=== PATIENT | female | born 1960 | race Hispanic/Latino ===

== ENCOUNTER 2019-04-19 18:47 | Emergency (ER) | payer SELFPAY ==
[2019-04-19 20:18] LABS: Absolute Lymphocytes (CBC) 2.5 K/uL (0.7-4.9); Basophils % 0.4 % (0-1.3); Hematocrit 37.9 % (36.0-45.0); Lymphocytes % 31.3 % (15.3-44.8); MPV 8.7 fL (7.6-11.3); RBC Red Blood Cell Count 4.18 M/uL (3.86-4.86)
[2019-04-19 20:40] LABS: Albumin 3.4 g/dL (3.4-5.0); Bilirubin Direct 0.2 mg/dL (0-0.2); Bilirubin Total 0.5 mg/dL (0.2-1.0); Potassium 3.6 mmol/L (3.5-5.1); Protein, Total 7.5 g/dL (6.4-8.2)
[2019-04-19] MEDS ORDERED: FAMOTIDINE 20 MG/2 ML VIAL IV ONE (20:43)
[2019-04-19] MEDS ORDERED: NA CHLORIDE 0.9% 1,000 ML ONE (20:43)
[2019-04-19] MEDS ORDERED: ONDANSETRON 4 MG/2 ML VIAL ONE (20:43)
[2019-04-19] MEDS ORDERED: MORPHINE 2 MG/ML SYR ONE (20:43)
[2019-04-19 21:17] LABS: Protime INR 1.05
[2019-04-19 21:18] LABS: Magnesium 2.1 mg/dL (1.8-2.4); Troponin (Emerg Dept Use Only) 0.02 ng/mL (0.0-0.045)
[2019-04-19 21:44] LABS: Urine Blood NEGATIVE (NEG); Urine Glucose NEGATIVE (NEG); Urine Protein NEGATIVE (NEG); Urine Specific Gravity 1.025 (1.005-1.030); Urine pH 5.5 (5.0-7.0)
--- NOTE | 2019-04-19 22:11 | ER ---
Nurse's Notes [facility] Name: Jennifer Solorio Age: 58 yrs Sex: Female : 1960 Arrival Date: 04/19/2019 Time: 18:48 Bed 19 Private MD: Diagnosis: Vomiting;Abdominal tenderness-enteritis;Obesity, unspecified;Cholelithiasis Presentation: 04/19 19:13 Presenting complaint: Patient states: pain to LUQ and nausea/vomiting that began 2 days aa5 ago. Denies diarrhea. Transition of care: patient was not received from another setting of care. Onset of symptoms was April 2019. Risk Assessment: Do you want to hurt yourself or someone else? Patient reports no desire to harm self or others. Initial Sepsis Screen: Does the patient meet any 2 criteria? No. Patient's initial sepsis screen is negative. Does the patient have a suspected source of infection? No. Patient's initial sepsis screen is negative. Care prior to arrival: None. 19:13 Acuity: JUDITH 3 aa5 19:13 Method Of Arrival: Ambulatory aa5 19:46 Presenting complaint: Patient states: "I was told I have gal stones and that eventually jd3 I would have a gal bladder attack. I think that is what is happening.". Historical: - Allergies: 19:14 PENICILLINS; aa5 - PMHx: 19:14 Hypertension; aa5 - PSHx: 19:14 None; aa5 - Immunization history:: Adult Immunizations unknown. - Social history:: Smoking status: Patient/guardian denies using tobacco. - Ebola Screening: : No symptoms or risks identified at this time. Screenin:38 Abuse screen: Denies threats or abuse. Nutritional screening: No deficits noted. jd3 Tuberculosis screening: No symptoms or risk factors identified. Fall Risk Ambulatory Aid- None/Bed Rest/Nurse Assist (0 pts). Gait- Normal/Bed Rest/Wheelchair (0 pts) Mental Status- Oriented to own ability (0 pts). Total Aguillon Fall Scale indicates No Risk (0-24 pts). Assessment: 19:36 General: Appears in no apparent distress. uncomfortable, Behavior is calm, cooperative, jd3 appropriate for age. Pain: Complains of pain in abdomen Quality of pain is described as sharp, shooting. Neuro: Level of Consciousness is awake, alert, obeys commands, Oriented to person, place, time, situation. Cardiovascular: Denies chest pain, Capillary refill < 3 seconds Patient's skin is warm and dry. Respiratory: Airway is patent Respiratory effort is even, unlabored, Respiratory pattern is regular, symmetrical, Denies cough, shortness of breath. GI: Abdomen is round non-distended, Bowel sounds present X 4 quads. Abd is soft X 4 quads Abdomen is tender to palpation in right upper quadrant and left upper quadrant Reports upper abdominal pain, nausea, vomiting, Patient currently denies diarrhea. : No signs and/or symptoms were reported regarding the genitourinary system. EENT: No signs and/or symptoms were reported regarding the EENT system. Derm: Skin is intact, Skin is dry, Skin is normal, Skin temperature is warm. Musculoskeletal: Circulation, motion, and sensation intact. Range of motion: intact in all extremities. 20:19 Reassessment: Patient appears in no apparent distress at this time. No changes from jd3 previously documented assessment. Patient and/or family updated on plan of care and expected duration. Pain level reassessed. Patient is alert, oriented x 3, equal unlabored respirations, skin warm/dry/pink. provider at bedside. 20:51 Reassessment: Patient appears in no apparent distress at this time. Patient and/or jd3 family updated on plan of care and expected duration. Pain level reassessed. Patient is alert, oriented x 3, equal unlabored respirations, skin warm/dry/pink. Patient states feeling better. 22:20 Reassessment: Patient appears in no apparent distress at this time. Patient and/or jd3 family updated on plan of care and expected duration. Pain level reassessed. Patient is alert, oriented x 3, equal unlabored respirations, skin warm/dry/pink. awaiting IV medication to infuse before discharge. 23:16 Reassessment: Patient appears in no apparent distress at this time. Patient and/or jd3 family updated on plan of care and expected duration. Pain level reassessed. Patient is alert, oriented x 3, equal unlabored respirations, skin warm/dry/pink. awaiting provider followup before pt discharge. Patient states feeling better. Vital Signs: 19:14 BP 123 / 83; Pulse 78; Resp 16 S; Temp 98.3(O); Pulse Ox 99% on R/A; Weight 104.33 kg aa5 (R); Height 5 ft. 5 in. (165.10 cm) (R); Pain 10/10; 20:51 BP 123 / 66; Pulse 66; Resp 17 S; Pulse Ox 99% on R/A; Pain 5/10; jd3 22:21 BP 112 / 96; Pulse 85; Resp 17 S; Pulse Ox 95% on R/A; jd3 23:15 BP 134 / 81; Pulse 65; Resp 17 S; Pulse Ox 98% on R/A; Pain 3/10; jd3 19:14 Body Mass Index 38.27 (104.33 kg, 165.10 cm) aa5 ED Course: 18:48 Patient arrived in ED. as 19:14 Triage completed. aa5 19:14 Arm band placed on. aa5 19:33 Tyler Phipps, RN is Primary Nurse. jd3 19:38 Patient has correct armband on for positive identification. Bed in low position. Call [facility] light in reach. Side rails up X 1. 19:45 Hermes Fernández MD is Attending Physician. daniel 20:11 Inserted saline lock: 22 gauge in right forearm, using aseptic technique. placed by [address] 20:49 EKG done, by ED staff, reviewed by Hermes Fernández MD. em1 21:[address] via wheelchair. nj 21:14 CT completed. Patient tolerated procedure well. Patient moved back from CT. eh 21:33 XRAY Chest (1 view) In Process Unspecified. EDMS 21:45 CT Abd/Pelvis - IV Contrast Only In Process Unspecified. EDMS 22:10 Matthew Jimenez MD is Referral Physician. daniel 23:33 No provider procedures requiring assistance completed. IV discontinued, intact, jd3 bleeding controlled, No redness/swelling at site. Pressure dressing applied. Administered Medications: 20:50 Drug: NS 0.9% 1000 ml Route: IV; Rate: 1 bolus; Site: right forearm; jd3 23:13 Follow up: Response: No adverse reaction; IV Status: Completed infusion; IV Intake: jd3 1000ml 20:50 Drug: Pepcid 20 mg Route: IVP; Site: right forearm; jd3 21:50 Follow up: Response: No adverse reaction jd3 20:50 Drug: morphine 2 mg Route: IVP; Site: right forearm; jd3 23:14 Follow up: Response: No adverse reaction; RASS: Alert and Calm (0) jd3 20:50 Drug: Zofran 4 mg Route: IVP; Site: right forearm; jd3 21:50 Follow up: Response: No adverse reaction jd3 22:20 Drug: Flagyl 500 mg Volume: 100 ml; Route: IVPB; Rate: 200 ml/hr; Infused Over: 30 jd3 mins; Site: right forearm; 22:50 Follow up: Response: No adverse reaction; IV Status: Completed infusion; IV Intake: jd3 100ml 22:20 Drug: Cipro 500 mg Route: PO; jd3 23:15 Follow up: Response: No adverse reaction jd3 Intake: 22:50 IV: 100ml; Total: 100ml. jd3 23:13 IV: 1000ml; Total: 1100ml. jd3 Outcome: 22:11 Discharge ordered by MD. sanchez 23:33 Discharged to home ambulatory. jd3 23:33 Condition: stable 23:33 Discharge instructions given to patient, Instructed on discharge instructions, follow up and referral plans. medication usage, Demonstrated understanding of instructions, follow-up care, medications, Prescriptions given X 5 23:34 Patient left the ED. jd3 Signatures: Dispatcher [employer] EDMS Hermes Fernández MD MD cha Hagler, Fernandez Hinton, Sylvester Wilson em1 Deborah Penn, RN RN aa5 Franko Castillo Jonathon, RN RN jd3 Corrections: (The following items were deleted from the chart) 23:14 21:50 Response: No adverse reaction jd3 jd3 23:17 23:16 Reassessment: Patient appears in no apparent distress at this time. Patient jd3 and/or family updated on plan of care and expected duration. Pain level reassessed. Patient is alert, oriented x 3, equal unlabored respirations, skin warm/dry/pink. Patient states feeling better. jd3
--- NOTE | 2019-04-19 22:12 | EDPHYS ---
Physician Documentation [facility] Name: Jennifer Solorio Age: 58 yrs Sex: Female : 1960 Arrival Date: 04/19/2019 Time: 18:48 Bed 19 Private MD: ED Physician Hermes Fernández HPI: 04/19 21:48 This 58 yrs old Female presents to ER via Ambulatory with complaints of daniel Vomiting, Abdominal Pain. 21:48 The patient presents to the emergency department with nausea, vomiting, that is daniel intermittent. Onset: The symptoms/episode began/occurred 1 day(s) ago. Possible causes: unknown. The symptoms are aggravated by nothing. The symptoms are alleviated by remaining still. Associated signs and symptoms: The patient has no apparent associated signs or symptoms. Severity of symptoms: At their worst the symptoms were mild moderate in the emergency department the symptoms are unchanged. The patient has not experienced similar symptoms in the past. Historical: - Allergies: 19:14 PENICILLINS; aa5 - PMHx: 19:14 Hypertension; aa5 - PSHx: 19:14 None; aa5 - Immunization history:: Adult Immunizations unknown. - Social history:: Smoking status: Patient/guardian denies using tobacco. - Ebola Screening: : No symptoms or risks identified at this time. ROS: 21:49 Constitutional: Negative for fever, chills, and weight loss, Eyes: Negative for injury, daniel pain, redness, and discharge, ENT: Negative for injury, pain, and discharge, Neck: Negative for injury, pain, and swelling, Cardiovascular: Negative for chest pain, palpitations, and edema, Respiratory: Negative for shortness of breath, cough, wheezing, and pleuritic chest pain, Back: Negative for injury and pain, : Negative for injury, bleeding, discharge, and swelling, MS/Extremity: Negative for injury and deformity, Skin: Negative for injury, rash, and discoloration, Neuro: Negative for headache, weakness, numbness, tingling, and seizure, Psych: Negative for depression, anxiety, suicide ideation, homicidal ideation, and hallucinations, Allergy/Immunology: Negative for hives, rash, and allergies, Endocrine: Negative for neck swelling, polydipsia, polyuria, polyphagia, and marked weight changes, Hematologic/Lymphatic: Negative for swollen nodes, abnormal bleeding, and unusual bruising. 21:49 Abdomen/GI: Positive for abdominal pain, nausea, vomiting, of the left upper quadrant. Exam: 21:49 Constitutional: This is a well developed, well nourished patient who is awake, alert, daniel and in no acute distress. Head/Face: Normocephalic, atraumatic. Eyes: Pupils equal round and reactive to light, extra-ocular motions intact. Lids and lashes normal. Conjunctiva and sclera are non-icteric and not injected. Cornea within normal limits. Periorbital areas with no swelling, redness, or edema. ENT: Nares patent. No nasal discharge, no septal abnormalities noted. Tympanic membranes are normal and external auditory canals are clear. Oropharynx with no redness, swelling, or masses, exudates, or evidence of obstruction, uvula midline. Mucous membranes moist. Neck: Trachea midline, no thyromegaly or masses palpated, and no cervical lymphadenopathy. Supple, full range of motion without nuchal rigidity, or vertebral point tenderness. No Meningismus. Chest/axilla: Normal chest wall appearance and motion. Nontender with no deformity. No lesions are appreciated. Cardiovascular: Regular rate and rhythm with a normal S1 and S2. No gallops, murmurs, or rubs. Normal PMI, no JVD. No pulse deficits. Respiratory: Lungs have equal breath sounds bilaterally, clear to auscultation and percussion. No rales, rhonchi or wheezes noted. No increased work of breathing, no retractions or nasal flaring. Back: No spinal tenderness. No costovertebral tenderness. Full range of motion. Female : Normal external genitalia. Skin: Warm, dry with normal turgor. Normal color with no rashes, no lesions, and no evidence of cellulitis. MS/ Extremity: Pulses equal, no cyanosis. Neurovascular intact. Full, normal range of motion. Neuro: Awake and alert, GCS 15, oriented to person, place, time, and situation. Cranial nerves II-XII grossly intact. Motor strength 5/5 in all extremities. Sensory grossly intact. Cerebellar exam normal. Normal gait. Psych: Awake, alert, with orientation to person, place and time. Behavior, mood, and affect are within normal limits. 21:49 Abdomen/GI: Inspection: abdomen appears normal, Bowel sounds: normal, Palpation: nontender, mild abdominal tenderness, in the left upper quadrant, Liver: no appreciated palpable abnormalities, Hernia: not appreciated. Vital Signs: 19:14 BP 123 / 83; Pulse 78; Resp 16 S; Temp 98.3(O); Pulse Ox 99% on R/A; Weight 104.33 kg aa5 (R); Height 5 ft. 5 in. (165.10 cm) (R); Pain 10/10; 20:51 BP 123 / 66; Pulse 66; Resp 17 S; Pulse Ox 99% on R/A; Pain 5/10; jd3 22:21 BP 112 / 96; Pulse 85; Resp 17 S; Pulse Ox 95% on R/A; jd3 23:15 BP 134 / 81; Pulse 65; Resp 17 S; Pulse Ox 98% on R/A; Pain 3/10; jd3 19:14 Body Mass Index 38.27 (104.33 kg, 165.10 cm) [facility] MDM: 19:45 Patient medically screened. [facility] 21:50 Data reviewed: vital signs, nurses notes, lab test result(s), EKG, radiologic studies, [facility] CT scan, plain films. 04/19 19:46 Order name: Basic Metabolic Panel; Complete Time: 21:47 [facility] 04/19 19:46 Order name: CBC with Diff [facility] 04/19 19:46 Order name: Creatinine for Radiology; Complete Time: 21:47 [facility] 04/19 19:46 Order name: Hepatic Function; Complete Time: 21:47 [facility] 04/19 19:46 Order name: Lipase; Complete Time: 21:47 [facility] 04/19 20:29 Order name: Magnesium; Complete Time: 21:47 [facility] 04/19 20:29 Order name: NT PRO-BNP; Complete Time: 21:47 [facility] 04/19 20:29 Order name: PT-INR; Complete Time: 21:47 [facility] 04/19 20:29 Order name: Troponin (emerg Dept Use Only); Complete Time: 21:47 [facility] 04/19 20:29 Order name: XRAY Chest (1 view) [facility] 04/19 20:29 Order name: CT Abd/Pelvis - IV Contrast Only [facility] 04/19 20:30 Order name: Urine Culture [facility] 04/19 21:32 Order name: Urine Dipstick--Ancillary (enter results) [facility] 04/19 21:45 Order name: Urine Dipstick-Ancillary [facility] 04/19 19:46 Order name: IV Saline Lock; Complete Time: 20:11 [facility] 04/19 19:46 Order name: Labs collected and sent; Complete Time: 20:01 [facility] 04/19 20:29 Order name: EKG; Complete Time: 20:31 [facility] 04/19 20:29 Order name: Cardiac monitoring; Complete Time: 20:49 [facility] 04/19 20:29 Order name: EKG - Nurse/Tech; Complete Time: 20:49 [facility] 04/19 20:29 Order name: O2 Per Protocol; Complete Time: 20:49 [facility] 04/19 20:29 Order name: O2 Sat Monitoring; Complete Time: 20:49 [facility] 04/19 20:30 Order name: Urine Dipstick-Ancillary (obtain specimen); Complete Time: 21:31 [facility] Administered Medications: 20:50 Drug: NS 0.9% 1000 ml Route: IV; Rate: 1 bolus; Site: right forearm; jd3 23:13 Follow up: Response: No adverse reaction; IV Status: Completed infusion; IV Intake: jd3 1000ml 20:50 Drug: Pepcid 20 mg Route: IVP; Site: right forearm; jd3 21:50 Follow up: Response: No adverse reaction jd3 20:50 Drug: morphine 2 mg Route: IVP; Site: right forearm; jd3 23:14 Follow up: Response: No adverse reaction; RASS: Alert and Calm (0) jd3 20:50 Drug: Zofran 4 mg Route: IVP; Site: right forearm; jd3 21:50 Follow up: Response: No adverse reaction jd3 22:20 Drug: Flagyl 500 mg Volume: 100 ml; Route: IVPB; Rate: 200 ml/hr; Infused Over: 30 jd3 mins; Site: right forearm; 22:50 Follow up: Response: No adverse reaction; IV Status: Completed infusion; IV Intake: jd3 100ml 22:20 Drug: Cipro 500 mg Route: PO; jd3 23:15 Follow up: Response: No adverse reaction jd3 Disposition: 04/19/19 22:11 Discharged to Home. Impression: Vomiting, Abdominal tenderness - enteritis, Obesity, unspecified, Cholelithiasis. - Condition is Stable. - Discharge Instructions: Abdominal Pain, Adult, Nausea and Vomiting, Adult, Cholelithiasis, Cholelithiasis, [id number], Nausea and Vomiting, Adult, Anut-yn-Yqco, Abdominal Pain, Adult, Xudz-pd-Xcmw, Obesity, Adult, Dhad-ra-Oqkx. - Prescriptions for Bentyl 20 mg Oral Tablet - take 1 tablet by ORAL route every 6 hours As needed; 20 tablet. Pepcid 20 mg Oral Tablet - take 1 tablet by ORAL route every 12 hours for 10 days; 20 tablet. Zofran 4 mg Oral Tablet - take 1 tablet by ORAL route every 12 hours As needed; 20 tablet. Flagyl 500 mg Oral Tablet - take 1 tablet by ORAL route every 8 hours for 7 days; 21 tablet. Cipro 500 mg Oral Tablet - take 1 tablet by ORAL route every 12 hours for 7 days; 14 tablet. - Medication Reconciliation Form, Thank You Letter, Antibiotic Education, Prescription Opioid Use form. - Work release form (04/20/19 20:15). ak1 - Follow up: Private Physician; When: 2 - 3 days; Reason: Recheck today's complaints, Continuance of care, Re-evaluation by your physician. Follow up: Matthew Jimenez; When: 2 - 3 days; Reason: Recheck today's complaints, Re-evaluation by your physician. - Problem is new. - Symptoms have improved. Signatures: Dispatcher [employer] EDHermes Jean-Baptiste MD MD cha Calderon, Audri, RN RN [email or web address] Tyler Phipps RN RN [email or web address] Eloisa Hdez RN [email or web address] Corrections: (The following items were deleted from the chart) 23:34 22:11 04/19/2019 22:11 Discharged to Home. Impression: Vomiting; Abdominal tenderness - jd3 enteritis; Obesity, unspecified; Cholelithiasis. Condition is Stable. Discharge Instructions: Abdominal Pain, Adult, Nausea and Vomiting, Adult, Nausea and Vomiting, Adult, Xnnb-[id number], Abdominal Pain, Adult, Izgw-df-Gytw, Obesity, Adult, Uecc-df-Puzo. Prescriptions for Bentyl 20 mg Oral Tablet - take 1 tablet by ORAL route every 6 hours As needed; 20 tablet, Pepcid 20 mg Oral Tablet - take 1 tablet by ORAL route every 12 hours for 10 days; 20 tablet, Zofran 4 mg Oral Tablet - take 1 tablet by ORAL route every 12 hours As needed; 20 tablet. and Forms are Medication Reconciliation Form, Thank You Letter, Antibiotic Education, Prescription Opioid Use. Follow up: Private Physician; When: 2 - 3 days; Reason: Recheck today's complaints, Continuance of care, Re-evaluation by your physician. Follow up: Matthew Jimenez; When: 2 - 3 days; Reason: Recheck today's complaints, Re-evaluation by your physician. Problem is new. Symptoms have improved. daniel
[2019-04-19] MEDS ORDERED: CIPROFLOXACIN HCL 500 MG TAB ONE (22:15)
[2019-04-19] MEDS ORDERED: METRONIDAZOLE 500mg IVPB 500 MG/100 ML BAG IV ONE (22:15)
--- NOTE | 2019-04-19 22:55 | RAD REPORT ---
EXAM DESCRIPTION: RAD - Chest Single View - 04/19/2019 9:14 pm CLINICAL HISTORY: ABDOMINAL DISTENTION Chest pain. COMPARISON: Chest Pa And Lat (2 Views) dated 09/10/2016 FINDINGS: Portable technique limits examination quality. The lungs are grossly clear. The heart is normal in size. No displaced fractures. IMPRESSION: No acute intrathoracic process suspected.
[2019-04-19 23:53] VITALS: TEMP 98.3
[2019-04-20 00:43] VITALS: BP 134/81; O2SAT 98
--- NOTE | 2019-04-20 11:09 | EKG ---
Test Date: 2019-04-19 Test Time: 20:42:51 Director Of Advertising Sales: TALON MEASUREMENT RESULTS: Intervals: Rate: 65 GA: 138 QRSD: 76 QT: 430 QTc: 447 [place]: P: 26 GA: 138 QRS: 13 T: 39 INTERPRETIVE STATEMENTS: Normal sinus rhythm Normal ECG Compared to ECG 09/10/2016 20:50:57 No significant changes Electronically Signed On 04-20-19 11:06:18 CDT by Brando Hughes
--- NOTE | 2019-04-21 14:06 | RAD REPORT ---
EXAM DESCRIPTION: Abdomen Pelvis W Contrast CLINICAL HISTORY: Abdominal pain. Nausea and vomiting. TECHNIQUE: CT scan of the abdomen and pelvis was performed with intravenous contrast. 5 mm arterial phase axial images of the abdomen were obtained. 5 mm venous phase axial images of the abdomen and pelvis were obtained along with coronal and sagitta l reformatted images. DOSE OPTIMIZATION: This facility uses dose optimization techniques as appropriate to perform exams, including at least one of the following techniques: 1. Automated exposure control. 2. Adjustment of the mA and/or kV according to patient size (this includes techniques or standardized protocols for targeted exams where dose is matched to the indication/reason for exam, i.e. extremiti es or head). 3. Use of iterative reconstructive technique. INTRAVENOUS CONTRAST: Not documented. Please refer to medical record. COMPARISON: None. FINDINGS: Lung Bases: Normal. Liver: Normal. Spleen: There are granulomatous calcifications. Pancreas: Normal. Gallbladder: There are multiple noncalcified gas-filled gallstones. Adrenal Glands: Normal. Kidneys: Normal. Retroperitoneal Structures: Normal. Bowel Survey: There are multiple mildly distended small bowel loops with short air-fluid levels. There is increased stool identified throughout the colon. The distal ileum is unremarkable. The appendix is unremarkable. Uterus and Adnexa: Normal. Urinary Bladder: Normal. Peritoneal Cavity: Normal. Mesenteric Structures: Normal. Abdominal Wall: There is a small umbilical hernia containing fat. Bony Structures: No suspicious lesions. IMPRESSION: 1. Findings suggestive of enteritis. 2. Increased stool throughout the colon. 3. Cholelithiasis. Electronically signed by: Roque Ta MD 04/19/2019 9:34 PM CDT Due to temporary technical issues with the PACS/Fluency reporting system, reports are being signed by the in house radiologist as a courtesy to ensure prompt reporting. The interpreting radiologist is f ully responsible for the content of the report.
== END 2019-04-19 23:34 | disposition home or self-care (01) ==
LOC: ER 18:47
DX: K52.9 Noninfective gastroenteritis and colitis, unspecified (principal); R11.2 Nausea with vomiting, unspecified; K80.20 Calculus of gallbladder without cholecystitis without obstruction; E66.9 Obesity, unspecified; I10 Essential (primary) hypertension; Z88.0 Allergy status to penicillin
CPT/HCPCS: 36415; 71045; 74177; 80048; 80076; 81003; 83690; 83735; 83880; 84484; 85025; 85610; 87086; 87088; 93005; 96361; 96365; 96375; 99284; J2270; J2405; J7030; Q9967

== ENCOUNTER 2019-09-25 00:45 | Emergency (ER) | payer SELFPAY ==
--- OUTSIDE RECORDS SUMMARY | 2019-09-25 00:47 | XMS REPORT ---
:1960 [facility] [address] [place] [address] Dr. Robles [address] [place] [id number] Care Team Providers Name Role Phone Unavailable Unavailable Unavailable Problems This patient has no known problems. Allergies, Adverse Reactions, Alerts This patient has no known allergies or adverse reactions. Medications This patient has no known medications.
[2019-09-25] MEDS ORDERED: NA CHLORIDE 0.9% 1,000 ML ONE (01:11)
[2019-09-25] MEDS ORDERED: FENTANYL CITR 100 MCG/2 ML ONE (01:17)
[2019-09-25 01:56] LABS: Absolute Lymphocytes (CBC) 3.4 K/uL (0.7-4.9); Basophils % 0.8 % (0-1.3); Hematocrit 39.4 % (36.0-45.0); Lymphocytes % 47.9 % (15.3-44.8); MPV 8.8 fL (7.6-11.3); RBC Red Blood Cell Count 4.43 M/uL (3.86-4.86)
[2019-09-25 02:08] LABS: Albumin 3.4 g/dL (3.4-5.0); Bilirubin Direct 0.1 mg/dL (0-0.2); Bilirubin Total 0.3 mg/dL (0.2-1.0); Protein, Total 7.5 g/dL (6.4-8.2)
--- NOTE | 2019-09-25 02:44 | ER ---
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 00:55 Transition of care: patient was not received from another setting of care. Onset of lp1 symptoms was September 25, 2019. Risk Assessment: Do you want to hurt yourself or someone else? Patient reports no desire to harm self or others. Initial Sepsis Screen: Does the patient meet any 2 criteria? No. Patient's initial sepsis screen is negative. Does the patient have a suspected source of infection? No. Patient's initial sepsis screen is negative. Care prior to arrival: None. 00:55 Method Of Arrival: Wheelchair lp1 00:55 Acuity: JUDITH 3 lp1 Historical: - Allergies: 01:43 PENICILLINS; lp1 - Home Meds: 01:43 Clonidine Oral [Active]; lp1 - PMHx: 01:43 Hypertension; gallstones; lp1 - PSHx: 01:43 None; lp1 - Immunization history:: Adult Immunizations up to date. - Coronavirus screen:: The patient has NOT traveled to [place] in the past 14 days. The patient has NOT had contact with known/suspected case of Coronavirus?. - Social history:: Smoking status: Patient denies any tobacco usage or history of. - Ebola Screening: : No symptoms or risks identified at this time. Screenin:41 Abuse screen: Denies threats or abuse. Denies injuries from another. Nutritional lp1 screening: No deficits noted. Tuberculosis screening: No symptoms or risk factors identified. Fall Risk None identified. Assessment: 01:00 General: Appears uncomfortable, Behavior is anxious. Pain: Complains of pain in lp1 epigastric area Pain currently is 10 out of 10 on a pain scale. Quality of pain is described as sharp, stabbing, Pain began suddenly, Noted to be moaning. Neuro: Level of Consciousness is awake, alert, obeys commands, Oriented to person, place, time, situation. Cardiovascular: Patient's skin is warm and dry. Respiratory: Respiratory effort is even, unlabored. GI: Abdomen is non-distended, Bowel sounds present X 4 quads. Abdomen is tender to palpation in epigastric area. : No signs and/or symptoms were reported regarding the genitourinary system. EENT: No signs and/or symptoms were reported regarding the EENT system. Derm: Skin is pink, warm \\T\\ dry. Musculoskeletal: No deficits noted. 01:35 Reassessment: Patient to CT. lp1 02:01 Reassessment: Patient states returned from CT; pain returning at this time. lp1 02:56 Reassessment: Patient is alert, oriented x 3, equal unlabored respirations, skin lp1 warm/dry/pink. Patient denies pain at this time. Patient states feeling better. Patient states symptoms have improved. Vital Signs: 01:00 BP 169 / 101; Pulse 68; Resp 18; Temp 97.9(O); Pulse Ox 98% on R/A; Weight 97.52 kg lp1 (R); Height 5 ft. 2 in. (157.48 cm); Pain 10/10; 02:01 BP 149 / 93; Pulse 60; Resp 18; Pulse Ox 97% on R/A; Pain 8/10; lp1 02:55 BP 119 / 76; Pulse 59; Resp 18; Pulse Ox 97% on R/A; Pain 0/10; lp1 01:00 Body Mass Index 39.32 (97.52 kg, 157.48 cm) lp1 ED Course: 00:48 Patient arrived in ED. es 00:54 Amina Wilcox FNP-C is PHCP. snw 00:54 Elda Cortez MD is Attending Physician. snw 01:13 Corine Buitrago, ANGEL is Primary Nurse. lp1 01:20 Missed attempt(s): 22 gauge in left antecubital area. Inserted saline lock: 22 gauge in lp1 left forearm, using aseptic technique. 01:25 Radiology exam delayed due to Patient is currently having labs drawn. kw1 01:30 Initial lab(s) drawn, by me, sent to lab. lp1 01:38 Arm band placed on. lp1 01:39 Triage completed. lp1 01:44 Patient has correct armband on for positive identification. Bed in low position. Call lp1 light in reach. Pulse ox on. NIBP on. 02:10 CT Stone Protocol In Process Unspecified. EDMS 02:56 No provider procedures requiring assistance completed. IV discontinued, No lp1 redness/swelling at site. Pressure dressing applied. Administered Medications: 01:17 Drug: NS 0.9% 1000 ml Route: IV; Rate: 125 ml/hr; Site: left forearm; lp1 02:56 Follow up: IV Status: IV converted to saline lock; IV Intake: 300ml lp1 01:17 Drug: fentaNYL (PF) 50 mcg Route: IVP; Site: left forearm; lp1 01:30 Follow up: Response: Pain is decreased; RASS: Alert and Calm (0) lp1 02:00 Drug: TORadol - Ketorolac 15 mg Route: IVP; Site: left forearm; lp1 02:56 Follow up: Response: Pain is decreased lp1 Intake: 02:56 IV: 300ml; Total: 300ml. lp1 Outcome: 02:43 Discharge ordered by MD. snw 02:57 Discharged to home ambulatory, with significant other. lp1 02:57 Condition: good 02:57 Discharge instructions given to patient, Instructed on discharge instructions, follow up and referral plans. medication usage, Demonstrated understanding of instructions, follow-up care, medications, Prescriptions given X 2. 02:57 Patient left the ED. lp1 Signatures: Dispatcher [employer] EDTN Amina Wilcox, ALFREDO ELECTRICAL ASSEMBLY TECHNICIAN-Mable Quiroga Laura, RN RN lp1 Molly Vasquez1
--- NOTE | 2019-09-25 02:45 | EDPHYS ---
Physician Documentation [facility] Name: Jennifer Solorio Age: 58 yrs Sex: Female : 1960 Arrival Date: 09/25/2019 Time: 00:48 Bed 8 Private MD: ED Physician Elda Cortez HPI: 09/25 01:17 This 58 yrs old Female presents to ER via Unassigned with complaints of snw Abdominal Pain. 01:17 The patient presents with abdominal pain in the epigastric area, in the upper abdomen, snw "oh my gallstones". Onset: The symptoms/episode began/occurred suddenly, and became worse. The symptoms do not radiate. The symptoms are described as shooting. Modifying factors: The symptoms are alleviated by nothing. Severity of pain: At its worst the pain was incapacitating. The patient has experienced a previous episode, last month. The patient has not recently seen a physician. dx with cholelithiasis at some point, has not followed up. Pt states she is unable to take it anymore. . Historical: - Allergies: 01:43 PENICILLINS; lp1 - Home Meds: 01:43 Clonidine Oral [Active]; lp1 - PMHx: 01:43 Hypertension; gallstones; lp1 - PSHx: 01:43 None; lp1 - Immunization history:: Adult Immunizations up to date. - Coronavirus screen:: The patient has NOT traveled to [place] in the past 14 days. The patient has NOT had contact with known/suspected case of Coronavirus?. - Social history:: Smoking status: Patient denies any tobacco usage or history of. - Ebola Screening: : No symptoms or risks identified at this time. ROS: 01:17 Constitutional: Negative for fever, chills, and weight loss, Eyes: Negative for injury, snw pain, redness, and discharge, ENT: Negative for injury, pain, and discharge, Neck: Negative for injury, pain, and swelling, Cardiovascular: Negative for chest pain, palpitations, and edema, Respiratory: Negative for shortness of breath, cough, wheezing, and pleuritic chest pain, Back: Negative for injury and pain, : Negative for injury, bleeding, discharge, and swelling, MS/Extremity: Negative for injury and deformity, Skin: Negative for injury, rash, and discoloration, Neuro: Negative for headache, weakness, numbness, tingling, and seizure, Psych: Negative for depression, anxiety, suicide ideation, homicidal ideation, and hallucinations. 01:17 Abdomen/GI: Positive for abdominal pain, nausea, of the right upper quadrant. Exam: 01:07 Constitutional: This is a well developed, well nourished patient who is awake, alert, snw and in no acute distress. Head/Face: Normocephalic, atraumatic. Eyes: Pupils equal round and reactive to light, extra-ocular motions intact. Lids and lashes normal. Conjunctiva and sclera are non-icteric and not injected. Cornea within normal limits. Periorbital areas with no swelling, redness, or edema. ENT: Nares patent. No nasal discharge, no septal abnormalities noted. Tympanic membranes are normal and external auditory canals are clear. Oropharynx with no redness, swelling, or masses, exudates, or evidence of obstruction, uvula midline. Mucous membranes moist. Neck: Trachea midline, no thyromegaly or masses palpated, and no cervical lymphadenopathy. Supple, full range of motion without nuchal rigidity, or vertebral point tenderness. No Meningismus. Chest/axilla: Normal chest wall appearance and motion. Nontender with no deformity. No lesions are appreciated. Cardiovascular: Regular rate and rhythm with a normal S1 and S2. No gallops, murmurs, or rubs. Normal PMI, no JVD. No pulse deficits. Back: No spinal tenderness. No costovertebral tenderness. Full range of motion. Skin: Warm, dry with normal turgor. Normal color with no rashes, no lesions, and no evidence of cellulitis. MS/ Extremity: Pulses equal, no cyanosis. Neurovascular intact. Full, normal range of motion. Neuro: Awake and alert, GCS 15, oriented to person, place, time, and situation. Cranial nerves II-XII grossly intact. Motor strength 5/5 in all extremities. Sensory grossly intact. Cerebellar exam normal. Normal gait. 01:07 Respiratory: the patient does not display signs of respiratory distress, Respirations: shallow respirations, tachypnea, Breath sounds: are clear throughout. 01:07 Abdomen/GI: Inspection: abdomen appears normal, Bowel sounds: normal, Palpation: mild abdominal tenderness, moderate abdominal tenderness, in the right upper quadrant and left upper quadrant. Vital Signs: 01:00 BP 169 / 101; Pulse 68; Resp 18; Temp 97.9(O); Pulse Ox 98% on R/A; Weight 97.52 kg lp1 (R); Height 5 ft. 2 in. (157.48 cm); Pain 10/10; 02:01 BP 149 / 93; Pulse 60; Resp 18; Pulse Ox 97% on R/A; Pain 8/10; lp1 02:55 BP 119 / 76; Pulse 59; Resp 18; Pulse Ox 97% on R/A; Pain 0/10; lp1 01:00 Body Mass Index 39.32 (97.52 kg, 157.48 cm) lp1 MDM: 00:58 Patient medically screened. snw 02:44 Data reviewed: vital signs, nurses notes. Data interpreted: Pulse oximetry: on room air snw is 97 %. Interpretation: normal. Counseling: I had a detailed discussion with the patient and/or guardian regarding: the historical points, exam findings, and any diagnostic results supporting the discharge/admit diagnosis, the presence of at least one elevated blood pressure reading (>120/80) during this emergency department visit, lab results, radiology results, the need for outpatient follow up, to return to the emergency department if symptoms worsen or persist or if there are any questions or concerns that arise at home. Response to treatment: the patient's symptoms have markedly improved after treatment. Special discussion: Based on the history and exam findings, there is no indication for further emergent testing or inpatient evaluation. I discussed with the patient/guardian the need to see the general surgeon for further evaluation of the symptoms. I discussed with the patient/guardian the need to see the primary care provider for further evaluation of the symptoms. 09/25 00:59 Order name: Basic Metabolic Panel; Complete Time: 02:08 snw 09/25 00:59 Order name: CBC with Diff; Complete Time: 02:12 snw 09/25 00:59 Order name: Creatinine for Radiology; Complete Time: 02:02 snw 09/25 00:59 Order name: Hepatic Function; Complete Time: 02:08 snw 09/25 00:59 Order name: Lipase; Complete Time: 02:08 snw 09/25 00:59 Order name: IV Saline Lock; Complete Time: 01:37 snw 09/25 00:59 Order name: Labs collected and sent; Complete Time: 01:37 snw 09/25 00:59 Order name: CT Stone Protocol [facility] Administered Medications: 01:17 Drug: NS 0.9% 1000 ml Route: IV; Rate: 125 ml/hr; Site: left forearm; lp1 02:56 Follow up: IV Status: IV converted to saline lock; IV Intake: 300ml lp1 01:17 Drug: fentaNYL (PF) 50 mcg Route: IVP; Site: left forearm; lp1 01:30 Follow up: Response: Pain is decreased; RASS: Alert and Calm (0) lp1 02:00 Drug: TORadol - Ketorolac 15 mg Route: IVP; Site: left forearm; lp1 02:56 Follow up: Response: Pain is decreased lp1 Disposition: 19:02 Co-signature as Attending Physician, Elda Cortez MD. ma2 Disposition: 09/25/19 02:43 Discharged to Home. Impression: Upper abdominal pain, unspecified, Cholelithiasis - Distended gallbladder. - Condition is Stable. - Discharge Instructions: Abdominal Pain, Adult, Biliary Colic, Adult, Fat and Cholesterol Restricted Diet, Hypertension, Cholelithiasis. - Prescriptions for Bentyl 20 mg Oral Tablet - take 1 tablet by ORAL route every 6 hours As needed; 20 tablet. Tylenol- Codeine #3 300-30 mg Oral Tablet - take 2 tablets by ORAL route every 6 hours As needed; 14 tablet. - Medication Reconciliation Form, Thank You Letter, Antibiotic Education, Prescription Opioid Use form. - Follow up: Emergency Department; When: As needed; Reason: Worsening of condition. Follow up: Private Physician; When: 2 - 3 days; Reason: Recheck today's complaints, Continuance of care, Re-evaluation by your physician. Signatures: Dispatcher [employer] EDMI Amina Wilcox FNP-C BRICK HANDLER-Corine Ruht RN RN lp1 Elda Cortez MD MD ma2 Corrections: (The following items were deleted from the chart) 02:57 02:43 09/25/2019 02:43 Discharged to Home. Impression: Upper abdominal pain, lp1 unspecified; Cholelithiasis - Distended gallbladder. Condition is Stable. Forms are Medication Reconciliation Form, Thank You Letter, Antibiotic Education, Prescription Opioid Use. Follow up: Emergency Department; When: As needed; Reason: Worsening of condition. Follow up: Private Physician; When: 2 - 3 days; Reason: Recheck today's complaints, Continuance of care, Re-evaluation by your physician. snw
[2019-09-25 03:34] VITALS: TEMP 97.9
[2019-09-25 03:36] VITALS: O2SAT 97
[2019-09-25 03:37] VITALS: BP 119/76
--- NOTE | 2019-09-25 10:13 | RAD REPORT ---
EXAM DESCRIPTION: CT - Stone Protocol - 09/25/2019 5:39 am CLINICAL HISTORY: The patient is 58 years old and is Female; ABD PAIN TECHNIQUE: Axial computed tomography images of the abdomen and pelvis without intravenous contrast. Sagittal and coronal reformatted images were created and reviewed. This CT exam was performed usi ng one or more of the following dose reduction techniques: automated exposure control, adjustment o f the mA and/or kV according to patient size, and/or use of iterative reconstruction technique. COMPARISON: CT of the abdomen and pelvis April 19, 2019. FINDINGS: LUNG BASES: Unremarkable. No mass. No consolidation. ABDOMEN: LIVER: Homogeneous without focal mass. GALLBLADDER AND BILE DUCTS: The gallbladder is distended with multiple gallstones present. The g allstones demonstrated central air. The gallbladder wall is normal. There is no ductal dilatation. PANCREAS: Mild fatty infiltration of the pancreas is present. No ductal dilation. SPLEEN: Unremarkable. ADRENALS: Unremarkable. No mass. KIDNEYS AND URETERS: No obstructing stones. No hydronephrosis. No perinephric fluid. STOMACH AND BOWEL: The stomach is distended with food contents. The small bowel is normal in gayla iber. Stool is present throughout colon. There is no mucosal thickening or evidence of bowel obstruct ion. PELVIS: APPENDIX: The appendix is normal in caliber without surrounding inflammation. BLADDER: The bladder is moderately distended. No stones. REPRODUCTIVE: Unremarkable as visualized. ABDOMEN and PELVIS: INTRAPERITONEAL SPACE: Unremarkable. No free air. No significant fluid collection. BONES/JOINTS: No acute fracture. SOFT TISSUES: The soft tissues are normal. VASCULATURE: Unremarkable. No abdominal aortic aneurysm. LYMPH NODES: Unremarkable. No enlarged lymph nodes. IMPRESSION: Cholelithiasis within a distended gallbladder. If there is clinical concern for acute ga llbladder pathology, findings could be further evaluated with ultrasound or HIDA scan. Electronically signed by: Cara Vargas MD 09/25/2019 2:25 AM STRAIGHT LINE PRESS SETTER Due to temporary technical issues with the PACS/Fluency reporting system, reports are being signed by the in house radiologist as a courtesy to ensure prompt reporting. The interpreting radiologist is f ully responsible for the content of the report.
== END 2019-09-25 02:57 | disposition home or self-care (01) ==
LOC: ER 00:45
DX: K80.20 Calculus of gallbladder without cholecystitis without obstruction (principal); K82.8 Other specified diseases of gallbladder; I10 Essential (primary) hypertension; Z88.0 Allergy status to penicillin
CPT/HCPCS: 36415; 74176; 76377; 80048; 80076; 83690; 85025; 96361; 96374; 96375; 99284; J3010; J7030

== ENCOUNTER 2021-05-03 06:24 | Inpatient (IN) | payer SELFPAY ==
[2021-05-03 07:29] LABS: Absolute Lymphocytes (CBC) 2.5 K/uL (0.7-4.9); Basophils % 0.5 % (0-1.3); Hematocrit 42.6 % (36.0-45.0); Lymphocytes % 32.9 % (15.3-44.8); RBC Red Blood Cell Count 4.59 M/uL (3.86-4.86)
[2021-05-03 07:35] LABS: Urine Blood Negative (Negative); Urine Glucose Negative (Negative); Urine Protein Negative (Negative); Urine pH 8.5 (5.0-7.0)
[2021-05-03] MEDS ORDERED: MORPHINE 4 MG/ML SYR ONE (07:43)
[2021-05-03] MEDS ORDERED: ONDANSETRON 4 MG/2 ML VIAL ONE ×3 (07:43→16:36)
[2021-05-03] MEDS ORDERED: NA CHLORIDE 0.9% 1,000 ML ONE (07:43)
[2021-05-03 07:51] LABS: ALT/SGPT 37 U/L (12-78); Albumin 3.4 g/dL (3.4-5.0); Alkaline Phosphatase 97 U/L (45-117); BUN Blood Urea Nitrogen 12 mg/dL (7-18); Bicarbonate 27 mmol/L (21-32); Bilirubin Direct 0.1 mg/dL (0-0.2); Bilirubin Total 0.4 mg/dL (0.2-1.0); Glucose Level 110 mg/dL (74-106); Lipase 178 U/L (73-393); Protein, Total 7.6 g/dL (6.4-8.2); Sodium Level 141 mmol/L (136-145)
[2021-05-03 07:57] LABS: AST/SGOT 35 U/L (15-37); Potassium 4.6 mmol/L (3.5-5.1)
--- NOTE | 2021-05-03 09:54 | RAD REPORT ---
EXAM DESCRIPTION: US - Abdomen Exam Limited - 05/03/2021 7:48 am CLINICAL HISTORY: EPIGASTRIC PAIN COMPARISON: No comparisons FINDINGS: The gallbladder demonstrates several gallstones are present in the gallbladder. Gallbladde r wall is thickened to 5 mm. The common bile duct is normal measuring 5 mm.. The liver demonstrates no findings of intrahepatic biliary dilatation. IMPRESSION: Cholelithiasis with findings of mild acute cholecystitis suspected.
--- NOTE | 2021-05-03 10:59 | EDPHYS ---
Physician Documentation [facility] Name: Jennifer Solorio Age: 60 yrs Sex: Female : 1960 Arrival Date: 05/03/2021 Time: 06:27 Bed 18 Private MD: ETIENNE Physician Sarbjit Hubbard HPI: 05/03 07:08 This 60 yrs old Female presents to ER via Ambulatory with complaints of pm1 Abdominal Pain. 07:08 The patient presents with abdominal pain in the epigastric area. Onset: The pm1 symptoms/episode began/occurred yesterday. The symptoms do not radiate. Associated signs and symptoms: Pertinent positives: nausea, Pertinent negatives: diarrhea, dysuria, fever, vomiting. The symptoms are described as achy. Modifying factors: The symptoms are alleviated by nothing, the symptoms are aggravated by food. Severity of pain: in the emergency department the pain is actually worse. The patient has experienced similar episodes in the past, multiple times, and the symptoms today are exactly the same, to previous gallstones. The patient has been recently seen by a physician: with similar presenting complaints, and apparently given a diagnosis of cholelithiasis at [facility] on multiple occasions and discharged home. Patient reports pain onset after eating chicken and dumplings last night. Patient reports known history of gallstones. Historical: - Allergies: 06:44 PENICILLINS; lh3 - Home Meds: 06:44 Clonidine Oral [Active]; lh3 - PMHx: 06:44 GALLSTONES; Hypertension; lh3 - Immunization history:: Adult Immunizations not up to date. - Social history:: Smoking status: Patient denies any tobacco usage or history of. ROS: 07:08 Constitutional: Negative for fever, chills, and weight loss, Cardiovascular: Negative pm1 for chest pain, palpitations, and edema, Respiratory: Negative for shortness of breath, cough, wheezing, and pleuritic chest pain. 07:08 Back: Negative for injury and pain, MS/Extremity: Negative for injury and deformity, Skin: Negative for injury, rash, and discoloration, Neuro: Negative for headache, weakness, numbness, tingling, and seizure. 07:08 Abdomen/GI: Positive for abdominal pain, nausea, Negative for vomiting, diarrhea, constipation. 07:08 All other systems are negative. Exam: 07:08 Constitutional: This is a well developed, well nourished patient who is awake, alert, pm1 and in no acute distress. Head/Face: Normocephalic, atraumatic. 07:08 Back: No spinal tenderness. No costovertebral tenderness. Full range of motion. Skin: Warm, dry with normal turgor. Normal color with no rashes, no lesions, and no evidence of cellulitis. MS/ Extremity: Pulses equal, no cyanosis. Neurovascular intact. Full, normal range of motion. 07:08 Cardiovascular: Exam negative for acute changes, Rate: normal, Rhythm: regular, Pulses: no pulse deficits are appreciated. 07:08 Respiratory: Exam negative for acute changes, respiratory distress, shortness of breath. 07:08 Abdomen/GI: Inspection: obese Palpation: soft, in all quadrants, mild abdominal tenderness, in the epigastric area. 07:08 Neuro: Exam negative for acute changes, Orientation: is normal, Mentation: is normal, Motor: is normal, moves all fours. 07:08 Eyes: Exam is negative for acute changes, Extraocular movements: intact throughout, pm1 Conjunctiva: no acute changes, no injection. 07:08 ENT: Exam is negative for acute changes, Mouth: Lips: normal, moist, Oral mucosa: normal, pink and intact, moist. Vital Signs: 06:42 BP 130 / 97; Pulse 68; Resp 18; Temp 97.5; Pulse Ox 100% ; Weight 113.4 kg; Height 5 lh3 ft. 4 in. (162.56 cm); 07:26 BP 153 / 101; Pulse 67; Resp 18; Pulse Ox 100% ; tr6 09:00 BP 122 / 73; Pulse 73; Resp 18; Pulse Ox 99% ; tr6 10:00 BP 135 / 82; Pulse 67; Resp 18; Pulse Ox 100% on R/A; tr6 12:00 BP 128 / 76; tr6 06:42 Body Mass Index 42.91 (113.40 kg, 162.56 cm) lh3 MDM: 06:56 Patient medically screened. pm1 07:15 Data reviewed: vital signs. Data interpreted: Pulse oximetry: on room air is 100 %. pm1 Interpretation: normal. 10:57 ED course: Lisinopril 10 mg PO BID. pm1 05/03 07:08 Order name: Basic Metabolic Panel; Complete Time: 08:06 pm1 05/03 07:08 Order name: CBC with Diff; Complete Time: 07:36 pm1 05/03 07:08 Order name: Hepatic Function; Complete Time: 08:06 pm1 05/03 07:08 Order name: Lipase; Complete Time: 08:06 pm1 05/03 07:35 Order name: Urine Dipstick-Ancillary; Complete Time: 07:36 EDMS 05/03 10:59 Order name: COVID-19 : Document "Date of Symptom Onset" if Symptomatic. pm1 05/03 07:08 Order name: IV Saline Lock; Complete Time: 07:15 pm1 05/03 07:08 Order name: US Abdomen Limited; Complete Time: 10:31 pm1 05/03 12:35 Order name: SARS-COV-2 RT PCR EDMS 05/03 07:08 Order name: Labs collected and sent; Complete Time: 07:15 pm1 05/03 07:08 Order name: Urine Dipstick-Ancillary (obtain specimen); Complete Time: 08:33 pm1 Administered Medications: 07:32 Drug: morphine 4 mg Route: IVP; Site: left antecubital; tr6 08:48 Follow up: Response: No adverse reaction tr6 07:32 Drug: Zofran (Ondansetron) 4 mg Route: IVP; Site: left antecubital; tr6 08:48 Follow up: Response: No adverse reaction tr6 07:32 Drug: NS 0.9% 1000 ml Route: IV; Rate: 1000 ml; Site: left antecubital; tr6 08:48 Follow up: Response: No adverse reaction; IV Intake: 1000ml tr6 11:22 Drug: Rocephin (cefTRIAXone) 1 grams Route: IV; Rate: calculated rate; Site: left tr6 antecubital; Disposition Summary: 05/03/21 10:58 Hospitalization Ordered Hospitalization Status: Inpatient Admission pm1 Provider: Rohan Toledo pm1 Location: Telemetry/[facility] (Inpatient) pm1 Condition: Stable pm1 Problem: new pm1 Symptoms: have improved pm1 Bed/Room Type: Standard pm1 Room Assignment: pm1 Diagnosis - Acute cholecystitis pm1 Forms: - Medication Reconciliation Form pm1 - SBAR form pm1 Addendum: 05/07/2021 05:32 Co-signature as Attending Physician, Sarbjit Hubbard MD. m Signatures: Dispatcher [employer] EDMS Silver Martinez, PIN TICKET MACHINE OPERATOR PIN TICKET MACHINE OPERATOR pm1 Sarbjit Hubbard MD MD 7 Leslee Osborn RN RN tr6 Valerie Augustin RN RN lh3
--- NOTE | 2021-05-03 10:59 | ER ---
Nurse's Notes [facility] Name: Jennifer Solorio Age: 60 yrs Sex: Female : 1960 Arrival Date: 05/03/2021 Time: 06:27 Bed 18 Private MD: Diagnosis: Acute cholecystitis Presentation: 05/03 06:42 Chief complaint: Patient states: states that she has had gallstones for quite some time lh3 and has not gotten any relief. States that they will not take them out and has been here 3x within a week. C/O Abdominal pain and vomiting x1 an hour ago. Coronavirus screen: Vaccine status: Patient reports being unvaccinated. Ebola Screen: No symptoms or risks identified at this time. Initial Sepsis Screen: Does the patient meet any 2 criteria? No. Patient's initial sepsis screen is negative. Does the patient have a suspected source of infection? No. Patient's initial sepsis screen is negative. Risk Assessment: Do you want to hurt yourself or someone else? Patient reports no desire to harm self or others. Onset of symptoms was May 03, 2021. 06:42 Method Of Arrival: Ambulatory 3 06:42 Acuity: JUDITH 4 lh3 Triage Assessment: 06:44 General: Appears in no apparent distress. Behavior is calm, cooperative, appropriate lh3 for age. Pain: Complains of pain in abdomen. GI: Reports upper abdominal pain, vomiting. Historical: - Allergies: 06:44 PENICILLINS; lh3 - Home Meds: 06:44 Clonidine Oral [Active]; lh3 - PMHx: 06:44 GALLSTONES; Hypertension; lh3 - Immunization history:: Adult Immunizations not up to date. - Social history:: Smoking status: Patient denies any tobacco usage or history of. Screenin:02 Abuse screen: Denies threats or abuse. Denies injuries from another. Nutritional tr6 screening: No deficits noted. Tuberculosis screening: No symptoms or risk factors identified. Fall Risk None identified. Assessment: 07:20 General: Appears uncomfortable, obese, Behavior is calm, cooperative, appropriate for tr6 age. Pain: Complains of pain in epigastric area and abdomen. Neuro: No deficits noted. Cardiovascular: No deficits noted. Respiratory: No deficits noted. GI: Bowel sounds present X 4 quads. Abdomen is tender to palpation. : No deficits noted. EENT: No deficits noted. Derm: No deficits noted. Musculoskeletal: No deficits noted. 09:13 Reassessment: Patient is alert, oriented x 3, equal unlabored respirations, skin tr6 warm/dry/pink. Patient states symptoms have improved. 10:53 Reassessment: Patient is alert, oriented x 3, equal unlabored respirations, skin tr6 warm/dry/pink. MIKE Martinez at bedside to discuss POC with pt. 12:51 Reassessment: pt transferred to OR via stretcher with CAFETERIA MONITOR. tr6 Vital Signs: 06:42 BP 130 / 97; Pulse 68; Resp 18; Temp 97.5; Pulse Ox 100% ; Weight 113.4 kg; Height 5 lh3 ft. 4 in. (162.56 cm); 07:26 BP 153 / 101; Pulse 67; Resp 18; Pulse Ox 100% ; tr6 09:00 BP 122 / 73; Pulse 73; Resp 18; Pulse Ox 99% ; tr6 10:00 BP 135 / 82; Pulse 67; Resp 18; Pulse Ox 100% on R/A; tr6 12:00 BP 128 / 76; tr6 06:42 Body Mass Index 42.91 (113.40 kg, 162.56 cm) 3 ED Course: 06:27 Patient arrived in ED. wm 06:44 Triage completed. lh3 06:44 Arm band placed on right wrist. lh3 06:56 Silver Martinez NP is PHCP. pm1 06:56 Sarbjit Hubbard MD is Attending Physician. pm1 07:15 Leslee Osborn, ANGEL is Primary Nurse. tr6 07:48 US Abdomen Limited In Process Unspecified. EDMS 08:02 Patient has correct armband on for positive identification. Bed in low position. Call tr6 light in reach. Side rails up X 1. Pulse ox on. NIBP on. Door closed. Noise minimized. Visitors limited. Warm blanket given. Diet: Patient is NPO. 08:02 No provider procedures requiring assistance completed. Inserted saline lock: 20 gauge tr6 in left antecubital area, using aseptic technique. Patient maintains SpO2 saturation greater than 95% on room air. 10:57 Rohan Toledo MD is Hospitalizing Provider. pm1 12:52 Patient admitted, IV remains in place. tr6 Administered Medications: 07:32 Drug: morphine 4 mg Route: IVP; Site: left antecubital; tr6 08:48 Follow up: Response: No adverse reaction tr6 07:32 Drug: Zofran (Ondansetron) 4 mg Route: IVP; Site: left antecubital; tr6 08:48 Follow up: Response: No adverse reaction tr6 07:32 Drug: NS 0.9% 1000 ml Route: IV; Rate: 1000 ml; Site: left antecubital; tr6 08:48 Follow up: Response: No adverse reaction; IV Intake: 1000ml tr6 11:22 Drug: Rocephin (cefTRIAXone) 1 grams Route: IV; Rate: calculated rate; Site: left tr6 antecubital; Intake: 08:48 IV: 1000ml; Total: 1000ml. tr6 Outcome: 10:58 Decision to Hospitalize by Provider. pm1 12:52 Admitted to tr6 12:52 Condition: stable 12:52 Instructed on the need for admit, Demonstrated understanding of instructions, follow-up care. 12:53 Patient left the ED. tr6 Signatures: Dispatcher [employer] EDMS Silver Martinez NP CALL CENTER SUPERVISOR pm1 Leslee Osborn RN RN tr6 [place] Latisha, RN RN lh3
[2021-05-03] MEDS ORDERED: NA CHLORIDE 0.9% 200 ML ONE (11:40)
[2021-05-03] MEDS ORDERED: CEFTRIAXONE 1000 MG/VIAL ONE (11:40)
[2021-05-03] MEDS ORDERED: METRONIDAZOLE 500mg IVPB 500 MG/100 ML BAG IV ONE (11:40)
[2021-05-03] MEDS ORDERED: Ringers Lactate 1,000 ML IV ONE (13:20)
[2021-05-03] MEDS ORDERED: FENTANYL CITR 100 MCG/2 ML ONE (13:27)
[2021-05-03] MEDS ORDERED: MIDAZOLAM HCL 2 MG/2 ML INJ ONE ×2 (13:27→16:24)
[2021-05-03] MEDS ORDERED: propofoL 200 MG/20 ML VIAL IV ONE (13:27)
[2021-05-03] MEDS ORDERED: dexAMETHasone 4 MG/ML VIAL ONE (13:28)
[2021-05-03] MEDS ORDERED: LIDOCAINE 1% MPF 5 ML VIAL ONE (13:28)
[2021-05-03] MEDS ORDERED: GLYCOPYRROLATE 0.2 MG/ML SYR ONE (13:28)
[2021-05-03] MEDS ORDERED: NEOSTIGMINE 1 MG/ML -5 ML ONE (13:28)
[2021-05-03] MEDS ORDERED: KETOROLAC 30 MG/ML INJ ONE (13:29)
[2021-05-03] MEDS ORDERED: MORPHINE 10 MG/ML VIAL ONE (13:29)
[2021-05-03] MEDS ORDERED: ROCURONIUM 50 MG/5 ML VIAL IV ONE (13:29)
--- NOTE | 2021-05-03 13:53 | P.HP ---
Date of Service: 05/03/21 PC: This 60-year-old female presented to the emergency room with severe right upper quadrant abdominal pain for diagnosis and treatment. HPC: Patient has had abdominal pain for the last few days. Has been to other emergency room's, but was discharged. She presented to our facility after having eaten some chicken and dumplings. Since that time she has had nothing but severe abdominal pain, radiating into her back, right between her shoulder blades. She says the pain is worse than childbirth. PSHx: Negative PMHx: Hypertension Social Hx: Patient states blood pressure medication, states she is allergic to penicillin Sys R: No cough, wheeze, shortness of breath. No chest pain or palpitations. Denies any urinary complaints. O/E: Awake alert vital signs are stable, in mild distress at the moment. HEENT: Not jaundiced Chest: Air entry is equal bilaterally Abd: Tender in the right upper quadrant [place]: Intact Data: Has documented gallstones on ultrasound Impression: Cholecystitis with cholelithiasis, biliary colic Plan: I will taken to the operating room for laparoscopic possible open cholecystectomy. We will also do a cholangiogram. The risks of these procedures have been discussed. The possibility of bleeding, infection, injury to bile ducts blood vessels and intestines has been described. The possible need for an open and/or further surgeries and procedures was discussed. She understands and wants us to proceed.
--- NOTE | 2021-05-03 15:17 | P.OP ---
Preoperative diagnosis: Acute on chronic cholecystitis with cholelithiasis Postoperative diagnosis: Hydrops of the gallbladder Primary procedure: Laparoscopic cholecystectomy Secondary procedure: Cholangiogram Other procedure(s): Tap block Anesthesia: General Estimated blood loss: Less than 20 cc Specimen: 1 gallbladder and contents Operative Technique: The patient brought the operating room and placed supine on the table. After the induction of adequate general endotracheal anesthesia, the area of the abdomen was prepped with a DuraPrep solution, and she was draped in usual aseptic manner. A subumbilical incision was made. This was brought down through the skin and subcutaneous tissue. The Visiport was now used to enter the peritoneal cavity and created pneumoperitoneum to approximately 12 mmHg. Under direct vision a 5 mm trocar was placed in the upper midline, and 2 other 5 mm trochars on the right lateral side of the abdomen. The patient was then placed in reverse Trendelenburg. The bed was then rolled to the left. We could visualize the right upper quadrant. We did see a markedly distended and chronically inflamed gallbladder with the definite acute component. A grasper was placed on the fundus of the gallbladder. Another was placed down towards what appeared to be Allen's pouch. Gentle dissection was done to mobilize the intense chronic adhesions around Allen's pouch. These were taken down using blunt and sharp dissection. We were finally able to free up in a suction of the area around Allen's pouch. Gentle dissection allowed us to create the critical view with the cystic duct and artery in view. Clip was placed between the gallbladder and the cystic duct. An opening was made into the cystic duct through which we obta ined a intraoperative cholangiogram. The cholangiogram demonstrated no filling defects. There was good flow of contrast into the duodenum. The catheter was now removed. Clips were placed on the distal portion of the cystic duct. The cystic artery was now identified. It was clipped and divided in the usual manner. There is thickened chronically inflamed with a strong acute component and edema in the wall gallbladder was now dissected out from the liver bed, placed into an Endo Catch, and brought out through the umbilical trocar site. HR also be noted she had a very prominent hepatic ligament. Because of this a Endo Close was used to pass the suture down around this so we could apply traction and retracted out of the way. This stitch was removed. The pneumoperitoneum was now collapsed, the t rochars removed after having approximated the umbilical defect once again using the Endo Close and an absorbable suture. [place] were then applied to the skin. At the end of the procedure she was in a stable condition was sent to the recovery room. Needle sponge and instrument count were correct. No drains were placed. Condition: Good
[2021-05-03] MEDS ORDERED: MORPHINE 4 MG/ML SYR IV PRN (15:38)
[2021-05-03] MEDS ORDERED: ONDANSETRON 4 MG/2 ML VIAL IV PRN (15:38)
--- NOTE | 2021-05-03 15:41 | RAD REPORT ---
EXAM DESCRIPTION: RAD - Cholangiogram Oper-Xray Or - 05/03/2021 3:33 pm CLINICAL HISTORY: LAP MANJEET WITH DOCTOR MURIEL WITH IOC COMPARISON: Abdomen Exam Limited dated 05/03/2021 FINDINGS: Contrast injection was performed by operating surgeon. Common bile duct appears mildly prominent in size without evidence of a retained stone. Total fluoro time: 0.2 minutes. Two fluoroscopic images submitted. IMPRESSION: No evidence of retained common duct stone.
[2021-05-03] MEDS: HYDROMORPHONE HCL 1 MG/ML INJ ONE ×2 (15:43→16:13)
[2021-05-03] MEDS ORDERED: HYDROMORPHONE HCL 1 MG/ML INJ ONE (15:56)
[2021-05-03] MEDS ORDERED: PROMETHAZINE INJ 25 MG/ML AMP ONE (15:59)
[2021-05-03] MEDS ORDERED: METOCLOPRAMIDE 10 MG/2mL INJ ONE (16:10)
[2021-05-03 16:16] VITALS: O2SAT 99
[2021-05-03] MEDS ORDERED: SCOPOLAMINE HYDROBROMIDE PATCH TD ONE (16:24)
[2021-05-03 18:00] VITALS: BMI 42.9
[2021-05-03] MEDS: NA CHLORIDE 0.9% 1,000 ML IV SCH (18:30)
[2021-05-03] MEDS: METRONIDAZOLE 500mg IVPB 500 MG/100 ML BAG IV SCH (18:31)
[2021-05-03] MEDS: MORPHINE 4 MG/ML SYR IV PRN (18:36)
[2021-05-03] MEDS: CEFTRIAXONE 1 GM/NS 50 ML 1 GM/50 ML BAG IV SCH (21:36)
[2021-05-03] MEDS: HYDROCODONE/APAP 7.5/325 MG TAB PO PRN (21:47)
[2021-05-04] MEDS: METRONIDAZOLE 500mg IVPB 500 MG/100 ML BAG IV SCH ×3 (00:22→16:37)
[2021-05-04] MEDS: MORPHINE 4 MG/ML SYR IV PRN ×4 (00:23→16:37)
[2021-05-04] MEDS: NA CHLORIDE 0.9% 1,000 ML IV SCH ×2 (00:23→11:38)
[2021-05-04 05:53] LABS: Absolute Lymphocytes (CBC) 1.9 K/uL (0.7-4.9); Basophils % 0.2 % (0-1.3); Hematocrit 36.2 % (36.0-45.0); Lymphocytes % 23.9 % (15.3-44.8); RBC Red Blood Cell Count 3.92 M/uL (3.86-4.86)
[2021-05-04 06:12] LABS: ALT/SGPT 38 U/L (12-78); Alkaline Phosphatase 86 U/L (45-117); BUN Blood Urea Nitrogen 12 mg/dL (7-18); Bicarbonate 28 mmol/L (21-32); Bilirubin Direct < 0.1 mg/dL (0-0.2); Bilirubin Total 0.2 mg/dL (0.2-1.0); Glucose Level 131 mg/dL (74-106); Lipase 118 U/L (73-393); Protein, Total 7.1 g/dL (6.4-8.2); Sodium Level 140 mmol/L (136-145)
[2021-05-04 06:15] LABS: AST/SGOT 37 U/L (15-37); Potassium 4.6 mmol/L (3.5-5.1)
[2021-05-04] MEDS: CEFTRIAXONE 1 GM/NS 50 ML 1 GM/50 ML BAG IV SCH (09:48)
[2021-05-04] MEDS: HYDROCODONE/APAP 7.5/325 MG TAB PO PRN (09:48)
[2021-05-04 18:19] VITALS: BP 176/90; TEMP 97.4
--- NOTE | 2021-05-04 19:00 | P.PN ---
Date of Service: 05/04/21 S: Patient feels better today, has been up ambulating, tolerating a diet. Still has some shortness around incision sites but otherwise well. O: Incisions are clean A: Surgically stable P: Discharge home
== END 2021-05-04 18:49 | disposition home or self-care (01) | DRG 418 ==
LOC: ER 06:24 → ERHOLD 11:16 → 2ND 14:03
PROVIDERS: ADMIT Surgery; ATTEND Surgery
PROC: BF00YZZ Plain Radiography of Bile Ducts using Other Contrast (ICD-10-PCS; 2021-05-03)
PROC: 0FT44ZZ Resection of Gallbladder, Percutaneous Endoscopic Approach (ICD-10-PCS; principal; 2021-05-03 13:30)
DX: K80.12 Calculus of gallbladder with acute and chronic cholecystitis without obstruction (principal); K82.1 Hydrops of gallbladder; I10 Essential (primary) hypertension; Z88.0 Allergy status to penicillin; Z20.822 Contact with and (suspected) exposure to COVID-19
CPT/HCPCS: 36415; 74300; 76705; 80048; 80076; 81003; 83690; 85025; 88304; 96374; 96375; 99285; J0696; J1100; J1170; J2250; J2405; J2550; J2704; J2710; J2765; J3010; J7030; J7120; U0003

== ENCOUNTER 2021-05-10 18:54 | Emergency (ER) | payer SELFPAY ==
[2021-05-10 19:57] LABS: Absolute Lymphocytes (CBC) 3.4 K/uL (0.7-4.9); Basophils % 0.6 % (0-1.3); Hematocrit 40.5 % (36.0-45.0); Lymphocytes % 42.9 % (15.3-44.8); RBC Red Blood Cell Count 4.44 M/uL (3.86-4.86)
[2021-05-10 20:14] LABS: ALT/SGPT 36 U/L (12-78); AST/SGOT 25 U/L (15-37); Albumin 3.4 g/dL (3.4-5.0); Alkaline Phosphatase 108 U/L (45-117); BUN Blood Urea Nitrogen 15 mg/dL (7-18); Bicarbonate 27 mmol/L (21-32); Bilirubin Direct < 0.1 mg/dL (0-0.2); Bilirubin Total 0.2 mg/dL (0.2-1.0); Glucose Level 116 mg/dL (74-106); Lipase 327 U/L (73-393); Potassium 3.9 mmol/L (3.5-5.1); Sodium Level 143 mmol/L (136-145)
[2021-05-10] MEDS ORDERED: FAMOTIDINE 20 MG/2 ML VIAL IV ONE (20:33)
[2021-05-10] MEDS ORDERED: NA CHLORIDE 0.9% 1,000 ML ONE (20:33)
[2021-05-10] MEDS ORDERED: MORPHINE 4 MG/ML SYR ONE (20:33)
[2021-05-10] MEDS ORDERED: ONDANSETRON 4 MG/2 ML VIAL ONE (20:33)
--- NOTE | 2021-05-10 20:59 | RAD REPORT ---
EXAM DESCRIPTION: CTAbdomen Pelvis W Contrast - 05/10/2021 8:46 pm CLINICAL HISTORY: . s/p cholecystectomy;Abd pain COMPARISON: Abdomen Pelvis W Contrast dated 04/19/2019 TECHNIQUE: Biphasic CT imaging of the abdomen and pelvis was performed with 100 ml non-ionic IV cont rast. All CT scans are performed using dose optimization technique as appropriate and may include automated exposure control or mA/KV adjustment according to patient size. FINDINGS: Lower chest: No acute abnormality. Liver: No acute abnormality or suspicious lesions. Biliary: Surgical changes from recent cholecystectomy. There is trace fluid at the gallbladder fossa. Stomach: No significant focal abnormality. Duodenum: No significant focal abnormality. Pancreas: No significant abnormality. Spleen: No significant abnormality. Adrenal: No suspicious lesions. Kidney/ureter: No hydronephrosis. No renal calculi. Retroperitoneum: No retroperitoneal adenopathy. Vascular: No aneurysm. Bowel: No significant focal abnormality. Normal appendix. Peritoneum: Fat containing periumbilical hernia. Small fat containing umbilical hernia. Bladder: Grossly unremarkable. Reproductive: No adnexal masses. Bones: No acute fracture. Other: n/a IMPRESSION: Surgical changes from recent cholecystectomy. No complicating features identified. No ac beverly intra-abdominal abnormality.
[2021-05-10 21:46] LABS: Urine Blood Negative (Negative); Urine Glucose Negative (Negative); Urine Protein Negative (Negative); Urine Specific Gravity 1.015 (1.005-1.030); Urine pH 7.5 (5.0-7.0)
--- NOTE | 2021-05-10 21:50 | EDPHYS ---
Physician Documentation [facility] Name: Jennifer Solorio Age: 60 yrs Sex: Female : 1960 Arrival Date: 05/10/2021 Time: 18:58 Bed 20 Private MD: ED Physician Sarbjit Hubbard HPI: 05/10 19:45 This 60 yrs old Female presents to ER via Ambulatory with complaints of mh7 Abdominal Burn, Abdominal Pain. 19:45 The patient presents with abdominal pain in the upper abdomen. mh7 19:45 Onset: The symptoms/episode began/occurred 3 day(s) ago. The symptoms do not radiate. mh7 19:45 Associated signs and symptoms: Pertinent positives: nausea and vomiting, Pertinent mh7 negatives: anorexia, blood in stools, chest pain, constipation, diarrhea, dysuria, fever, headache, hematuria, palpitations, shortness of breath, vaginal discharge, vomiting blood. 19:45 The symptoms are described as intermittent, vague, waxing/waning. Modifying factors: mh7 The symptoms are alleviated by nothing, the symptoms are aggravated by nothing. Severity of pain: At its worst the pain was moderate 2 day(s) ago, in the emergency department the pain is unchanged despite home interventions. The patient has been recently been admitted at [facility], was discharged last week. Patient had cholecystectomy done here 05/04/21. She reports pain and bruising to upper abdominal area over the last few days. Denies any fever, chest pain, shortness of breath, cough, diarrhea, dysuria.. Historical: - Allergies: 19:04 PENICILLINS; hb - Home Meds: 22:38 Clonidine Oral [Active]; bs2 - PMHx: 19:04 GALLSTONES; Hypertension; hb - PSHx: 19:04 Cholecystectomy; hb - Immunization history:: Client reports having NOT received the Covid vaccine. Flu vaccine is not up to date. - Social history:: Smoking status: Patient denies any tobacco usage or history of. ROS: 19:45 Constitutional: Negative for fever, chills, and weight loss, Eyes: Negative for injury, mh7 pain, redness, and discharge, ENT: Negative for injury, pain, and discharge, Neck: Negative for injury, pain, and swelling, Cardiovascular: Negative for chest pain, palpitations, and edema, Respiratory: Negative for shortness of breath, cough, wheezing, and pleuritic chest pain, Back: Negative for injury and pain, : Negative for injury, bleeding, discharge, and swelling, MS/Extremity: Negative for injury and deformity, Neuro: Negative for headache, weakness, numbness, tingling, and seizure. 19:45 Psych: Negative for depression, anxiety, suicide ideation, homicidal ideation, and hallucinations, Allergy/Immunology: Negative for hives, rash, and allergies, Endocrine: Negative for neck swelling, polydipsia, polyuria, polyphagia, and marked weight changes, Hematologic/Lymphatic: Negative for swollen nodes, abnormal bleeding, and unusual bruising. 19:45 Skin: Positive for ecchymosis. Exam: 19:45 Constitutional: This is a well developed, well nourished patient who is awake, alert, mh7 and in no acute distress. Head/Face: Normocephalic, atraumatic. Eyes: Pupils equal round and reactive to light, extra-ocular motions intact. Lids and lashes normal. Conjunctiva and sclera are non-icteric and not injected. Cornea within normal limits. Periorbital areas with no swelling, redness, or edema. Neck: Trachea midline, no thyromegaly or masses palpated, and no cervical lymphadenopathy. Supple, full range of motion without nuchal rigidity, or vertebral point tenderness. No Meningismus. Chest/axilla: Normal chest wall appearance and motion. Nontender with no deformity. No lesions are appreciated. Cardiovascular: Regular rate and rhythm with a normal S1 and S2. No gallops, murmurs, or rubs. Normal PMI, no JVD. No pulse deficits. Respiratory: Lungs have equal breath sounds bilaterally, clear to auscultation and percussion. No rales, rhonchi or wheezes noted. No increased work of breathing, no retractions or nasal flaring. 19:45 Back: No spinal tenderness. No costovertebral tenderness. Full range of motion. 19:45 MS/ Extremity: Pulses equal, no cyanosis. Neurovascular intact. Full, normal range of motion. Neuro: Awake and alert, GCS 15, oriented to person, place, time, and situation. Cranial nerves II-XII grossly intact. Motor strength 5/5 in all extremities. Sensory grossly intact. Cerebellar exam normal. Normal gait. Psych: Awake, alert, with orientation to person, place and time. Behavior, mood, and affect are within normal limits. 19:45 Abdomen/GI: Inspection: bruising, umbilical area, right upper quadrant and left upper quadrant, obese scar(s), are noted in the umbilical area, right upper quadrant and left upper quadrant, Bowel sounds: normal, in all quadrants, Palpation: mild abdominal tenderness, in the umbilical area, right upper quadrant and left upper quadrant, mass, is not appreciated, rebound tenderness, is not appreciated, voluntary guarding, is not appreciated, involuntary guarding, is not appreciated, no appreciated organomegaly, Rectal exam: the exam is deferred, because of patient request, Indicators: McBurney's point is not tender, Turner's sign is negative, Rovsing's sign is negative, Obturator sign is negative, Psoas sign is negative, Liver: no appreciated palpable abnormalities, Hernia: not appreciated. 19:45 Skin: Areas of ecchymosis on upper abdomen at surgical sites. No erythema, swelling, discharge.. Vital Signs: 19:03 BP 139 / 91; Pulse 80; Resp 20; Temp 98.5; Pulse Ox 100% on R/A; Pain 9/10; hb 22:39 BP 148 / 80; Pulse 80; Resp 17; Temp 98.7; Pulse Ox 100% ; Pain 2/10; bs2 MDM: 21:47 Differential diagnosis: bowel obstruction, diverticulitis, gastritis, gastroesophageal mh7 reflux disease, non-specific abd pain, pancreatitis, Peptic Ulcer Disease, Pyelonephritis, Ureterolithiasis, urinary tract infection. Data reviewed: vital signs, nurses notes, old medical records, lab test result(s), CBC, electrolytes, urinalysis, EKG, radiologic studies, CT scan. Data interpreted: Pulse oximetry: on room air is 100 %. Interpretation: normal. Counseling: I had a detailed discussion with the patient and/or guardian regarding: the historical points, exam findings, and any diagnostic results supporting the discharge/admit diagnosis, the presence of at least one elevated blood pressure reading (>120/80) during this emergency department visit, lab results, radiology results, the need for outpatient follow up, to return to the emergency department if symptoms worsen or persist or if there are any questions or concerns that arise at home. Response to treatment: the patient's symptoms have resolved after treatment, the patient's blood pressure is in an acceptable range, mental status has returned to baseline, the patient no longer shows bradycardia, the patient is not short of breath, the patient is not tachycardic, the patient's pain is gone, the patient's temperature has normalized. 21:49 Patient medically screened. [facility] 05/10 19:50 Order name: Basic Metabolic Panel; Complete Time: 20:27 [facility] 05/10 19:50 Order name: CBC with Diff; Complete Time: 20:27 [facility] 05/10 19:50 Order name: Hepatic Function; Complete Time: 20:27 [facility] 05/10 19:50 Order name: Lipase; Complete Time: 20:27 [facility] 05/10 19:51 Order name: CT Abd/Pelvis - IV Contrast Only; Complete Time: 21:06 [facility] 05/10 21:46 Order name: Urine Dipstick-Ancillary; Complete Time: 21:47 [facility] 05/10 19:50 Order name: IV Saline Lock; Complete Time: 22:24 [facility] 05/10 19:50 Order name: Labs collected and sent; Complete Time: 22:25 [facility] 05/10 19:50 Order name: Urine Dipstick-Ancillary (obtain specimen); Complete Time: 22:24 [facility] 05/10 19:50 Order name: EKG; Complete Time: 19:50 [facility] 05/10 19:50 Order name: EKG - Nurse/Tech; Complete Time: 22:24 7 Administered Medications: 20:14 Drug: morphine 4 mg Route: IVP; Site: left forearm; kc4 22:26 Follow up: Response: No adverse reaction bs2 20:14 Drug: Zofran (Ondansetron) 4 mg Route: IVP; Site: left forearm; kc4 22:26 Follow up: Response: No adverse reaction bs2 20:14 Drug: Pepcid (famotidine) 20 mg Route: IVP; Site: left forearm; kc4 22:25 Follow up: Response: No adverse reaction bs2 20:14 Drug: NS 0.9% 1000 ml Route: IV; Rate: 1000 ml; Site: left forearm; kc4 22:26 Follow up: IV Status: Completed infusion; IV Intake: 1000ml bs2 Disposition Summary: 05/10/21 21:49 Discharge Ordered Location: Home [facility] Problem: an ongoing problem [facility] Symptoms: have improved [facility] Condition: Stable [facility] Diagnosis - Upper abdominal pain, unspecified - s/p Cholecystectomy [facility] - Nausea with vomiting, unspecified [facility] Followup: [facility] - With: Private Physician - When: 2 - 3 days - Reason: Worsening of condition, Recheck today's complaints, Continuance of care, Re-evaluation by your physician Followup: [facility] - With: Rohan Toledo MD - When: 2 - 3 days - Reason: Worsening of condition, Recheck today's complaints, Continuance of care, Re-evaluation by your physician Discharge Instructions: - Discharge Summary Sheet [facility] - Nausea and Vomiting, Adult [facility] - Abdominal Pain, Adult, [id number] [facility] - Cholecystostomy, Care After [facility] Forms: - Medication Reconciliation Form [facility] - Thank You Letter [facility] - Antibiotic Education [facility] - Prescription Opioid Use [facility] Prescriptions: - ondansetron 4 mg Oral tablet,disintegrating - place 1 tablet by TRANSLINGUAL route every 8 hours As needed; 10 tablet; [facility] Refills: 0, Product Selection Permitted - Pepcid 20 mg Oral Tablet - take 1 tablet by ORAL route every 12 hours for 5 days; 10 tablet; Refills: 0, [facility] Product Selection Permitted - Tramadol 50 mg Oral Tablet - take 1 tablet by ORAL route every 8 hours as needed; 12 tablet; Refills: 0, [facility] Product Selection Permitted Signatures: Dispatcher [employer] Maria G Cross RN RN Sarbjit Hubbard MD MD 7 Malissa Solares RN RN 2 Mechelle Dawson [facility]
--- NOTE | 2021-05-10 21:50 | ER ---
Nurse's Notes [facility] Name: Jennifer Solorio Age: 60 yrs Sex: Female : 1960 Arrival Date: 05/10/2021 Time: 18:58 Bed 20 Private MD: Diagnosis: Upper abdominal pain, unspecified-s/p Cholecystectomy;Nausea with vomiting, unspecified Presentation: 05/10 19:03 Chief complaint: Cholecystectomy on 05/04, c/o worsening upper abdominal pain over last hb 2-3 days and vomiting since this morning. Coronavirus screen: At this time, the client does not indicate any symptoms associated with coronavirus-19. Ebola Screen: No symptoms or risks identified at this time. Risk Assessment: Do you want to hurt yourself or someone else? Patient reports no desire to harm self or others. Onset of symptoms was May 10, 2021. 19:03 Method Of Arrival: Ambulatory hb 19:03 Acuity: JUDITH 3 hb 22:38 Initial Sepsis Screen: Does the patient meet any 2 criteria? No. Patient's initial bs2 sepsis screen is negative. Does the patient have a suspected source of infection? No. Patient's initial sepsis screen is negative. Triage Assessment: 22:37 Injury Description: bs2 Historical: - Allergies: 19:04 PENICILLINS; hb - Home Meds: 22:38 Clonidine Oral [Active]; bs2 - PMHx: 19:04 GALLSTONES; Hypertension; hb - PSHx: 19:04 Cholecystectomy; hb - Immunization history:: Client reports having NOT received the Covid vaccine. Flu vaccine is not up to date. - Social history:: Smoking status: Patient denies any tobacco usage or history of. Screenin:30 Abuse screen: Denies threats or abuse. Denies injuries from another. Nutritional bs2 screening: No deficits noted. Tuberculosis screening: No symptoms or risk factors identified. Fall Risk None identified. Assessment: 19:30 General: Appears in no apparent distress. uncomfortable, obese, well developed, bs2 Behavior is cooperative, appropriate for age, anxious. Pain: Complains of pain in left upper quadrant and right upper quadrant and umbilical area Pain currently is 8 out of 10 on a pain scale. Neuro: No deficits noted. Cardiovascular: No deficits noted. Respiratory: No deficits noted. GI: No signs and/or symptoms were reported involving the gastrointestinal system. : No signs and/or symptoms were reported regarding the genitourinary system. EENT: No signs and/or symptoms were reported regarding the EENT system. Derm: Reports itching, pain pt has neal from cholecystectomy and is worried about infection, no signs of infection are seen, neal look good normal redness no drainage or fever . Vital Signs: 19:03 BP 139 / 91; Pulse 80; Resp 20; Temp 98.5; Pulse Ox 100% on R/A; Pain 9/10; hb 22:39 BP 148 / 80; Pulse 80; Resp 17; Temp 98.7; Pulse Ox 100% ; Pain 2/10; bs2 ED Course: 18:58 Patient arrived in ED. ja2 19:04 Triage completed. hb 19:04 Arm band placed on. hb 19:20 Sarbjit Hubbard MD is Attending Physician. mh7 19:30 Patient has correct armband on for positive identification. Placed in gown. Bed in low bs2 position. Call light in reach. Side rails up X 1. Pulse ox on. NIBP on. Door closed. Warm blanket given. 19:30 No provider procedures requiring assistance completed. bs2 19:35 Missed attempt(s): 22 gauge in right forearm. Inserted saline lock: 22 gauge in left lp1 forearm, using aseptic technique. 20:03 Mechelle Dawson is Primary Nurse. kc4 20:46 CT Abd/Pelvis - IV Contrast Only In Process Unspecified. EDMS 21:48 Rohan Toledo MD is Referral Physician. mh7 22:38 IV discontinued, intact, bleeding controlled, No redness/swelling at site. bs2 Administered Medications: 20:14 Drug: morphine 4 mg Route: IVP; Site: left forearm; kc4 22:26 Follow up: Response: No adverse reaction bs2 20:14 Drug: Zofran (Ondansetron) 4 mg Route: IVP; Site: left forearm; kc4 22:26 Follow up: Response: No adverse reaction bs2 20:14 Drug: Pepcid (famotidine) 20 mg Route: IVP; Site: left forearm; kc4 22:25 Follow up: Response: No adverse reaction bs2 20:14 Drug: NS 0.9% 1000 ml Route: IV; Rate: 1000 ml; Site: left forearm; kc4 22:26 Follow up: IV Status: Completed infusion; IV Intake: 1000ml bs2 Intake: 22:26 IV: 1000ml; Total: 1000ml. bs2 Outcome: 21:49 Discharge ordered by MD. quintana 22:39 Discharged to home ambulatory, with family. bs2 22:39 Condition: improved 22:39 Discharge instructions given to patient, Instructed on discharge instructions, follow up and referral plans. medication usage, wound care, Demonstrated understanding of instructions, follow-up care, medications, wound care, Prescriptions given X 3. 22:40 Patient left the ED. bs2 Signatures: Dispatcher [employer] EDMS Corine Buitrago RN RN lp1 Maria G Rodríguez RN RN Sarbjit Casanova MD MD mh7 Smith, Bridget, RN RN bs2 Mechelle Dawson kc4 Shweta Mendoza Corrections: (The following items were deleted from the chart) 19:06 19:03 BP 153 / 109; Pulse 80bpm; Resp 20bpm; Pulse Ox 100% RA; Temp 98.5F; Pain 9/10; hbhb
[2021-05-10 22:47] VITALS: O2SAT 100
[2021-05-10 22:48] VITALS: BP 148/80; TEMP 98.7
== END 2021-05-10 22:40 | disposition home or self-care (01) ==
LOC: ER 18:54
DX: R11.2 Nausea with vomiting, unspecified (principal); I10 Essential (primary) hypertension; Z90.49 Acquired absence of other specified parts of digestive tract
CPT/HCPCS: 36415; 74177; 80048; 80076; 81003; 83690; 85025; 96361; 96374; 96375; 99284; J2405; J7030; Q9967

== ENCOUNTER 2022-10-16 15:15 | Emergency (ER) | payer SELFPAY ==
--- OUTSIDE RECORDS SUMMARY | 2022-10-16 15:28 | XMS REPORT | Continuity of Care Document ---
:[address] [facility] t Address [address]. [address] [place] [address] Care Team Providers Name Role Phone Unavailable Unavailable Unavailable Problems This patient has no known problems. Allergies, Adverse Reactions, Alerts This patient has no known allergies or adverse reactions. Medications This patient has no known medications. Procedures This patient has no known procedures. Encounters Start End Encounter Admission Attending Care Care Encounter Source Date/Time Date/Time Type Type Clinicians Facility Department ID 2022-08-05 2022-08-05 Outpatient [facility] [id number] [place] 10:18:37 10:18:37 [address] [place] 2022-06-13 2022-06-13 Outpatient [facility] [id number] [place] 11:03:25 11:03:25 [id number] [place] 2022-05-07 2022-05-07 Outpatient [facility] [id number] [place] 12:57:08 12:57:[id number] [facility] Results Test Description Test Time Test Comments Results Result Comments Source HEMOGLOBIN A1c 2022-05-08 03:39:52 Test Item Value Reference Range Interpretation Comme nts HEMOGLOBIN A1c (test code = 5.8 % 4.2-5.6 H UNLESS OTHERWISE INDICATED, ALL 39724) TESTING PERFORM ED ATCLINICAL PATHOLOGY LABOR [employer] [address] [place] [address] HARDENER HELPER: NGHIA MERAZ M.D. CLIA NUMBER [id number] CAP ACCREDITATION N O. [id number] LIPID [id number] 03:00:57 Test Item Value Reference Range Interpretation Comments CHOLESTEROL (test 177 MG/DL <200 code = 2210) TRIGLYCERIDES (test 152 MG/DL <150 H code = 2232) HDL CHOLESTEROL (test 56 MG/DL >39 code = 2220) CALC LDL CHOL (test 96 MG/DL <100 NOTE: C ALCULATED LDL code = 2237) IS BASED ON SAMEER-VERDUGO METHOD WHICHINCLUDES ADJUSTABLE TRIGLYCERIDE:VL DL CHOLESTEROL RAT IO.THIS FACTOR VARIES B Y MEASURED TRIGLY CERIDE AND NON-HDLCHOL ESTEROL CONCENTRATIONS WITH INCREASED CALCU LATED LDL SEENIN HIGH ER TRIGLYCERIDE OR LOWER NON-HDL SPECIME NS. FOR MOREINFORMATION , SEE CLIENT ANNOUNCE MENT AT [email or web address] [email or web address] RATIO LDL/HDL 1.71 RATIO <3.22 (test code = 2238) COMPREHENSIVE METABOLIC [id number] 03:00:57 Test Item Value Reference Range Interpretation Comments GLUCOSE (test code = 95 MG/DL 70-99 2216) BUN (test code = 12 MG/DL 8-23 2207) CREATININE (test 0.54 MG/DL 0.60-1.30 L code = 221) eGFR (2020 CKD-EPI) 105 >60 (test code = 02602) ML/MIN/1.73 CALC BUN/CREAT (test 22 RATIO 6-28 code = 2235) SODIUM (test code = 144 MEQ/L 403-322 5781) POTASSIUM (test code 4.4 MEQ/L 3.5-5.4 = 2227) CHLORIDE (test code 108 MEQ/L 95-107 H = 2214) CARBON DIOXIDE (test 26 MEQ/L 19-31 code = 2206) CALCIUM (test code = 9.4 MG/DL 8.5-10.5 2208) PROTEIN, TOTAL (test 7.5 G/DL 6.1-8.3 code = 222) ALBUMIN (test code = 4.1 G/DL 3.5-5.2 2200) CALC GLOBULIN (test 3.4 G/DL 1.9-3.7 code = 2240) CALC A/G RATIO (test 1.2 RATIO 1.0-2.6 code = 2234) BILIRUBIN, TOTAL 0.3 MG/DL See_Comment [Automated message] (test code = 2207) The syste m which generated this result transmit chantel reference range : <=1.2. The refe rence range was not u sed to interpret th is result as normal/abnormal . ALKALINE PHOSPHATASE 109 U/L 40-136 (test code = 2203) AST (test code = 27 U/L 9-40 2217) ALT (test code = 25 U/L 2218) HEMOGLOBIN [id number] 09:19:50 Test Item Value Reference Range Interpretation Comments HEMOGLOBIN A1c (test code = 65156) 5.6 % 4.2-5.6 LIPID [id number] 04:20:14 Test Item Value Reference Range Interpretation Comments CHOLESTEROL (test 192 MG/DL <200 code = 2210) TRIGLYCERIDES (test 85 MG/DL <150 code = 2232) HDL CHOLESTEROL (test 59 MG/DL >39 code = 2220) CALC LDL CHOL (test 115 MG/DL <100 H NOTE: C ALCULATED LDL code = 2237) IS BASED ON SAMEER-VERDUGO METHOD WHICHINCLUDES ADJUSTABLE TRIGLYCERIDE:VL DL CHOLESTEROL RAT IO.THIS FACTOR VARIES B Y MEASURED TRIGLY CERIDE AND NON-HDLCHOL ESTEROL CONCENTRATIONS WITH INCREASED CALCU LATED LDL SEENIN HIGH ER TRIGLYCERIDE OR LOWER NON-HDL SPECIME NS. FOR MOREINFORMATION , SEE CLIENT ANNOUNCE MENT AT [email or web address] RATIO LDL/HDL 1.95 RATIO <3.22 (test code = 2238) COMPREHENSIVE METABOLIC [id number] 04:20:14 Test Item Value Reference Range Interpretation Comments GLUCOSE (test code = 88 MG/DL 70-99 2216) BUN (test code = 16 MG/DL 01-26) CREATININE (test 0.57 MG/DL 0.60-1.30 L code = 2214) eGFR (2020 CKD-EPI) 105 >60 (test code = 85436) ML/MIN/1.73 CALC BUN/CREAT (test 28 RATIO -28 code = 2235) SODIUM (test code = 141 MEQ/L 524-918 7942) POTASSIUM (test code 4.4 MEQ/L 3.5-5.4 = 2227) CHLORIDE (test code 101 MEQ/L 95-107 = 2214) CARBON DIOXIDE (test 25 MEQ/L 19-31 code = 220) CALCIUM (test code = 9.6 MG/DL 8.5-10.5 2208) PROTEIN, TOTAL (test 7.8 G/DL 6.1-8.3 code = 222) ALBUMIN (test code = 4.3 G/DL 3.5-5.2 2200) CALC GLOBULIN (test 3.5 G/DL 1.9-3.7 code = 2240) CALC A/G RATIO (test 1.2 RATIO 1.0-2.6 code = 2234) BILIRUBIN, TOTAL 0.3 MG/DL See_Comment [Automated message] (test code = 2207) The syste m which generated this result transmitted ref erence range: <=1.2. T he reference range was not used to int erpret this result as normal/abnormal . ALKALINE PHOSPHATASE 114 U/L 40-136 (test code = 220) AST (test code = 31 U/L 9-40 2217) ALT (test code = 28 U/L 5-40 UNLESS OTH ERWISE 9) INDICATED, ALL TESTING PERFORM ED ATCLINICAL PATH OLOGY LABORATORIES, [facility]. [address] [place] [id number] [place] [address] DIRECTOR: NGHIA MERAZ M.D. CLIA NUMBER [id number] CAP ACCREDITATION N O. [id number]
[2022-10-16] MEDS ORDERED: IBUPROFEN 400 MG TAB ONE (16:17)
[2022-10-16] MEDS ORDERED: HYDROCODONE/APAP 7.5/325 MG TAB ONE (16:17)
--- NOTE | 2022-10-16 17:04 | RAD REPORT ---
EXAM DESCRIPTION: RAD - Ankle Left 3 View - 10/16/2022 4:26 pm CLINICAL HISTORY: Animal bite COMPARISON: None. FINDINGS: Three views of the left ankle. No fracture, dislocation or periosteal reaction. No joint effusion seen. No joint space narrowing. So ft tissue swelling about the ankle anteriorly. Large calcaneal spur. Enthesopathy at the Achilles ten don attachment IMPRESSION: No acute osseous abnormality. Soft tissue swelling about the ankle anteriorly.
[2022-10-16] MEDS ORDERED: DOXYCYCLINE 100 MG CAP PO ONE (17:11)
[2022-10-16 18:04] VITALS: TEMP 98.5
[2022-10-16 18:05] VITALS: BP 125/91; O2SAT 99
--- NOTE | 2022-10-30 16:05 | ER ---
Nurse's Notes [facility] Name: Jennifer Solorio Age: 61 yrs Sex: Female : 1960 Arrival Date: 10/16/2022 Time: 15:28 Bed 9 Private MD: Diagnosis: Bitten by dog, initial encounter;Laceration without foreign body of ankle-left Presentation: 10/16 15:56 Chief complaint: Patient states: Was out walking and bit by a loose dog, does not know nj who dog belongs to. Was bit on back of L ankle. Coronavirus screen: Vaccine status: Patient reports being unvaccinated. Ebola Screen: No symptoms or risks identified at this time. Initial Sepsis Screen: Does the patient meet any 2 criteria? No. Patient's initial sepsis screen is negative. Does the patient have a suspected source of infection? No. Patient's initial sepsis screen is negative. Risk Assessment: Do you want to hurt yourself or someone else? Patient reports no desire to harm self or others. Onset of symptoms. 15:56 Method Of Arrival: Ambulatory [facility] 15:56 Acuity: JUDITH 4 [facility] Triage Assessment: 15:59 Bite description: bite sustained to left Achilles by a dog, animal information: nj1 vaccination(s) is unknown. General: Appears in no apparent distress. Behavior is calm, cooperative, appropriate for age. Pain: Complains of pain in left Achilles. Historical: - Allergies: 15:59 PENICILLINS; nj1 - PMHx: 15:59 GALLSTONES; Hypertension; nj1 - PSHx: 15:59 Cholecystectomy; nj1 - Immunization history:: Last tetanus immunization: < 10 years ago. - Social history:: Smoking status: Patient denies any tobacco usage or history of. Assessment: 16:18 General: Appears in no apparent distress. Behavior is cooperative. Pain: Complains of ph pain in left leg and left Achilles Pain began suddenly, Aggravated by increased activity. Neuro: Level of Consciousness is awake, alert, obeys commands, Oriented to person, place, time, situation, Appropriate for age. Respiratory: Airway is patent Respiratory effort is even, unlabored, Respiratory pattern is regular, symmetrical. Derm: Skin has skin tears on left ankle and leg no active bleeding noted Skin is pink, warm \\T\\ dry. Musculoskeletal: Range of motion: intact in all extremities. 16:24 Reassessment: Contacted [facility]. They stated "If she gets released before 6pm, have ph her come to the [place] police station to speak to animal control or follow up tomorrow.". Vital Signs: 15:56 BP 159 / 95; Pulse 89; Resp 18; Temp 97.5; Pulse Ox 99% on R/A; nj1 16:00 BP 122 / 89; Pulse 77; Resp 18; Temp 98.5(O); Pulse Ox 100% on R/A; Weight 108.86 kg; nj1 Height 5 ft. 4 in. ; 17:15 BP 125 / 91; Pulse 87; Resp 20; Pulse Ox 99% ; ph 16:00 Body Mass Index 41.20 (108.86 kg, 162.56 cm) [facility] ED Course: 15:28 Patient arrived in ED. mr 15:33 Hermes Crowley PA is PHCP. cp 15:33 Julian Childs MD is Attending Physician. cp 15:[address] [facility] 15:59 Arm band placed on Patient placed in an exam room. nj 16:06 Reena Grajeda, RN is Primary Nurse. ph 16:27 XRAY Ankle LEFT 3 view In Process Unspecified. EDMS 17:15 Patient did not have IV access during this emergency room visit. ph Administered Medications: 16:15 Drug: Ibuprofen PO 800 mg Route: PO; ph 16:34 Follow up: Response: No adverse reaction ph 16:15 Drug: Hydrocodone-Acetaminophen PO (7.5 mg-325 mg) 1 tabs Route: PO; ph 16:34 Follow up: Response: No adverse reaction ph 17:07 Drug: Doxycycline PO 200 mg Route: PO; ph 17:16 Follow up: Response: No adverse reaction ph Outcome: 17:06 Discharge ordered by MD. cp 17:15 Discharged to home ambulatory. ph 17:15 Condition: stable 17:15 Discharge instructions given to patient, Instructed on discharge instructions, follow up and referral plans. Demonstrated understanding of instructions, follow-up care, medications, Prescriptions given X 3. 17:16 Patient left the ED. ph Signatures: Dispatcher [employer] [facility] Bianca Strauss mr Reena Grajeda RN RN Hermes Crowley PA PA cp Meghan Engle RN RN nj1
--- NOTE | 2022-10-30 16:05 | EDPHYS ---
Physician Documentation [facility] Name: Jennifer Solorio Age: 61 yrs Sex: Female : 1960 Arrival Date: 10/16/2022 Time: 15:28 Bed 9 Private MD: ED Physician Julian Childs HPI: 10/16 16:05 This 61 yrs old Female presents to ER via Ambulatory with complaints of Dog cp Bite. 16:05 The patient was bitten on the left ankle, by a dog, in an unprovoked manner, outdoors. cp Onset: The symptoms/episode began/occurred yesterday. Animal information: Patient/Caregiver unable to provide information related to the animal. Secondary to the bite the patient reports erythema, multiple lacerations, that are superficial, swelling, warmth. Associated signs and symptoms: Pertinent negatives: fever, numbness distal to wound. Historical: - Allergies: 15:59 PENICILLINS; nj1 - PMHx: 15:59 GALLSTONES; Hypertension; nj1 - PSHx: 15:59 Cholecystectomy; nj1 - Immunization history:: Last tetanus immunization: < 10 years ago. - Social history:: Smoking status: Patient denies any tobacco usage or history of. ROS: 16:10 Constitutional: Negative for body aches, chills, fever, poor PO intake. cp 16:10 Eyes: Negative for injury, pain, redness, and discharge. cp 16:10 ENT: Negative for drainage from ear(s), ear pain, sore throat, difficulty swallowing, difficulty handling secretions. 16:10 Cardiovascular: Negative for chest pain. 16:10 Respiratory: Negative for cough, shortness of breath, wheezing. 16:10 Abdomen/GI: Negative for abdominal pain, nausea, vomiting, and diarrhea. 16:10 Skin: Positive for laceration(s), of the left ankle. 16:10 Neuro: Negative for altered mental status, numbness, tingling. 16:10 All other systems are negative. Exam: 16:15 Constitutional: The patient appears in no acute distress, alert, awake, non-toxic, well cp developed, well nourished. 16:15 Head/Face: Normocephalic, atraumatic. cp 16:15 Chest/axilla: Inspection: normal. 16:15 Cardiovascular: Rate: normal. 16:15 Respiratory: the patient does not display signs of respiratory distress, Respirations: normal, no use of accessory muscles, no retractions, labored breathing, is not present. 16:15 Abdomen/GI: Inspection: abdomen appears normal. 16:15 Musculoskeletal/extremity: Extremities: noted in the left ankle: erythema, pain, swelling, tenderness, multiple superficial lacerations medial and lateral ankle, ROM: full active range of motion, in the left ankle, the left foot and left ankle Sensation intact. Vital Signs: 15:56 BP 159 / 95; Pulse 89; Resp 18; Temp 97.5; Pulse Ox 99% on R/A; nj1 16:00 BP 122 / 89; Pulse 77; Resp 18; Temp 98.5(O); Pulse Ox 100% on R/A; Weight 108.86 kg; nj1 Height 5 ft. 4 in. ; 17:15 BP 125 / 91; Pulse 87; Resp 20; Pulse Ox 99% ; ph 16:00 Body Mass Index 41.20 (108.86 kg, 162.56 cm) nj MDM: 16:20 Differential diagnosis: superficial laceration, tendon injury, vascular injury, rabies, cp cellulitis. 16:23 Patient medically screened. cp 17:05 Data reviewed: vital signs, nurses notes, radiologic studies, plain films. cp 17:05 Consideration of Admission/Observation Escalation of care including cp admission/observation considered. I considered the following discharge prescriptions or medication management in the emergency department Medications were administered in the Emergency Department. See MAR. Test considered but Not performed: Labs: cbc, bmp. Care significantly affected by the following chronic conditions: Hypertension. Counseling: I had a detailed discussion with the patient and/or guardian regarding: the historical points, exam findings, and any diagnostic results supporting the discharge/admit diagnosis, radiology results, to return to the emergency department if symptoms worsen or persist or if there are any questions or concerns that arise at home. Special discussion: I discussed in detail with the patient the higher chance of wound infection based on his presenting history. 10/16 15:59 Order name: XRAY Ankle LEFT 3 view; Complete Time: 17:04 cp 10/16 15:59 Order name: Wound Care; Complete Time: 16:34 cp Administered Medications: 16:15 Drug: Ibuprofen PO 800 mg Route: PO; ph 16:34 Follow up: Response: No adverse reaction ph 16:15 Drug: Hydrocodone-Acetaminophen PO (7.5 mg-325 mg) 1 tabs Route: PO; ph 16:34 Follow up: Response: No adverse reaction ph 17:07 Drug: Doxycycline PO 200 mg Route: PO; ph 17:16 Follow up: Response: No adverse reaction ph Disposition Summary: 10/16/22 17:06 Discharge Ordered Location: Home cp Problem: new cp Symptoms: have improved cp Condition: Stable cp Diagnosis - Bitten by dog, initial encounter cp - Laceration without foreign body of ankle - left(10/16/22 17:07) cp Followup: cp - With: Private Physician - When: 48 Hours - Reason: Worsening of condition Discharge Instructions: - Discharge Summary Sheet cp - Wound Care, Adult cp - Animal Bite, Adult cp Forms: - Medication Reconciliation Form cp - Thank You Letter cp - Antibiotic Education cp - Prescription Opioid Use cp Prescriptions: - Doxycycline Hyclate 100 mg Oral Tablet - take 1 tablet by ORAL route every 12 hours for 14 days; 28 tablet; Refills: 0, cp Product Selection Permitted - Diclofenac Sodium 75 mg Oral Tablet Sustained Release - take 1 tablet by ORAL route 2 times per day; 30 tablet; Refills: 0, Product cp Selection Permitted - Tramadol 50 mg Oral Tablet - take 1 tablet by ORAL route every 8 hours as needed; 12 tablet; Refills: 0, cp Product Selection Permitted Addendum: 10/19/2022 08:44 Co-signature as Attending Physician, Julian Childs MD I reviewed the patient's care r n provided by the Advanced Practice Provider and agree with the diagnosis and treatment plan. Signatures: Dispatcher [employer] EDJulian Oconnor MD MD rn Hall, Patricia RN RN ph Hermes Crowley PA PA cp Meghan Engle RN RN nj1 Corrections: (The following items were deleted from the chart) 10/16 17:07 17:06 Laceration without foreign body of ankle cp cp
== END 2022-10-16 17:16 | disposition home or self-care (01) ==
LOC: ER 15:15
DX: S91.012A Laceration without foreign body, left ankle, initial encounter (principal); W54.0XXA Bitten by dog, initial encounter
CPT/HCPCS: 99283

== ENCOUNTER → 2023-10-02 | Emergency (ER) | payer SELFPAY ==
[~2023-10-02] MED LIST: HYDROCODONE/APAP 10/325 TAB ONE; IBUPROFEN 400 MG TAB ONE; predniSONE 20 MG TAB ONE
--- OUTSIDE RECORDS SUMMARY | 2023-10-02 07:10 | XMS REPORT | Continuity of Care Document ---
Author Name Unknown Address [address] [facility] [address] [place] [address] [facility] thconnect Address [address] [facility] 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 Name Role Phone Unavailable Unavailable Unavailable Encounters Start Date/Time End Date/Time Encounter Type Admission Type Attending Clinicians Care Facility Care Department Encounter ID Source 2023-08-16 07:53:37 2023-08-16 07:53:37 Outpatient SFA SFA [id number] León Celis 2023-08-14 10:20:34 2023-08-14 10:20:34 Outpatient SFA SFA [id number] León Celis 2023-06-17 09:20:26 2023-06-17 09:20:26 Outpatient SFA SFA [id number] León Celis 2022-12-16 15:27:13 2022-12-16 15:27:13 Outpatient SFA SFA [id number] León Celis 2022-12-11 08:18:10 2022-12-11 08:18:10 Outpatient SFA SFA [id number] León Celis 2022-08-05 10:18:37 2022-08-05 10:18:37 Outpatient SFA SFA [id number] León Celis 2022-06-13 11:03:25 2022-06-13 11:03:25 Outpatient SFA SFA [id number] León Celis 2022-05-07 12:57:08 2022-05-07 12:57:08 Outpatient SFA SFA [id number] León Celis Results Test Description Test Time Test Comments Results Result Co mments Source COMPREHENSIVE METABOLIC [id number] 09:05:34* Test Item Value Reference Range Interpretation Comme nts GLUCOSE (test code = 2216) 112 MG/DL 70-99 H BUN (test code = 2207) 13 MG/DL 8-23 CREATININE (test code = 2213) 0.58 MG/DL 0.60-1.30 L eGFR (2020 CKD-EPI) (test code = 99913) 103 ML/MIN/1.73 >60 CALC BUN/CREAT (test code = 2234) 22 RATIO 6-28 SODIUM (test code = 2230) 140 MEQ/L 133-146 POTASSIUM (test code = 2227) 4.0 MEQ/L 3.5-5.4 CHLORIDE (test code = 2214) 103 MEQ/L 95-107 CARBON DIOXIDE (test code = 2205) 22 MEQ/L 19-31 CALCIUM (test code = 2208) 9.5 MG/DL 8.5-10.5 PROTEIN, TOTAL (test code = 2228) 7.6 G/DL 6.1-8.3 ALBUMIN (test code = 2200) 4.2 G/DL 3.5-5.2 CALC GLOBULIN (test code = 0) 3.4 G/DL 1.9-3.7 CALC A/G RATIO (test code = 2233) 1.2 RATIO 1.0-2.6 BILIRUBIN, TOTAL (test code = 2206) 0.4 MG/DL <=1.2 ALKALINE PHOSPHATASE (test code = 2203) 107 U/L 40-140 AST (test code = 2217) 31 U/L 9-40 ALT (test code = 221) 26 U/L 5-40 UNLESS OTHERWISE INDICATED, ALL TESTING PERFORMED AT [facility] [address] [place] [address] ASSOCIATE PUBLISHER: JEFFREY JUÁREZ M.D. [place] NUMBER [id number] [facility] [place]. [id number] HEMOGLOBIN [id number] 03:53:57* Test Item Value Reference Range Interpretation Comme nts HEMOGLOBIN A1c (test code = 27074) 5.7 % 4.2-5.6 H [facility] [place] [facility] [employer] GUIDELINES FOR HGB A1C: PREDIABETES/INCREASED RISK . . . . . . . 5.7-6.4% DIAGNOSIS OF DIABETES . . . . . . . . . >=6.5% WITH CONFIRMATION OR APPROPRIATE SYMPTOMS NOTE: ASSAY MAY BE AFFECTED BY HEMOGLOBINOPATHIES (SICKLE CELL ANEMIA, S-C DISEASE, OTHERS) OR ARTIFICIALLY LOWERED BY DECREASED RED CELL SURVIVAL (HEMOLYTIC ANEMIAS, BLOOD LOSS, ETC.). CONSIDER ALTERNATE TESTING OR LABORATORY CONSULTATION. LIPID [id number] 06:57:26* Test Item Value Reference Range Interpretation Comme nts CHOLESTEROL (test code = 2210) 189 MG/DL <200 TRIGLYCERIDES (test code = 2232) 112 MG/DL <150 HDL CHOLESTEROL (test code = 2220) 64 MG/DL >39 CALC LDL CHOL (test code = 2237) 104 MG/DL <100 H NOTE: CALCULATED LDL IS BASED ON SAMEER-VERDUGO METHOD WHICHINCLUDES ADJUSTABLE TRIGLYCERIDE:VLDL CHOLESTEROL RATIO.THIS FACTOR VARIES BY MEASURED TRIGLYCERIDE AND NON-HDLCHOLESTEROL CONCENTRATIONS WITH INCREASED CALCULATED LDL SEENIN HIGHER TRIGLYCERIDE OR LOWER NON-HDL SPECIMENS. FOR MOREINFORMATION, SEE CLIENT ANNOUNCEMENT AT [email or web address]-C RISK RATIO LDL/HDL (test code = 2238) 1.63 RATIO <3.22 COMPREHENSIVE METABOLIC [id number] 06:57:26* Test Item Value Reference Range Interpretation Comme nts GLUCOSE (test code = 2217) 107 MG/DL 70-99 H BUN (test code = 2208) 12 MG/DL 8-23 CREATININE (test code = 2214) 0.55 MG/DL 0.60-1.30 L eGFR (2020 CKD-EPI) (test code = 25111) 104 ML/MIN/1.73 >60 CALC BUN/CREAT (test code = 2235) 22 RATIO 6-28 SODIUM (test code = 2231) 140 MEQ/L 133-146 POTASSIUM (test code = 2228) 4.3 MEQ/L 3.5-5.4 CHLORIDE (test code = 2215) 103 MEQ/L 95-107 CARBON DIOXIDE (test code = 2206) 23 MEQ/L 19-31 CALCIUM (test code = 2209) 9.5 MG/DL 8.5-10.5 PROTEIN, TOTAL (test code = 222) 7.9 G/DL 6.1-8.3 ALBUMIN (test code = 2201) 4.4 G/DL 3.5-5.2 CALC GLOBULIN (test code = 2240) 3.5 G/DL 1.9-3.7 CALC A/G RATIO (test code = 2234) 1.3 RATIO 1.0-2.6 BILIRUBIN, TOTAL (test code = 2207) 0.3 MG/DL See_Comment [Automated me ssage] The system which generated this result transmitted reference range: <=1.2. The reference range was not used to interpret this result as normal/abnormal. ALKALINE PHOSPHATASE (test code = 2203) 105 U/L 40-140 AST (test code = 2218) 40 U/L 9-40 ALT (test code = 2219) 36 U/L 5-40 UNLESS OTHERWISE INDICATED, ALL TESTING PERFORMED AT [facility] [address] [place] [address] ASSOCIATE PUBLISHER: JEFFREY JUÁREZ M.D. CLIA NUMBER [id number] [place]. [id number] HEMOGLOBIN [id number] 03:39:52* Test Item Value Reference Range Interpretation Comme nts HEMOGLOBIN A1c (test code = 19348) 5.8 % 4.2-5.6 H UNLESS OTHERWISE INDICATED, ALL TESTING PERFORMED [facility] [address] [place] [address] ASSOCIATE PUBLISHER: NGHIA MERAZ M.D. CLIA NUMBER [id number] [place] [id number] LIPID [id number] 03:00:57* Test Item Value Reference Range Interpretation Comme nts CHOLESTEROL (test code = 2210) 177 MG/DL <200 TRIGLYCERIDES (test code = 2232) 152 MG/DL <150 H HDL CHOLESTEROL (test code = 2220) 56 MG/DL >39 CALC LDL CHOL (test code = 2237) 96 MG/DL <100 NOTE: CALCULATED LDL IS BASED ON SAMEER-VERDUGO METHOD WHICHINCLUDES ADJUSTABLE TRIGLYCERIDE:VLDL CHOLESTEROL RATIO.THIS FACTOR VARIES BY MEASURED TRIGLYCERIDE AND NON-HDLCHOLESTEROL CONCENTRATIONS WITH INCREASED CALCULATED LDL SEENIN HIGHER TRIGLYCERIDE OR LOWER NON-HDL SPECIMENS. FOR MOREINFORMATION, SEE CLIENT ANNOUNCEMENT AT [email or web address] RISK RATIO LDL/HDL (test code = 2238) 1.71 RATIO <3.22 COMPREHENSIVE METABOLIC [id number] 03:00:57* Test Item Value Reference Range Interpretation Comme nts GLUCOSE (test code = 2217) 95 MG/DL 70-99 BUN (test code = 2207) 12 MG/DL 8-23 CREATININE (test code = 2213) 0.54 MG/DL 0.60-1.30 L eGFR (2020 CKD-EPI) (test code = ) 105 ML/MIN/1.73 >60 CALC BUN/CREAT (test code = 2234) 22 RATIO 6-28 SODIUM (test code = 2230) 144 MEQ/L 133-146 POTASSIUM (test code = 2227) 4.4 MEQ/L 3.5-5.4 CHLORIDE (test code = 2214) 108 MEQ/L 95-107 H CARBON DIOXIDE (test code = 2205) 26 MEQ/L 19-31 CALCIUM (test code = 2208) 9.4 MG/DL 8.5-10.5 PROTEIN, TOTAL (test code = 2228) 7.5 G/DL 6.1-8.3 ALBUMIN (test code = 2200) 4.1 G/DL 3.5-5.2 CALC GLOBULIN (test code = 2239) 3.4 G/DL 1.9-3.7 CALC A/G RATIO (test code = 2233) 1.2 RATIO 1.0-2.6 BILIRUBIN, TOTAL (test code = 2206) 0.3 MG/DL See_Comment [Automated me ssage] The system which generated this result transmitted reference range: <=1.2. The reference range was not used to interpret this result as normal/abnormal. ALKALINE PHOSPHATASE (test code = 2203) 109 U/L 40-136 AST (test code = 2217) 27 U/L 9-40 ALT (test code = 2218) 25 U/L 5-40 HEMOGLOBIN [id number] 09:19:50* Test Item Value Reference Range Interpretation Comme nts HEMOGLOBIN A1c (test code = 67816) 5.6 % 4.2-5.6 LIPID [id number] 04:20:14* Test Item Value Reference Range Interpretation Comme nts CHOLESTEROL (test code = 2209) 192 MG/DL <200 TRIGLYCERIDES (test code = 2231) 85 MG/DL <150 HDL CHOLESTEROL (test code = 2219) 59 MG/DL >39 CALC LDL CHOL (test code = 2236) 115 MG/DL <100 H NOTE: CALCULATED LDL IS BASED ON SAMEER-VERDUGO METHOD WHICHINCLUDES ADJUSTABLE TRIGLYCERIDE:VLDL CHOLESTEROL RATIO.THIS FACTOR VARIES BY MEASURED TRIGLYCERIDE AND NON-HDLCHOLESTEROL CONCENTRATIONS WITH INCREASED CALCULATED LDL SEENIN HIGHER TRIGLYCERIDE OR LOWER NON-HDL SPECIMENS. FOR MOREINFORMATION, SEE CLIENT ANNOUNCEMENT AT [email or web address] RISK RATIO LDL/HDL (test code = 2237) 1.95 RATIO <3.22 COMPREHENSIVE METABOLIC [id number] 04:20:14* Test Item Value Reference Range Interpretation Comme nts GLUCOSE (test code = 2216) 88 MG/DL 70-99 BUN (test code = 2207) 16 MG/DL 6-20 CREATININE (test code = 2213) 0.57 MG/DL 0.60-1.30 L eGFR (2020 CKD-EPI) (test code = 68517) 105 ML/MIN/1.73 >60 CALC BUN/CREAT (test code = 2235) 28 RATIO 6-28 SODIUM (test code = 2230) 141 MEQ/L 133-146 POTASSIUM (test code = 2227) 4.4 MEQ/L 3.5-5.4 CHLORIDE (test code = 2215) 101 MEQ/L 95-107 CARBON DIOXIDE (test code = 6) 25 MEQ/L 19-31 CALCIUM (test code = 220) 9.6 MG/DL 8.5-10.5 PROTEIN, TOTAL (test code = 2228) 7.8 G/DL 6.1-8.3 ALBUMIN (test code = 2201) 4.3 G/DL 3.5-5.2 CALC GLOBULIN (test code = 2240) 3.5 G/DL 1.9-3.7 CALC A/G RATIO (test code = 223) 1.2 RATIO 1.0-2.6 BILIRUBIN, TOTAL (test code = 220) 0.3 MG/DL See_Comment [Automated me ssage] The system which generated this result transmitted reference range: <=1.2. The reference range was not used to interpret this result as normal/abnormal. ALKALINE PHOSPHATASE (test code = 2203) 114 U/L 40-136 AST (test code = 2218) 31 U/L 9-40 ALT (test code = 2219) 28 U/L 5-40 UNLESS OTHERWISE INDICATED, ALL TESTING PERFORMED [facility] [address] [place] [address] ASSOCIATE PUBLISHER: NGHIA MERAZ M.D. CLIA NUMBER [id number] [facility] [place]. [id number]
[2023-10-02 08:19] LABS: Specific Gravity 1.017 (1.005-1.030); Urine Bilirubin NEGATIVE (Negative); Urine Blood Negative (Negative); Urine Clarity Clear (Clear); Urine Color Yellow (Yellow); Urine Glucose NEGATIVE (Negative); Urine Protein NEGATIVE (Negative); Urine Urobilinogen Normal (Normal)
--- NOTE | 2023-10-02 09:24 | EDPHYS ---
Physician Documentation [facility] Name: Jennifer Solorio Age: 62 yrs Sex: Female : 1960 Arrival Date: 10/02/2023 Time: 07:07 Bed 12 Private MD: ED Physician Zak Baker HPI: 10/02 08:38 This 62 yrs old Female presents to ER via Ambulatory with complaints of Low kdr Back Pain. 08:38 The patient presents with pain that is acute, with no known mechanism of injury. The kdr symptoms are located in the low back. The pain does not radiate. The problem was sustained from unknown cause, Patient initially noted the pain when she tried to stand up. Pain was in her low back midline with some right lateral superior iliac crest pain. Onset: The symptoms/episode began/occurred yesterday. Modifying factors: The patient symptoms are alleviated by nothing. 08:40 Patient is concerned she has a urinary tract infection. He denies a specific pain or kdr symptoms with urination but is concerned that she may have a kidney infection.. Onset: The symptoms/episode began/occurred suddenly, yesterday. Severity of symptoms: At their worst the symptoms were mild in the emergency department the symptoms are unchanged. The patient has experienced a previous episode. The patient has not recently seen a physician. Historical: - Allergies: 07:36 PENICILLINS; vc1 - Home Meds: 07:36 Lisinopril Oral [Active]; vc1 - PMHx: 07:36 GALLSTONES; Hypertension; vc1 - PSHx: 07:36 Cholecystectomy; vc1 - Immunization history:: Adult Immunizations up to date. - Social history:: Smoking status: Patient denies any tobacco usage or history of. ROS: 08:40 Constitutional: Negative for fever, chills, and weight loss, Eyes: Negative for injury, kdr pain, redness, and discharge, ENT: Negative for injury, pain, and discharge, Neck: Negative for injury, pain, and swelling, Cardiovascular: Negative for chest pain, palpitations, and edema, Respiratory: Negative for shortness of breath, cough, wheezing, and pleuritic chest pain, Abdomen/GI: Negative for abdominal pain, nausea, vomiting, diarrhea, and constipation, : Negative for injury, bleeding, discharge, and swelling, MS/Extremity: Negative for injury and deformity, Skin: Negative for injury, rash, and discoloration, Neuro: Negative for headache, weakness, numbness, tingling, and seizure activity. Psych: Negative for depression, anxiety, suicide ideation, homicidal ideation, and hallucinations, Allergy/Immunology: Negative for hives, rash, and allergies, Endocrine: Negative for neck swelling, polydipsia, polyuria, polyphagia, and marked weight changes, Hematologic/Lymphatic: Negative for swollen nodes, abnormal bleeding, and unusual bruising, 08:40 Back: Positive for pain at rest, pain with movement, of the lumbar area, Negative for radiated pain, Exam: 08:40 Constitutional: This is a well developed, well nourished patient who is awake, alert, kdr and in no acute distress. Head/Face: Normocephalic, atraumatic. Eyes: Pupils equal round and reactive to light, extra-ocular motions intact. Lids and lashes normal. Conjunctiva and sclera are non-icteric and not injected. Cornea within normal limits. Periorbital areas with no swelling, redness, or edema. Neck: Trachea midline, no thyromegaly or masses palpated, and no cervical lymphadenopathy. Supple, full range of motion without nuchal rigidity, or vertebral point tenderness. No Meningismus. Chest/axilla: Normal chest wall appearance and motion. Nontender with no deformity. No lesions are appreciated. Cardiovascular: Regular rate and rhythm with a normal S1 and S2. No gallops, murmurs, or rubs. Normal PMI, no JVD. No pulse deficits. Respiratory: Lungs have equal breath sounds bilaterally, clear to auscultation and percussion. No rales, rhonchi or wheezes noted. No increased work of breathing, no retractions or nasal flaring. Abdomen/GI: Soft, non-tender, with normal bowel sounds. No distension or tympany. No guarding or rebound. No evidence of tenderness throughout. Skin: Warm, dry with normal turgor. Normal color with no rashes, no lesions, and no evidence of cellulitis. MS/ Extremity: Pulses equal, no cyanosis. Neurovascular intact. Full, normal range of motion. Neuro: Awake and alert, GCS 15, oriented to person, place, time, and situation. Cranial nerves II-XII grossly intact. Motor strength 5/5 in all extremities. Sensory grossly intact. Cerebellar exam normal. Normal gait. Psych: Awake, alert, with orientation to person, place and time. Behavior, mood, and affect are within normal limits. 08:40 Back: pain, that is mild, of the lumbar area, ROM is painful, normal spinal alignment noted, CVA tenderness, is absent, vertebral tenderness, is appreciated at L1, L2 and L3, Vital Signs: 07:35 BP 140 / 78; Pulse 68; Resp 16; Temp 97.9(TE); Pulse Ox 100% on R/A; Weight 106.59 kg; vc1 Height 5 ft. 2 in. ; Pain 10/10; 09:30 BP 137 / 89; Pulse 67; Resp 18; Pulse Ox 100% ; cp4 07:35 Body Mass Index 42.98 (106.59 kg, 157.48 cm) vc1 07:35 Pain Scale: Adult vc1 MDM: 08:40 Data reviewed: vital signs, nurses notes, lab test result(s). kdr 09:23 Patient medically screened. kdr 10/02 07:58 Order name: Urinalysis w/ reflexes; Complete Time: 09:01 kdr Administered Medications: 08:14 Drug: [place] PO 10 mg-325 mg 1 tabs PO once Route: PO; cp4 09:32 Follow up: Response: No adverse reaction cp4 09:30 Drug: predniSONE PO 60 mg PO once Route: PO; cp4 09:32 Follow up: Response: No adverse reaction cp4 09:30 Drug: Ibuprofen PO 800 mg PO once Route: PO; cp4 09:31 Follow up: Response: No adverse reaction cp4 Disposition Summary: 10/02/23 09:23 Discharge Ordered Notes: Location: Home kdr Problem: new kdr Symptoms: have improved kdr Condition: Stable kdr Diagnosis - Low back pain kdr Followup: kdr - With: Private Physician - When: 2 - 3 days - Reason: If symptoms return, Further diagnostic work-up, Recheck today's complaints, Continuance of care, Re-evaluation by your physician Discharge Instructions: - Discharge Summary Sheet kdr - Acute Back Pain, Adult kdr Forms: - Medication Reconciliation Form kdr - Thank You Letter kdr - Patient Portal Instructions kdr - Leadership Thank You Letter kdr Prescriptions: - Ibuprofen 600 mg Oral Tablet - take 1 tablet ORAL route every 6 hours As needed take with food; 30 tablet; kdr Refills: 0, Product Selection Permitted - Medrol (Gee) 4 mg Oral Tablets, Dose Pack - take 1 tablet ORAL route as directed - follow package instructions; 1 packet; kdr Refills: 0, Product Selection Permitted Signatures: Zak Jones MD MD kdr Calcote, Vanessa, RN RN vc1 Saranya Calderon 4
--- NOTE | 2023-10-02 09:24 | ER ---
Nurse's Notes [facility] Name: Jennifer Solorio Age: 62 yrs Sex: Female : 1960 Arrival Date: 10/02/2023 Time: 07:07 Bed 12 Private MD: Diagnosis: Low back pain Presentation: 10/02 07:35 Chief complaint: Low back pain x 2 days. Denies injury/urinary symptoms. Coronavirus vc1 screen: At this time, the client does not indicate any symptoms associated with coronavirus-19. Ebola Screen: No symptoms or risks identified at this time. Initial Sepsis Screen: Does the patient meet any 2 criteria? No. Patient's initial sepsis screen is negative. Does the patient have a suspected source of infection? No. Patient's initial sepsis screen is negative. Risk Assessment: Do you want to hurt yourself or someone else? Patient reports no desire to harm self or others. Onset of symptoms was October 01, 2023. 07:35 Method Of Arrival: Ambulatory vc1 07:35 Acuity: JUDITH 3 vc1 Triage Assessment: 07:37 General: Appears in no apparent distress. uncomfortable, Behavior is calm, cooperative. vc1 Pain: Pain currently is 10 out of 10 on a pain scale. Neuro: Level of Consciousness is awake, alert, obeys commands, Oriented to person, place, time, situation. Cardiovascular: Patient's skin is warm and dry. Respiratory: Respiratory effort is even, unlabored, Respiratory pattern is regular, symmetrical. Musculoskeletal: Reports low back pain. Historical: - Allergies: 07:36 PENICILLINS; vc1 - Home Meds: 07:36 Lisinopril Oral [Active]; vc1 - PMHx: 07:36 GALLSTONES; Hypertension; vc1 - PSHx: 07:36 Cholecystectomy; vc1 - Immunization history:: Adult Immunizations up to date. - Social history:: Smoking status: Patient denies any tobacco usage or history of. Screenin:15 [facility] ED Fall Risk Assessment (Adult) History of falling in the last 3 months, cp4 including since admission No falls in past 3 months (0 pts). [facility] ED Fall Risk Assessment (Adult) Confusion or Disorientation No (0 pts) Intoxicated or Sedated No (0 pts) Impaired Gait No (0 pts) Mobility Assist Device Used No (0 pt) Altered Elimination No (0 pt) Score/Fall Risk Level 0 - 2 = Low Risk Oriented to surroundings, Maintained a safe environment, Educated pt \T\ family on fall prevention, incl call for assistance when getting out of bed, Assessed \T\ reinforced patient's understanding of fall precautions, Provided non-skid footwear, Hourly rounding (assess needs \T\ fall precautionary measures) done. Abuse screen: Denies threats or abuse. Nutritional screening: No deficits noted. Tuberculosis screening: No symptoms or risk factors identified. Assessment: 08:15 General: Appears in no apparent distress. Behavior is calm, cooperative, appropriate cp4 for age. Pain: Complains of pain in back. : Reports pain in lower back. 09:16 Reassessment: Patient reports she is still having pain after pain medication given. cp4 Provider notified. Vital Signs: 07:35 BP 140 / 78; Pulse 68; Resp 16; Temp 97.9(TE); Pulse Ox 100% on R/A; Weight 106.59 kg; vc1 Height 5 ft. 2 in. ; Pain 10/10; 09:30 BP 137 / 89; Pulse 67; Resp 18; Pulse Ox 100% ; cp4 07:35 Body Mass Index 42.98 (106.59 kg, 157.48 cm) vc1 07:35 Pain Scale: Adult vc1 ED Course: 07:09 Patient arrived in ED. rg4 07:24 Zak Baker MD is Attending Physician. kdr 07:36 Triage completed. vc1 07:37 Arm band placed on. vc1 08:04 Saranya Calderon is Primary Nurse. cp4 08:15 Bed in low position. Call light in reach. Side rails up X 1. cp4 08:15 Urinalysis w/ reflexes Sent. cp4 09:31 Provided Education on: back pain. cp4 09:31 No provider procedures requiring assistance completed. Patient did not have IV access cp4 during this emergency room visit. Administered Medications: 08:14 Drug: [place] PO 10 mg-325 mg 1 tabs PO once Route: PO; cp4 09:32 Follow up: Response: No adverse reaction cp4 09:30 Drug: predniSONE PO 60 mg PO once Route: PO; cp4 09:32 Follow up: Response: No adverse reaction cp4 09:30 Drug: Ibuprofen PO 800 mg PO once Route: PO; cp4 :31 Follow up: Response: No adverse reaction cp4 Medication: 08:15 VIS not applicable for this client. cp4 Outcome: :23 Discharge ordered by . kdr : Discharged to home ambulatory, cp4 : Condition: stable :31 Discharge instructions given to patient, Instructed on discharge instructions, follow up and referral plans. medication usage, Demonstrated understanding of instructions, follow-up care, medications, Prescriptions given X 2, :34 Patient left the ED. cp4 Signatures: Zak Baker MD MD kdr Garcia, Rubi rg4 Mary Jo Hill RN RN vc1 Saranya Calderon cp4
[2023-10-02 09:59] VITALS: BP 137/89; TEMP 97.9; O2SAT 100
== END ==
LOC: ER 07:07
DX: M54.50 Low back pain, unspecified (principal)
CPT/HCPCS: 81003; 99283; J7512

== ENCOUNTER 2023-10-17 18:24 | Inpatient (IN) | payer SELFPAY ==
--- OUTSIDE RECORDS SUMMARY | 2023-10-17 18:27 | XMS REPORT | Continuity of Care Document ---
Author Name Unknown Address [address] [facility] [address] [place] [address] [facility] thconnect Address [address] [facility] [address] [place] [address] Care Team Providers Care Rating Examiner Name Role Phone Unavailable Unavailable Unavailable Encounters Start Date/Time End Date/Time Encounter Type Admission Type Attending [facility] Facility Care Department Encounter ID Source 2023-08-16 07:53:37 2023-08-16 07:53:37 Outpatient SFA SFA 8 León Celis 2023-08-14 10:20:34 2023-08-14 10:20:34 Outpatient SFA SFA [id number] León Celis 2023-06-17 09:20:26 2023-06-17 09:20:26 Outpatient SFA SFA [id number] León Celis 2022-12-16 15:27:13 2022-12-16 15:27:13 Outpatient SFA SFA [id number] León Cleary Vimal 2022-12-11 08:18:10 2022-12-11 08:18:10 Outpatient SFA SFA [id number] León Celis 2022-08-05 10:18:37 2022-08-05 10:18:37 Outpatient SFA SFA [id number] León Cleary Vimal 2022-06-13 11:03:25 2022-06-13 11:03:25 Outpatient SFA SFA [id number] León Celis 2022-05-07 12:57:08 2022-05-07 12:57:08 Outpatient SFA SFA [id number] León Celis Results Test Description Test Time Test Comments Results Result Co mments Source COMPREHENSIVE METABOLIC [id number] 09:05:34* Test Item Value Reference Range Interpretation Comme nts GLUCOSE (test code = 2216) 112 MG/DL 70-99 H BUN (test code = 2207) 13 MG/DL 8-23 CREATININE (test code = 2213) 0.58 MG/DL 0.60-1.30 L eGFR (2020 CKD-EPI) (test code = 66429) 103 ML/MIN/1.73 >60 CALC BUN/CREAT (test code = 5) 22 RATIO 6-28 SODIUM (test code = 223) 140 MEQ/L 133-146 POTASSIUM (test code = 2228) 4.0 MEQ/L 3.5-5.4 CHLORIDE (test code = 2214) 103 MEQ/L 95-107 CARBON DIOXIDE (test code = 6) 22 MEQ/L 19-31 CALCIUM (test code = 2209) 9.5 MG/DL 8.5-10.5 PROTEIN, TOTAL (test code = 2228) 7.6 G/DL 6.1-8.3 ALBUMIN (test code = 2200) 4.2 G/DL 3.5-5.2 CALC GLOBULIN (test code = 2240) 3.4 G/DL 1.9-3.7 CALC A/G RATIO (test code = 223) 1.2 RATIO 1.0-2.6 BILIRUBIN, TOTAL (test code = 2206) 0.4 MG/DL <=1.2 ALKALINE PHOSPHATASE (test code = 220) 107 U/L 40-140 AST (test code = 2218) 31 U/L 9-40 ALT (test code = 2219) 26 U/L 5-40 UNLESS OTHERWISE INDICATED, ALL TESTING PERFORMED AT [facility] [address] [place] [address] ELECTRIC TOOL REPAIRER: JEFFREY JUÁREZ M.D. CLIA NUMBER [id number] [facility] [place]. [id number] HEMOGLOBIN [id number] 03:53:57* Test Item Value Reference Range Interpretation Comme nts HEMOGLOBIN A1c (test code = 30273) 5.7 % 4.2-5.6 H [employer] GUIDELINES FOR HGB A1C: [...] CONSIDER ALTERNATE TESTING OR LABORATORY CONSULTATION. LIPID [id number] 06:57:26* Test Item Value Reference Range Interpretation [...] SPECIMENS. FOR MOREINFORMATION, SEE CLIENT ANNOUNCEMENT AT [email or web address] RISK RATIO LDL/HDL (test code = 2238) 1.63 RATIO <3.22 COMPREHENSIVE METABOLIC [id number] 06:57:26* Test Item Value Reference Range Interpretation Comme nts GLUCOSE (test code = 2217) 107 MG/DL 70-99 H BUN (test code = 2208) 12 MG/DL 8-23 CREATININE (test code = 2214) 0.55 MG/DL 0.60-1.30 L eGFR (2020 CKD-EPI) (test code = 41513) 104 ML/MIN/1.73 >60 CALC BUN/CREAT (test code [...] as normal/abnormal. ALKALINE PHOSPHATASE (test code = 2204) 105 U/L 40-140 AST (test code = 2218) 40 U/L 9-40 ALT (test code = 2219) 36 U/L 5-40 UNLESS OTHERWISE INDICATED, ALL TESTING PERFORMED AT [facility] [address] [place] [address] ELECTRIC TOOL REPAIRER: JEFFREY JUÁREZ M.D. CLIA NUMBER [id number] [place] [id number] HEMOGLOBIN [id number] 03:39:52* Test Item Value Reference Range Interpretation Comme nts HEMOGLOBIN A1c (test code = 39829) 5.8 % 4.2-5.6 H UNLESS OTHERWISE INDICATED, ALL TESTING PERFORMED [facility] [address] [place] [address] ELECTRIC TOOL REPAIRER: NGHIA MERAZ M.D. CLIA NUMBER [id number] [place]. [id number] LIPID [id number] 03:00:57* Test Item Value Reference Range Interpretation [...] = 2238) 1.71 RATIO <3.22 COMPREHENSIVE METABOLIC [id number] 03:00:57* Test Item Value Reference Range Interpretation [...] code = 2218) 25 U/L 5-40 HEMOGLOBIN [id number] 09:19:50* Test Item Value Reference Range Interpretation Comme [facility] HEMOGLOBIN A1c (test code = 71760) 5.6 % 4.2-5.6 LIPID [id number] 04:20:14* Test Item Value Reference Range Interpretation [...] SPECIMENS. FOR MOREINFORMATION, SEE CLIENT ANNOUNCEMENT AT [email or web address] /CalcLDL-C RISK RATIO LDL/HDL (test code = 2237) 1.95 RATIO <3.22 COMPREHENSIVE METABOLIC [id number] 04:20:14* Test Item Value Reference Range Interpretation Comme nts GLUCOSE (test code = 2216) 88 MG/DL 70-99 BUN (test code = 2207) 16 MG/DL 6-20 CREATININE (test code = 2213) 0.57 MG/DL 0.60-1.30 L eGFR (2020 CKD-EPI) (test code = 85365) 105 ML/MIN/1.73 >60 CALC BUN/CREAT (test code = 2235) 28 RATIO 6-28 SODIUM (test code = 2230) 141 MEQ/L 133-146 POTASSIUM (test code = 2228) 4.4 MEQ/L 3.5-5.4 CHLORIDE (test code = 2215) 101 MEQ/L 95-107 CARBON DIOXIDE (test code = 2205) 25 MEQ/L 19-31 CALCIUM (test code = 2209) 9.6 MG/DL 8.5-10.5 PROTEIN, TOTAL (test code = 2228) 7.8 G/DL 6.1-8.3 ALBUMIN (test code = 2200) 4.3 G/DL 3.5-5.2 CALC GLOBULIN (test code = 2240) 3.5 G/DL 1.9-3.7 CALC A/G RATIO (test code = 223) 1.2 RATIO 1.0-2.6 BILIRUBIN, TOTAL (test code = 2206) 0.3 MG/DL See_Comment [Automated me ssage] The system which generated this result transmitted reference range: <=1.2. The reference range was not used to interpret this result as normal/abnormal. ALKALINE PHOSPHATASE (test code = 4) 114 U/L 40-136 AST (test code = 8) 31 U/L 9-40 ALT (test code = 2219) 28 U/L 5-40 UNLESS OTHERWISE INDICATED, [facility] [address] [place] [address] ELECTRIC TOOL REPAIRER: NGHIA MERAZ M.D. CLIA NUMBER [id number] [facility] [place]. [id number]
[2023-10-17] MEDS ORDERED: NA CHLORIDE 0.9% 1,000 ML ONE (19:29)
[2023-10-17] MEDS ORDERED: ONDANSETRON 4 MG/2 ML VIAL ONE (19:29)
[2023-10-17] MEDS ORDERED: FAMOTIDINE 20 MG/2 ML VIAL IV ONE (19:29)
[2023-10-17 19:49] LABS: Absolute Eosinophils 0.2 K/uL (0-0.5); Absolute Lymphocytes (CBC) 2.9 K/uL (0.7-4.9); Absolute Monocytes 0.6 K/uL (0.1-1.3); Absolute Neutrophil 5.8 K/uL (1.8-8.0); Basophils % 0.4 % (0-1.3); Eosinophils % 1.6 % (0-4.4); Hematocrit 38.3 % (36.0-45.0); Hemoglobin 12.8 g/dL (12.0-15.0); Lymphocytes % 30.3 % (15.3-44.8); MCH 30.4 pg (27.0-35.0); MCHC 33.5 g/dL (32.0-36.0); MCV 90.8 fL (80-100); Monocytes % 6.1 % (3.3-12.3); Neutrophils % 61.6 % (41.7-73.7); Nucleated Red Blood Cells % 0.1 % (0-0); Platelets 184 thou/uL (152-406); RBC Red Blood Cell Count 4.21 M/uL (3.86-4.86); Red Cell Distribution Width 13.1 % (12.1-15.2)
[2023-10-17 19:51] LABS: PT Prothrombin Time 12.4 SECONDS (9.5-12.5); Protime INR 1.13
[2023-10-17 20:23] LABS: Albumin 3.3 g/dL (3.4-5.0); Albumin/Globulin Ratio 0.9 (1.1-1.8); Anion Gap 9.3 mEq/L (5.0-15.0); Bilirubin Direct 0.1 mg/dL (0-0.2); Bilirubin Indirect, Calculated 0.2 mg/dL (0.2-0.8); Bilirubin Total 0.3 mg/dL (0.2-1.0); Globulin 3.8 g/dL (2.3-3.5); Protein, Total 7.1 g/dL (6.4-8.2)
[2023-10-17 20:24] LABS: Magnesium 1.8 mg/dL (1.6-2.4); Potassium 3.3 mEq/L (3.5-5.1)
[2023-10-17 20:31] LABS: Troponin High Sensitivity 71.9 pg/mL (<58.9)
--- NOTE | 2023-10-17 21:07 | RAD REPORT ---
EXAM DESCRIPTION: Liban Single View10/17/2023 7:49 pm CLINICAL HISTORY: Abdominal pain COMPARISON: 2016 FINDINGS: The lungs appear clear of acute infiltrate. The heart is mildly enlarged IMPRESSION: No acute abnormalities displayed
--- NOTE | 2023-10-17 21:18 | RAD REPORT ---
EXAM DESCRIPTION: CT - Abdomen Pelvis W Contrast - 10/17/2023 9:02 pm CLINICAL HISTORY: Abdominal pain COMPARISON: 2020 TECHNIQUE: Computed axial tomography of the abdomen pelvis was obtained. 100 cc Isovue-300 was admin istered intravenously. Oral contrast was not requested which limits evaluation of bowel and appendix All CT scans are performed using dose optimization technique as appropriate and may include automated exposure control or mA/KV adjustment according to patient size. FINDINGS: Cholecystectomy The liver, spleen, pancreas, adrenal and kidneys appear unremarkable. There is no evidence of diverticulitis. Normal appendix. No adnexal mass A ventral hernia to the right of midline just above level of the emboli kiss contains fat. Mild stran ding is present within the fat. The neck measures 2.6 centimeters. The hernia sac 9.6 centimeters. Small umbilical hernia contains fat IMPRESSION: Moderate to large right ventral hernia above the level of the umbilicus. Mild stranding within the fat could indicate strangulation
--- NOTE | 2023-10-17 23:45 | EDPHYS ---
Physician Documentation [facility] Name: Jennifer Solorio Age: 62 yrs Sex: Female : 1960 Arrival Date: 10/17/2023 Time: 18:24 Bed 14 Private MD: ED Physician John Tavera HPI: 10/16 20:00 This 62 yrs old Female presents to ER via EMS with complaints of Abdominal ms3 Pain, Nausea/Vomiting. 20:00 62-year-old female with past medical history of gallstones, hypertension presents to [facility] the emergency department for abdominal pain that began 4 hours prior to arrival. Patient states the pain is located to the right of her umbilicus. Patient rates pain a 10/10. Patient denies any alleviating or inciting factors. Historical: - Allergies: 18:35 PENICILLINS; ph - Home Meds: 18:35 lisinopril Oral [Active]; ph - PMHx: 18:35 GALLSTONES; Hypertension; ph - PSHx: 18:35 Cholecystectomy; ph - Immunization history:: Adult Immunizations unknown. - Social history:: Smoking status: Patient denies any tobacco usage or history of. ROS: 20:00 Constitutional: Negative for fever, and chills. Neck: Negative for injury, pain, and ms3 swelling, Cardiovascular: Negative for chest pain, and palpitations. Respiratory: Negative for shortness of breath, cough, wheezing, and pleuritic chest pain, 20:00 MS/Extremity: Negative for injury and deformity, Skin: Negative for injury, rash, and discoloration, 20:00 Abdomen/GI: Positive for abdominal pain, Exam: 20:00 Constitutional: This is a well developed, well nourished patient who is awake, alert, ms3 and in no acute distress. Head/Face: Normocephalic, atraumatic. Neck: Trachea midline, no cervical lymphadenopathy. Supple, full range of motion without nuchal rigidity, or vertebral point tenderness. No Meningismus. Chest/axilla: Normal chest wall appearance and motion. Nontender with no deformity. Cardiovascular: Regular rate and rhythm with a normal S1 and S2. No gallops, murmurs, or rubs. Normal PMI, no JVD. No pulse deficits. Respiratory: Lungs have equal breath sounds bilaterally, clear to auscultation and percussion. No rales, rhonchi or wheezes noted. No increased work of breathing, no retractions or nasal flaring. 20:00 Abdomen/GI: Inspection: abdomen appears normal, Bowel sounds: normal, in all quadrants, Palpation: moderate abdominal tenderness, in the umbilical area, Hernia: noted in the umbilical area, tenderness, that is moderate, Reducible, 20:00 ECG was reviewed by the Attending Physician. ms3 Vital Signs: 18:54 BP 154 / 90; Pulse 68; Resp 18; Pulse Ox 98% ; ph 19:39 Pulse 70; Resp 31; Pulse Ox 100% on R/A; Pain 10/10; ph 20:22 BP 101 / 69; Pulse 68; Pulse Ox 99% on R/A; Pain 5/10; tm6 21:33 BP 105 / 55; Pulse 66; Resp 20; Pulse Ox 99% on R/A; Pain 0/10; tm6 22:37 Resp 69; Pulse Ox 100% ; Pain 2/10; tm6 22:38 BP 144 / 74; tm6 23:33 BP 135 / 55; Pulse 68; Resp 13; Temp 97.5(TE); Pulse Ox 100% on R/A; Pain 0/10; tm6 19:39 Pain Scale: Adult ph 20:22 Pain Scale: Adult tm6 21:33 Pain Scale: Adult tm6 22:37 Pain Scale: Adult tm6 23:33 Pain Scale: Adult tm6 MDM: 18:36 Patient medically screened. daniel 23:44 Differential diagnosis: Nonspecific abd pain, Hernia. Data reviewed: vital signs, ms3 nurses notes, lab test result(s), and as a result, I will admit patient. Consideration of Admission/Observation Patient was admitted/placed on observation. Management of patient was discussed with the following: Hospitalist: Dr Duong. I considered the following discharge prescriptions or medication management in the emergency department Medications were administered in the Emergency Department. See MAR. Care significantly affected by the following chronic conditions: Hypertension. Counseling: I had a detailed discussion with the patient and/or guardian regarding the historical points, exam findings, and any diagnostic results supporting the discharge/admit diagnosis, lab results, radiology results, the need for further work-up and treatment in the hospital. ED course: Discussed elevated troponin with patient. Patient denies chest pain or shortness of breath at this time. Patient hernia reduced without incident. Discussed case with Dr. Duong and he accepts patient as observation.. 10/16 18:38 Order name: Basic Metabolic Panel; Complete Time: 20:34 daniel 10/16 18:38 Order name: CBC with Diff; Complete Time: 20:34 daniel 10/16 18:38 Order name: LFT's; Complete Time: 20:34 daniel 10/16 18:38 Order name: Magnesium; Complete Time: 20:34 daniel 10/16 18:38 Order name: NT PRO-BNP; Complete Time: 20:34 daniel 10/16 18:38 Order name: PT-INR; Complete Time: 20:34 daniel 10/16 18:38 Order name: Troponin HS; Complete Time: 20:34 daniel 10/16 18:38 Order name: Lipase; Complete Time: 20:34 daniel 10/16 21:30 Order name: Troponin High Sensitivity; Complete Time: 23:25 ms3 10/17 00:08 Order name: Basic Metabolic Panel EDMS 10/17 00:08 Order name: Basic Metabolic Panel EDMS 10/17 00:08 Order name: Basic Metabolic Panel EDMS 10/17 00:08 Order name: Basic Metabolic Panel EDMS 10/17 00:08 Order name: CBC with Automated Diff EDMS 10/17 00:08 Order name: CBC with Automated Diff EDMS 10/17 00:08 Order name: CBC with Automated Diff EDMS 10/17 00:08 Order name: CBC with Automated Diff EDMS 10/17 00:19 Order name: Troponin High Sensitivity EDMS 10/17 00:19 Order name: Troponin High Sensitivity; Complete Time: 02:17 EDMS 10/17 00:19 Order name: Troponin High Sensitivity; Complete Time: 05:25 EDMS 10/17 00:19 Order name: Troponin High Sensitivity EDMS 10/16 18:38 Order name: XRAY Chest (1 view); Complete Time: 21:10 daniel 10/16 18:38 Order name: CT Abd/Pelvis - IV Contrast Only; Complete Time: 21:27 daniel 10/16 18:38 Order name: EKG; Complete Time: 18:[address] [facility] 10/17 00:08 Order name: CONS Physician Consult EDMS 10/17 00:08 Order name: CONS Physician Consult EDMS 10/16 18:38 Order name: Cardiac monitoring; Complete Time: 19:[address] [facility] 10/16 18:38 Order name: EKG - Nurse/Tech; Complete Time: 19:[address] [facility] 10/16 18:38 Order name: IV Saline Lock; Complete Time: 18:[address] [facility] 10/16 18:38 Order name: Labs collected and sent; Complete Time: 18:[address] [facility] 10/16 18:38 Order name: O2 Per Protocol; Complete Time: 18:[address] [facility] 10/16 18:38 Order name: O2 Sat Monitoring; Complete Time: 18:[address] [facility] 10/16 21:30 Order name: Vital Signs; Complete Time: 21:37 ms3 EC:00 Rate is 68 beats/min. Rhythm is regular. QRS [place] is Normal. MA interval is normal. QRS ms3 interval is normal. Clinical impression: Normal ECG. Interpreted by me. Reviewed by me. Administered Medications: 18:54 Drug: NS 0.9% IV 1000 ml IV at 1 bolus Per protocol; 1000 mL bolus Route: IV; Rate: 1 ph bolus; Site: left hand; 19:36 Drug: Famotidine IVP 20 mg IVP once; dilute with 10 mL 0.9% NaCl; give over 2 minutes ph Route: IVP; Site: left hand; 19:37 Drug: Ondansetron IVP 4 mg IVP once; over 2 minutes Route: IVP; Site: left hand; ph Disposition Summary: 10/17/23 23:44 Hospitalization Ordered Notes: Hospitalization Status: Observation ms3 Provider: Alan Duong ms3 Condition: Stable ms3 Problem: new ms3 Symptoms: are unchanged ms3 Bed/Room Type: Standard ms3 Location: Telemetry/MedSurg (observation)(10/18/23 09:37) bd Room Assignment: 412(10/18/23 09:37) bd Diagnosis - Abdominal pain, unspecified ms3 - Umbilical hernia without obstruction or gangrene ms3 - Elevated Troponin ms3 Forms: - Medication Reconciliation Form ms3 - SBAR form ms3 - Leadership Thank You Letter ms3 Signatures: Dispatcher [employer] EDJenny Florian Corey, MD MD cha Hall, Patricia, RN RN ph John Tavera, DO ms3 Ada Veras rv1 Corrections: (The following items were deleted from the chart) 10/18 99:10/16 23:44 Telemetry/MedSurg (observation) ms3 rv1 10/17 00:10/16 23:44 ms3 rv1 10/17 09:37 00:31 [facility] ER HOLD rv1 bd 09:37 00:31 ERHOLD- rv1 bd
--- NOTE | 2023-10-17 23:45 | ER ---
Nurse's Notes [facility] Name: Jennifer Solorio Age: 62 yrs Sex: Female : 1960 Arrival Date: 10/17/2023 Time: 18:24 Bed 14 Private MD: Diagnosis: Abdominal pain, unspecified;Umbilical hernia without obstruction or gangrene;Elevated Troponin Presentation: 10/16 18:26 Chief complaint: EMS states: Abdominal pain, N/V that started after today after eating ph pineapple. Coronavirus screen: Vaccine status: Patient reports receiving the 2nd dose of the covid vaccine. Ebola Screen: No symptoms or risks identified at this time. Initial Sepsis Screen: Does the patient meet any 2 criteria? No. Patient's initial sepsis screen is negative. Does the patient have a suspected source of infection? No. Patient's initial sepsis screen is negative. Risk Assessment: Do you want to hurt yourself or someone else? Patient reports no desire to harm self or others. Onset of symptoms was October 17, 2023. 18:26 Method Of Arrival: EMS: [facility] ph 18:26 Acuity: JUDITH 3 ph 18:53 Care prior to arrival: Medication(s) given: zofran 4 mg, Fentanyl 100 mcg. ph Historical: - Allergies: 18:35 PENICILLINS; ph - Home Meds: 18:35 lisinopril Oral [Active]; ph - PMHx: 18:35 GALLSTONES; Hypertension; ph - PSHx: 18:35 Cholecystectomy; ph - Immunization history:: Adult Immunizations unknown. - Social history:: Smoking status: Patient denies any tobacco usage or history of. Screenin:41 [facility] ED Fall Risk Assessment (Adult) History of falling in the last 3 months, ph including since admission No falls in past 3 months (0 pts) Confusion or Disorientation No (0 pts) Intoxicated or Sedated No (0 pts) Impaired Gait No (0 pts) Mobility Assist Device Used No (0 pt) Altered Elimination No (0 pt) Score/Fall Risk Level 0 - 2 = Low Risk Oriented to surroundings, Maintained a safe environment. Abuse screen: Denies threats or abuse. Denies injuries from another. Nutritional screening: No deficits noted. Tuberculosis screening: No symptoms or risk factors identified. Assessment: 19:39 General: Appears distressed, Behavior is cooperative, anxious, crying. Pain: Complains ph of pain in abdomen Pain currently is 10 out of 10 on a pain scale. Neuro: Level of Consciousness is awake, alert, obeys commands, Oriented to person, place, time, situation. Cardiovascular: Capillary refill < 3 seconds Patient's skin is warm and dry. Rhythm is sinus rhythm. Respiratory: Airway is patent Respiratory effort is even, unlabored, Respiratory pattern is regular, symmetrical. GI: Bowel sounds present X 4 quads. Abdomen is tender to palpation X 4 quads. Reports nausea, Pain is 10 out of 10 on a pain scale. : No signs and/or symptoms were reported regarding the genitourinary system. EENT: No signs and/or symptoms were reported regarding the EENT system. Derm: No signs and/or symptoms reported regarding the dermatologic system. Musculoskeletal: No signs and/or symptoms reported regarding the musculoskeletal system. 20:22 Reassessment: Patient and/or family updated on plan of care and expected duration. Pain tm6 level reassessed. Patient is alert, oriented x 3, equal unlabored respirations, skin warm/dry/pink. 21:37 Reassessment: Patient and/or family updated on plan of care and expected duration. Pain tm6 level reassessed. Patient is alert, oriented x 3, equal unlabored respirations, skin warm/dry/pink. 22:38 Reassessment: Patient and/or family updated on plan of care and expected duration. Pain tm6 level reassessed. Patient is alert, oriented x 3, equal unlabored respirations, skin warm/dry/pink. 23:34 Reassessment: Patient and/or family updated on plan of care and expected duration. Pain tm6 level reassessed. Patient is alert, oriented x 3, equal unlabored respirations, skin warm/dry/pink. Vital Signs: 18:54 BP 154 / 90; Pulse 68; Resp 18; Pulse Ox 98% ; ph 19:39 Pulse 70; Resp 31; Pulse Ox 100% on R/A; Pain 10/10; ph 20:22 BP 101 / 69; Pulse 68; Pulse Ox 99% on R/A; Pain 5/10; tm6 21:33 BP 105 / 55; Pulse 66; Resp 20; Pulse Ox 99% on R/A; Pain 0/10; tm6 22:37 Resp 69; Pulse Ox 100% ; Pain 2/10; tm6 22:38 BP 144 / 74; tm6 23:33 BP 135 / 55; Pulse 68; Resp 13; Temp 97.5(TE); Pulse Ox 100% on R/A; Pain 0/10; tm6 19:39 Pain Scale: Adult ph 20:22 Pain Scale: Adult tm6 21:33 Pain Scale: Adult tm6 22:37 Pain Scale: Adult tm6 23:33 Pain Scale: Adult tm6 ED Course: 18:25 Patient arrived in ED. ph 18:34 Triage completed. ph 18:35 Arm band placed on. ph 18:36 Hermes Fernández MD is Attending Physician. daniel 18:37 Patient has correct armband on for positive identification. Placed in gown. Bed in low ph position. Call light in reach. Side rails up X2. Pulse ox on. NIBP on. 18:39 Reena Grajeda RN is Primary Nurse. ph 19:02 Attending Physician role handed off by Hermes Fernández MD ms3 19:02 John Tavera DO is Attending Physician. ms3 19:14 EKG done, by rail technician. reviewed by John Tavera DO. oe 19:41 Provided Education on: plan of care. Client placed on continuous cardiac and pulse ph oximetry monitoring. NIBP monitoring applied. surveillance monitor on. Door closed. Noise minimized. 19:41 Maintain EMS IV. Dressing intact. Good blood return noted. Site clean \T\ dry. Gauge \T\ ph site: 20g R hand. 19:51 XRAY Chest (1 view) In Process Unspecified. EDMS 20:34 Notified ED physician of a critical lab result(s). troponin 71.9. tm6 21:03 CT Abd/Pelvis - IV Contrast Only In Process Unspecified. EDMS 21:12 Primary Nurse role handed off by Reena Grajeda RN as6 21:33 Devika Matamoros RN is Primary Nurse. tm6 22:11 Troponin High Sensitivity Sent. tm6 23:43 Alan Duong MD is Hospitalizing Provider. ms3 Administered Medications: 18:54 Drug: NS 0.9% IV 1000 ml IV at 1 bolus Per protocol; 1000 mL bolus Route: IV; Rate: 1 ph bolus; Site: left hand; 19:36 Drug: Famotidine IVP 20 mg IVP once; dilute with 10 mL 0.9% NaCl; give over 2 minutes ph Route: IVP; Site: left hand; 19:37 Drug: Ondansetron IVP 4 mg IVP once; over 2 minutes Route: IVP; Site: left hand; ph Outcome: 23:44 Decision to Hospitalize by Provider. ms3 10/17 11:56 Patient left the ED. aa5 Signatures: Dispatcher [employer] EDMD Hermes Fernández MD MD cha Calderon, Audri, RN RN aa5 Reena Grajeda RN RN Evgeny Bethea Marcus, DO DO ms3 Andrew Hartley, ANGEL RN as6 Devika Matamoros RN RN tm6
[2023-10-18] MEDS: NA CHLORIDE 0.9% 1,000 ML IV SCH
[2023-10-18] MEDS ORDERED: MAGNESIUM HYDROXIDE 8% 30 ML PO PRN
--- NOTE | 2023-10-18 00:16 | P.HP ---
Certification for Inpatient Patient admitted to: Inpatient With expected LOS: >2 Midnights Practitioner: I am a practitioner with admitting privileges, knowledge of patient current condition, hospital course, and medical plan of care. Services: Services provided to patient in accordance with Admission requirements found in Title 42 Section 412.3 of the Code of Federal Regulations Patient History Date of Service: 10/18/23 Reason for admission: Incarcerated umbilical hernia, chest pain. History of Present Illness: 62-year-old female patient who was admitted for management of incarcerated umbilical hernia. She recently had gallstone and had gallstone surgery in April 2023. She decided to come back to the emergency room because she had abdominal pain after eating some food and this was colicky and rated 11 out of 10 in intensity as per patient's report. She has also been having recurrent chest pain for about 2 weeks. She denies overt episode of nausea, vomiting. Incarcerated hernia was reduced by ER physician. She was admitted for surgeon evaluation and also workup of chest pain. Allergies Penicillins Allergy (Severe, Verified 11/08/16 20:46) Anaphylaxis Home Medications: Lisinopril/Hydrochlorothiazide [Zestoretic 20-25 mg Tablet] 1 tab PO DAILY 11/08/16 Diphenox/Atropine [Lomotil*] 1 tab PO QID PRN #20 tab 11/10/16 - Past Medical/Surgical History -: HTN -: GALLSTONES - Social History Alcohol use: No CD- Drugs: No Caffeine use: Yes Review of Systems General: Unremarkable Eyes: Unremarkable ENT: Unremarkable Respiratory: Unremarkable Cardiovascular: Chest Pain Gastrointestinal: Abdominal Pain Genitourinary: Unremarkable Musculoskeletal: Unremarkable Integumentary: Unremarkable Neurological: Unremarkable Lymphatics: Unremarkable Physical Examination - Physical Exam General: Alert, Oriented x3 HEENT: Atraumatic Neck: Supple Respiratory: Normal air movement Cardiovascular: Regular rate/rhythm, Normal S1 S2 Gastrointestinal: Soft and benign Musculoskeletal: No swelling Neurological: Normal speech, Normal strength at 5/5 x4 extr - Studies Laboratory Data (last 24 hrs) 10/17/23 10/17/23 10/17/23 19:37 19:37 19:37 WBC 9.40 Hgb 12.8 Hct 38.3 Plt Count 184 PT 12.4 INR 1.13 Sodium 140 Potassium 3.3 L BUN 12 Creatinine 0.72 Glucose 127 H Magnesium 1.8 Total Bilirubin 0.3 AST 27 ALT 31 Alkaline Phosphatase 97 Lipase 43 Assessment and Plan - Plan Incarcerated umbilical neck: Reduced by ER physician. Surgeon to evaluate for possible intervention. Continue pain control medication with morphine. Chest pain: Concerns for ACS entertained. Troponin slightly elevated at 70s. Will trend troponin, obtain echocardiogram and have cardiology evaluate for possible intervention. Will start aspirin therapy. Will also obtain lipid panel. Hypokalemia: Potassium is low at 3.3. Will replete and monitor. Prophylaxis: Lovenox for DVT prophylaxis CODE STATUS: Full code Disposition: We will treat umbilical hernia and workup her chest pain and she will be discharged once cleared by surgical service and leather splitter. - Advance Directives Does patient have a Living Will: Yes Does patient have a Durable POA for Healthcare: No
[2023-10-18] MEDS ORDERED: MORPHINE 2 MG/ML SYR ONE (00:59)
[2023-10-18] MEDS ORDERED: NA CHLORIDE 0.9% 1,000 ML ONE (00:59)
[2023-10-18] MEDS: MORPHINE 2 MG/ML SYR IV PRN (01:07)
[2023-10-18 01:19] VITALS: BMI 43.9
[2023-10-18] MEDS ORDERED: ACETAMINOPHEN 325 MG TABLET ONE (04:38)
[2023-10-18] MEDS: ACETAMINOPHEN 325 MG TABLET PO PRN (04:44)
[2023-10-18] MEDS: POTASSIUM CL SA 10 MEQ TAB PO ONE (05:30)
[2023-10-18] MEDS ORDERED: POTASSIUM CL SA 10 MEQ TAB PO ONE (05:33)
[2023-10-18] MEDS: ENOXAPARIN 40 MG/0.4 ML SQ SCH (09:00)
[2023-10-18] MEDS ORDERED: ENOXAPARIN 40 MG/0.4 ML SQ ONE (10:45)
--- NOTE | 2023-10-18 12:58 | P.CNS ---
Date of Consult: 10/18/23 Chief Complaint: Incarcerated umbilical hernia, chest pain. History of Present Illness: Patient with no significant past medical cardiac history presented with chest pain for the last 2-3 weeks, left sided, last few minutes then resolve, she also report history of GERD and stomach ulcers, patient is admitted with incarcerated umbilical hernia. Allergies Penicillins Allergy (Severe, Verified 11/08/16 20:46) Anaphylaxis Home Medications: Lisinopril/Hydrochlorothiazide [Zestoretic 20-25 mg Tablet] 1 tab PO DAILY 11/08/16 Diphenox/Atropine [Lomotil*] 1 tab PO QID PRN #20 tab 11/10/16 - Past Medical/Surgical History -: HTN -: GALLSTONES - Social History Alcohol use: No CD- Drugs: No Caffeine use: Yes Review of Systems 10-point ROS is otherwise unremarkable Physical Examination Temp Pulse Resp BP Pulse Ox 97.5 F 68 13 135/55 L 98 10/18/23 12:09 10/18/23 12:09 10/18/23 12:09 10/18/23 12:09 10/18/23 08:21 General: Alert, Oriented x3 HEENT: Atraumatic Neck: Supple Respiratory: Clear to auscultation bilaterally Cardiovascular: No edema, Normal S1 S2 Gastrointestinal: Normal bowel sounds Laboratory Data (last 24 hrs) 10/17/23 10/17/23 10/17/23 19:37 19:37 19:37 WBC 9.40 Hgb 12.8 Hct 38.3 Plt Count 184 PT 12.4 INR 1.13 Sodium 140 Potassium 3.3 L BUN 12 Creatinine 0.72 Glucose 127 H Magnesium 1.8 Total Bilirubin 0.3 AST 27 ALT 31 Alkaline Phosphatase 97 Lipase 43 - Problems (1) Chest pain Current Visit: Yes Status: Acute Plan: Mild elevated cardiac enzymes. recommend getting nuclear stress test in am please also get Echo NPO past mid night for stress test in am.
[2023-10-18] MEDS: ONDANSETRON 4 MG/2 ML VIAL IV PRN (13:18)
--- NOTE | 2023-10-18 13:58 | P.PN ---
Date of Service: 10/18/23 Patient seen and examined. Chart reviewed She currently denies any abdominal pain or chest pain. Umbilical hernia reduced by the ED provider in the ED. Troponin mildly elevated but trended flat. Cardiology input appreciated Nuclear stress test in a.m. recommended. General surgery consulted to evaluate for umbilical hernia. Analgesics as needed.
[2023-10-19 07:37] LABS: Absolute Eosinophils 0.2 K/uL (0-0.5); Absolute Lymphocytes (CBC) 2.9 K/uL (0.7-4.9); Absolute Monocytes 0.7 K/uL (0.1-1.3); Absolute Neutrophil 3.8 K/uL (1.8-8.0); Basophils % 0.6 % (0-1.3); Eosinophils % 2.5 % (0-4.4); Hematocrit 36.7 % (36.0-45.0); Hemoglobin 12.4 g/dL (12.0-15.0); Lymphocytes % 38.4 % (15.3-44.8); MCH 30.7 pg (27.0-35.0); MCHC 33.8 g/dL (32.0-36.0); MCV 90.8 fL (80-100); MPV 8.2 fL (7.6-11.3); Monocytes % 8.6 % (3.3-12.3); Neutrophils % 49.9 % (41.7-73.7); Platelets 180 thou/uL (152-406); RBC Red Blood Cell Count 4.05 M/uL (3.86-4.86)
[2023-10-19 07:47] LABS: Anion Gap 7.1 mEq/L (5.0-15.0); Potassium 4.1 mEq/L (3.5-5.1)
--- NOTE | 2023-10-19 08:51 | P.PN ---
Date of Service: 10/19/23 Subjective: Feeling a little better today felt intermittent chest pain this morning - thinks it may be more anxiety / her nerves abdominal pain slightly improved, had hernia reduced in ER , but shot coat tender/sore when pain meds wear off no nausea / vomiting / diarrhea - NPO this morning for stress test afebrile ROS: 10 point ROS as noted above, otherwise negative Physical Exam: GEN: Alert, oriented, NAD HEENT: Normal conjunctiva, sclera anicteric, CV: Regular rate and rhythm, no edema Pulm: Nonlabored respirations on room air, clear bilaterally ABD: soft, mildly tender to palpation over right ventral hernia Neuro: Normal speech, normal affect Problem List: Incarcerated umbilical hernia, s/p manual reduction in ED NSTEMI hx GERD / stomach ulcers Hypertension Incarcerated umbilical hernia hx GERD / stomach ulcers CT abd/pelvis (10/16): mod-large right ventral hernia above level of umbilicus. Small umbilical hernia contains fat. +mild stranding within the fat could indicate strangulation Hx of gallstones, had recent cholecystectomy in April 2023 hernia was reduced in ER, noted quite a bit of improvement initially, but still with some moderate pain once medication wears off General surgery - Dr. Toledo consulted to eval for possible surgical intervention suspect outpatient follow up given that it is reduced and having some improvement will monitor through the day, advance diet after stress testing PRN analgesics / antiemetics NSTEMI Reports 2-3 weeks of intermittent left sided chest pain that lasts for few minutes before resolving troponins mildly elevated but trended flat. Monitor on telemetry CXR (10/16): no acute abnormalities Cardiology is following nuclear stress test was negative for stress-induced ischemia (10/18) Hypertension confirm home meds, restart as appropriate VTE: Lovenox Code: Full Dispo: Home, anticipate tomorrow monitor overnight / advance diet, still having quite a bit of pain
[2023-10-19] MEDS ORDERED: REGADENOSON 0.4 MG/5 ML SYR IV ONE (09:18)
--- NOTE | 2023-10-19 10:09 | RAD REPORT ---
EXAM DESCRIPTION: NM - Rest Stress Cardiac Imaging - 10/19/2023 9:57 am CLINICAL HISTORY: Chest pain. COMPARISON: None. TECHNIQUE: The patient was administered 9.7 mCi of Tc 99m Sestamibi prior to resting SPECT imaging o f the heart. The patient was then administered 32.2 MCi of Tc 99m Sestamibi following exercise or pha rmacologic stress. Multiplanar SPECT images were reviewed. FINDINGS: Small area of diminished radiotracer activity involves the apical left ventricular myocard ium on rest and stress sequences presumably secondary to physiologic thinning. The remainder of the left ventricular myocardium demonstrates uniformity radiotracer uptake on rest a nd stress images. The left ventricular ejection fraction equals 61% IMPRESSION: No evidence of stress-induced ischemia
--- NOTE | 2023-10-19 21:34 | P.CNS ---
Date of Consult: 10/19/23 PC: This 62-year-old female presented the emergency room with abdominal pain for diagnosis and treatment. HPC: Patient been at home, moving around, noticed that she had a bulge in her abdominal wall. It has been there for a while. But however it caused increasing pain and discomfort. Came to the emergency room for evaluation and t reatment. PSHx: Previous cholecystectomy [laparoscopic] PMHx: Hypertension Social Hx: Allergic to penicillin Sys R: No cough, wheeze, shortness of breath. States she is doing relatively good shape. Has some grandchildren at home which she takes care of. Always running around bending and lifting them. O/E: Awake alert vital signs are stable, but still uncomfortable HEENT: Within normal limits Chest: Chest movement equal bilaterally Abd: In the area just above and to the right side of the umbilicus, 1 can feel a mass effect in that area. I do not believe that the hernia has been fully reduced. There appears to be omentum still stuck in the subcutaneous tissue. It is tender to the touch at the moment. [place]: Intact Data: CT scan demonstrates large incarcerated abdominal wall hernia. Next appears to be about 2.5 cm. Impression: Painful incarcerated ventral hernia Plan: The patient was seen by cardiology. It should he have ruled out any cardiac component to this pain. She still however is uncomfortable. Hurts when she tries to move around. I have discussed her surgical options. We have discussed repairing this hernia on this admission. She will have been 48 hours since her presentation. The hernia is still incarcerated. I will take her to the operating room for a laparoscopic possible open reduction and repair of this hernia with mesh. The risks of the procedure have been discussed. The possibility of bleeding, infection, injury to bowel blood vessels and surrounding structures were outlined. Recurrence and unusual complications were explained. She understands and wants us to proceed.
[2023-10-20 06:33] LABS: Absolute Eosinophils 0.1 K/uL (0-0.5); Absolute Lymphocytes (CBC) 2.9 K/uL (0.7-4.9); Absolute Monocytes 0.5 K/uL (0.1-1.3); Absolute Neutrophil 3.1 K/uL (1.8-8.0); Basophils % 0.4 % (0-1.3); Eosinophils % 2.2 % (0-4.4); Hematocrit 39.1 % (36.0-45.0); Hemoglobin 13.2 g/dL (12.0-15.0); Lymphocytes % 43.3 % (15.3-44.8); MCH 30.4 pg (27.0-35.0); MCHC 33.6 g/dL (32.0-36.0); MCV 90.3 fL (80-100); MPV 7.9 fL (7.6-11.3); Monocytes % 8.1 % (3.3-12.3); Nucleated Red Blood Cells % 0.1 % (0-0); Platelets 203 thou/uL (152-406); RBC Red Blood Cell Count 4.33 M/uL (3.86-4.86); Red Cell Distribution Width 13.2 % (12.1-15.2)
[2023-10-20 06:44] LABS: Anion Gap 7.5 mEq/L (5.0-15.0); Potassium 4.5 mEq/L (3.5-5.1)
--- NOTE | 2023-10-20 08:50 | P.PN ---
Subjective Date of Service: 10/20/23 Chief Complaint: Incarcerated umbilical hernia, chest pain. Subjective: No new changes Review of Systems 10-point ROS is otherwise unremarkable Physical Examination - Vital Signs Temperature: 97.4 F Blood Pressure: 166/79 Pulse: 64 Respirations: 18 Pulse Ox (%): 96 - Physical Exam General: Alert, Oriented x3 HEENT: Atraumatic Neck: Supple Respiratory: Clear to auscultation bilaterally Cardiovascular: No edema, Normal S1 S2 Gastrointestinal: Normal bowel sounds Assessment And Plan - Current Problems (Diagnosis) (1) Chest pain Current Visit: Yes Status: Acute Plan: Mild elevated cardiac enzymes. Patient stress test is negative so chest pain is most likely non cardiac. continue medical management.
--- NOTE | 2023-10-20 09:41 | ECHO ---
HEIGHT: 5 ft 2 in WEIGHT: 240 lb 0 oz DATE OF STUDY: 10/19/[address]: Alan Duong MD 2-DIMENSIONAL: YES M.MODE: YES DOPPLER: YES COLOR FLOW: YES TDS: YES PORTABLE: YES DEFINITY: NO BUBBLE STUDY: NO DIAGNOSIS: CHEST PAIN CARDIAC HISTORY: CATHERIZATION: SURGERY: PROSTHETIC VALVE: PACEMAKER: MEASUREMENTS (cm) DIASTOLIC (NORMALS) SYSTOLIC (NORMALS) IVSd 1.0 (0.6-1.2) LA Diam 3.5 (1.9-4.0) LVEF 65% LVIDd 3.5 (3.5-5.7) LVIDs 2.3 (2.0-3.5) %FS 35% LVPWd 1.1 (0.6-1.2) Ao Diam 3.0 (2.0-3.7) 2 DIMENSIONAL ASSESSMENT: RIGHT ATRIUM: NORMAL LEFT ATRIUM: NORMAL RIGHT VENTRICLE: NORMAL LEFT VENTRICLE: NORMAL TRICUSPID VALVE: MILD TRICUSPID REGURGITATION MITRAL VALVE: NORMAL PULMONIC VALVE: NORMAL AORTIC VALVE: NORMAL PERICARDIAL EFFUSION: NONE AORTIC ROOT: NORMAL LEFT VENTRICULAR WALL MOTION: NORMAL DOPPLER/COLOR FLOW: MILD TRICUSPID REGURGITATION. COMMENTS: 1. NORMAL LEFT VENTRICULAR EJECTION FRACTION 60-65%. 2. NORMAL WALL MOTION. 3. MILD TRICUSPID REGURGITATION. TECHNOLOGIST: AJAY POLK
--- NOTE | 2023-10-20 09:48 | TREADPHA ---
DX: CHEST PAIN Date of Study: 10/19/2023 Ht: 5' 2 " Wt: 240 lb 0 oz Consulting Physician: SANJAY MEDICATIONS: LOVENOX, TYLENOL HISTORY: 62 YEAR OLD FEMALE WITH COMPLAINTS OF CHEST PAIN. HISTORY OF HYPERTENSION. PHYSICIAL EXAMINATION: RESTING B.P.: 131/80 RESTING H.R.: 66 RESTING EKG: NORMAL SINUS RHYTHM. PROTOCOL: LEXISCAN EXERCISE TIME: 3:30 B.P. AT PEAK STRESS: 150/82 IMPRESSION: [*] LEXISCAN INJECTED PER PROTOCOL. CARDIOLITE INJECTED. SEE NUCLEAR MEDICINE REPORT. NO CHEST PAIN. NO SUPRAVENTRICULAR OR VENTRICULAR TACHYCARDIA. NO ARRTHMIAS NOTED. PATIENT COMPAINTS OF SHORTNESS OF BREATH. NO EKG CHANGES OF ISCHEMIA.
--- NOTE | 2023-10-20 10:37 | P.PN ---
Date of Service: 10/20/23 Subjective: NPO for possible hernia reduction/repair with Dr. Toledo today abdominal pain is slightly more tolerable today but still persists no acute events overnight afebrile ROS: 10 point ROS as noted above, otherwise negative Physical Exam: GEN: Alert, oriented, NAD HEENT: Normal conjunctiva, sclera anicteric, CV: Regular rate and rhythm, no edema Pulm: Nonlabored respirations on room air, clear bilaterally ABD: soft, mildly tender to palpation over right ventral hernia Neuro: Normal speech, normal affect Problem List: Incarcerated umbilical hernia, s/p manual reduction in ED NSTEMI hx GERD / stomach ulcers Hypertension Incarcerated umbilical hernia, s/p manual reduction in ED hx GERD / stomach ulcers CT abd/pelvis (10/16): mod-large right ventral hernia above level of umbilicus. Small umbilical hernia contains fat. +mild stranding within the fat could indicate strangulation Hx of gallstones, had recent cholecystectomy in April 2023 hernia was reduced in ER, noted quite a bit of improvement initially, but still with some moderate pain once medication wears off General surgery - Dr. Toledo consulted to eval for possible surgical intervention NPO for tentative ventral hernia reduction/repair with Dr. Toledo today (10/19) diet and wound care per surgery PRN analgesics / antiemetics NSTEMI chest pain Reports 2-3 weeks of intermittent left sided chest pain that lasts for few minutes before resolving troponins mildly elevated but trended flat. CXR (10/16): no acute abnormalities nuclear stress test was negative for stress-induced ischemia (10/18) Cardiology is following -- suspect noncardiac etiology of pain Hypertension confirm home meds, restart as appropriate VTE: Lovenox held for surgery Code: Full Dispo: Home, anticipate dc tomorrow Pending surgery / recovery. Monitor vitals
[2023-10-20] MEDS ORDERED: LIDOCAINE 2% MPF 5 ML VIAL ONE (11:10)
[2023-10-20] MEDS ORDERED: FENTANYL CITR 100 MCG/2 ML ONE (11:11)
[2023-10-20] MEDS ORDERED: MIDAZOLAM HCL 2 MG/2 ML INJ ONE (11:11)
[2023-10-20] MEDS ORDERED: propofoL 200 MG/20 ML VIAL IV ONE (11:11)
[2023-10-20] MEDS ORDERED: KETOROLAC 30 MG/ML INJ ONE (11:12)
[2023-10-20] MEDS ORDERED: GLYCOPYRROLATE 0.2 MG/ML SYR ONE ×2 (11:12→13:11)
[2023-10-20] MEDS ORDERED: ONDANSETRON 4 MG/2 ML VIAL ONE (11:12)
[2023-10-20] MEDS ORDERED: dexAMETHasone 10 MG/ML VIAL ONE (11:12)
[2023-10-20] MEDS ORDERED: NEOSTIGMINE 1 MG/ML -10 ML VIAL ONE (11:12)
[2023-10-20] MEDS: Ringers Lactate 1,000 ML IV ONE ×2 (11:30→13:54)
[2023-10-20] MEDS: Levofloxacin500mg IV 500 MG/100 ML BAG IV ONE (11:59)
[2023-10-20] MEDS ORDERED: ROCURONIUM 50 MG/5 ML VIAL IV ONE (13:11)
[2023-10-20] MEDS: HYDROMORPHONE HCL 1 MG/ML INJ ONE ×2 (15:00→15:12)
[2023-10-20] MEDS: ONDANSETRON 4 MG/2 ML VIAL ONE (15:25)
[2023-10-20] MEDS: FENTANYL CITR 100 MCG/2 ML ONE (15:30)
--- NOTE | 2023-10-20 16:00 | P.OP ---
Preoperative diagnosis: Incarcerated ventral hernia Postoperative diagnosis: The same Primary procedure: Laparoscopic reduction of incarcerated ventral hernia Secondary procedure: Laparoscopic repair of incarcerated ventral hernia with mesh Anesthesia: General Estimated blood loss: Less than 20 cc Specimen: None Operative Technique: The patient brought the operating room and placed supine on the table. After the induction of adequate general endotracheal anesthesia, there Lopez catheter was inserted. The abdomen was prepped with a Betadine solution, she was draped in the usual aseptic manner. Attention was turned towards the left side of the abdomen. We had made a dipak prior to her surgery that corresponded to the area where I was to place a 10 mm trocar. As a skin incision was made. The Visiport was used to enter the peritoneal cavity and created pneumoperitoneum to approximately 12 mmHg. We were now able to place a 5 mm trocar in the left lower quadrant. Visualization of the anterior abdominal wall showed a large incarcerated ventral hernia. There was obvious pieces of omentum that had gone through this area. Dense adhesions had formed in the area. We were not able to physically reduce this. Another 5 mm trocar was then placed. Between these were able to gently dissect the omentum away from the anterior abdominal wall. We dropped it back into the peritoneal cavity. This consisted mainly incising of omentum. The final defect was about 2.5 cm in diameter. A piece of 6 x 8 mesh was introduced into the peritoneal cavity. It was fixed to the anterior abdominal wall loosely with a chromic suture suture. We then used the tacking devices to hold it up to the anterior abdominal wall after obtaining the correct orientation. Good coverage of the hernia with excellent margins all around allowed us to inspect the peritoneal cavity. We could see we had good hemostasis. Small pieces of omentum that been plucked out of the hole separately were also evacuated from the peritoneal cavity. These were not sent for histopathology. The pneumoperitoneum was now collapsed, the trocars were removed, and neal applied to the skin. At the end of the procedure the patient was in a stable condition with to the recovery room. Needle sponge instrument count were correct. No drains were placed. Complications: None Transferred to: Recovery Room Condition: Good
[2023-10-20] MEDS: HYDROCODONE/APAP 7.5/325 MG TAB PO PRN (20:11)
[2023-10-21] MEDS ORDERED: HYDRALAZINE HCL 20 MG/ML VIAL IV PRN (04:42)
[2023-10-21 06:29] LABS: Anion Gap 8.3 mEq/L (5.0-15.0); Potassium 4.3 mEq/L (3.5-5.1)
[2023-10-21 06:34] LABS: Absolute Lymphocytes (CBC) 1.7 K/uL (0.7-4.9); Absolute Monocytes 0.6 K/uL (0.1-1.3); Absolute Neutrophil 8.4 K/uL (1.8-8.0); Hematocrit 37.8 % (36.0-45.0); Hemoglobin 12.9 g/dL (12.0-15.0); MCH 30.7 pg (27.0-35.0); MCHC 34.1 g/dL (32.0-36.0); MCV 89.9 fL (80-100); Monocytes % 5.9 % (3.3-12.3); Neutrophils % 78.1 % (41.7-73.7); Nucleated Red Blood Cells % 0.1 % (0-0); Platelets 231 thou/uL (152-406); Red Cell Distribution Width 13.2 % (12.1-15.2)
[2023-10-21] MEDS: lisinopriL 20 MG TAB PO ONE (08:09)
[2023-10-21] MEDS: hydroCHLOROthiazide 25 MG TAB PO ONE (08:09)
[2023-10-21 08:26] VITALS: BP 140/78
[2023-10-21 09:42] VITALS: TEMP 98.2
[2023-10-21 09:43] VITALS: O2SAT 99
--- NOTE | 2023-10-21 11:36 | P.DS ---
Admission Date: 10/18/23 Discharge Date: 10/21/23 Disposition: ROUTINE DISCHARGE Discharge Condition: GOOD Reason for Admission: Incarcerated umbilical hernia, chest pain. Consultations: Cardiology - Dr. Edmonds / Dr. Logan General Surgery - Dr. Toledo Brief History of Present Illness: 62 yo F, PMH: GERD, Stomach ulcer, hypertension, cholecystectomy Patient was admitted for management of incarcerated umbilical hernia. She recently had gallstone and had gallstone surgery in April 2023. She decided to come back to the emergency room because she had abdominal pain after eating some food and this was colicky and rated 11 out of 10 in intensity as per patient's report. She has also been having recurrent chest pain for about 2 weeks. She denies overt episode of nausea, vomiting. Incarcerated hernia was reduced by ER physician. She was admitted for surgeon evaluation and also workup of chest pain. Hospital Course: Problem List: Incarcerated umbilical hernia, s/p laparoscopic reduction and repair (10/19) NSTEMI hx GERD / stomach ulcers Hypertension Physician Discharge Instructions: Patient presented with worsening abdominal pain, recurrent intermittent chest pain x2 weeks. Patient was found to have a incarcerated ventral hernia seen on CT. Patient's hernia was reduced by ER physician in ED and noted quite a bit of improvement initially, but still continued with some moderate pain once pain medication wore off. General surgery was consulted and Dr. Toledo performed laparoscopic reduction and repair of the hernia on 10/19, noting some evidence of incarceration of omentum. Patient was feeling better post operatively, abdominal pain improved, tolerating regular diet without issues, and was deemed stable for discharge. To call Dr. Toledo's office today/tomorrow to schedule appointment for follow up next week. In regards to chest pain Patient reported 2-3 weeks of intermittent left sided chest pain that lasts for few minutes before resolving. Troponins were mildly elevated with peak of 76 but trended flat. CXR was negative for any acute findings. Cardiology was consulted and nuclear stress test on 10/18 was negative for any stress-induced ischemia. Discussed with Dr. Logan who suspected non-cardiac etiology of pain. No further work up this hospitalization. Recommend routine follow up as outpatient in the near future for further discussion / work up. Suspect pain was referred from hernia. Medications: Hydrocodone as needed for pain Follow up: PCP 3-5 days Cardiology 1-2 weeks Physical Exam: GEN: Alert, oriented, NAD HEENT: Normal conjunctiva, sclera anicteric CV: Regular rate and rhythm, no edema Pulm: Nonlabored respirations on room air, clear bilaterally ABD: soft, minimally tender to palpation over surgical incision sites, dressing c/d/i Neuro: Normal speech, normal affect Vital Signs/Physical Exam: Temp Pulse Resp BP Pulse Ox 98.2 F 70 18 140/78 96 10/21/23 08:00 10/21/23 08:09 10/21/23 09:09 10/21/23 08:09 10/21/23 09:09 Laboratory Data at Discharge: WBC 10.70 thou/uL (4.3-10.9) 10/21/23 05:50 Hgb 12.9 g/dL (12.0-15.0) 10/21/23 05:50 Hct 37.8 % (36.0-45.0) 10/21/23 05:50 Plt Count 231 thou/uL (152-406) 10/21/23 05:50 PT 12.4 SECONDS (9.5-12.5) 10/17/23 19:37 INR 1.13 10/17/23 19:37 Sodium 136 mEq/L (136-145) 10/21/23 05:50 Potassium 4.3 mEq/L (3.5-5.1) 10/21/23 05:50 BUN 17 mg/dL (7-18) 10/21/23 05:50 Creatinine 0.82 mg/dL (0.55-1.02) 10/21/23 05:50 Glucose 119 mg/dL (74-106) H 10/21/23 05:50 Magnesium 2.0 mg/dL (1.6-2.4) 10/21/23 05:50 Total Bilirubin 0.3 mg/dL (0.2-1.0) 10/17/23 19:37 AST 27 U/L (15-37) 10/17/23 19:37 ALT 31 U/L (13-56) 10/17/23 19:37 Alkaline Phosphatase 97 U/L (45-117) 10/17/23 19:37 Lipase 43 U/L (13-75) 10/17/23 19:37 Home Medications: Lisinopril/Hydrochlorothiazide [Zestoretic 20-25 mg Tablet] 20 mg PO DAILY 11/08/16 Diphenox/Atropine [Lomotil*] 1 tab PO QID PRN #20 tab 11/10/16 Hydrocodone 7.5/APAP 325 [[place] 7.5/325 mg*] 1 tab PO Q8H PRN #15 tab 10/21/23 New Medications: Hydrocodone 7.5/APAP 325 [Hyder 7.5/325 mg*] 1 tab PO Q8H PRN #15 tab PRN Reason: Pain Scale 5-7 (Moderate) Physician Discharge Instructions: Physician Discharge Instructions: Patient presented with worsening abdominal pain, recurrent intermittent chest pain x2 weeks. Patient was found to have a incarcerated ventral hernia seen on CT. Patient's hernia was reduced by ER physician in ED and noted quite a bit of improvement initially, but still continued with some moderate pain once pain medication wore off. General surgery was consulted and Dr. Toledo performed lapaorscopic reducation and repair of the hernia on 10/19, noting some evidence of incarceration of omentum. Patient was feeling better post operatively, abdominal pain improved, tolerating regular diet without issues, and was deemed stable for discharge. To call Dr. Toledo's office today/tomorrow to schedule appointment for follow up next week. In regards to chest pain Patient reported 2-3 weeks of intermittent left sided chest pain that lasts for few minutes before resolving. Troponins were mildly elevated with peak of 76 but trended flat. CXR was negative for any acute findings. Cardiology was consulted and nuclear stress test on 10/18 was negative for any stress-induced ischemia. Discussed with Dr. Logan who suspected non-cardiac etiology of pain. No further work up this hospitalization. Recommend routine follow up as outpatient in the near future for further discussion / work up. Suspect pain was referred from hernia. Medications: Hydrocodone as needed for pain Follow up: PCP 3-5 days Cardiology 1-2 weeks Activity: No lifting more than 10 lbs (until cleared by Dr. Toledo) Followup: NONE,NONE [Primary Care Provider] - 1 Week (Call for appointment.) Cristian Edmonds MD [ACTIVE - CAN ADMIT] - 1 Week (Call for appointment.) Rohan Toledo MD [OUTSIDE PHYSICIAN] - 1-2 Weeks (Call for appointment.) Time spent managing pt's care (in minutes): 45
--- NOTE | 2023-10-22 17:44 | EKG ---
Test Date: 2023-10-17 Test Time: 18:09:57 Envelope Patternmaker: MOISE MEASUREMENT RESULTS: Intervals: Rate: 68 GA: 156 QRSD: 78 QT: 434 QTc: 461 [place]: P: 56 GA: 156 QRS: -2 T: 36 INTERPRETIVE STATEMENTS: Normal sinus rhythm Normal ECG Compared to ECG 05/10/2021 21:37:14 No significant changes Electronically Signed On 10-22-23 17:29:05 CDT by Cristian Edmonds
== END 2023-10-21 12:01 | disposition home or self-care (01) | DRG 353 ==
LOC: ER 18:24 → ERHOLD 10-18 → 4TH 10-18 09:36
PROVIDERS: ADMIT Internal Medicine Nephrology; ATTEND Hospitalist
PROC: 0WUF4JZ Supplement Abdominal Wall with Synthetic Substitute, Percutaneous Endoscopic Approach (ICD-10-PCS; principal; 2023-10-20 11:30)
DX: K42.0 Umbilical hernia with obstruction, without gangrene (principal); I21.4 Non-ST elevation (NSTEMI) myocardial infarction; I10 Essential (primary) hypertension; E87.6 Hypokalemia; K21.9 Gastro-esophageal reflux disease without esophagitis; R79.89 Other specified abnormal findings of blood chemistry; Z88.0 Allergy status to penicillin; Z90.49 Acquired absence of other specified parts of digestive tract; Z79.899 Other long term (current) drug therapy
CPT/HCPCS: 36415; 71045; 74177; 78452; 80048; 80076; 83690; 83735; 83880; 84484; 85025; 85610; 88302; 93005; 93017; 93306; 96374; 96375; 99285; A9500; J1100; J1170; J1650; J2001; J2250; J2270; J2405; J2704; J2710; J2785; J3010; J7030; J7120; Q9967

== ENCOUNTER 2024-07-10 15:28 | Emergency (ER) | payer SELFPAY ==
--- OUTSIDE RECORDS SUMMARY | 2024-07-10 15:33 | XMS REPORT | Continuity of Care Document ---
Author Name Unknown Address [address] [facility] [address] [place] [address] [facility] thconnect Address [address] 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 Ordering Clinician Indication Dosage Frequency Signature (SIG) Comments Components Source lisinopril 20 mg-hydrochl orothiazide 12.5 mg tablet - 00:00: 00 Yes 1mg León Celis lisinopril 20 mg-hydrochl orothiazide 12.5 mg tablet - 00:00: 00 Yes 1mg León Celis doxycycline monohydrate 100 mg tablet - 00:00: 00 Yes 1mg León Celis omeprazole 40 mg capsule,del ayed release - 00:00: 00 Yes 1mg León Celis gabapentin 100 mg capsule -06 00:00: 00 Yes 1mg León Celis diclofenac 1 % topical gel -07 00:00: 00 Yes 1% León Celis prednisone 20 mg tablet 5-07 00:00: 00 Yes 1mg León Celis naproxen 500 mg tablet 12-13 00:00: 00 Yes 1mg León Celis lisinopril 20 mg-hydrochl orothiazide 12.5 mg tablet 11-02 00:00: 00 Yes 1mg León Celis ibuprofen 800 mg tablet 11-02 00:00: 00 Yes 1mg León Celis TAKE 1 TABLET BY MOUTH EVERY 8 HOURS NEEDED FOR MODERATE PAIN. 14 00:00: 00 Yes León Celis TAKE ONE (1) TABLET(S) BY MOUTH EVERY SIX HOURS NEEDED FOR PAIN. 10-02 00:00: 00 Yes León Celis USE DIRECTED BY PACKAGE INSTRUCTION S. 10-02 00:00: 00 Yes León Celis TAKE 1 TABLET DAILY AFTER A MEAL. 08-14 00:00: 00 Yes 75 León Celis TAKE 1 TABLET DAILY. 2022-08 00:00: 00 Yes León Celis USE 1 SPRAY IN EACH NOSTRIL ONCE DAILY. 2022-08 00:00: 00 12-14 00:00 :00 No 50 León Celis TAKE 1 TABLET DAILY. 2022-08 00:00: 00 12-14 00:00 :00 No 10 León Celis TAKE 1 TABLET TWICE A DAY NEEDED 2022-08 00:00: 00 12-14 00:00 :00 No 500 León Celis TAKE 1 TABLET DAILY. 12-10 00:00: 00 12-14 00:00 :00 No León Celis TAKE 1 TABLET DAILY AFTER A MEAL. 12-10 00:00: 00 12-14 00:00 :00 No 75 León Celis TAKE ONE (1) TABLET(S) BY MOUTH TWICE A DAY. 10-16 00:00: 00 Yes León Celis TAKE ONE (1) TABLET(S) BY MOUTH EVERY EIGHT HOURS NEEDED. 10-16 00:00: 00 Yes León Celis TAKE ONE (1) TABLET(S) BY MOUTH EVERY TWELVE HOURS FOR 14 DAYS. 10-16 00:00: 00 Yes León Celis TAKE 1 CAPSULE ONCE DAILY. 2021-08 00:00: 00 12-14 00:00 :00 No 40 León Celis TAKE 1 TAB 4 TIMES A DAY NEEDED 2021-08 00:00: 00 12-14 00:00 :00 No 50 León Celis TAKE 1 TABLET DAILY. 2021-08 00:00: 00 12-14 00:00 :00 No León Celis TAKE 1 TABLET DAILY. 2021-08 00:00: 00 12-14 00:00 :00 No 10 León Celis APPLY 2 GM ON THE SKIN EVERY 8 HOURS NEEDED APPLY TO AFFECTED AREAS 05-06 00:00: 00 12-14 00:00 :00 No León Celis Dose Unknown 05-05 00:00: 00 12-14 00:00 :00 No León Celis TAKE 1 TABLET DAILY. 02-26 00:00: 00 Yes 10 León Celis TAKE 1 TABLET DAILY. 02-26 00:00: 00 Yes León Celis lisinopril 20 mg-hydrochl orothiazide 12.5 mg tablet 12-04 00:00: 00 Yes 1mg León Celis Dose Unknown - 00:00: 00 Yes León Celis lisinopril 20 mg-hydrochl orothiazide 12.5 mg tablet 10-15 00:00: 00 Yes 1mg León Celis esomeprazol e magnesium 40 mg capsule,del ayed release - 00:00: 00 Yes 1mg León Celis lisinopril 20 mg-hydrochl orothiazide 12.5 mg tablet 08-29 00:00: 00 Yes 1mg León Celis lisinopril 20 mg-hydrochl orothiazide 12.5 mg tablet 05-06 00:00: 00 Yes 1mg León Celis Bromfed DM 2 mg-30 mg-10 mg/5 mL oral syrup - 00:00: 00 Yes 10mg/5 mL Lenó Celis lisinopril 20 mg-hydrochl orothiazide 12.5 mg tablet 0 930 00:00: 00 Yes 1mg León Celis Flagyl 500 mg tablet 2018-08 1- 00:00: 00 Yes 1mg León Celis lisinopril 20 mg-hydrochl orothiazide 12.5 mg tablet 2018-08 0 00:00: 00 Yes 2mg León Celis loratadine 10 mg tablet 2018-08 0 00:00: 00 Yes 1mg León Celis omeprazole 40 mg capsule,del ayed release 2018-08 0 00:00: 00 Yes 1mg León Celis benzonatate 100 mg capsule 2018-08 0 00:00: 00 Yes 1mg León Celis lisinopril 20 mg-hydrochl orothiazide 12.5 mg tablet 09-09 00:00: 00 Yes 2mg León Celis azithromyci n 250 mg tablet 2 00:00: 00 Yes mg León Celis lisinopril 20 mg-hydrochl orothiazide 12.5 mg tablet 10-13 00:00: 00 Yes 2mg León Celis lisinopril 20 mg-hydrochl orothiazide 12.5 mg tablet 10-08 00:00: 00 Yes 2mg León Celis lisinopril 20 mg-hydrochl orothiazide 12.5 mg tablet 08-10 00:00: 00 Yes 2mg León Celis lisinopril 20 mg-hydrochl orothiazide 12.5 mg tablet 20 00:00: 00 Yes 2mg León Celis lisinopril 20 mg-hydrochl orothiazide 12.5 mg tablet 12-01 00:00: 00 Yes 2mg León Celis Bactrim DS 800 mg-160 mg tablet -17 00:00: 00 Yes 1mg León Celis lisinopril 20 mg-hydrochl orothiazide 12.5 mg tablet 11-18 00:00: 00 Yes 2mg León Celis lisinopril 20 mg-hydrochl orothiazide 12.5 mg tablet 2015-08 2- 00:00: 00 Yes 2mg León Celis azithromyci n 250 mg tablet 2015-08 00:00: 00 Yes mg León Celis promethazin e-DM 6.25 mg-15 mg/5 mL syrup 2015-08 00:00: 00 Yes 10mg/5 mL León Celis lisinopril 20 mg-hydrochl orothiazide 12.5 mg tablet 04-08 00:00: 00 Yes 2mg León Celis Flagyl 500 mg tablet 12-08 00:00: 00 Yes 1mg León Celis lisinopril 20 mg-hydrochl orothiazide 12.5 mg tablet 11-29 00:00: 00 Yes 2mg León Celis Diflucan 150 mg tablet 11-29 00:00: 00 Yes 1mg León Celis lisinopril 20 mg-hydrochl orothiazide 12.5 mg tablet 03-06 00:00: 00 Yes 2mg León Celis lisinopril 20 mg-hydrochl orothiazide 12.5 mg tablet 03-28 00:00: 00 Yes 2mg León Celis Immunizations Ordered Immunization Name Filled Immunization Name Date Status Comments Source Tdap Tdap 2017-04-28 00:00:00 Completed León Celis Vital Signs Vital Name Observation Time Observation Value Comments S ourjohnson BP Systolic 2024-04-18 10:51:00 147 mm[Hg] Hasmukh Celis BP Diastolic 2024-04-18 10:51:00 95 mm[Hg] Monty phen Madiha Celis Weight Measured 2024-04-18 10:51:00 237.90 pounds León Celis Height Measured 2024-04-18 10:51:00 63.00 inches León Celis Body Temperature 2024-04-18 10:51:00 97.20 degrees León Celis Heart Rate 2024-04-18 10:51:00 65.00 /min Missy en Madiha Celis Respiratory Rate 2024-04-18 10:51:00 18.00 /min León Celis BP Systolic 2024-01-17 15:16:00 Hasmukh Celis BP Diastolic 2024-01-17 15:16:00 Monty phen Madiha Celis Weight Measured 2024-01-17 15:16:00 235.80 pounds León F Vimal Height Measured 2024-01-17 15:16:00 63.00 inches León F Vimal Body Temperature 2024-01-17 15:16:00 97.40 degrees León F Vimal Heart Rate 2024-01-17 15:16:00 82.00 /min Missy en F Vimal Respiratory Rate 2024-01-17 15:16:00 19.00 /min León F Vimal BP Systolic 2024-01-17 14:44:00 125 mm[Hg] Step hen F Vimal BP Diastolic 2024-01-17 14:44:00 82 mm[Hg] Monty phen F Vimal Weight Measured 2024-01-17 14:44:00 235.80 pounds León F Vimal Height Measured 2024-01-17 14:44:00 63.00 inches León F Vimal Body Temperature 2024-01-17 14:44:00 97.40 degrees León F Vimal Heart Rate 2024-01-17 14:44:00 82.00 /min Missy en F Vimal Respiratory Rate 2024-01-17 14:44:00 19.00 /min León F Vimal BP Systolic 2024-01-13 13:44:00 133 mm[Hg] Step hen F Vimal BP Diastolic 2024-01-13 13:44:00 85 mm[Hg] Monty phen F Vimal Weight Measured 2024-01-13 13:44:00 241.80 pounds León F Vimal Height Measured 2024-01-13 13:44:00 63.00 inches León F Vimal Body Temperature 2024-01-13 13:44:00 97.60 degrees León F Vimal Heart Rate 2024-01-13 13:44:00 70.00 /min Missy en F Vimal Respiratory Rate 2024-01-13 13:44:00 18.00 /min León F Vimal BP Systolic 2023-12-14 13:09:00 105 mm[Hg] Step hen F Vimal BP Diastolic 2023-12-14 13:09:00 65 mm[Hg] Monty phen F Vimal Weight Measured 2023-12-14 13:09:00 241.80 pounds León F Vimal Height Measured 2023-12-14 13:09:00 63.00 inches León F Vimal Body Temperature 2023-12-14 13:09:00 97.20 degrees León F Vimal Heart Rate 2023-12-14 13:09:00 80.00 /min Missy en F Vimal Respiratory Rate 2023-12-14 13:09:00 León F Vimal BP Systolic 2023-11-08 11:44:00 136 mm[Hg] Step hen F Vimal BP Diastolic 2023-11-08 11:44:00 90 mm[Hg] Monty phen F Vimal Weight Measured 2023-11-08 11:44:00 244.80 pounds León F Vimal Height Measured 2023-11-08 11:44:00 63.00 inches León F Vimal Body Temperature 2023-11-08 11:44:00 98.80 degrees León F Vimal Heart Rate 2023-11-08 11:44:00 80.00 /min Missy en F Vimal Respiratory Rate 2023-11-08 11:44:00 17.00 /min León F Vimal BP Systolic 2023-11-03 15:27:00 131 mm[Hg] Step hen F Vimal BP Diastolic 2023-11-03 15:27:00 81 mm[Hg] Monty phen F Vimal Weight Measured 2023-11-03 15:27:00 248.00 pounds León F Vimal Height Measured 2023-11-03 15:27:00 63.00 inches León F Vimal Body Temperature 2023-11-03 15:27:00 98.30 degrees León F Vimal Heart Rate 2023-11-03 15:27:00 77.00 /min Missy en F Vimal Respiratory Rate 2023-11-03 15:27:00 16.00 /min León F Vimal BP Systolic 2023-08-14 10:21:00 125 mm[Hg] Step hen F Vimal BP Diastolic 2023-08-14 10:21:00 78 mm[Hg] Monty phen F Vimal Weight Measured 2023-08-14 10:21:00 247.40 pounds León F Vimal Height Measured 2023-08-14 10:21:00 63.00 inches León F Vimal Body Temperature 2023-08-14 10:21:00 97.80 degrees León F Vimal Heart Rate 2023-08-14 10:21:00 71.00 /min Missy en F Vimal Respiratory Rate 2023-08-14 10:21:00 León F Vimal BP Systolic 2023-06-17 09:29:00 136 mm[Hg] Step hen F Vimal BP Diastolic 2023-06-17 09:29:00 88 mm[Hg] Monty phen F Vimal Weight Measured 2023-06-17 09:29:00 253.40 pounds León F Vimal Height Measured 2023-06-17 09:29:00 63.00 inches León F Vimal Body Temperature 2023-06-17 09:29:00 98.20 degrees León F Vimal Heart Rate 2023-06-17 09:29:00 65.00 /min Missy en F Vimal Respiratory Rate 2023-06-17 09:29:00 León F Vimal BP Systolic 2022-12-16 15:36:00 124 mm[Hg] Step hen F Vimal BP Diastolic 2022-12-16 15:36:00 86 mm[Hg] Monty phen F Vimal Weight Measured 2022-12-16 15:36:00 248.80 pounds León F Vimal Height Measured 2022-12-16 15:36:00 63.00 inches León F Vimal Body Temperature 2022-12-16 15:36:00 98.30 degrees León F Vimal Heart Rate 2022-12-16 15:36:00 73.00 /min Missy en F Vimal Respiratory Rate 2022-12-16 15:36:00 18.00 /min León F Vimal BP Systolic 2022-12-10 10:27:00 126 mm[Hg] Step hen F Vimal BP Diastolic 2022-12-10 10:27:00 83 mm[Hg] Monty phen F Vimal Weight Measured 2022-12-10 10:27:00 246.60 pounds León F Vimal Height Measured 2022-12-10 10:27:00 63.00 inches León F Vimal Body Temperature 2022-12-10 10:27:00 98.40 degrees León F Vimal Heart Rate 2022-12-10 10:27:00 81.00 /min Missy en F Vimal Respiratory Rate 2022-12-10 10:27:00 19.00 /min León F Vimal BP Systolic 2022-08-05 08:51:00 118 mm[Hg] Step hen F Vimal BP Diastolic 2022-08-05 08:51:00 76 mm[Hg] Monty phen F Vimal Weight Measured 2022-08-05 08:51:00 242.00 pounds León F Vimal Height Measured 2022-08-05 08:51:00 63.00 inches León F Vimal Body Temperature 2022-08-05 08:51:00 97.90 degrees Elón F Vimal Heart Rate 2022-08-05 08:51:00 68.00 /min Missy en F Vimal Respiratory Rate 2022-08-05 08:51:00 19.00 /min León F Vimal BP Systolic 2022-06-13 11:03:00 121 mm[Hg] Step hen F Vimal BP Diastolic 2022-06-13 11:03:00 73 mm[Hg] Monty phen F Vimal Weight Measured 2022-06-13 11:03:00 248.40 pounds León F Vimal Height Measured 2022-06-13 11:03:00 63.00 inches León F Vimal Body Temperature 2022-06-13 11:03:00 98.20 degrees León F Vimal Heart Rate 2022-06-13 11:03:00 69.00 /min Missy en F Vimal Respiratory Rate 2022-06-13 11:03:00 25.00 /min León F Vimal BP Systolic 2022-05-06 15:06:00 138 mm[Hg] Step hen F Vimal BP Diastolic 2022-05-06 15:06:00 84 mm[Hg] Monty phen F Vimal Weight Measured 2022-05-06 15:06:00 249.60 pounds León F Vimal Height Measured 2022-05-06 15:06:00 63.00 inches León Celis Body Temperature 2022-05-06 15:06:00 98.10 degrees León F Vimal Heart Rate 2022-05-06 15:06:00 75.00 /min Missy en F Vimal Respiratory Rate 2022-05-06 15:06:00 17.00 /min León F Vimal Encounters Start Date/Time End Date/Time Encounter Type Admission Type Attending [facility] Care Department Encounter ID Source 2024-06-13 14:27:25 2024-06-13 14:27:25 Outpatient SFA SFA [id number] León Celis 2024-04-19 08:58:11 2024-04-19 08:58:11 Outpatient SFA SFA [id number] León Celis 2024-04-18 10:53:32 2024-04-18 10:53:32 Outpatient SFA SFA [id number] León Celis 2024-04-18 00:00:00 2024-04-18 00:00:00 Outpatient Visit SFA [id number] León Celis 2024-01-17 14:42:00 2024-01-17 14:42:00 Outpatient SFA SFA [id number] León Celis 2024-01-17 00:00:00 2024-01-17 00:00:00 Outpatient Visit SFA [id number] León Celis 2024-01-13 13:44:26 2024-01-13 13:44:26 Outpatient SFA SFA [id number] León Celis 2024-01-13 00:00:00 2024-01-13 00:00:00 Outpatient Visit SFA [id number] León Celis 2023-12-14 13:09:01 2023-12-14 13:09:01 Outpatient SFA SFA [id number] León Celis 2023-12-14 00:00:00 2023-12-14 00:00:00 Outpatient Visit SFA [id number] León Celis 2023-11-08 11:38:54 2023-11-08 11:38:54 Outpatient SFA SFA [id number] León Celis 2023-11-03 14:57:54 2023-11-03 14:57:54 Outpatient SFA SFA [id number] León Celis 2023-08-16 07:53:37 2023-08-16 07:53:37 Outpatient SFA SFA [id number] León Celis 2023-08-14 10:20:34 2023-08-14 10:20:34 Outpatient [facility] [id number] León Celis 2023-06-17 09:20:26 2023-06-17 09:20:26 Outpatient [facility] [id number] León Celis 2022-12-16 15:27:13 2022-12-16 15:27:13 Outpatient [facility] [id number] León Celis 2022-12-11 08:18:10 2022-12-11 08:18:10 Outpatient [facility] [id number] León Celis 2022-08-05 10:18:37 2022-08-05 10:18:37 Outpatient [facility] [id number] León Celis 2022-06-13 11:03:25 2022-06-13 11:03:25 Outpatient [facility] [id number] León Celis 2022-05-07 12:57:08 2022-05-07 12:57:08 Outpatient [facility] [id number] León Celis Results Test Description Test Time Test Comments Results Result Co mments Source COMPREHENSIVE METABOLIC [id number] 09:05:34* Test Item Value Reference Range Interpretation Comme nts GLUCOSE (test code = 2217) 112 MG/DL 70-99 H BUN (test code = 2208) 13 MG/DL 8-23 CREATININE (test code = 2214) 0.58 MG/DL 0.60-1.30 L eGFR (2020 CKD-EPI) (test code = 92369) 103 ML/MIN/1.73 >60 CALC BUN/CREAT (test code = 2235) 22 RATIO 6-28 SODIUM (test code = 2231) 140 MEQ/L 133-146 POTASSIUM (test code = 2228) 4.0 MEQ/L 3.5-5.4 CHLORIDE (test code = 2215) 103 MEQ/L 95-107 CARBON DIOXIDE (test code = 2206) 22 MEQ/L 19-31 CALCIUM (test code = 2209) 9.5 MG/DL 8.5-10.5 PROTEIN, TOTAL (test code = 2229) 7.6 G/DL 6.1-8.3 ALBUMIN (test code = 2201) 4.2 G/DL 3.5-5.2 CALC GLOBULIN (test code = 2240) 3.4 G/DL 1.9-3.7 CALC A/G RATIO (test code = 2234) 1.2 RATIO 1.0-2.6 BILIRUBIN, TOTAL (test code = 2207) 0.4 MG/DL <=1.2 ALKALINE PHOSPHATASE (test code = 2204) 107 U/L 40-140 AST (test code = 2218) 31 U/L 9-40 ALT (test code = 2219) 26 U/L 5-40 UNLESS OTHERWISE INDICATED, ALL TESTING PERFORMED AT [facility] [address] [place] [id number] TRAFFIC EXPERT: JEFFREY JUÁREZ M.D. IA NUMBER [id number] [facility] [place] [id number] HEMOGLOBIN [id number] 03:53:57* Test Item Value Reference Range Interpretation Comme nts HEMOGLOBIN A1c (test code = 20012) 5.7 % 4.2-5.6 H [employer] [facility] [employer] GUIDELINES FOR HGB A1C: [...] CONSIDER ALTERNATE TESTING OR LABORATORY CONSULTATION. LIPID [id number] 00:00:00* Test Item Value Reference Range Interpretation Comme nts CHOLESTEROL (test code = 2210) 192 MG/DL TRIGLYCERIDES (test code = 2232) 84 MG/DL HDL CHOLESTEROL (test code = 2220) 59 MG/DL CALC LDL CHOL (test code = 2237) 115 MG/DL RISK RATIO LDL/HDL (test cod e = 2238) 1.95 RATIO León Madiha VimalCOMPREHENSIVE METABOLIC [id number] 00:00:00* Test Item Value Reference Range Interpretation Comme nts GLUCOSE (test code = 2217) 112 MG/DL BUN (test code = 2208) 13 MG/DL CREATININE (test code = 2214) 0.58 MG/DL eGFR (2020 CKD-EPI) (test code = 83730) 103 ML/MIN/1.73 CALC BUN/CREAT (test code = 2235) 22 RATIO SODIUM (test code = 2231) 140 MEQ/L POTASSIUM (test code = 2228) 4.0 MEQ/L CHLORIDE (test code = 2215) 103 MEQ/L CARBON DIOXIDE (test code = 2206) 22 MEQ/L CALCIUM (test code = 2209) 9.5 MG/DL PROTEIN, TOTAL (test code = 2229) 7.6 G/DL ALBUMIN (test code = 2201) 4.2 G/DL CALC GLOBULIN (test code = 2240) 3.4 G/DL CALC A/G RATIO (test code = 2234) 1.2 RATIO BILIRUBIN, TOTAL (test code = 2207) 0.4 MG/DL ALKALINE PHOSPHATASE (test code = 2204) 107 U/L AST (test code = 2218) 31 U/L ALT (test code = 2219) 26 U/L León CelisHEMOGLOBIN [id number] 00:00:00* Test Item Value Reference Range Interpretation Comme nts HEMOGLOBIN A1c (test code = 37284) 5.7 % León CelisLIPID [id number] 00:00:00* Test Item Value Reference Range Interpretation Comme nts CHOLESTEROL (test code = 2210) 192 MG/DL TRIGLYCERIDES (test code = 2232) 84 MG/DL HDL CHOLESTEROL (test code = 2220) 59 MG/DL CALC LDL CHOL (test code = 2237) 115 MG/DL RISK RATIO LDL/HDL (test cod e = 2238) 1.95 RATIO León CelisCOMPREHENSIVE METABOLIC [id number] 00:00:00* Test Item Value Reference Range Interpretation Comme nts GLUCOSE (test code = 2217) 112 MG/DL BUN (test code = 2208) 13 MG/DL CREATININE (test code = 2214) 0.58 MG/DL eGFR (2020 CKD-EPI) (test code = 56562) 103 ML/MIN/1.73 CALC BUN/CREAT (test code = 2235) 22 RATIO SODIUM (test code = 2231) 140 MEQ/L POTASSIUM (test code = 2228) 4.0 MEQ/L CHLORIDE (test code = 2215) 103 MEQ/L CARBON DIOXIDE (test code = 2206) 22 MEQ/L CALCIUM (test code = 2209) 9.5 MG/DL PROTEIN, TOTAL (test code = 2229) 7.6 G/DL ALBUMIN (test code = 2201) 4.2 G/DL CALC GLOBULIN (test code = 2240) 3.4 G/DL CALC A/G RATIO (test code = 2234) 1.2 RATIO BILIRUBIN, TOTAL (test code = 2207) 0.4 MG/DL ALKALINE PHOSPHATASE (test code = 2204) 107 U/L AST (test code = 2218) 31 U/L ALT (test code = 2219) 26 U/L León CelisHEMOGLOBIN [id number] 00:00:00* Test Item Value Reference Range Interpretation Comme antonia HEMOGLOBIN A1c (test code = 67155) 5.7 % León CelisLIPID [id number] 00:00:00* Test Item Value Reference Range Interpretation Comme nts CHOLESTEROL (test code = 2210) 192 MG/DL TRIGLYCERIDES (test code = 2232) 84 MG/DL HDL CHOLESTEROL (test code = 2220) 59 MG/DL CALC LDL CHOL (test code = 2237) 115 MG/DL RISK RATIO LDL/HDL (test cod e = 2238) 1.95 RATIO León CelisCOMPREHENSIVE METABOLIC [id number] 00:00:00* Test Item Value Reference Range Interpretation Comme nts GLUCOSE (test code = 2217) 112 MG/DL BUN (test code = 2208) 13 MG/DL CREATININE (test code = 2214) 0.58 MG/DL eGFR (2020 CKD-EPI) (test code = 61521) 103 ML/MIN/1.73 CALC BUN/CREAT (test code = 2235) 22 RATIO SODIUM (test code = 2231) 140 MEQ/L POTASSIUM (test code = 2228) 4.0 MEQ/L CHLORIDE (test code = 2215) 103 MEQ/L CARBON DIOXIDE (test code = 2206) 22 MEQ/L CALCIUM (test code = 2209) 9.5 MG/DL PROTEIN, TOTAL (test code = 2229) 7.6 G/DL ALBUMIN (test code = 2201) 4.2 G/DL CALC GLOBULIN (test code = 2240) 3.4 G/DL CALC A/G RATIO (test code = 2234) 1.2 RATIO BILIRUBIN, TOTAL (test code = 2207) 0.4 MG/DL ALKALINE PHOSPHATASE (test code = 2204) 107 U/L AST (test code = 2218) 31 U/L ALT (test code = 2219) 26 U/L León CelisHEMOGLOBIN [id number] 00:00:00* Test Item Value Reference Range Interpretation Comme antonia HEMOGLOBIN A1c (test code = 41726) 5.7 % León Cleary AustinLIPID [id number] 00:00:00* Test Item Value Reference Range Interpretation Comme nts CHOLESTEROL (test code = 2210) 192 MG/DL TRIGLYCERIDES (test code = 2232) 84 MG/DL HDL CHOLESTEROL (test code = 2220) 59 MG/DL CALC LDL CHOL (test code = 2237) 115 MG/DL RISK RATIO LDL/HDL (test cod e = 2238) 1.95 RATIO León CelisCOMPREHENSIVE METABOLIC [id number] 00:00:00* Test Item Value Reference Range Interpretation Comme nts GLUCOSE (test code = 2217) 112 MG/DL BUN (test code = 2208) 13 MG/DL CREATININE (test code = 2214) 0.58 MG/DL eGFR (2020 CKD-EPI) (test code = 10065) 103 ML/MIN/1.73 CALC BUN/CREAT (test code = 2235) 22 RATIO SODIUM (test code = 2231) 140 MEQ/L POTASSIUM (test code = 2228) 4.0 MEQ/L CHLORIDE (test code = 2215) 103 MEQ/L CARBON DIOXIDE (test code = 2206) 22 MEQ/L CALCIUM (test code = 2209) 9.5 MG/DL PROTEIN, TOTAL (test code = 2229) 7.6 G/DL ALBUMIN (test code = 2201) 4.2 G/DL CALC GLOBULIN (test code = 2240) 3.4 G/DL CALC A/G RATIO (test code = 2234) 1.2 RATIO BILIRUBIN, TOTAL (test code = 2207) 0.4 MG/DL ALKALINE PHOSPHATASE (test code = 2204) 107 U/L AST (test code = 2218) 31 U/L ALT (test code = 2219) 26 U/L León CelisHEMOGLOBIN [id number] 00:00:00* Test Item Value Reference Range Interpretation Comme nts HEMOGLOBIN A1c (test code = 98816) 5.7 % León Cleary AustinLIPID [id number] 06:57:26* Test Item Value Reference Range Interpretation [...] SPECIMENS. FOR MOREINFORMATION, SEE CLIENT ANNOUNCEMENT AT [email or web address] RISK RATIO LDL/HDL (test code = 2238) 1.63 RATIO <3.22 COMPREHENSIVE METABOLIC [id number] 06:57:26* Test Item Value Reference Range Interpretation Comme nts GLUCOSE (test code = 2217) 107 MG/DL 70-99 H BUN (test code = 2207) 12 MG/DL 8-23 CREATININE (test code = 2214) 0.55 MG/DL 0.60-1.30 L eGFR (2020 CKD-EPI) (test code = 98521) 104 ML/MIN/1.73 >60 CALC BUN/CREAT (test code = 2235) 22 RATIO 6-28 SODIUM (test code = 223) 140 MEQ/L 133-146 POTASSIUM (test code = 2228) 4.3 MEQ/L 3.5-5.4 CHLORIDE (test code = 2215) 103 MEQ/L 95-107 CARBON DIOXIDE (test code = 2206) 23 MEQ/L 19-31 CALCIUM (test code = 2209) 9.5 MG/DL 8.5-10.5 PROTEIN, TOTAL (test code = 2228) 7.9 G/DL 6.1-8.3 ALBUMIN (test code = 220) 4.4 G/DL 3.5-5.2 CALC GLOBULIN (test code [...] INDICATED, ALL TESTING PERFORMED AT [facility] [employer] [address] [place] [id number] TRAFFIC EXPERT: JEFFREY JUÁREZ M.D. CLIA NUMBER [id number] [facility] [place]. [id number] COMPREHENSIVE METABOLIC [id number] 00:00:00* Test Item Value Reference Range Interpretation Comme nts GLUCOSE (test code = 2217) 107 MG/DL BUN (test code = 2208) 12 MG/DL CREATININE (test code = 2214) 0.55 MG/DL eGFR (2020 CKD-EPI) (test code = 20667) 104 ML/MIN/1.73 CALC BUN/CREAT (test code = 2235) 22 RATIO SODIUM (test code = 2231) 140 MEQ/L POTASSIUM (test code = 2228) 4.3 MEQ/L CHLORIDE (test code = 2215) 103 MEQ/L CARBON DIOXIDE (test code = 2206) 23 MEQ/L CALCIUM (test code = 2209) 9.5 MG/DL PROTEIN, TOTAL (test code = 2229) 7.9 G/DL ALBUMIN (test code = 2201) 4.4 G/DL CALC GLOBULIN (test code = 2240) 3.5 G/DL CALC A/G RATIO (test code = 2234) 1.3 RATIO BILIRUBIN, TOTAL (test code = 2207) 0.3 MG/DL ALKALINE PHOSPHATASE (test code = 2204) 105 U/L AST (test code = 2218) 40 U/L ALT (test code = 2219) 36 U/L León Cleary AustinLIPID [id number] 00:00:00* Test Item Value Reference Range Interpretation Comme nts CHOLESTEROL (test code = 2210) 189 MG/DL TRIGLYCERIDES (test code = 2232) 112 MG/DL HDL CHOLESTEROL (test code = 2220) 64 MG/DL CALC LDL CHOL (test code = 2237) 104 MG/DL RISK RATIO LDL/HDL (test cod e = 2238) 1.63 RATIO León CelisCOMPREHENSIVE METABOLIC [id number] 00:00:00* Test Item Value Reference Range Interpretation Comme nts GLUCOSE (test code = 2217) 107 MG/DL BUN (test code = 2208) 12 MG/DL CREATININE (test code = 2214) 0.55 MG/DL eGFR (2020 CKD-EPI) (test code = 77642) 104 ML/MIN/1.73 CALC BUN/CREAT (test code = 2235) 22 RATIO SODIUM (test code = 2231) 140 MEQ/L POTASSIUM (test code = 2228) 4.3 MEQ/L CHLORIDE (test code = 2215) 103 MEQ/L CARBON DIOXIDE (test code = 2206) 23 MEQ/L CALCIUM (test code = 2209) 9.5 MG/DL PROTEIN, TOTAL (test code = 2229) 7.9 G/DL ALBUMIN (test code = 2201) 4.4 G/DL CALC GLOBULIN (test code = 2240) 3.5 G/DL CALC A/G RATIO (test code = 2234) 1.3 RATIO BILIRUBIN, TOTAL (test code = 2207) 0.3 MG/DL ALKALINE PHOSPHATASE (test code = 2204) 105 U/L AST (test code = 2218) 40 U/L ALT (test code = 2219) 36 U/L León Cleary AustinLIPID [id number] 00:00:00* Test Item Value Reference Range Interpretation Comme nts CHOLESTEROL (test code = 2210) 189 MG/DL TRIGLYCERIDES (test code = 2232) 112 MG/DL HDL CHOLESTEROL (test code = 2220) 64 MG/DL CALC LDL CHOL (test code = 2237) 104 MG/DL RISK RATIO LDL/HDL (test cod e = 2238) 1.63 RATIO León CelisCOMPREHENSIVE METABOLIC [id number] 00:00:00* Test Item Value Reference Range Interpretation Comme nts GLUCOSE (test code = 2217) 107 MG/DL BUN (test code = 2208) 12 MG/DL CREATININE (test code = 2214) 0.55 MG/DL eGFR (2020 CKD-EPI) (test code = 11610) 104 ML/MIN/1.73 CALC BUN/CREAT (test code = 2235) 22 RATIO SODIUM (test code = 2231) 140 MEQ/L POTASSIUM (test code = 2228) 4.3 MEQ/L CHLORIDE (test code = 2215) 103 MEQ/L CARBON DIOXIDE (test code = 2206) 23 MEQ/L CALCIUM (test code = 2209) 9.5 MG/DL PROTEIN, TOTAL (test code = 2229) 7.9 G/DL ALBUMIN (test code = 2201) 4.4 G/DL CALC GLOBULIN (test code = 2240) 3.5 G/DL CALC A/G RATIO (test code = 2234) 1.3 RATIO BILIRUBIN, TOTAL (test code = 2207) 0.3 MG/DL ALKALINE PHOSPHATASE (test code = 2204) 105 U/L AST (test code = 2218) 40 U/L ALT (test code = 2219) 36 U/L León Cleary HelendaleLIPID [id number] 00:00:00* Test Item Value Reference Range Interpretation Comme nts CHOLESTEROL (test code = 2210) 189 MG/DL TRIGLYCERIDES (test code = 2232) 112 MG/DL HDL CHOLESTEROL (test code = 2220) 64 MG/DL CALC LDL CHOL (test code = 2237) 104 MG/DL RISK RATIO LDL/HDL (test cod e = 2238) 1.63 RATIO León F VimalCOMPREHENSIVE METABOLIC [id number] 00:00:00* Test Item Value Reference Range Interpretation Comme nts GLUCOSE (test code = 2217) 107 MG/DL BUN (test code = 2208) 12 MG/DL CREATININE (test code = 2214) 0.55 MG/DL eGFR (2020 CKD-EPI) (test code = 48244) 104 ML/MIN/1.73 CALC BUN/CREAT (test code = 2235) 22 RATIO SODIUM (test code = 2231) 140 MEQ/L POTASSIUM (test code = 2228) 4.3 MEQ/L CHLORIDE (test code = 2215) 103 MEQ/L CARBON DIOXIDE (test code = 2206) 23 MEQ/L CALCIUM (test code = 2209) 9.5 MG/DL PROTEIN, TOTAL (test code = 2229) 7.9 G/DL ALBUMIN (test code = 2201) 4.4 G/DL CALC GLOBULIN (test code = 2240) 3.5 G/DL CALC A/G RATIO (test code = 2234) 1.3 RATIO BILIRUBIN, TOTAL (test code = 2207) 0.3 MG/DL ALKALINE PHOSPHATASE (test code = 2204) 105 U/L AST (test code = 2218) 40 U/L ALT (test code = 2219) 36 U/L León CelisLIPID [id number] 00:00:00* Test Item Value Reference Range Interpretation Comme nts CHOLESTEROL (test code = 2210) 189 MG/DL TRIGLYCERIDES (test code = 2232) 112 MG/DL HDL CHOLESTEROL (test code = 2220) 64 MG/DL CALC LDL CHOL (test code = 2237) 104 MG/DL RISK RATIO LDL/HDL (test cod e = 2238) 1.63 RATIO León CelisHEMOGLOBIN [id number] 03:39:52* Test Item Value Reference Range Interpretation Comme nts HEMOGLOBIN A1c (test code = 15314) 5.8 % 4.2-5.6 H UNLESS OTHERWISE INDICATED, ALL TESTING PERFORMED ATCLINICAL PATHOLOGY [employer] [address] [place] [address] TRAFFIC EXPERT: NGHIA MERAZ M.D. CLIA NUMBER [id number] [facility] [place]. [id number] LIPID [id number] 03:00:57* Test Item Value Reference Range Interpretation [...] = 2238) 1.71 RATIO <3.22 COMPREHENSIVE METABOLIC [id number] 03:00:57* Test Item Value Reference Range Interpretation Comme nts GLUCOSE (test code = 2217) 95 MG/DL 70-99 BUN (test code = 2207) 12 MG/DL 8-23 CREATININE (test code = 2214) 0.54 MG/DL 0.60-1.30 L eGFR (2020 CKD-EPI) (test code = 08357) 105 ML/MIN/1.73 >60 CALC BUN/CREAT (test code = 2235) 22 RATIO 6-28 SODIUM (test code = 223) 144 MEQ/L 133-146 POTASSIUM (test code = 2228) 4.4 MEQ/L 3.5-5.4 CHLORIDE (test code = 2215) 108 MEQ/L 95-107 H CARBON DIOXIDE (test [...] 27 U/L 9-40 ALT (test code = 2219) 25 U/L 5-40 COMPREHENSIVE METABOLIC [id number] 00:00:00* Test Item Value Reference Range Interpretation Comme nts GLUCOSE (test code = 2216) 95 MG/DL BUN (test code = 2207) 12 MG/DL CREATININE (test code = 2214) 0.54 MG/DL eGFR (2020 CKD-EPI) (test code = 33042) 105 ML/MIN/1.73 CALC BUN/CREAT (test code = 223) 22 RATIO SODIUM (test code = 2231) 144 MEQ/L POTASSIUM (test code = 2228) 4.4 MEQ/L CHLORIDE (test code = 2215) 108 MEQ/L CARBON DIOXIDE (test code = 2206) 26 MEQ/L CALCIUM (test code = 2209) 9.4 MG/DL PROTEIN, TOTAL (test code = 2229) 7.5 G/DL ALBUMIN (test code = 2201) 4.1 G/DL CALC GLOBULIN (test code = 2240) 3.4 G/DL CALC A/G RATIO (test code = 2234) 1.2 RATIO BILIRUBIN, TOTAL (test code = 2207) 0.3 MG/DL ALKALINE PHOSPHATASE (test code = 2204) 109 U/L AST (test code = 2218) 27 U/L ALT (test code = 2219) 25 U/L León CelisHEMOGLOBIN [id number] 00:00:00* Test Item Value Reference Range Interpretation Comme antonia HEMOGLOBIN A1c (test code = 40875) 5.8 % León CelisLIPID [id number] 00:00:00* Test Item Value Reference Range Interpretation Comme nts CHOLESTEROL (test code = 2210) 177 MG/DL TRIGLYCERIDES (test code = 2232) 152 MG/DL HDL CHOLESTEROL (test code = 2220) 56 MG/DL CALC LDL CHOL (test code = 2237) 96 MG/DL RISK RATIO LDL/HDL (test cod e = 2238) 1.71 RATIO León CelisCOMPREHENSIVE METABOLIC [id number] 00:00:00* Test Item Value Reference Range Interpretation Comme nts GLUCOSE (test code = 2217) 95 MG/DL BUN (test code = 2208) 12 MG/DL CREATININE (test code = 2214) 0.54 MG/DL eGFR (2020 CKD-EPI) (test code = 73431) 105 ML/MIN/1.73 CALC BUN/CREAT (test code = 2235) 22 RATIO SODIUM (test code = 2231) 144 MEQ/L POTASSIUM (test code = 2228) 4.4 MEQ/L CHLORIDE (test code = 2215) 108 MEQ/L CARBON DIOXIDE (test code = 2206) 26 MEQ/L CALCIUM (test code = 2209) 9.4 MG/DL PROTEIN, TOTAL (test code = 2229) 7.5 G/DL ALBUMIN (test code = 2201) 4.1 G/DL CALC GLOBULIN (test code = 2240) 3.4 G/DL CALC A/G RATIO (test code = 2234) 1.2 RATIO BILIRUBIN, TOTAL (test code = 2207) 0.3 MG/DL ALKALINE PHOSPHATASE (test code = 2204) 109 U/L AST (test code = 2218) 27 U/L ALT (test code = 2219) 25 U/L León CelisHEMOGLOBIN [id number] 00:00:00* Test Item Value Reference Range Interpretation Comme nts HEMOGLOBIN A1c (test code = 10095) 5.8 % León Cleary AustinLIPID [id number] 00:00:00* Test Item Value Reference Range Interpretation Comme nts CHOLESTEROL (test code = 2210) 177 MG/DL TRIGLYCERIDES (test code = 2232) 152 MG/DL HDL CHOLESTEROL (test code = 2220) 56 MG/DL CALC LDL CHOL (test code = 2237) 96 MG/DL RISK RATIO LDL/HDL (test cod e = 2238) 1.71 RATIO León CelisCOMPREHENSIVE METABOLIC [id number] 00:00:00* Test Item Value Reference Range Interpretation Comme nts GLUCOSE (test code = 2217) 95 MG/DL BUN (test code = 2208) 12 MG/DL CREATININE (test code = 2214) 0.54 MG/DL eGFR (2020 CKD-EPI) (test code = 53029) 105 ML/MIN/1.73 CALC BUN/CREAT (test code = 2235) 22 RATIO SODIUM (test code = 2231) 144 MEQ/L POTASSIUM (test code = 2228) 4.4 MEQ/L CHLORIDE (test code = 2215) 108 MEQ/L CARBON DIOXIDE (test code = 2206) 26 MEQ/L CALCIUM (test code = 2209) 9.4 MG/DL PROTEIN, TOTAL (test code = 2229) 7.5 G/DL ALBUMIN (test code = 2201) 4.1 G/DL CALC GLOBULIN (test code = 2240) 3.4 G/DL CALC A/G RATIO (test code = 2234) 1.2 RATIO BILIRUBIN, TOTAL (test code = 2207) 0.3 MG/DL ALKALINE PHOSPHATASE (test code = 2204) 109 U/L AST (test code = 2218) 27 U/L ALT (test code = 2219) 25 U/L León F AustinHEMOGLOBIN [id number] 00:00:00* Test Item Value Reference Range Interpretation Comme nts HEMOGLOBIN A1c (test code = 11114) 5.8 % León CelisLIPID [id number] 00:00:00* Test Item Value Reference Range Interpretation Comme nts CHOLESTEROL (test code = 2210) 177 MG/DL TRIGLYCERIDES (test code = 2232) 152 MG/DL HDL CHOLESTEROL (test code = 2220) 56 MG/DL CALC LDL CHOL (test code = 2237) 96 MG/DL RISK RATIO LDL/HDL (test cod e = 2238) 1.71 RATIO León CelisCOMPREHENSIVE METABOLIC [id number] 00:00:00* Test Item Value Reference Range Interpretation Comme nts GLUCOSE (test code = 2217) 95 MG/DL BUN (test code = 2208) 12 MG/DL CREATININE (test code = 2214) 0.54 MG/DL eGFR (2020 CKD-EPI) (test code = 60722) 105 ML/MIN/1.73 CALC BUN/CREAT (test code = 2235) 22 RATIO SODIUM (test code = 2231) 144 MEQ/L POTASSIUM (test code = 2228) 4.4 MEQ/L CHLORIDE (test code = 2215) 108 MEQ/L CARBON DIOXIDE (test code = 2206) 26 MEQ/L CALCIUM (test code = 2209) 9.4 MG/DL PROTEIN, TOTAL (test code = 2229) 7.5 G/DL ALBUMIN (test code = 2201) 4.1 G/DL CALC GLOBULIN (test code = 2240) 3.4 G/DL CALC A/G RATIO (test code = 2234) 1.2 RATIO BILIRUBIN, TOTAL (test code = 2207) 0.3 MG/DL ALKALINE PHOSPHATASE (test code = 2204) 109 U/L AST (test code = 2218) 27 U/L ALT (test code = 2219) 25 U/L León CelisHEMOGLOBIN [id number] 00:00:00* Test Item Value Reference Range Interpretation Comme nts HEMOGLOBIN A1c (test code = 82408) 5.8 % León CelisLIPID [id number] 00:00:00* Test Item Value Reference Range Interpretation Comme nts CHOLESTEROL (test code = 2210) 177 MG/DL TRIGLYCERIDES (test code = 2232) 152 MG/DL HDL CHOLESTEROL (test code = 2220) 56 MG/DL CALC LDL CHOL (test code = 2237) 96 MG/DL RISK RATIO LDL/HDL (test cod e = 2238) 1.71 RATIO León Cleary AustinHEMOGLOBIN [id number] 09:19:50* Test Item Value Reference Range Interpretation Comme nts HEMOGLOBIN A1c (test code = 09943) 5.6 % 4.2-5.6 LIPID [id number] 04:20:14* Test Item Value Reference Range Interpretation Comme nts CHOLESTEROL (test code = 2210) 192 MG/DL <200 TRIGLYCERIDES (test code = 2232) 85 MG/DL <150 HDL CHOLESTEROL (test code = 2220) 59 MG/DL >39 CALC LDL CHOL (test code = 2237) 115 MG/DL <100 H NOTE: CALCULATED LDL IS BASED ON SAMEER-VERDUGO METHOD WHICHINCLUDES ADJUSTABLE TRIGLYCERIDE:VLDL CHOLESTEROL RATIO.THIS FACTOR VARIES BY MEASURED TRIGLYCERIDE AND NON-HDLCHOLESTEROL CONCENTRATIONS WITH INCREASED CALCULATED LDL SEENIN HIGHER TRIGLYCERIDE OR LOWER NON-HDL SPECIMENS. FOR MOREINFORMATION, SEE CLIENT ANNOUNCEMENT AT [email or web address] RISK RATIO LDL/HDL (test code = 2238) 1.95 RATIO <3.22 COMPREHENSIVE METABOLIC [id number] 04:20:14* Test Item Value Reference Range Interpretation Comme nts GLUCOSE (test code = 2217) 88 MG/DL 70-99 BUN (test code = 2208) 16 MG/DL 6-20 CREATININE (test code = 2214) 0.57 MG/DL 0.60-1.30 L eGFR (2020 CKD-EPI) (test code = 19476) 105 ML/MIN/1.73 >60 CALC BUN/CREAT (test code = 2235) 28 RATIO 6-28 SODIUM (test code = 2231) 141 MEQ/L 133-146 POTASSIUM (test code = 2228) 4.4 MEQ/L 3.5-5.4 CHLORIDE (test code = 2215) 101 MEQ/L 95-107 CARBON DIOXIDE (test code = 2206) 25 MEQ/L 19-31 CALCIUM (test code = 2209) 9.6 MG/DL 8.5-10.5 PROTEIN, TOTAL (test code = 2229) 7.8 G/DL 6.1-8.3 ALBUMIN (test code = 2201) 4.3 G/DL 3.5-5.2 CALC GLOBULIN (test code = 2240) 3.5 G/DL 1.9-3.7 CALC A/G RATIO (test code = 2234) 1.2 RATIO 1.0-2.6 BILIRUBIN, TOTAL (test code = 2207) 0.3 MG/DL See_Comment [Automated me ssage] The system which generated this result transmitted reference range: <=1.2. The reference range was not used to interpret this result as normal/abnormal. ALKALINE PHOSPHATASE (test code = 2204) 114 U/L 40-136 AST (test code = 2218) 31 U/L 9-40 ALT (test code = 2219) 28 U/L 5-40 UNLESS OTHERWISE INDICATED, ALL TESTING PERFORMED ATCVHT PATHOLOGY [employer] [address] [place] [address] TRAFFIC EXPERT: NGHIA MERAZ M.D. CLIA NUMBER [id number] [facility] [place]. [id number] LIPID [id number] 00:00:00* Test Item Value Reference Range Interpretation Comme nts CHOLESTEROL (test code = 2210) 192 MG/DL TRIGLYCERIDES (test code = 2232) 85 MG/DL HDL CHOLESTEROL (test code = 2220) 59 MG/DL CALC LDL CHOL (test code = 2237) 115 MG/DL RISK RATIO LDL/HDL (test cod e = 2238) 1.95 RATIO León CelisCOMPREHENSIVE METABOLIC [id number] 00:00:00* Test Item Value Reference Range Interpretation Comme nts GLUCOSE (test code = 2217) 88 MG/DL BUN (test code = 2208) 16 MG/DL CREATININE (test code = 2214) 0.57 MG/DL eGFR (2020 CKD-EPI) (test code = 63110) 105 ML/MIN/1.73 CALC BUN/CREAT (test code = 2235) 28 RATIO SODIUM (test code = 2231) 141 MEQ/L POTASSIUM (test code = 2228) 4.4 MEQ/L CHLORIDE (test code = 2215) 101 MEQ/L CARBON DIOXIDE (test code = 2206) 25 MEQ/L CALCIUM (test code = 2209) 9.6 MG/DL PROTEIN, TOTAL (test code = 2229) 7.8 G/DL ALBUMIN (test code = 2201) 4.3 G/DL CALC GLOBULIN (test code = 2240) 3.5 G/DL CALC A/G RATIO (test code = 2234) 1.2 RATIO BILIRUBIN, TOTAL (test code = 2207) 0.3 MG/DL ALKALINE PHOSPHATASE (test code = 2204) 114 U/L AST (test code = 2218) 31 U/L ALT (test code = 2219) 28 U/L León CelisHEMOGLOBIN [id number] 00:00:00* Test Item Value Reference Range Interpretation Comme nts HEMOGLOBIN A1c (test code = 84135) 5.6 % León CelisLIPID [id number] 00:00:00* Test Item Value Reference Range Interpretation Comme nts CHOLESTEROL (test code = 2210) 192 MG/DL TRIGLYCERIDES (test code = 2232) 85 MG/DL HDL CHOLESTEROL (test code = 2220) 59 MG/DL CALC LDL CHOL (test code = 2237) 115 MG/DL RISK RATIO LDL/HDL (test cod e = 2238) 1.95 RATIO León CelisCOMPREHENSIVE METABOLIC [id number] 00:00:00* Test Item Value Reference Range Interpretation Comme nts GLUCOSE (test code = 2217) 88 MG/DL BUN (test code = 2208) 16 MG/DL CREATININE (test code = 2214) 0.57 MG/DL eGFR (2020 CKD-EPI) (test code = 43014) 105 ML/MIN/1.73 CALC BUN/CREAT (test code = 2235) 28 RATIO SODIUM (test code = 2231) 141 MEQ/L POTASSIUM (test code = 2228) 4.4 MEQ/L CHLORIDE (test code = 2215) 101 MEQ/L CARBON DIOXIDE (test code = 2206) 25 MEQ/L CALCIUM (test code = 2209) 9.6 MG/DL PROTEIN, TOTAL (test code = 2229) 7.8 G/DL ALBUMIN (test code = 2201) 4.3 G/DL CALC GLOBULIN (test code = 2240) 3.5 G/DL CALC A/G RATIO (test code = 2234) 1.2 RATIO BILIRUBIN, TOTAL (test code = 2207) 0.3 MG/DL ALKALINE PHOSPHATASE (test code = 2204) 114 U/L AST (test code = 2218) 31 U/L ALT (test code = 2219) 28 U/L León CelisHEMOGLOBIN [id number] 00:00:00* Test Item Value Reference Range Interpretation Comme nts HEMOGLOBIN A1c (test code = 21169) 5.6 % León CelisLIPID [id number] 00:00:00* Test Item Value Reference Range Interpretation Comme nts CHOLESTEROL (test code = 2210) 192 MG/DL TRIGLYCERIDES (test code = 2232) 85 MG/DL HDL CHOLESTEROL (test code = 2220) 59 MG/DL CALC LDL CHOL (test code = 2237) 115 MG/DL RISK RATIO LDL/HDL (test cod e = 2238) 1.95 RATIO León CelisCOMPREHENSIVE METABOLIC [id number] 00:00:00* Test Item Value Reference Range Interpretation Comme nts GLUCOSE (test code = 2217) 88 MG/DL BUN (test code = 2208) 16 MG/DL CREATININE (test code = 2214) 0.57 MG/DL eGFR (2020 CKD-EPI) (test code = 29131) 105 ML/MIN/1.73 CALC BUN/CREAT (test code = 2235) 28 RATIO SODIUM (test code = 2231) 141 MEQ/L POTASSIUM (test code = 2228) 4.4 MEQ/L CHLORIDE (test code = 2215) 101 MEQ/L CARBON DIOXIDE (test code = 2206) 25 MEQ/L CALCIUM (test code = 2209) 9.6 MG/DL PROTEIN, TOTAL (test code = 2229) 7.8 G/DL ALBUMIN (test code = 2201) 4.3 G/DL CALC GLOBULIN (test code = 2240) 3.5 G/DL CALC A/G RATIO (test code = 2234) 1.2 RATIO BILIRUBIN, TOTAL (test code = 2207) 0.3 MG/DL ALKALINE PHOSPHATASE (test code = 2204) 114 U/L AST (test code = 2218) 31 U/L ALT (test code = 2219) 28 U/L León CelisHEMOGLOBIN [id number] 00:00:00* Test Item Value Reference Range Interpretation Comme nts HEMOGLOBIN A1c (test code = 41900) 5.6 % León CelisLIPID [id number] 00:00:00* Test Item Value Reference Range Interpretation Comme nts CHOLESTEROL (test code = 2210) 192 MG/DL TRIGLYCERIDES (test code = 2232) 85 MG/DL HDL CHOLESTEROL (test code = 2220) 59 MG/DL CALC LDL CHOL (test code = 2237) 115 MG/DL RISK RATIO LDL/HDL (test cod e = 2238) 1.95 RATIO León CelisCOMPREHENSIVE METABOLIC [id number] 00:00:00* Test Item Value Reference Range Interpretation Comme nts GLUCOSE (test code = 2217) 88 MG/DL BUN (test code = 2208) 16 MG/DL CREATININE (test code = 2214) 0.57 MG/DL eGFR (2020 CKD-EPI) (test code = 99195) 105 ML/MIN/1.73 CALC BUN/CREAT (test code = 2235) 28 RATIO SODIUM (test code = 2231) 141 MEQ/L POTASSIUM (test code = 2228) 4.4 MEQ/L CHLORIDE (test code = 2215) 101 MEQ/L CARBON DIOXIDE (test code = 2206) 25 MEQ/L CALCIUM (test code = 2209) 9.6 MG/DL PROTEIN, TOTAL (test code = 2229) 7.8 G/DL ALBUMIN (test code = 2201) 4.3 G/DL CALC GLOBULIN (test code = 2240) 3.5 G/DL CALC A/G RATIO (test code = 2234) 1.2 RATIO BILIRUBIN, TOTAL (test code = 2207) 0.3 MG/DL ALKALINE PHOSPHATASE (test code = 2204) 114 U/L AST (test code = 2218) 31 U/L ALT (test code = 2219) 28 U/L León CelisHEMOGLOBIN [id number] 00:00:00* Test Item Value Reference Range Interpretation Comme nts HEMOGLOBIN A1c (test code = 41342) 5.6 % León CelisLIPID [id number] 00:00:00* Test Item Value Reference Range Interpretation Comme nts CHOLESTEROL (test code = 2210) 145 MG/DL TRIGLYCERIDES (test code = 2232) 83 MG/DL HDL CHOLESTEROL (test code = 2220) 57 MG/DL CALC LDL CHOL (test code = 2237) 71 MG/DL RISK RATIO LDL/HDL (test cod e = 2238) 1.25 RATIO León Cleary AustinCOMPREHENSIVE METABOLIC [id number] 00:00:00* Test Item Value Reference Range Interpretation Comme nts GLUCOSE (test code = 2217) 109 MG/DL BUN (test code = 2208) 6 MG/DL CREATININE (test code = 2214) 0.61 MG/DL eGFR AMER. (test cod e = 49854) 116 ML/MIN/1.73 eGFR NON- AMER. (test code = 83817) 100 ML/MIN/1.73 CALC BUN/CREAT (test code = 2235) 10 RATIO SODIUM (test code = 2231) 138 MEQ/L POTASSIUM (test code = 2228) 4.1 MEQ/L CHLORIDE (test code = 2215) 101 MEQ/L CARBON DIOXIDE (test code = 2206) 27 MEQ/L CALCIUM (test code = 2209) 9.3 MG/DL PROTEIN, TOTAL (test code = 2229) 7.6 G/DL ALBUMIN (test code = 2201) 3.8 G/DL CALC GLOBULIN (test code = 2240) 3.8 G/DL CALC A/G RATIO (test code = 2234) 1.0 RATIO BILIRUBIN, TOTAL (test code = 2207) 0.4 MG/DL ALKALINE PHOSPHATASE (test code = 2204) 116 U/L AST (test code = 2218) 24 U/L ALT (test code = 2219) 23 U/L León Cleary AustinLIPID [id number] 00:00:00* Test Item Value Reference Range Interpretation Comme nts CHOLESTEROL (test code = 2210) 145 MG/DL TRIGLYCERIDES (test code = 2232) 83 MG/DL HDL CHOLESTEROL (test code = 2220) 57 MG/DL CALC LDL CHOL (test code = 2237) 71 MG/DL RISK RATIO LDL/HDL (test cod e = 2238) 1.25 RATIO León Cleary AustinCOMPREHENSIVE METABOLIC [id number] 00:00:00* Test Item Value Reference Range Interpretation Comme nts GLUCOSE (test code = 2217) 109 MG/DL BUN (test code = 2208) 6 MG/DL CREATININE (test code = 2214) 0.61 MG/DL eGFR AMER. (test cod e = 12982) 116 ML/MIN/1.73 eGFR NON- AMER. (test code = 78879) 100 ML/MIN/1.73 CALC BUN/CREAT (test code = 2235) 10 RATIO SODIUM (test code = 2231) 138 MEQ/L POTASSIUM (test code = 2228) 4.1 MEQ/L CHLORIDE (test code = 2215) 101 MEQ/L CARBON DIOXIDE (test code = 2206) 27 MEQ/L CALCIUM (test code = 2209) 9.3 MG/DL PROTEIN, TOTAL (test code = 2229) 7.6 G/DL ALBUMIN (test code = 2201) 3.8 G/DL CALC GLOBULIN (test code = 2240) 3.8 G/DL CALC A/G RATIO (test code = 2234) 1.0 RATIO BILIRUBIN, TOTAL (test code = 2207) 0.4 MG/DL ALKALINE PHOSPHATASE (test code = 2204) 116 U/L AST (test code = 2218) 24 U/L ALT (test code = 2219) 23 U/L León Cleary HelendaleLIPID [id number] 00:00:00* Test Item Value Reference Range Interpretation Comme nts CHOLESTEROL (test code = 2210) 145 MG/DL TRIGLYCERIDES (test code = 2232) 83 MG/DL HDL CHOLESTEROL (test code = 2220) 57 MG/DL CALC LDL CHOL (test code = 2237) 71 MG/DL RISK RATIO LDL/HDL (test cod e = 2238) 1.25 RATIO León CelisCOMPREHENSIVE METABOLIC [id number] 00:00:00* Test Item Value Reference Range Interpretation Comme nts GLUCOSE (test code = 2217) 109 MG/DL BUN (test code = 2208) 6 MG/DL CREATININE (test code = 2214) 0.61 MG/DL eGFR AMER. (test cod e = 76006) 116 ML/MIN/1.73 eGFR NON- AMER. (test code = 80343) 100 ML/MIN/1.73 CALC BUN/CREAT (test code = 2235) 10 RATIO SODIUM (test code = 2231) 138 MEQ/L POTASSIUM (test code = 2228) 4.1 MEQ/L CHLORIDE (test code = 2215) 101 MEQ/L CARBON DIOXIDE (test code = 2206) 27 MEQ/L CALCIUM (test code = 2209) 9.3 MG/DL PROTEIN, TOTAL (test code = 2229) 7.6 G/DL ALBUMIN (test code = 2201) 3.8 G/DL CALC GLOBULIN (test code = 2240) 3.8 G/DL CALC A/G RATIO (test code = 2234) 1.0 RATIO BILIRUBIN, TOTAL (test code = 2207) 0.4 MG/DL ALKALINE PHOSPHATASE (test code = 2204) 116 U/L AST (test code = 2218) 24 U/L ALT (test code = 2219) 23 U/L León CelisLIPID [id number] 00:00:00* Test Item Value Reference Range Interpretation Comme nts CHOLESTEROL (test code = 2210) 145 MG/DL TRIGLYCERIDES (test code = 2232) 83 MG/DL HDL CHOLESTEROL (test code = 2220) 57 MG/DL CALC LDL CHOL (test code = 2237) 71 MG/DL RISK RATIO LDL/HDL (test cod e = 2238) 1.25 RATIO León CelisCOMPREHENSIVE METABOLIC [id number] 00:00:00* Test Item Value Reference Range Interpretation Comme nts GLUCOSE (test code = 2217) 109 MG/DL BUN (test code = 2208) 6 MG/DL CREATININE (test code = 2214) 0.61 MG/DL eGFR AMER. (test cod e = 41167) 116 ML/MIN/1.73 eGFR NON- AMER. (test code = 68893) 100 ML/MIN/1.73 CALC BUN/CREAT (test code = 2235) 10 RATIO SODIUM (test code = 2231) 138 MEQ/L POTASSIUM (test code = 2228) 4.1 MEQ/L CHLORIDE (test code = 2215) 101 MEQ/L CARBON DIOXIDE (test code = 2206) 27 MEQ/L CALCIUM (test code = 2209) 9.3 MG/DL PROTEIN, TOTAL (test code = 2229) 7.6 G/DL ALBUMIN (test code = 2201) 3.8 G/DL CALC GLOBULIN (test code = 2240) 3.8 G/DL CALC A/G RATIO (test code = 2234) 1.0 RATIO BILIRUBIN, TOTAL (test code = 2207) 0.4 MG/DL ALKALINE PHOSPHATASE (test code = 2204) 116 U/L AST (test code = 2218) 24 U/L ALT (test code = 2219) 23 U/L León Cleary MtahftPIWN-JfQ-3 (COVID-19) by RT-PCR (HIGH RISK)2020-01-30 00:00:00* Test Item Value Reference Range Interpretation Comme nts SARS-CoV-2 INTERPRETATION (t est code = 58078) NEGATIVE SOURCE (test code = 55595) NOT SPECIFIED León Cleary MrweriYUSR-UmC-3 (COVID-19) by RT-PCR (HIGH RISK)2020-01-30 00:00:00* Test Item Value Reference Range Interpretation Comme nts SARS-CoV-2 INTERPRETATION (t est code = 44703) NEGATIVE SOURCE (test code = 40950) NOT SPECIFIED León Cleary KxlrouTTDI-OlS-5 (COVID-19) by RT-PCR (HIGH RISK)2020-01-30 00:00:00* Test Item Value Reference Range Interpretation Comme nts SARS-CoV-2 INTERPRETATION (t est code = 41812) NEGATIVE SOURCE (test code = 26233) NOT SPECIFIED León Cleary GivqitFOOA-AdW-0 (COVID-19) by RT-PCR (HIGH RISK)2020-01-30 00:00:00* Test Item Value Reference Range Interpretation Comme nts SARS-CoV-2 INTERPRETATION (t est code = 00774) NEGATIVE SOURCE (test code = 94095) NOT SPECIFIED León Cleary AustinVAGINAL PATHOGENS DNA [id number] 00:00:00* Test Item Value Reference Range Interpretation Comme nts RAJESH SPECIES (test code = ) NEGATIVE G. VAGINALIS (test code = 29868) POSITIVE T. VAGINALIS (test code = 09852) NEGATIVE León Cleary AustinVAGINAL PATHOGENS DNA [id number] 00:00:00* Test Item Value Reference Range Interpretation Comme nts RAJESH SPECIES (test code = 63392) NEGATIVE G. VAGINALIS (test code = 71965) POSITIVE T. VAGINALIS (test code = 98414) NEGATIVE León Cleary AustinVAGINAL PATHOGENS DNA [id number] 00:00:00* Test Item Value Reference Range Interpretation Comme nts RAJESH SPECIES (test code = 93180) NEGATIVE G. VAGINALIS (test code = 58212) POSITIVE T. VAGINALIS (test code = 59330) NEGATIVE León CelisVAGINAL PATHOGENS DNA [id number] 00:00:00* Test Item Value Reference Range Interpretation Comme nts RAJESH SPECIES (test code = ) NEGATIVE G. VAGINALIS (test code = ) POSITIVE T. VAGINALIS (test code = ) NEGATIVE León CelisLIPID [id number] 00:00:00* Test Item Value Reference Range Interpretation Comme nts CHOLESTEROL (test code = 2210) 190 MG/DL TRIGLYCERIDES (test code = 2232) 78 MG/DL HDL CHOLESTEROL (test code = 2220) 58 MG/DL CALC LDL CHOL (test code = 2237) 116 MG/DL RISK RATIO LDL/HDL (test cod e = 223) 2.01 RATIO León CelisHEMOGLOBIN [id number] 00:00:00* Test Item Value Reference Range Interpretation Comme nts HEMOGLOBIN A1c (test code = 43263) 5.4 % León CelisCOMPREHENSIVE METABOLIC [id number] 00:00:00* Test Item Value Reference Range Interpretation Comme nts GLUCOSE (test code = 7) 90 MG/DL BUN (test code = 2207) 13 MG/DL CREATININE (test code = 2214) 0.57 MG/DL eGFR AMER. (test cod e = 18988) 119 ML/MIN/1.73 eGFR NON- AMER. (test code = 64381) 103 ML/MIN/1.73 CALC BUN/CREAT (test code = 2235) 23 RATIO SODIUM (test code = 2231) 142 MEQ/L POTASSIUM (test code = 2228) 4.0 MEQ/L CHLORIDE (test code = 2215) 100 MEQ/L CARBON DIOXIDE (test code = 2206) 27 MEQ/L CALCIUM (test code = 2209) 9.4 MG/DL PROTEIN, TOTAL (test code = 2229) 7.8 G/DL ALBUMIN (test code = 2201) 4.5 G/DL CALC GLOBULIN (test code = 2240) 3.3 G/DL CALC A/G RATIO (test code = 2234) 1.4 RATIO BILIRUBIN, TOTAL (test code = 2207) 0.5 MG/DL ALKALINE PHOSPHATASE (test code = 2204) 102 U/L AST (test code = 2218) 41 U/L ALT (test code = 2219) 39 U/L León [id number] 00:00:00* Test Item Value Reference Range Interpretation Comme nts TSH, THIRD GENERATION (test code = 2821) 2.240 UIU/ML León CelisCBC W/AUTO [id number] 00:00:00* Test Item Value Reference Range Interpretation Comme nts WBC (test code = 1001) 8.0 K/UL RBC (test code = 1002) 4.64 M/UL HEMOGLOBIN (test code = 1003) 14.3 G/DL HEMATOCRIT (test code = 1004) 40.3 % MCV (test code = 1005) 86.9 fL MCH (test code = 1006) 30.8 PG MCHC (test code = 1007) 35.5 G/DL RDW (test code = 1038) 12.6 % NEUTROPHILS (test code = 1008) 49.7 % LYMPHOCYTES (test code = 1010) 40.6 % MONOCYTES (test code = 1011) 6.7 % EOSINOPHILS (test code = 1012) 2.4 % BASOPHILS (test code = 1013) 0.6 % PLATELET COUNT (test code = 1015) 229 K/UL León CelisLIPID [id number] 00:00:00* Test Item Value Reference Range Interpretation Comme nts CHOLESTEROL (test code = 2210) 190 MG/DL TRIGLYCERIDES (test code = 2232) 78 MG/DL HDL CHOLESTEROL (test code = 2220) 58 MG/DL CALC LDL CHOL (test code = 2237) 116 MG/DL RISK RATIO LDL/HDL (test cod e = 2238) 2.01 RATIO León CelisHEMOGLOBIN [id number] 00:00:00* Test Item Value Reference Range Interpretation Comme antonia HEMOGLOBIN A1c (test code = 08794) 5.4 % León CelisCOMPREHENSIVE METABOLIC [id number] 00:00:00* Test Item Value Reference Range Interpretation Comme nts GLUCOSE (test code = 2217) 90 MG/DL BUN (test code = 2208) 13 MG/DL CREATININE (test code = 2214) 0.57 MG/DL eGFR AMER. (test cod e = 99362) 119 ML/MIN/1.73 eGFR NON- AMER. (test code = 59332) 103 ML/MIN/1.73 CALC BUN/CREAT (test code = 2235) 23 RATIO SODIUM (test code = 2231) 142 MEQ/L POTASSIUM (test code = 2228) 4.0 MEQ/L CHLORIDE (test code = 2215) 100 MEQ/L CARBON DIOXIDE (test code = 2206) 27 MEQ/L CALCIUM (test code = 2209) 9.4 MG/DL PROTEIN, TOTAL (test code = 2229) 7.8 G/DL ALBUMIN (test code = 2201) 4.5 G/DL CALC GLOBULIN (test code = 2240) 3.3 G/DL CALC A/G RATIO (test code = 2234) 1.4 RATIO BILIRUBIN, TOTAL (test code = 2207) 0.5 MG/DL ALKALINE PHOSPHATASE (test code = 2204) 102 U/L AST (test code = 2218) 41 U/L ALT (test code = 2219) 39 U/L León [id number] 00:00:00* Test Item Value Reference Range Interpretation Comme nts TSH, THIRD GENERATION (test code = 2821) 2.240 UIU/ML León CelisCBC W/AUTO [id number] 00:00:00* Test Item Value Reference Range Interpretation Comme nts WBC (test code = 1001) 8.0 K/UL RBC (test code = 1002) 4.64 M/UL HEMOGLOBIN (test code = 1003) 14.3 G/DL HEMATOCRIT (test code = 1004) 40.3 % MCV (test code = 1005) 86.9 fL MCH (test code = 1006) 30.8 PG MCHC (test code = 1007) 35.5 G/DL RDW (test code = 1038) 12.6 % NEUTROPHILS (test code = 1008) 49.7 % LYMPHOCYTES (test code = 1010) 40.6 % MONOCYTES (test code = 1011) 6.7 % EOSINOPHILS (test code = 1012) 2.4 % BASOPHILS (test code = 1013) 0.6 % PLATELET COUNT (test code = 1015) 229 K/UL León CelisLIPID [id number] 00:00:00* Test Item Value Reference Range Interpretation Comme nts CHOLESTEROL (test code = 2210) 190 MG/DL TRIGLYCERIDES (test code = 2232) 78 MG/DL HDL CHOLESTEROL (test code = 2220) 58 MG/DL CALC LDL CHOL (test code = 2237) 116 MG/DL RISK RATIO LDL/HDL (test cod e = 2238) 2.01 RATIO León CelisHEMOGLOBIN [id number] 00:00:00* Test Item Value Reference Range Interpretation Comme antonia HEMOGLOBIN A1c (test code = 82751) 5.4 % León CelisCOMPREHENSIVE METABOLIC [id number] 00:00:00* Test Item Value Reference Range Interpretation Comme nts GLUCOSE (test code = 2217) 90 MG/DL BUN (test code = 2208) 13 MG/DL CREATININE (test code = 2214) 0.57 MG/DL eGFR AMER. (test cod e = 10909) 119 ML/MIN/1.73 eGFR NON- AMER. (test code = 42743) 103 ML/MIN/1.73 CALC BUN/CREAT (test code = 2235) 23 RATIO SODIUM (test code = 2231) 142 MEQ/L POTASSIUM (test code = 2228) 4.0 MEQ/L CHLORIDE (test code = 2215) 100 MEQ/L CARBON DIOXIDE (test code = 2206) 27 MEQ/L CALCIUM (test code = 2209) 9.4 MG/DL PROTEIN, TOTAL (test code = 2229) 7.8 G/DL ALBUMIN (test code = 2201) 4.5 G/DL CALC GLOBULIN (test code = 2240) 3.3 G/DL CALC A/G RATIO (test code = 2234) 1.4 RATIO BILIRUBIN, TOTAL (test code = 2207) 0.5 MG/DL ALKALINE PHOSPHATASE (test code = 2204) 102 U/L AST (test code = 2218) 41 U/L ALT (test code = 2219) 39 U/L León [id number] 00:00:00* Test Item Value Reference Range Interpretation Comme antonia TSH, THIRD GENERATION (test code = 2821) 2.240 UIU/ML León CelisCBC W/AUTO [id number] 00:00:00* Test Item Value Reference Range Interpretation Comme nts WBC (test code = 1001) 8.0 K/UL RBC (test code = 1002) 4.64 M/UL HEMOGLOBIN (test code = 1003) 14.3 G/DL HEMATOCRIT (test code = 1004) 40.3 % MCV (test code = 1005) 86.9 fL MCH (test code = 1006) 30.8 PG MCHC (test code = 1007) 35.5 G/DL RDW (test code = 1038) 12.6 % NEUTROPHILS (test code = 1008) 49.7 % LYMPHOCYTES (test code = 1010) 40.6 % MONOCYTES (test code = 1011) 6.7 % EOSINOPHILS (test code = 1012) 2.4 % BASOPHILS (test code = 1013) 0.6 % PLATELET COUNT (test code = 1015) 229 K/UL León CelisLIPID [id number] 00:00:00* Test Item Value Reference Range Interpretation Comme nts CHOLESTEROL (test code = 2210) 190 MG/DL TRIGLYCERIDES (test code = 2232) 78 MG/DL HDL CHOLESTEROL (test code = 2220) 58 MG/DL CALC LDL CHOL (test code = 2237) 116 MG/DL RISK RATIO LDL/HDL (test cod e = 2238) 2.01 RATIO León CelisHEMOGLOBIN [id number] 00:00:00* Test Item Value Reference Range Interpretation Comme nts HEMOGLOBIN A1c (test code = 80469) 5.4 % León CelisCOMPREHENSIVE METABOLIC [id number] 00:00:00* Test Item Value Reference Range Interpretation Comme nts GLUCOSE (test code = 2217) 90 MG/DL BUN (test code = 2208) 13 MG/DL CREATININE (test code = 2214) 0.57 MG/DL eGFR AMER. (test cod e = 59675) 119 ML/MIN/1.73 eGFR NON- AMER. (test code = 14469) 103 ML/MIN/1.73 CALC BUN/CREAT (test code = 2235) 23 RATIO SODIUM (test code = 2231) 142 MEQ/L POTASSIUM (test code = 2228) 4.0 MEQ/L CHLORIDE (test code = 2215) 100 MEQ/L CARBON DIOXIDE (test code = 2206) 27 MEQ/L CALCIUM (test code = 2209) 9.4 MG/DL PROTEIN, TOTAL (test code = 2229) 7.8 G/DL ALBUMIN (test code = 2201) 4.5 G/DL CALC GLOBULIN (test code = 2240) 3.3 G/DL CALC A/G RATIO (test code = 2234) 1.4 RATIO BILIRUBIN, TOTAL (test code = 2207) 0.5 MG/DL ALKALINE PHOSPHATASE (test code = 2204) 102 U/L AST (test code = 2218) 41 U/L ALT (test code = 2219) 39 U/L León [id number] 00:00:00* Test Item Value Reference Range Interpretation Comme nts TSH, THIRD GENERATION (test code = 2821) 2.240 UIU/ML León CelisCBC W/AUTO [id number] 00:00:00* Test Item Value Reference Range Interpretation Comme nts WBC (test code = 1001) 8.0 K/UL RBC (test code = 1002) 4.64 M/UL HEMOGLOBIN (test code = 1003) 14.3 G/DL HEMATOCRIT (test code = 1004) 40.3 % MCV (test code = 1005) 86.9 fL MCH (test code = 1006) 30.8 PG MCHC (test code = 1007) 35.5 G/DL RDW (test code = 1038) 12.6 % NEUTROPHILS (test code = 1008) 49.7 % LYMPHOCYTES (test code = 1010) 40.6 % MONOCYTES (test code = 1011) 6.7 % EOSINOPHILS (test code = 1012) 2.4 % BASOPHILS (test code = 1013) 0.6 % PLATELET COUNT (test code = 1015) 229 K/UL León CelisCOMPREHENSIVE METABOLIC [id number] 00:00:00* Test Item Value Reference Range Interpretation Comme nts GLUCOSE (test code = 2217) 94 MG/DL BUN (test code = 2208) 17 MG/DL CREATININE (test code = 2214) 0.60 MG/DL eGFR AMER. (test cod e = 51896) 119 ML/MIN/1.73 eGFR NON- AMER. (test code = 47471) 103 ML/MIN/1.73 CALC BUN/CREAT (test code = 2235) 28 RATIO SODIUM (test code = 2231) 141 MEQ/L POTASSIUM (test code = 2228) 4.0 MEQ/L CHLORIDE (test code = 2215) 103 MEQ/L CARBON DIOXIDE (test code = 2206) 28 MEQ/L CALCIUM (test code = 2209) 9.9 MG/DL PROTEIN, TOTAL (test code = 2229) 7.8 G/DL ALBUMIN (test code = 2201) 4.3 G/DL CALC GLOBULIN (test code = 2240) 3.5 G/DL CALC A/G RATIO (test code = 2234) 1.2 RATIO BILIRUBIN, TOTAL (test code = 2207) 0.3 MG/DL ALKALINE PHOSPHATASE (test code = 2204) 114 U/L AST (test code = 2218) 32 U/L ALT (test code = 2219) 29 U/L León F HelendaleCOMPREHENSIVE METABOLIC [id number] 00:00:00* Test Item Value Reference Range Interpretation Comme nts GLUCOSE (test code = 2217) 94 MG/DL BUN (test code = 2208) 17 MG/DL CREATININE (test code = 2214) 0.60 MG/DL eGFR AMER. (test cod e = 93964) 119 ML/MIN/1.73 eGFR NON- AMER. (test code = 92623) 103 ML/MIN/1.73 CALC BUN/CREAT (test code = 2235) 28 RATIO SODIUM (test code = 2231) 141 MEQ/L POTASSIUM (test code = 2228) 4.0 MEQ/L CHLORIDE (test code = 2215) 103 MEQ/L CARBON DIOXIDE (test code = 2206) 28 MEQ/L CALCIUM (test code = 2209) 9.9 MG/DL PROTEIN, TOTAL (test code = 2229) 7.8 G/DL ALBUMIN (test code = 2201) 4.3 G/DL CALC GLOBULIN (test code = 2240) 3.5 G/DL CALC A/G RATIO (test code = 2234) 1.2 RATIO BILIRUBIN, TOTAL (test code = 2207) 0.3 MG/DL ALKALINE PHOSPHATASE (test code = 2204) 114 U/L AST (test code = 2218) 32 U/L ALT (test code = 2219) 29 U/L León F HelendaleCOMPREHENSIVE METABOLIC [id number] 00:00:00* Test Item Value Reference Range Interpretation Comme nts GLUCOSE (test code = 2217) 94 MG/DL BUN (test code = 2208) 17 MG/DL CREATININE (test code = 2214) 0.60 MG/DL eGFR AMER. (test cod e = 38717) 119 ML/MIN/1.73 eGFR NON- AMER. (test code = 16521) 103 ML/MIN/1.73 CALC BUN/CREAT (test code = 2235) 28 RATIO SODIUM (test code = 2231) 141 MEQ/L POTASSIUM (test code = 2228) 4.0 MEQ/L CHLORIDE (test code = 2215) 103 MEQ/L CARBON DIOXIDE (test code = 2206) 28 MEQ/L CALCIUM (test code = 2209) 9.9 MG/DL PROTEIN, TOTAL (test code = 2229) 7.8 G/DL ALBUMIN (test code = 2201) 4.3 G/DL CALC GLOBULIN (test code = 2240) 3.5 G/DL CALC A/G RATIO (test code = 2234) 1.2 RATIO BILIRUBIN, TOTAL (test code = 2207) 0.3 MG/DL ALKALINE PHOSPHATASE (test code = 2204) 114 U/L AST (test code = 2218) 32 U/L ALT (test code = 2219) 29 U/L León Madiha HelendaleCOMPREHENSIVE METABOLIC [id number] 00:00:00* Test Item Value Reference Range Interpretation Comme nts GLUCOSE (test code = 2217) 94 MG/DL BUN (test code = 2208) 17 MG/DL CREATININE (test code = 2214) 0.60 MG/DL eGFR AMER. (test cod e = 76068) 119 ML/MIN/1.73 eGFR NON- AMER. (test code = 91088) 103 ML/MIN/1.73 CALC BUN/CREAT (test code = 2235) 28 RATIO SODIUM (test code = 2231) 141 MEQ/L POTASSIUM (test code = 2228) 4.0 MEQ/L CHLORIDE (test code = 2215) 103 MEQ/L CARBON DIOXIDE (test code = 2206) 28 MEQ/L CALCIUM (test code = 2209) 9.9 MG/DL PROTEIN, TOTAL (test code = 2229) 7.8 G/DL ALBUMIN (test code = 2201) 4.3 G/DL CALC GLOBULIN (test code = 2240) 3.5 G/DL CALC A/G RATIO (test code = 2234) 1.2 RATIO BILIRUBIN, TOTAL (test code = 2207) 0.3 MG/DL ALKALINE PHOSPHATASE (test code = 2204) 114 U/L AST (test code = 2218) 32 U/L ALT (test code = 2219) 29 U/L León CelisHPV HIGH RISK WITH GENOTYPE, [id number] 00:00:00* Test Item Value Reference Range Interpretation Comme nts HPV HIGH RISK INTERP (test c ode = 37040) NEGATIVE HPV 16 (test code = 87210) NEGATIVE HPV 18 (test code = 22093) NEGATIVE HPV, HR, OTHER GENOTYPES (te st code = 29367) NEGATIVE León Cleary AustinPAP TEST, THINPREP, [id number] 00:00:00* Test Item Value Reference Range Interpretation Comme nts SOURCE: (test code = 8001) Cervical/Endocervical SLIDES: (test code = 8011) 1 LMP: (test code = 8021) SPECIMEN ADEQUACY: (test code = 73543) (NOTE) INTERPRETATION: (test code = 08210) NO EPITHELIAL ABNORMALITY SEE BELOW RISK MANAGEMENT DIRECTOR: (test code = 8101) BIJU Gomez(ASCP)IAC LOCATION: (test code = 65632) (NOTE) CPT: (test code = 8140) (NOTE) León CelisHPV HIGH RISK WITH GENOTYPE, [id number] 00:00:00* Test Item Value Reference Range Interpretation Comme nts HPV HIGH RISK INTERP (test c ode = 37316) NEGATIVE HPV 16 (test code = 27210) NEGATIVE HPV 18 (test code = 68089) NEGATIVE HPV, HR, OTHER GENOTYPES (te st code = 50586) NEGATIVE León CelisPAP TEST, THINPREP, [id number] 00:00:00* Test Item Value Reference Range Interpretation Comme nts SOURCE: (test code = 8001) Cervical/Endocervical SLIDES: (test code = 8011) 1 LMP: (test code = 8021) SPECIMEN ADEQUACY: (test code = 84990) (NOTE) INTERPRETATION: (test code = 99097) NO EPITHELIAL ABNORMALITY SEE BELOW RISK MANAGEMENT DIRECTOR: (test code = 8101) BIJU Gomez(ASCP)IAC LOCATION: (test code = 57725) (NOTE) CPT: (test code = 8140) (NOTE) León CelisHPV HIGH RISK WITH GENOTYPE, [id number] 00:00:00* Test Item Value Reference Range Interpretation Comme nts HPV HIGH RISK INTERP (test c ode = 87704) NEGATIVE HPV 16 (test code = 76680) NEGATIVE HPV 18 (test code = 45962) NEGATIVE HPV, HR, OTHER GENOTYPES (te st code = 51779) NEGATIVE León CelisPAP TEST, THINPREP, [id number] 00:00:00* Test Item Value Reference Range Interpretation Comme nts SOURCE: (test code = 8001) Cervical/Endocervical SLIDES: (test code = 8011) 1 LMP: (test code = 8021) SPECIMEN ADEQUACY: (test code = 78293) (NOTE) INTERPRETATION: (test code = 01230) NO EPITHELIAL ABNORMALITY SEE BELOW RISK MANAGEMENT DIRECTOR: (test code = 8101) Dilia LaddMT(ASCP)IAC LOCATION: (test code = 71624) (NOTE) CPT: (test code = 8140) (NOTE) León CelisHPV HIGH RISK WITH GENOTYPE, [id number] 00:00:00* Test Item Value Reference Range Interpretation Comme nts HPV HIGH RISK INTERP (test c ode = 87508) NEGATIVE HPV 16 (test code = 81284) NEGATIVE HPV 18 (test code = 86612) NEGATIVE HPV, HR, OTHER GENOTYPES (te st code = 64432) NEGATIVE León CelisPAP TEST, THINPREP, [id number] 00:00:00* Test Item Value Reference Range Interpretation Comme nts SOURCE: (test code = 8001) Cervical/Endocervical SLIDES: (test code = 8011) 1 LMP: (test code = 8021) SPECIMEN ADEQUACY: (test code = 70662) (NOTE) INTERPRETATION: (test code = 09970) NO EPITHELIAL ABNORMALITY SEE BELOW RISK MANAGEMENT DIRECTOR: (test code = 8101) Dilia LaddMT(ASCP)IAC LOCATION: (test code = 06334) (NOTE) CPT: (test code = 8140) (NOTE) León CelisCBC W/AUTO [id number] 00:00:00* Test Item Value Reference Range Interpretation Comme nts WBC (test code = 1001) 8.4 K/UL RBC (test code = 1002) 4.63 M/UL HEMOGLOBIN (test code = 1003) 13.7 G/DL HEMATOCRIT (test code = 1004) 40.0 % MCV (test code = 1005) 86.4 fL MCH (test code = 1006) 29.6 PG MCHC (test code = 1007) 34.3 G/DL RDW (test code = 1038) 12.7 % NEUTROPHILS (test code = 1008) 49.4 % LYMPHOCYTES (test code = 1010) 42.3 % MONOCYTES (test code = 1011) 6.4 % EOSINOPHILS (test code = 1012) 1.3 % BASOPHILS (test code = 1013) 0.6 % PLATELET COUNT (test code = 1015) 244 K/UL León CelisCOMPREHENSIVE METABOLIC [id number] 00:00:00* Test Item Value Reference Range Interpretation Comme nts GLUCOSE (test code = 2217) 93 MG/DL BUN (test code = 2208) 17 MG/DL CREATININE (test code = 2214) 0.67 MG/DL eGFR AMER. (test cod e = 15994) 115 ML/MIN/1.73 eGFR NON- AMER. (test code = 02128) 100 ML/MIN/1.73 CALC BUN/CREAT (test code = 2235) 25 RATIO SODIUM (test code = 2231) 139 MEQ/L POTASSIUM (test code = 2228) 4.6 MEQ/L CHLORIDE (test code = 2215) 98 MEQ/L CARBON DIOXIDE (test code = 2206) 24 MEQ/L CALCIUM (test code = 2209) 9.4 MG/DL PROTEIN, TOTAL (test code = 2229) 7.7 G/DL ALBUMIN (test code = 2201) 4.4 G/DL CALC GLOBULIN (test code = 2240) 3.3 G/DL CALC A/G RATIO (test code = 2234) 1.3 RATIO BILIRUBIN, TOTAL (test code = 2207) 0.4 MG/DL ALKALINE PHOSPHATASE (test code = 2204) 86 U/L AST (test code = 2218) 32 U/L ALT (test code = 2219) 26 U/L León CelisLIPID [id number] 00:00:00* Test Item Value Reference Range Interpretation Comme nts CHOLESTEROL (test code = 2210) 178 MG/DL TRIGLYCERIDES (test code = 2232) 73 MG/DL HDL CHOLESTEROL (test code = 2220) 60 MG/DL CALC LDL CHOL (test code = 2237) 103 MG/DL RISK RATIO LDL/HDL (test cod e = 2238) 1.72 RATIO León CelisTHYROID II PROFILE (T3U, T4, T7, TSH)[id number] 00:00:00* Test Item Value Reference Range Interpretation Comme nts T3 UPTAKE (test code = 2817) 29.5 % T4 (THYROXINE) (test code = 2819) 8.5 UG/DL CALCULATED T7 (FTI) (test co de = 2820) 2.51 TSH (test code = 2821) 3.11 UIU/ML León CelisHEMOGLOBIN [id number] 00:00:00* Test Item Value Reference Range Interpretation Comme antonia HEMOGLOBIN A1c (test code = 98599) 5.7 % León CelisCBC W/AUTO [id number] 00:00:00* Test Item Value Reference Range Interpretation Comme nts WBC (test code = 1001) 8.4 K/UL RBC (test code = 1002) 4.63 M/UL HEMOGLOBIN (test code = 1003) 13.7 G/DL HEMATOCRIT (test code = 1004) 40.0 % MCV (test code = 1005) 86.4 fL MCH (test code = 1006) 29.6 PG MCHC (test code = 1007) 34.3 G/DL RDW (test code = 1038) 12.7 % NEUTROPHILS (test code = 1008) 49.4 % LYMPHOCYTES (test code = 1010) 42.3 % MONOCYTES (test code = 1011) 6.4 % EOSINOPHILS (test code = 1012) 1.3 % BASOPHILS (test code = 1013) 0.6 % PLATELET COUNT (test code = 1015) 244 K/UL León CelisCOMPREHENSIVE METABOLIC [id number] 00:00:00* Test Item Value Reference Range Interpretation Comme nts GLUCOSE (test code = 2217) 93 MG/DL BUN (test code = 2208) 17 MG/DL CREATININE (test code = 2214) 0.67 MG/DL eGFR AMER. (test cod e = 67096) 115 ML/MIN/1.73 eGFR NON- AMER. (test code = 64748) 100 ML/MIN/1.73 CALC BUN/CREAT (test code = 2235) 25 RATIO SODIUM (test code = 2231) 139 MEQ/L POTASSIUM (test code = 2228) 4.6 MEQ/L CHLORIDE (test code = 2215) 98 MEQ/L CARBON DIOXIDE (test code = 2206) 24 MEQ/L CALCIUM (test code = 2209) 9.4 MG/DL PROTEIN, TOTAL (test code = 2229) 7.7 G/DL ALBUMIN (test code = 2201) 4.4 G/DL CALC GLOBULIN (test code = 2240) 3.3 G/DL CALC A/G RATIO (test code = 2234) 1.3 RATIO BILIRUBIN, TOTAL (test code = 2207) 0.4 MG/DL ALKALINE PHOSPHATASE (test code = 2204) 86 U/L AST (test code = 2218) 32 U/L ALT (test code = 2219) 26 U/L León CelisLIPID [id number] 00:00:00* Test Item Value Reference Range Interpretation Comme nts CHOLESTEROL (test code = 2210) 178 MG/DL TRIGLYCERIDES (test code = 2232) 73 MG/DL HDL CHOLESTEROL (test code = 2220) 60 MG/DL CALC LDL CHOL (test code = 2237) 103 MG/DL RISK RATIO LDL/HDL (test cod e = 2238) 1.72 RATIO León CelisTHYROID II PROFILE (T3U, T4, T7, TSH)2016-11-25 00:00:00* Test Item Value Reference Range Interpretation Comme nts T3 UPTAKE (test code = 2817) 29.5 % T4 (THYROXINE) (test code = 2819) 8.5 UG/DL CALCULATED T7 (FTI) (test co de = 2820) 2.51 TSH (test code = 2821) 3.11 UIU/ML León CelisHEMOGLOBIN [id number] 00:00:00* Test Item Value Reference Range Interpretation Comme nts HEMOGLOBIN A1c (test code = 20935) 5.7 % León CelisCBC W/AUTO [id number] 00:00:00* Test Item Value Reference Range Interpretation Comme nts WBC (test code = 1001) 8.4 K/UL RBC (test code = 1002) 4.63 M/UL HEMOGLOBIN (test code = 1003) 13.7 G/DL HEMATOCRIT (test code = 1004) 40.0 % MCV (test code = 1005) 86.4 fL MCH (test code = 1006) 29.6 PG MCHC (test code = 1007) 34.3 G/DL RDW (test code = 1038) 12.7 % NEUTROPHILS (test code = 1008) 49.4 % LYMPHOCYTES (test code = 1010) 42.3 % MONOCYTES (test code = 1011) 6.4 % EOSINOPHILS (test code = 1012) 1.3 % BASOPHILS (test code = 1013) 0.6 % PLATELET COUNT (test code = 1015) 244 K/UL León CelisCOMPREHENSIVE METABOLIC [id number] 00:00:00* Test Item Value Reference Range Interpretation Comme nts GLUCOSE (test code = 2217) 93 MG/DL BUN (test code = 2208) 17 MG/DL CREATININE (test code = 2214) 0.67 MG/DL eGFR AMER. (test cod e = 46314) 115 ML/MIN/1.73 eGFR NON- AMER. (test code = 40232) 100 ML/MIN/1.73 CALC BUN/CREAT (test code = 2235) 25 RATIO SODIUM (test code = 2231) 139 MEQ/L POTASSIUM (test code = 2228) 4.6 MEQ/L CHLORIDE (test code = 2215) 98 MEQ/L CARBON DIOXIDE (test code = 2206) 24 MEQ/L CALCIUM (test code = 2209) 9.4 MG/DL PROTEIN, TOTAL (test code = 2229) 7.7 G/DL ALBUMIN (test code = 2201) 4.4 G/DL CALC GLOBULIN (test code = 2240) 3.3 G/DL CALC A/G RATIO (test code = 2234) 1.3 RATIO BILIRUBIN, TOTAL (test code = 2207) 0.4 MG/DL ALKALINE PHOSPHATASE (test code = 2204) 86 U/L AST (test code = 2218) 32 U/L ALT (test code = 2219) 26 U/L León CelisLIPID [id number] 00:00:00* Test Item Value Reference Range Interpretation Comme nts CHOLESTEROL (test code = 2210) 178 MG/DL TRIGLYCERIDES (test code = 2232) 73 MG/DL HDL CHOLESTEROL (test code = 2220) 60 MG/DL CALC LDL CHOL (test code = 2237) 103 MG/DL RISK RATIO LDL/HDL (test cod e = 2238) 1.72 RATIO León CelisTHYROID II PROFILE (T3U, T4, T7, TSH)2016-11-25 00:00:00* Test Item Value Reference Range Interpretation Comme nts T3 UPTAKE (test code = 2817) 29.5 % T4 (THYROXINE) (test code = 2819) 8.5 UG/DL CALCULATED T7 (FTI) (test co de = 2820) 2.51 TSH (test code = 2821) 3.11 UIU/ML León CelisHEMOGLOBIN [id number] 00:00:00* Test Item Value Reference Range Interpretation Comme antonia HEMOGLOBIN A1c (test code = 27904) 5.7 % León CelisCBC W/AUTO [id number] 00:00:00* Test Item Value Reference Range Interpretation Comme nts WBC (test code = 1001) 8.4 K/UL RBC (test code = 1002) 4.63 M/UL HEMOGLOBIN (test code = 1003) 13.7 G/DL HEMATOCRIT (test code = 1004) 40.0 % MCV (test code = 1005) 86.4 fL MCH (test code = 1006) 29.6 PG MCHC (test code = 1007) 34.3 G/DL RDW (test code = 1038) 12.7 % NEUTROPHILS (test code = 1008) 49.4 % LYMPHOCYTES (test code = 1010) 42.3 % MONOCYTES (test code = 1011) 6.4 % EOSINOPHILS (test code = 1012) 1.3 % BASOPHILS (test code = 1013) 0.6 % PLATELET COUNT (test code = 1015) 244 K/UL León CelisCOMPREHENSIVE METABOLIC [id number] 00:00:00* Test Item Value Reference Range Interpretation Comme nts GLUCOSE (test code = 2217) 93 MG/DL BUN (test code = 2208) 17 MG/DL CREATININE (test code = 2214) 0.67 MG/DL eGFR AMER. (test cod e = 42176) 115 ML/MIN/1.73 eGFR NON- AMER. (test code = 82043) 100 ML/MIN/1.73 CALC BUN/CREAT (test code = 2235) 25 RATIO SODIUM (test code = 2231) 139 MEQ/L POTASSIUM (test code = 2228) 4.6 MEQ/L CHLORIDE (test code = 2215) 98 MEQ/L CARBON DIOXIDE (test code = 2206) 24 MEQ/L CALCIUM (test code = 2209) 9.4 MG/DL PROTEIN, TOTAL (test code = 2229) 7.7 G/DL ALBUMIN (test code = 2201) 4.4 G/DL CALC GLOBULIN (test code = 2240) 3.3 G/DL CALC A/G RATIO (test code = 2234) 1.3 RATIO BILIRUBIN, TOTAL (test code = 2207) 0.4 MG/DL ALKALINE PHOSPHATASE (test code = 2204) 86 U/L AST (test code = 2218) 32 U/L ALT (test code = 2219) 26 U/L León Cleary AustinLIPID [id number] 00:00:00* Test Item Value Reference Range Interpretation Comme nts CHOLESTEROL (test code = 2210) 178 MG/DL TRIGLYCERIDES (test code = 2232) 73 MG/DL HDL CHOLESTEROL (test code = 2220) 60 MG/DL CALC LDL CHOL (test code = 2237) 103 MG/DL RISK RATIO LDL/HDL (test cod e = 2238) 1.72 RATIO León Madiha VimalTHYROID II PROFILE (T3U, T4, T7, TSH)2016-11-25 00:00:00* Test Item Value Reference Range Interpretation Comme nts T3 UPTAKE (test code = 2817) 29.5 % T4 (THYROXINE) (test code = 2819) 8.5 UG/DL CALCULATED T7 (FTI) (test co de = 2820) 2.51 TSH (test code = 2821) 3.11 UIU/ML León Madiha VimalHEMOGLOBIN [id number] 00:00:00* Test Item Value Reference Range Interpretation Comme nts HEMOGLOBIN A1c (test code = 49981) 5.7 % León Cleary AustinTHYROID II PROFILE (T3U, T4, T7, TSH)2016-04-09 00:00:00* Test Item Value Reference Range Interpretation Comme nts T3 UPTAKE (test code = 2817) 25.8 % T4 (THYROXINE) (test code = 2819) 8.9 UG/DL CALCULATED T7 (FTI) (test co de = 2820) 2.30 TSH (test code = 2821) 1.9 UIU/ML León Cleary AustinTHYROID II PROFILE (T3U, T4, T7, TSH)2016-04-09 00:00:00* Test Item Value Reference Range Interpretation Comme nts T3 UPTAKE (test code = 2817) 25.8 % T4 (THYROXINE) (test code = 2819) 8.9 UG/DL CALCULATED T7 (FTI) (test co de = 2820) 2.30 TSH (test code = 2821) 1.9 UIU/ML León Cleary AustinTHYROID II PROFILE (T3U, T4, T7, TSH)2016-04-09 00:00:00* Test Item Value Reference Range Interpretation Comme nts T3 UPTAKE (test code = 2817) 25.8 % T4 (THYROXINE) (test code = 2819) 8.9 UG/DL CALCULATED T7 (FTI) (test co de = 2820) 2.30 TSH (test code = 2821) 1.9 UIU/ML León Cleary AustinTHYROID II PROFILE (T3U, T4, T7, TSH)2016-04-09 00:00:00* Test Item Value Reference Range Interpretation Comme nts T3 UPTAKE (test code = 2817) 25.8 % T4 (THYROXINE) (test code = 2819) 8.9 UG/DL CALCULATED T7 (FTI) (test co de = 2820) 2.30 TSH (test code = 2821) 1.9 UIU/ML León CelisVAGINAL PATHOGENS DNA [id number] 00:00:00* Test Item Value Reference Range Interpretation Comme nts RAJESH SPECIES (test code = 27946) NEGATIVE G. VAGINALIS (test code = ) NEGATIVE T. VAGINALIS (test code = 60956) POSITIVE León CelisGC, AMPLIFIED, [id number] 00:00:00* Test Item Value Reference Range Interpretation Comme nts GONORRHEA, TMA (test code = 02311) NEGATIVE León Cleary AustinCHLAMYDIA, AMPLIFIED, [id number] 00:00:00* Test Item Value Reference Range Interpretation Comme nts CHLAMYDIA, TMA (test code = 65164) NEGATIVE León F AustinVAGINAL PATHOGENS DNA [id number] 00:00:00* Test Item Value Reference Range Interpretation Comme nts RAJESH SPECIES (test code = 22005) NEGATIVE G. VAGINALIS (test code = 24343) NEGATIVE T. VAGINALIS (test code = 96580) POSITIVE León Cleary AustinGC, AMPLIFIED, [id number] 00:00:00* Test Item Value Reference Range Interpretation Comme nts GONORRHEA, TMA (test code = 11102) NEGATIVE León Cleary AustinCHLAMYDIA, AMPLIFIED, [id number] 00:00:00* Test Item Value Reference Range Interpretation Comme nts CHLAMYDIA, TMA (test code = 93470) NEGATIVE León F AustinVAGINAL PATHOGENS DNA [id number] 00:00:00* Test Item Value Reference Range Interpretation Comme nts RAJESH SPECIES (test code = ) NEGATIVE G. VAGINALIS (test code = 73277) NEGATIVE T. VAGINALIS (test code = 78642) POSITIVE León Cleary AustinGC, AMPLIFIED, [id number] 00:00:00* Test Item Value Reference Range Interpretation Comme nts GONORRHEA, TMA (test code = 80612) NEGATIVE León Cleary AustinCHLAMYDIA, AMPLIFIED, [id number] 00:00:00* Test Item Value Reference Range Interpretation Comme nts CHLAMYDIA, TMA (test code = 26061) NEGATIVE León F AustinVAGINAL PATHOGENS DNA [id number] 00:00:00* Test Item Value Reference Range Interpretation Comme nts RAJESH SPECIES (test code = 18051) NEGATIVE G. VAGINALIS (test code = 95999) NEGATIVE T. VAGINALIS (test code = 96309) POSITIVE León Cleary AustinGC, AMPLIFIED, [id number] 00:00:00* Test Item Value Reference Range Interpretation Comme nts GONORRHEA, TMA (test code = 33994) NEGATIVE León F AustinCHLAMYDIA, AMPLIFIED, [id number] 00:00:00* Test Item Value Reference Range Interpretation Comme nts CHLAMYDIA, TMA (test code = 93619) NEGATIVE León Cleary AustinLIPID [id number] 00:00:00* Test Item Value Reference Range Interpretation Comme nts CHOLESTEROL (test code = 2210) 161 MG/DL TRIGLYCERIDES (test code = 2232) 55 MG/DL HDL CHOLESTEROL (test code = 2220) 55 MG/DL CALCULATED LDL CHOL (test co de = 2237) 95 MG/DL RISK RATIO LDL/HDL (test cod e = 2238) 1.73 RATIO León CelisCOMPREHENSIVE METABOLIC [id number] 00:00:00* Test Item Value Reference Range Interpretation Comme nts GLUCOSE (test code = 2217) 88 MG/DL BUN (test code = 2208) 18 MG/DL CREATININE (test code = 2214) 0.64 MG/DL eGFR AMER. (test cod e = 42932) 117 ML/MIN/1.73 eGFR NON- AMER. (test code = 39707) 101 ML/MIN/1.73 CALCULATED BUN/CREAT (test code = 2235) 28 RATIO SODIUM (test code = 2231) 142 MEQ/L POTASSIUM (test code = 2228) 4.3 MEQ/L CHLORIDE (test code = 2215) 108 MEQ/L CARBON DIOXIDE (test code = 2206) 21 MEQ/L CALCIUM (test code = 2209) 9.1 MG/DL PROTEIN, TOTAL (test code = 2229) 7.2 G/DL ALBUMIN (test code = 2201) 3.9 G/DL CALCULATED GLOBULIN (test code = 2240) 3.3 G/DL CALCULATED A/G RATIO (test code = 2234) 1.2 RATIO BILIRUBIN, TOTAL (test code = 2207) 0.2 MG/DL ALKALINE PHOSPHATASE (test code = 2204) 86 U/L SGOT (AST) (test code = 2218) 25 U/L SGPT (ALT) (test code = 2219) 18 U/L León CelisLIPID [id number] 00:00:00* Test Item Value Reference Range Interpretation Comme nts CHOLESTEROL (test code = 2210) 161 MG/DL TRIGLYCERIDES (test code = 2232) 55 MG/DL HDL CHOLESTEROL (test code = 2220) 55 MG/DL CALCULATED LDL CHOL (test co de = 2237) 95 MG/DL RISK RATIO LDL/HDL (test cod e = 2238) 1.73 RATIO León Cleary AustinCOMPREHENSIVE METABOLIC [id number] 00:00:00* Test Item Value Reference Range Interpretation Comme nts GLUCOSE (test code = 2217) 88 MG/DL BUN (test code = 2208) 18 MG/DL CREATININE (test code = 2214) 0.64 MG/DL eGFR AMER. (test cod e = 82221) 117 ML/MIN/1.73 eGFR NON- AMER. (test code = 10677) 101 ML/MIN/1.73 CALCULATED BUN/CREAT (test code = 2235) 28 RATIO SODIUM (test code = 2231) 142 MEQ/L POTASSIUM (test code = 2228) 4.3 MEQ/L CHLORIDE (test code = 2215) 108 MEQ/L CARBON DIOXIDE (test code = 2206) 21 MEQ/L CALCIUM (test code = 2209) 9.1 MG/DL PROTEIN, TOTAL (test code = 2229) 7.2 G/DL ALBUMIN (test code = 2201) 3.9 G/DL CALCULATED GLOBULIN (test code = 2240) 3.3 G/DL CALCULATED A/G RATIO (test code = 2234) 1.2 RATIO BILIRUBIN, TOTAL (test code = 2207) 0.2 MG/DL ALKALINE PHOSPHATASE (test code = 2204) 86 U/L SGOT (AST) (test code = 2218) 25 U/L SGPT (ALT) (test code = 2219) 18 U/L León Cleary AustinLIPID [id number] 00:00:00* Test Item Value Reference Range Interpretation Comme nts CHOLESTEROL (test code = 2210) 161 MG/DL TRIGLYCERIDES (test code = 2232) 55 MG/DL HDL CHOLESTEROL (test code = 2220) 55 MG/DL CALCULATED LDL CHOL (test co de = 2237) 95 MG/DL RISK RATIO LDL/HDL (test cod e = 2238) 1.73 RATIO León Cleary AustinCOMPREHENSIVE METABOLIC [id number] 00:00:00* Test Item Value Reference Range Interpretation Comme nts GLUCOSE (test code = 2217) 88 MG/DL BUN (test code = 2208) 18 MG/DL CREATININE (test code = 2214) 0.64 MG/DL eGFR AMER. (test cod e = 57242) 117 ML/MIN/1.73 eGFR NON- AMER. (test code = 52983) 101 ML/MIN/1.73 CALCULATED BUN/CREAT (test code = 2235) 28 RATIO SODIUM (test code = 2231) 142 MEQ/L POTASSIUM (test code = 2228) 4.3 MEQ/L CHLORIDE (test code = 2215) 108 MEQ/L CARBON DIOXIDE (test code = 2206) 21 MEQ/L CALCIUM (test code = 2209) 9.1 MG/DL PROTEIN, TOTAL (test code = 2229) 7.2 G/DL ALBUMIN (test code = 2201) 3.9 G/DL CALCULATED GLOBULIN (test code = 2240) 3.3 G/DL CALCULATED A/G RATIO (test code = 2234) 1.2 RATIO BILIRUBIN, TOTAL (test code = 2207) 0.2 MG/DL ALKALINE PHOSPHATASE (test code = 2204) 86 U/L SGOT (AST) (test code = 2218) 25 U/L SGPT (ALT) (test code = 2219) 18 U/L León Cleary HelendaleLIPID [id number] 00:00:00* Test Item Value Reference Range Interpretation Comme nts CHOLESTEROL (test code = 2210) 161 MG/DL TRIGLYCERIDES (test code = 2232) 55 MG/DL HDL CHOLESTEROL (test code = 2220) 55 MG/DL CALCULATED LDL CHOL (test co de = 2237) 95 MG/DL RISK RATIO LDL/HDL (test cod e = 2238) 1.73 RATIO León Cleary VimalCOMPREHENSIVE METABOLIC [id number] 00:00:00* Test Item Value Reference Range Interpretation Comme nts GLUCOSE (test code = 2217) 88 MG/DL BUN (test code = 2208) 18 MG/DL CREATININE (test code = 2214) 0.64 MG/DL eGFR AMER. (test cod e = 90346) 117 ML/MIN/1.73 eGFR NON- AMER. (test code = 18535) 101 ML/MIN/1.73 CALCULATED BUN/CREAT (test code = 2235) 28 RATIO SODIUM (test code = 2231) 142 MEQ/L POTASSIUM (test code = 2228) 4.3 MEQ/L CHLORIDE (test code = 2215) 108 MEQ/L CARBON DIOXIDE (test code = 2206) 21 MEQ/L CALCIUM (test code = 2209) 9.1 MG/DL PROTEIN, TOTAL (test code = 2229) 7.2 G/DL ALBUMIN (test code = 2201) 3.9 G/DL CALCULATED GLOBULIN (test code = 2240) 3.3 G/DL CALCULATED A/G RATIO (test code = 2234) 1.2 RATIO BILIRUBIN, TOTAL (test code = 2207) 0.2 MG/DL ALKALINE PHOSPHATASE (test code = 2204) 86 U/L SGOT (AST) (test code = 2218) 25 U/L SGPT (ALT) (test code = 2219) 18 U/L León Cleary VimalCOMPREHENSIVE METABOLIC [id number] 00:00:00* Test Item Value Reference Range Interpretation Comme nts GLUCOSE (test code = 2217) 80 MG/DL BUN (test code = 2208) 15 MG/DL CREATININE (test code = 2214) 0.6 MG/DL eGFR AMER. (test cod e = 63212) 127 ML/MIN/1.73 eGFR NON- AMER. (test code = 32723) 105 ML/MIN/1.73 CALCULATED BUN/CREAT (test code = 2235) 25 RATIO SODIUM (test code = 2231) 139 MEQ/L POTASSIUM (test code = 2228) 4.4 MEQ/L CHLORIDE (test code = 2215) 104 MEQ/L CARBON DIOXIDE (test code = 2206) 25 MEQ/L CALCIUM (test code = 2209) 9.2 MG/DL PROTEIN, TOTAL (test code = 2229) 7.6 G/DL ALBUMIN (test code = 2201) 4.0 G/DL CALCULATED GLOBULIN (test code = 2240) 3.6 G/DL CALCULATED A/G RATIO (test code = 2234) 1.1 RATIO BILIRUBIN, TOTAL (test code = 2207) 0.6 MG/DL ALKALINE PHOSPHATASE (test code = 2204) 90 U/L SGOT (AST) (test code = 2218) 34 U/L SGPT (ALT) (test code = 2219) 28 U/L León Cleary [id number] 00:00:00* Test Item Value Reference Range Interpretation Comme nts TSH (test code = 2821) 2.8 UIU/ML León CelisLIPID [id number] 00:00:00* Test Item Value Reference Range Interpretation Comme nts CHOLESTEROL (test code = 2210) 162 MG/DL TRIGLYCERIDES (test code = 2232) 85 MG/DL HDL CHOLESTEROL (test code = 2220) 50 MG/DL CALCULATED LDL CHOL (test co de = 2237) 95 MG/DL RISK RATIO LDL/HDL (test cod e = 2238) 1.90 RATIO León CelisCOMPREHENSIVE METABOLIC [id number] 00:00:00* Test Item Value Reference Range Interpretation Comme nts GLUCOSE (test code = 2217) 80 MG/DL BUN (test code = 2208) 15 MG/DL CREATININE (test code = 2214) 0.6 MG/DL eGFR AMER. (test cod e = 97456) 127 ML/MIN/1.73 eGFR NON- AMER. (test code = 25948) 105 ML/MIN/1.73 CALCULATED BUN/CREAT (test code = 2235) 25 RATIO SODIUM (test code = 2231) 139 MEQ/L POTASSIUM (test code = 2228) 4.4 MEQ/L CHLORIDE (test code = 2215) 104 MEQ/L CARBON DIOXIDE (test code = 2206) 25 MEQ/L CALCIUM (test code = 2209) 9.2 MG/DL PROTEIN, TOTAL (test code = 2229) 7.6 G/DL ALBUMIN (test code = 2201) 4.0 G/DL CALCULATED GLOBULIN (test code = 2240) 3.6 G/DL CALCULATED A/G RATIO (test code = 2234) 1.1 RATIO BILIRUBIN, TOTAL (test code = 2207) 0.6 MG/DL ALKALINE PHOSPHATASE (test code = 2204) 90 U/L SGOT (AST) (test code = 2218) 34 U/L SGPT (ALT) (test code = 2219) 28 U/L León [id number] 00:00:00* Test Item Value Reference Range Interpretation Comme nts TSH (test code = 2821) 2.8 UIU/ML León Cleary AustinLIPID [id number] 00:00:00* Test Item Value Reference Range Interpretation Comme nts CHOLESTEROL (test code = 2210) 162 MG/DL TRIGLYCERIDES (test code = 2232) 85 MG/DL HDL CHOLESTEROL (test code = 2220) 50 MG/DL CALCULATED LDL CHOL (test co de = 2237) 95 MG/DL RISK RATIO LDL/HDL (test cod e = 2238) 1.90 RATIO León CelisCOMPREHENSIVE METABOLIC [id number] 00:00:00* Test Item Value Reference Range Interpretation Comme nts GLUCOSE (test code = 2217) 80 MG/DL BUN (test code = 2208) 15 MG/DL CREATININE (test code = 2214) 0.6 MG/DL eGFR AMER. (test cod e = 06776) 127 ML/MIN/1.73 eGFR NON- AMER. (test code = 27910) 105 ML/MIN/1.73 CALCULATED BUN/CREAT (test code = 2235) 25 RATIO SODIUM (test code = 2231) 139 MEQ/L POTASSIUM (test code = 2228) 4.4 MEQ/L CHLORIDE (test code = 2215) 104 MEQ/L CARBON DIOXIDE (test code = 2206) 25 MEQ/L CALCIUM (test code = 2209) 9.2 MG/DL PROTEIN, TOTAL (test code = 2229) 7.6 G/DL ALBUMIN (test code = 2201) 4.0 G/DL CALCULATED GLOBULIN (test code = 2240) 3.6 G/DL CALCULATED A/G RATIO (test code = 2234) 1.1 RATIO BILIRUBIN, TOTAL (test code = 2207) 0.6 MG/DL ALKALINE PHOSPHATASE (test code = 2204) 90 U/L SGOT (AST) (test code = 2218) 34 U/L SGPT (ALT) (test code = 2219) 28 U/L León [id number] 00:00:00* Test Item Value Reference Range Interpretation Comme nts TSH (test code = 2821) 2.8 UIU/ML León CelisLIPID [id number] 00:00:00* Test Item Value Reference Range Interpretation Comme nts CHOLESTEROL (test code = 2210) 162 MG/DL TRIGLYCERIDES (test code = 2232) 85 MG/DL HDL CHOLESTEROL (test code = 2220) 50 MG/DL CALCULATED LDL CHOL (test co de = 2237) 95 MG/DL RISK RATIO LDL/HDL (test cod e = 2238) 1.90 RATIO León CelisCOMPREHENSIVE METABOLIC [id number] 00:00:00* Test Item Value Reference Range Interpretation Comme nts GLUCOSE (test code = 2217) 80 MG/DL BUN (test code = 2208) 15 MG/DL CREATININE (test code = 2214) 0.6 MG/DL eGFR AMER. (test cod e = 98284) 127 ML/MIN/1.73 eGFR NON- AMER. (test code = 46584) 105 ML/MIN/1.73 CALCULATED BUN/CREAT (test code = 2235) 25 RATIO SODIUM (test code = 2231) 139 MEQ/L POTASSIUM (test code = 2228) 4.4 MEQ/L CHLORIDE (test code = 2215) 104 MEQ/L CARBON DIOXIDE (test code = 2206) 25 MEQ/L CALCIUM (test code = 2209) 9.2 MG/DL PROTEIN, TOTAL (test code = 2229) 7.6 G/DL ALBUMIN (test code = 2201) 4.0 G/DL CALCULATED GLOBULIN (test code = 2240) 3.6 G/DL CALCULATED A/G RATIO (test code = 2234) 1.1 RATIO BILIRUBIN, TOTAL (test code = 2207) 0.6 MG/DL ALKALINE PHOSPHATASE (test code = 2204) 90 U/L SGOT (AST) (test code = 2218) 34 U/L SGPT (ALT) (test code = 2219) 28 U/L León [id number] 00:00:00* Test Item Value Reference Range Interpretation Comme nts TSH (test code = 2821) 2.8 UIU/ML León CelisLIPID [id number] 00:00:00* Test Item Value Reference Range Interpretation Comme nts CHOLESTEROL (test code = 2210) 162 MG/DL TRIGLYCERIDES (test code = 2232) 85 MG/DL HDL CHOLESTEROL (test code = 2220) 50 MG/DL CALCULATED LDL CHOL (test co de = 2237) 95 MG/DL RISK RATIO LDL/HDL (test cod e = 2238) 1.90 RATIO León Cleary Vimal Notes Date/Time Note Provider Source [facility]:00 [facility] [address]2024-06-06 00:00:00 [facility] [address]2024-05-07 00:00:00 [facility] [address]
--- NOTE | 2024-07-10 17:47 | RAD REPORT ---
EXAMINATION: TWO VIEW CHEST XR CLINICAL INDICATION: Female, 63 years old. [facility] MAIN Congestion;Cough;Dyspnea;Fever Bed Name: [facility] TECHNIQUE: 2 view radiographs of the chest were performed. COMPARISON: 10/17/2023 FINDINGS: Subtle right basilar opacity could reflect superimposition of soft tissues versus early airspace dise ase. No pneumothorax or sizable effusion. The heart is normal in size. Mediastinal contours are unremarkable. IMPRESSION: Questionable right basilar opacification may reflect early airspace disease as above.
[2024-07-10] MEDS ORDERED: ACETAMINOPHEN 500 MG TAB ONE (18:01)
[2024-07-10] MEDS ORDERED: ALBUTEROL 2.5 MG/3 ML NEB SOL ONE (18:01)
[2024-07-10] MEDS ORDERED: IPRATROPIUM BROM 0.5MG/2.5ML ONE (18:01)
[2024-07-10 18:35] LABS: SARS-CoV-2 Antigen CONTROL BLUE LINE VIS/BG OK; SARS-CoV-2 Antigen Rapid Res Negative (Negative)
--- NOTE | 2024-07-10 18:40 | ER ---
Nurse's Notes [facility] Name: Jennifer Solorio Age: 63 yrs Sex: Female : 1960 Arrival Date: 07/10/2024 Time: 15:28 Bed 9 Private MD: Diagnosis: Influenza due to identified novel influenza A virus with pneumonia Presentation: 07/10 15:59 Chief complaint: Patient states: cough, chills, fever that began yesterday. Pt also aa5 reports sore throat. Coronavirus screen: cough unrelated to allergies, sore throat. Ebola Screen: Patient denies travel to an Ebola-affected area in the 21 days before illness onset. Onset of symptoms was July 2024. 15:59 Method Of Arrival: Ambulatory aa5 15:59 Acuity: JUDITH 4 aa5 15:59 Initial Sepsis Screen: Does the patient meet any 2 criteria? No. Patient's initial aa5 sepsis screen is negative. Does the patient have a suspected source of infection? No. Patient's initial sepsis screen is negative. Risk Assessment: Do you want to hurt yourself or someone else? Patient reports no desire to harm self or others. Historical: - Allergies: 15:58 PENICILLINS; aa5 - PMHx: 15:58 GALLSTONES; Hypertension; aa5 - PSHx: 15:58 Cholecystectomy; aa5 - Immunization history:: Adult Immunizations unknown. - Infectious Disease History:: Denies. - Social history:: Smoking status: Patient denies any tobacco usage or history of. Screenin:16 [facility] ED Fall Risk Assessment (Adult) History of falling in the last 3 months, kb3 including since admission No falls in past 3 months (0 pts) Confusion or Disorientation No (0 pts) Intoxicated or Sedated No (0 pts) Impaired Gait No (0 pts) Mobility Assist Device Used No (0 pt) Altered Elimination No (0 pt) Score/Fall Risk Level 0 - 2 = Low Risk Oriented to surroundings, Maintained a safe environment. Abuse screen: Denies threats or abuse. Denies injuries from another. Nutritional screening: No deficits noted. Tuberculosis screening: No symptoms or risk factors identified. Assessment: 18:16 General: Appears in no apparent distress. ill, Behavior is calm, cooperative. Pain: kb3 Complains of pain in head Pain does not radiate. Pain currently is 8 out of 10 on a pain scale. Quality of pain is described as aching, pressure. Neuro: No deficits noted. EENT: Reports nasal congestion nasal discharge that is green that is yellow. 19:11 Reassessment: Patient appears in no apparent distress at this time. Patient and/or iw family updated on plan of care and expected duration. Pain level reassessed. Patient is alert, oriented x 3, equal unlabored respirations, skin warm/dry/pink. Patient states feeling better. Patient states symptoms have improved. Vital Signs: 15:59 BP 177 / 92; Pulse 72; Resp 20 S; Temp 100.3(O); Pulse Ox 96% on R/A; Weight 104.33 kg aa5 (R); Height 5 ft. 2 in. (R); 15:59 Body Mass Index 42.07 (104.33 kg, 157.48 cm) aa5 ED Course: 15:31 Patient arrived in ED. ra3 15:35 Maryjo Soto PA-C is PHCP. sb4 15:35 Roman Higgins MD is Attending Physician. sb4 15:58 Arm band placed on. aa5 16:00 Triage completed. aa5 17:33 Chest Pa And Lat (2 Views) XRAY In Process Unspecified. EDMS 18:00 Ambar Radford, RN is Primary Nurse. iw 18:16 Patient has correct armband on for positive identification. Bed in low position. Call kb3 light in reach. Side rails up X 1. Provided Education on: Medications, POC. 18:16 Strep Sent. kb3 18:16 Flu Sent. kb3 18:16 SARS RAPID Sent. kb3 18:16 No provider procedures requiring assistance completed. Initial Neb Treatment Given as kb3 ordered. Patient did not have IV access during this emergency room visit. Administered Medications: 18:16 Drug: Acetaminophen PO 1000 mg PO once Route: PO; kb3 19:07 Follow up: Response: No adverse reaction; Temperature is decreased; Pain is decreased kb3 18:16 Drug: DuoNeb Nebulize (3:1) (2.5 mg - 0.5 mg) 3 ml Nebulizer once Route: Nebulizer; kb3 19:07 Follow up: Response: No adverse reaction kb3 18:59 Drug: Rocephin (cefTRIAXone) IM 1 grams IM once Route: IM; Site: right ventrogluteal; iw 19:08 Follow up: Response: No adverse reaction kb3 19:00 Drug: AZITHromycin PO 500 mg PO once Route: PO; iw 19:08 Follow up: Response: No adverse reaction kb3 19:00 Drug: Oseltamivir PO 75 mg PO once Route: PO; iw 19:08 Follow up: Response: No adverse reaction kb3 19:04 Drug: Ondansetron Oral Disintegrating Tablet Oral Disintegrating Tablet 4 mg PO once iw Route: PO; 19:08 Follow up: Response: No adverse reaction; Nausea is decreased kb3 Medication: 18:16 VIS not applicable for this client. kb3 Outcome: 18:40 Discharge ordered by . sb4 19:08 Discharged to home ambulatory, with family, kb3 19:08 Condition: stable 19:08 Discharge instructions given to patient, family, Instructed on discharge instructions, follow up and referral plans. medication usage, Demonstrated understanding of instructions, follow-up care, medications, Prescriptions given X 3, 19:09 Patient left the ED. kb3 Signatures: Dispatcher [employer] EDAmbar Naik, RN ANGEL iw Deborah Penn RN RN [email or web address] Daniela Gomez RN RN ina3 Maryjo Soto, PA-C PA-C [email or web address] Shweta Black ra3
--- NOTE | 2024-07-10 18:40 | EDPHYS ---
Physician Documentation [facility] Name: Jennifer Solorio Age: 63 yrs Sex: Female : 1960 Arrival Date: 07/10/2024 Time: 15:28 Bed 9 Private MD: ED Physician Roman Higgins HPI: 07/10 18:57 This 63 yrs old Female presents to ER via Ambulatory with complaints of Flu sb4 Symptoms. 19:00 Patient reports cough, congestion, fever, body aches, malaise, sore throat that all sb4 began this morning. States that her grandson has similar symptoms. She has been taking DayQuil and ibuprofen without any relief in symptoms. Denies any chest pain or shortness of breath. Historical: - Allergies: 15:58 PENICILLINS; aa5 - PMHx: 15:58 GALLSTONES; Hypertension; aa5 - PSHx: 15:58 Cholecystectomy; aa5 - Immunization history:: Adult Immunizations unknown. - Infectious Disease History:: Denies. - Social history:: Smoking status: Patient denies any tobacco usage or history of. ROS: 19:00 Abdomen/GI: Negative for abdominal pain, nausea, vomiting, diarrhea, and constipation, sb4 19:00 Constitutional: Positive for body aches, chills, fatigue, fever, malaise, 19:00 ENT: Positive for sore throat, 19:00 Respiratory: Positive for cough, 19:00 All other systems are negative, Exam: 19:00 Head/Face: Normocephalic, atraumatic. Eyes: Extra-ocular motions intact. Periorbital sb4 areas with no swelling, redness, or edema. ENT: Mucous membranes moist. Cardiovascular: Regular rate and rhythm with a normal S1 and S2. Respiratory: No increased work of breathing, no retractions or nasal flaring. Abdomen/GI: Soft, non-tender, no distension. Skin: Warm, dry with normal turgor. Normal color with no rashes, no lesions, and no evidence of cellulitis. 19:00 Constitutional: The patient appears alert, awake, obviously ill, Vital Signs: 15:59 BP 177 / 92; Pulse 72; Resp 20 S; Temp 100.3(O); Pulse Ox 96% on R/A; Weight 104.33 kg aa5 (R); Height 5 ft. 2 in. (R); 15:59 Body Mass Index 42.07 (104.33 kg, 157.48 cm) aa5 MDM: 16:18 Medical Screening Exam initiated sb4 19:00 Antibiotic administration: The patient is discharged and will get outpatient sb4 antibiotics, Tamiflu, Zithromax, cefdinir. Data reviewed: vital signs, nurses notes, lab test result(s), radiologic studies, and as a result, I will discharge patient. Counseling: I had a detailed discussion with the patient and/or guardian regarding the historical points, exam findings, and any diagnostic results supporting the discharge/admit diagnosis, lab results, radiology results, the need for outpatient follow up, for definitive care, to return to the emergency department if symptoms worsen or persist or if there are any questions or concerns that arise at home. 07/10 16:05 Order name: SARS RAPID; Complete Time: 18:36 sb4 07/10 16:05 Order name: Flu; Complete Time: 18:36 sb4 07/10 16:05 Order name: Strep; Complete Time: 18:36 sb4 07/10 18:37 Order name: Throat Culture EDKY 07/10 16:05 Order name: Chest Pa And Lat (2 Views) XRAY; Complete Time: 17:48 sb4 Administered Medications: 18:16 Drug: Acetaminophen PO 1000 mg PO once Route: PO; kb3 19:07 Follow up: Response: No adverse reaction; Temperature is decreased; Pain is decreased kb3 18:16 Drug: DuoNeb Nebulize (3:1) (2.5 mg - 0.5 mg) 3 ml Nebulizer once Route: Nebulizer; kb3 19:07 Follow up: Response: No adverse reaction kb3 18:59 Drug: Rocephin (cefTRIAXone) IM 1 grams IM once Route: IM; Site: right ventrogluteal; iw 19:08 Follow up: Response: No adverse reaction kb3 19:00 Drug: AZITHromycin PO 500 mg PO once Route: PO; iw 19:08 Follow up: Response: No adverse reaction kb3 19:00 Drug: Oseltamivir PO 75 mg PO once Route: PO; iw 19:08 Follow up: Response: No adverse reaction kb3 19:04 Drug: Ondansetron Oral Disintegrating Tablet Oral Disintegrating Tablet 4 mg PO once iw Route: PO; 19:08 Follow up: Response: No adverse reaction; Nausea is decreased kb3 Disposition Summary: 07/10/24 18:40 Discharge Ordered Notes: Location: Home sb4 Problem: new sb4 Symptoms: have improved sb4 Condition: Stable sb4 Diagnosis - Influenza due to identified novel influenza A virus with pneumonia sb4 Followup: sb4 - With: Emergency Department - When: As needed - Reason: Trouble breathing, Worsening of condition Discharge Instructions: - Discharge Summary Sheet sb4 - Community-Acquired Pneumonia, Adult, Luyk-rx-Cotk sb4 - Influenza, Adult, Rgwx-sa-Ycvw sb4 Forms: - Antibiotic Education sb4 - Patient Portal Instructions sb4 - Leadership Thank You Letter sb4 Prescriptions: - azithromycin 250 mg Oral tablet - take 1 tablet ORAL route daily for 4 days start on day 2 of therapy; 4 tablet; sb4 Refills: 0, Product Selection Permitted - cefdinir 300 mg Oral capsule - take 1 capsule ORAL route 2 times per day for 10 days; 20 capsule; Refills: 0, sb4 Product Selection Permitted - Tessalon Perles 100 mg Oral Capsule - take 1 capsule ORAL route every 8 hours As needed; 15 capsule; Refills: 0, sb4 Product Selection Permitted - Tamiflu 75 mg Oral capsule - take 1 tablet ORAL route every 12 hours for 5 days; 9 tablet; Refills: 0, sb4 Product Selection Permitted Signatures: Dispatcher [employer] Ambar Michaels, RN Deborah Rousseau RN RN aa5 Daniela Gomez RN RN kb3 Maryjo Soto, RENÉE PAJr sb4
[2024-07-10] MEDS ORDERED: LIDOCAINE 1% MPF 5 ML VIAL ONE (18:53)
[2024-07-10] MEDS ORDERED: CEFTRIAXONE 1000 MG/VIAL ONE (18:53)
[2024-07-10] MEDS ORDERED: ONDANSETRON 4 MG (ODT) TAB ONE (18:54)
[2024-07-10] MEDS ORDERED: AZITHROMYCIN 250 MG TAB ONE (18:54)
[2024-07-10] MEDS ORDERED: OSELTAMIVIR 75 MG CAP PO ONE (18:54)
[2024-07-10 20:49] VITALS: BP 177/92; TEMP 100.3; O2SAT 96
== END 2024-07-10 19:09 | disposition home or self-care (01) ==
LOC: ER 15:28
DX: J10.00 Influenza due to other identified influenza virus with unspecified type of pneumonia (principal); Z11.52 Encounter for screening for COVID-19
CPT/HCPCS: 36415; 71046; 87070; 87081; 87804; 87811; 94640; 96372; 99284; J0696; J2003; J7613; J7644; Q0162

== ENCOUNTER 2024-09-27 07:30 | Emergency (ER) | payer SELFPAY ==
--- OUTSIDE RECORDS SUMMARY | 2024-09-27 07:35 | XMS REPORT | Continuity of Care Document ---
Author Name Unknown Address [address] [facility] [address] [place] [address] [facility] Address [address] [facility] [address] [place] [address] Care Team Providers Care Warper Tender Name Role Phone Lucas De Paz Primary Care Physician [phone] Allergies, Adverse Reactions, Alerts Allergy Name Allergy Type Status Severity Reaction(s) Onset Date Inactive Date Treating Clinician Comments Source penicill in G [place] to adverse reaction to drug Active 11-02 00:00: 00 León Celis Penicill ins Propensi ty to adverse reaction to drug Inactiv e 10-15 00:00: 00 León Celis Medications Ordered Medication Name Filled Medication Name Start Date Stop Date Current Medication? Ordering Clinician Indication Dosage Frequency Signature (SIG) Comments Components Source lisinopril 20 mg-hydrochl orothiazide 12.5 mg tablet 04-18 00:00: 00 Yes 1mg León Celis lisinopril 20 mg-hydrochl orothiazide 12.5 mg tablet - 00:00: 00 Yes 1mg León Celis doxycycline monohydrate 100 mg tablet 01-16 00:00: 00 Yes 1mg León Celis omeprazole 40 mg capsule,del ayed release 01-16 00:00: 00 Yes 1mg León Celis gabapentin 100 mg capsule 01-12 00:00: 00 Yes 1mg León Celis diclofenac 1 % topical gel 12-13 00:00: 00 Yes 1% León Celis prednisone 20 mg tablet - 00:00: 00 Yes 1mg León Celis naproxen [...] 2 mg-30 mg-10 mg/5 mL oral syrup 3- 00:00: 00 Yes 10mg/5 mL León Celis lisinopril 20 mg-hydrochl orothiazide 12.5 mg tablet 0 30 00:00: 00 Yes 1mg León Celis Flagyl [...] lisinopril 20 mg-hydrochl orothiazide 12.5 mg tablet 04-28 00:00: 00 Yes 2mg León Celis lisinopril 20 mg-hydrochl orothiazide 12.5 mg tablet 12-01 00:00: 00 Yes 2mg León Celis Bactrim DS 800 mg-160 mg tablet 17 00:00: 00 Yes 1mg León Celis lisinopril 20 mg-hydrochl orothiazide 12.5 mg tablet 11-18 00:00: 00 Yes 2mg León Celis lisinopril 20 mg-hydrochl orothiazide 12.5 mg tablet 2015-08 2 00:00: 00 Yes 2mg León Celis azithromyci [...] Heart Rate 2024-04-18 10:51:00 65.00 /min Missy Celis Respiratory Rate 2024-04-18 10:51:00 18.00 /min León Celis BP Systolic 2024-01-17 15:16:00 Hasmukh Celis BP Diastolic 2024-01-17 15:16:00 Monty phen Madiha Celis Weight Measured 2024-01-17 15:16:00 235.80 pounds León Celis Height Measured 2024-01-17 15:16:00 63.00 inches León [...] Rate 2024-01-17 14:44:00 19.00 /min León F Viaml BP Systolic 2024-01-13 13:44:00 133 mm[Hg] Step [...] 2023-08-14 10:21:00 78 mm[Hg] Monty phen F Vmial Weight Measured 2023-08-14 10:21:00 247.40 pounds León [...] Vimal Body Temperature 2022-08-05 08:51:00 97.90 degrees León F Vimal Heart Rate 2022-08-05 08:51:00 68.00 [...] Weight Measured 2022-05-06 15:06:00 249.60 pounds León Celis Height Measured 2022-05-06 15:06:00 63.00 inches León F Vimal Body Temperature 2022-05-06 15:06:00 98.10 degrees León F Vimal Heart Rate 2022-05-06 15:06:00 75.00 /min Missy en F Vimal Respiratory Rate 2022-05-06 15:06:00 17.00 /min León F Vimal Encounters Start Date/Time End Date/Time Encounter Type Admission Type Attending [facility] Care Department Encounter ID Source 2024-06-13 14:27:25 2024-06-13 14:27:25 Outpatient S[facility] [id number] León Madiha Vimal 2024-04-19 08:58:11 2024-04-19 08:58:11 Outpatient SFA S[facility] [id number] León Celis 2024-04-18 10:53:32 2024-04-18 10:53:32 Outpatient SFA SFA 10 León Celis 2024-04-18 00:00:00 2024-04-18 00:00:00 Outpatient Visit SFA [id number] León Celis 2024-01-17 14:42:00 2024-01-17 14:42:00 Outpatient SFA SFA 609 León Celis 2024-01-17 00:00:00 2024-01-17 00:00:00 Outpatient Visit SFA [id number] León Celis 2024-01-13 13:44:26 2024-01-13 13:44:26 Outpatient SFA SFA 06 León Celis 2024-01-13 00:00:00 2024-01-13 00:00:00 Outpatient Visit SFA [id number] León Celis 2023-12-14 13:09:01 2023-12-14 13:09:01 Outpatient SFA SFA [id number] León Celis 2023-12-14 00:00:00 2023-12-14 00:00:00 Outpatient Visit SFA [id number] León Celis 2023-11-08 11:38:54 2023-11-08 11:38:54 Outpatient SFA SFA [id number] León Celis 2023-11-03 14:57:54 2023-11-03 14:57:54 Outpatient SFA SFA [id number] León Celis 2023-08-16 07:53:37 2023-08-16 07:53:37 Outpatient SFA SFA [id number] León Celis 2023-08-14 10:20:34 2023-08-14 10:20:34 Outpatient [facility] 010 León Celis 2023-06-17 09:20:26 2023-06-17 09:20:26 Outpatient [facility] [id number] León Celis 2022-12-16 15:27:13 2022-12-16 15:27:13 Outpatient [facility] [id number] León Celis 2022-12-11 08:18:10 2022-12-11 08:18:10 Outpatient [facility] [id number] León Celis 2022-08-05 10:18:37 2022-08-05 10:18:37 Outpatient [facility] [id number] León Celis 2022-06-13 11:03:25 2022-06-13 11:03:25 Outpatient [facility] [id number] León Celis 2022-05-07 12:57:08 2022-05-07 12:57:08 Outpatient [facility] [id number] León Celis Results Test Description Test Time Test Comments Results Result Co mments Source COMPREHENSIVE METABOLIC [id number] 09:05:34* Test Item Value Reference Range Interpretation Comme nts GLUCOSE (test code = 2217) 112 MG/DL 70-99 H BUN (test code = 2208) 13 MG/DL 8-23 CREATININE (test code = 2214) 0.58 MG/DL 0.60-1.30 L eGFR (2020 CKD-EPI) (test code = 71543) 103 ML/MIN/1.73 >60 CALC BUN/CREAT (test code [...] PERFORMED AT [facility] [address] [place] [address] [employer] ANALYST: JEFFREY JUÁREZ M.D. [place] NUMBER [id number] [facility] [place]. [id number] HEMOGLOBIN [id number] 03:53:57* Test Item Value Reference Range Interpretation Comme nts HEMOGLOBIN A1c (test code = 75970) 5.7 % 4.2-5.6 H [employer] GUIDELINES FOR HGB A1C: [...] CONSIDER ALTERNATE TESTING OR LABORATORY CONSULTATION. LIPID [id number] 00:00:00* Test Item Value Reference Range Interpretation Comme nts CHOLESTEROL (test code = 2210) 192 MG/DL TRIGLYCERIDES (test code = 2232) 84 MG/DL HDL CHOLESTEROL (test code = 2220) 59 MG/DL CALC LDL CHOL (test code = 2237) 115 MG/DL RISK RATIO LDL/HDL (test cod e = 2238) 1.95 RATIO León Madiha VimalCOMPREHENSIVE METABOLIC [id number] 00:00:00* Test Item Value Reference Range Interpretation Comme nts GLUCOSE (test code = 2217) 112 MG/DL BUN (test code = 2208) 13 MG/DL CREATININE (test code = 2214) 0.58 MG/DL eGFR (2020 CKD-EPI) (test code = 44643) 103 ML/MIN/1.73 CALC BUN/CREAT (test code = [...] code = 2219) 26 U/L León CelisHEMOGLOBIN [id number] 00:00:00* Test Item Value Reference Range Interpretation Comme nts HEMOGLOBIN A1c (test code = 62459) 5.7 % León CelisLIPID [id number] 00:00:00* Test Item Value Reference Range Interpretation Comme nts CHOLESTEROL (test code = 2210) 192 MG/DL TRIGLYCERIDES (test code = 2232) 84 MG/DL HDL CHOLESTEROL (test code = 2220) 59 MG/DL CALC LDL CHOL (test code = 2237) 115 MG/DL RISK RATIO LDL/HDL (test cod e = 2238) 1.95 RATIO León CelisCOMPREHENSIVE METABOLIC [id number] 00:00:00* Test Item Value Reference Range Interpretation Comme nts GLUCOSE (test code = 2217) 112 MG/DL BUN (test code = 2208) 13 MG/DL CREATININE (test code = 2214) 0.58 MG/DL eGFR (2020 CKD-EPI) (test code = 86073) 103 ML/MIN/1.73 CALC BUN/CREAT (test code = [...] code = 2219) 26 U/L León CelisHEMOGLOBIN [id number] 00:00:00* Test Item Value Reference Range Interpretation Comme nts HEMOGLOBIN A1c (test code = 04861) 5.7 % León CelisLIPID [id number] 00:00:00* Test Item Value Reference Range Interpretation Comme nts CHOLESTEROL (test code = 2210) 192 MG/DL TRIGLYCERIDES (test code = 2232) 84 MG/DL HDL CHOLESTEROL (test code = 2220) 59 MG/DL CALC LDL CHOL (test code = 2237) 115 MG/DL RISK RATIO LDL/HDL (test cod e = 2238) 1.95 RATIO León CelisCOMPREHENSIVE METABOLIC [id number] 00:00:00* Test Item Value Reference Range Interpretation Comme nts GLUCOSE (test code = 2217) 112 MG/DL BUN (test code = 2208) 13 MG/DL CREATININE (test code = 2214) 0.58 MG/DL eGFR (2020 CKD-EPI) (test code = 87172) 103 ML/MIN/1.73 CALC BUN/CREAT (test code = [...] code = 2219) 26 U/L León CelisHEMOGLOBIN [id number] 00:00:00* Test Item Value Reference Range Interpretation Comme antonia HEMOGLOBIN A1c (test code = 75833) 5.7 % León CelisLIPID [id number] 00:00:00* Test Item Value Reference Range Interpretation Comme nts CHOLESTEROL (test code = 2210) 192 MG/DL TRIGLYCERIDES (test code = 2232) 84 MG/DL HDL CHOLESTEROL (test code = 2220) 59 MG/DL CALC LDL CHOL (test code = 2237) 115 MG/DL RISK RATIO LDL/HDL (test cod e = 2238) 1.95 RATIO León CelisCOMPREHENSIVE METABOLIC [id number] 00:00:00* Test Item Value Reference Range Interpretation Comme nts GLUCOSE (test code = 2217) 112 MG/DL BUN (test code = 2208) 13 MG/DL CREATININE (test code = 2214) 0.58 MG/DL eGFR (2020 CKD-EPI) (test code = 98430) 103 ML/MIN/1.73 CALC BUN/CREAT (test code = [...] code = 2219) 26 U/L León CelisHEMOGLOBIN [id number] 00:00:00* Test Item Value Reference Range Interpretation Comme nts HEMOGLOBIN A1c (test code = 45454) 5.7 % León Cleary AustinLIPID [id number] 06:57:26* Test Item Value Reference Range Interpretation [...] SPECIMENS. FOR MOREINFORMATION, SEE CLIENT ANNOUNCEMENT AT [email or web address] RISK RATIO LDL/HDL (test code = 2238) 1.63 RATIO <3.22 COMPREHENSIVE METABOLIC [id number] 06:57:26* Test Item Value Reference Range Interpretation Comme nts GLUCOSE (test code = 2217) 107 MG/DL 70-99 H BUN (test code = 2207) 12 MG/DL 8-23 CREATININE (test code = 2214) 0.55 MG/DL 0.60-1.30 L eGFR (2020 CKD-EPI) (test code = 61665) 104 ML/MIN/1.73 >60 CALC BUN/CREAT (test code [...] PERFORMED AT [facility] [address] [place] [address] [employer] ANALYST: JEFFREY JUÁREZ M.D. CLIA NUMBER [id number] [place] [id number] COMPREHENSIVE METABOLIC [id number] 00:00:00* Test Item Value Reference Range Interpretation Comme nts GLUCOSE (test code = 2217) 107 MG/DL BUN (test code = 2208) 12 MG/DL CREATININE (test code = 2214) 0.55 MG/DL eGFR (2020 CKD-EPI) (test code = 30357) 104 ML/MIN/1.73 CALC BUN/CREAT (test code = [...] code = 2219) 36 U/L León CelisLIPID [id number] 00:00:00* Test Item Value Reference Range Interpretation Comme nts CHOLESTEROL (test code = 2210) 189 MG/DL TRIGLYCERIDES (test code = 2232) 112 MG/DL HDL CHOLESTEROL (test code = 2220) 64 MG/DL CALC LDL CHOL (test code = 2237) 104 MG/DL RISK RATIO LDL/HDL (test cod e = 2238) 1.63 RATIO León CelisCOMPREHENSIVE METABOLIC [id number] 00:00:00* Test Item Value Reference Range Interpretation Comme nts GLUCOSE (test code = 2217) 107 MG/DL BUN (test code = 2208) 12 MG/DL CREATININE (test code = 2214) 0.55 MG/DL eGFR (2020 CKD-EPI) (test code = 70193) 104 ML/MIN/1.73 CALC BUN/CREAT (test code = [...] = 2219) 36 U/L León Cleary AustinLIPID [id number] 00:00:00* Test Item Value Reference Range Interpretation Comme nts CHOLESTEROL (test code = 2210) 189 MG/DL TRIGLYCERIDES (test code = 2232) 112 MG/DL HDL CHOLESTEROL (test code = 2220) 64 MG/DL CALC LDL CHOL (test code = 2237) 104 MG/DL RISK RATIO LDL/HDL (test cod e = 2238) 1.63 RATIO León Cleary AustinCOMPREHENSIVE METABOLIC [id number] 00:00:00* Test Item Value Reference Range Interpretation Comme nts GLUCOSE (test code = 2217) 107 MG/DL BUN (test code = 2208) 12 MG/DL CREATININE (test code = 2214) 0.55 MG/DL eGFR (2020 CKD-EPI) (test code = 88444) 104 ML/MIN/1.73 CALC BUN/CREAT (test code = [...] code = 2219) 36 U/L León Cleary VeronaLIPID [id number] 00:00:00* Test Item Value Reference Range Interpretation Comme nts CHOLESTEROL (test code = 2210) 189 MG/DL TRIGLYCERIDES (test code = 2232) 112 MG/DL HDL CHOLESTEROL (test code = 2220) 64 MG/DL CALC LDL CHOL (test code = 2237) 104 MG/DL RISK RATIO LDL/HDL (test cod e = 2238) 1.63 RATIO León Cleary VimalCOMPREHENSIVE METABOLIC [id number] 00:00:00* Test Item Value Reference Range Interpretation Comme nts GLUCOSE (test code = 2217) 107 MG/DL BUN (test code = 2208) 12 MG/DL CREATININE (test code = 2214) 0.55 MG/DL eGFR (2020 CKD-EPI) (test code = 22219) 104 ML/MIN/1.73 CALC BUN/CREAT (test code = [...] code = 2219) 36 U/L León CelisLIPID [id number] 00:00:00* Test Item Value Reference Range Interpretation Comme nts CHOLESTEROL (test code = 2210) 189 MG/DL TRIGLYCERIDES (test code = 2232) 112 MG/DL HDL CHOLESTEROL (test code = 2220) 64 MG/DL CALC LDL CHOL (test code = 2237) 104 MG/DL RISK RATIO LDL/HDL (test cod e = 2238) 1.63 RATIO León CelisHEMOGLOBIN [id number] 03:39:52* Test Item Value Reference Range Interpretation Comme nts HEMOGLOBIN A1c (test code = 53782) 5.8 % 4.2-5.6 H UNLESS OTHERWISE INDICATED, ALL TESTING PERFORMED [facility] [employer] [address] [place] [address] [employer] ANALYST: NGHIA MERAZ M.D. CLIA NUMBER [id number] [facility] [place]. [id number] LIPID [id number] 03:00:57* Test Item Value Reference Range Interpretation [...] = 2238) 1.71 RATIO <3.22 COMPREHENSIVE METABOLIC [id number] 03:00:57* Test Item Value Reference Range Interpretation Comme nts GLUCOSE (test code = 2217) 95 MG/DL 70-99 BUN (test code = 2207) 12 MG/DL 8-23 CREATININE (test code = 2214) 0.54 MG/DL 0.60-1.30 L eGFR (2020 CKD-EPI) (test code = 86720) 105 ML/MIN/1.73 >60 CALC BUN/CREAT (test code = 2235) 22 RATIO 6-28 SODIUM (test code = 223) 144 MEQ/L 133-146 POTASSIUM (test code = 2228) 4.4 MEQ/L 3.5-5.4 CHLORIDE (test code = 2215) 108 MEQ/L 95-107 H CARBON DIOXIDE (test code = 2206) 26 MEQ/L 19-31 CALCIUM (test code = [...] 109 U/L 40-136 AST (test code = 2218) 27 U/L 9-40 ALT (test code = 2219) 25 U/L 5-40 COMPREHENSIVE METABOLIC [id number] 00:00:00* Test Item Value Reference Range Interpretation Comme nts GLUCOSE (test code = 2217) 95 MG/DL BUN (test code = 2208) 12 MG/DL CREATININE (test code = 2214) 0.54 MG/DL eGFR (2020 CKD-EPI) (test code = 00190) 105 ML/MIN/1.73 CALC BUN/CREAT (test code = 2235) 22 RATIO SODIUM (test code = 223) 144 MEQ/L POTASSIUM (test code = 2228) [...] code = 2219) 25 U/L León CelisHEMOGLOBIN [id number] 00:00:00* Test Item Value Reference Range Interpretation Comme antonia HEMOGLOBIN A1c (test code = 81412) 5.8 % León CelisLIPID [id number] 00:00:00* Test Item Value Reference Range Interpretation Comme nts CHOLESTEROL (test code = 2210) 177 MG/DL TRIGLYCERIDES (test code = 2232) 152 MG/DL HDL CHOLESTEROL (test code = 2220) 56 MG/DL CALC LDL CHOL (test code = 2237) 96 MG/DL RISK RATIO LDL/HDL (test cod e = 2238) 1.71 RATIO León CelisCOMPREHENSIVE METABOLIC [id number] 00:00:00* Test Item Value Reference Range Interpretation Comme nts GLUCOSE (test code = 2217) 95 MG/DL BUN (test code = 2208) 12 MG/DL CREATININE (test code = 2214) 0.54 MG/DL eGFR (2020 CKD-EPI) (test code = 80225) 105 ML/MIN/1.73 CALC BUN/CREAT (test code = [...] code = 2219) 25 U/L León CelisHEMOGLOBIN [id number] 00:00:00* Test Item Value Reference Range Interpretation Comme nts HEMOGLOBIN A1c (test code = 38700) 5.8 % León Cleary AustinLIPID [id number] 00:00:00* Test Item Value Reference Range Interpretation Comme nts CHOLESTEROL (test code = 2210) 177 MG/DL TRIGLYCERIDES (test code = 2232) 152 MG/DL HDL CHOLESTEROL (test code = 2220) 56 MG/DL CALC LDL CHOL (test code = 2237) 96 MG/DL RISK RATIO LDL/HDL (test cod e = 2238) 1.71 RATIO León CelisCOMPREHENSIVE METABOLIC [id number] 00:00:00* Test Item Value Reference Range Interpretation Comme nts GLUCOSE (test code = 2217) 95 MG/DL BUN (test code = 2208) 12 MG/DL CREATININE (test code = 2214) 0.54 MG/DL eGFR (2020 CKD-EPI) (test code = 65151) 105 ML/MIN/1.73 CALC BUN/CREAT (test code = [...] (test code = 2219) 25 U/L León Cleary AustinHEMOGLOBIN [id number] 00:00:00* Test Item Value Reference Range Interpretation Comme nts HEMOGLOBIN A1c (test code = 99848) 5.8 % León Cleary AustinLIPID [id number] 00:00:00* Test Item Value Reference Range Interpretation Comme nts CHOLESTEROL (test code = 2210) 177 MG/DL TRIGLYCERIDES (test code = 2232) 152 MG/DL HDL CHOLESTEROL (test code = 2220) 56 MG/DL CALC LDL CHOL (test code = 2237) 96 MG/DL RISK RATIO LDL/HDL (test cod e = 2238) 1.71 RATIO León CelisCOMPREHENSIVE METABOLIC [id number] 00:00:00* Test Item Value Reference Range Interpretation Comme nts GLUCOSE (test code = 2217) 95 MG/DL BUN (test code = 2208) 12 MG/DL CREATININE (test code = 2214) 0.54 MG/DL eGFR (2020 CKD-EPI) (test code = 40141) 105 ML/MIN/1.73 CALC BUN/CREAT (test code = [...] code = 2219) 25 U/L León CelisHEMOGLOBIN [id number] 00:00:00* Test Item Value Reference Range Interpretation Comme nts HEMOGLOBIN A1c (test code = 37359) 5.8 % León Cleary AustinLIPID [id number] 00:00:00* Test Item Value Reference Range Interpretation Comme nts CHOLESTEROL (test code = 2210) 177 MG/DL TRIGLYCERIDES (test code = 2232) 152 MG/DL HDL CHOLESTEROL (test code = 2220) 56 MG/DL CALC LDL CHOL (test code = 2237) 96 MG/DL RISK RATIO LDL/HDL (test cod e = 2238) 1.71 RATIO León Cleary AustinHEMOGLOBIN [id number] 09:19:50* Test Item Value Reference Range Interpretation Comme nts HEMOGLOBIN A1c (test code = 46108) 5.6 % 4.2-5.6 LIPID [id number] 04:20:14* Test Item Value Reference Range Interpretation [...] SPECIMENS. FOR MOREINFORMATION, SEE CLIENT ANNOUNCEMENT AT [email or web address] RISK RATIO LDL/HDL (test code = 2238) 1.95 RATIO <3.22 COMPREHENSIVE METABOLIC [id number] 04:20:14* Test Item Value Reference Range Interpretation Comme nts GLUCOSE (test code = 2217) 88 MG/DL 70-99 BUN (test code = 2208) 16 MG/DL 6-20 CREATININE (test code = 2214) 0.57 MG/DL 0.60-1.30 L eGFR (2020 CKD-EPI) (test code = 17080) 105 ML/MIN/1.73 >60 CALC BUN/CREAT (test code [...] 5-40 UNLESS OTHERWISE INDICATED, ALL TESTING PERFORMED [facility] [employer] [employer] [address] [place] [address] [employer] ANALYST: NGHIA MERAZ M.D. CLIA NUMBER [id number] [facility] [place]. [id number] LIPID [id number] 00:00:00* Test Item Value Reference Range Interpretation Comme nts CHOLESTEROL (test code = 2210) 192 MG/DL TRIGLYCERIDES (test code = 2232) 85 MG/DL HDL CHOLESTEROL (test code = 2220) 59 MG/DL CALC LDL CHOL (test code = 2237) 115 MG/DL RISK RATIO LDL/HDL (test cod e = 2238) 1.95 RATIO León Madiha VimalCOMPREHENSIVE METABOLIC [id number] 00:00:00* Test Item Value Reference Range Interpretation Comme nts GLUCOSE (test code = 2217) 88 MG/DL BUN (test code = 2208) 16 MG/DL CREATININE (test code = 2214) 0.57 MG/DL eGFR (2020 CKD-EPI) (test code = 98666) 105 ML/MIN/1.73 CALC BUN/CREAT (test code = [...] code = 2219) 28 U/L León CelisHEMOGLOBIN [id number] 00:00:00* Test Item Value Reference Range Interpretation Comme antonia HEMOGLOBIN A1c (test code = 99885) 5.6 % León CelisLIPID [id number] 00:00:00* Test Item Value Reference Range Interpretation Comme nts CHOLESTEROL (test code = 2210) 192 MG/DL TRIGLYCERIDES (test code = 2232) 85 MG/DL HDL CHOLESTEROL (test code = 2220) 59 MG/DL CALC LDL CHOL (test code = 2237) 115 MG/DL RISK RATIO LDL/HDL (test cod e = 2238) 1.95 RATIO León CelisCOMPREHENSIVE METABOLIC [id number] 00:00:00* Test Item Value Reference Range Interpretation Comme nts GLUCOSE (test code = 2217) 88 MG/DL BUN (test code = 2208) 16 MG/DL CREATININE (test code = 2214) 0.57 MG/DL eGFR (2020 CKD-EPI) (test code = 28040) 105 ML/MIN/1.73 CALC BUN/CREAT (test code = [...] code = 2219) 28 U/L León CelisHEMOGLOBIN [id number] 00:00:00* Test Item Value Reference Range Interpretation Comme nts HEMOGLOBIN A1c (test code = 05570) 5.6 % León Cleary AustinLIPID [id number] 00:00:00* Test Item Value Reference Range Interpretation Comme nts CHOLESTEROL (test code = 2210) 192 MG/DL TRIGLYCERIDES (test code = 2232) 85 MG/DL HDL CHOLESTEROL (test code = 2220) 59 MG/DL CALC LDL CHOL (test code = 2237) 115 MG/DL RISK RATIO LDL/HDL (test cod e = 2238) 1.95 RATIO León CelisCOMPREHENSIVE METABOLIC [id number] 00:00:00* Test Item Value Reference Range Interpretation Comme nts GLUCOSE (test code = 2217) 88 MG/DL BUN (test code = 2208) 16 MG/DL CREATININE (test code = 2214) 0.57 MG/DL eGFR (2020 CKD-EPI) (test code = 94950) 105 ML/MIN/1.73 CALC BUN/CREAT (test code = [...] code = 2219) 28 U/L León CelisHEMOGLOBIN [id number] 00:00:00* Test Item Value Reference Range Interpretation Comme nts HEMOGLOBIN A1c (test code = 16679) 5.6 % León Cleary AustinLIPID [id number] 00:00:00* Test Item Value Reference Range Interpretation Comme nts CHOLESTEROL (test code = 2210) 192 MG/DL TRIGLYCERIDES (test code = 2232) 85 MG/DL HDL CHOLESTEROL (test code = 2220) 59 MG/DL CALC LDL CHOL (test code = 2237) 115 MG/DL RISK RATIO LDL/HDL (test cod e = 2238) 1.95 RATIO León CelisCOMPREHENSIVE METABOLIC [id number] 00:00:00* Test Item Value Reference Range Interpretation Comme nts GLUCOSE (test code = 2217) 88 MG/DL BUN (test code = 2208) 16 MG/DL CREATININE (test code = 2214) 0.57 MG/DL eGFR (2020 CKD-EPI) (test code = 12451) 105 ML/MIN/1.73 CALC BUN/CREAT (test code = [...] code = 2219) 28 U/L León CelisHEMOGLOBIN [id number] 00:00:00* Test Item Value Reference Range Interpretation Comme nts HEMOGLOBIN A1c (test code = 39718) 5.6 % León CelisLIPID [id number] 00:00:00* Test Item Value Reference Range Interpretation Comme nts CHOLESTEROL (test code = 2210) 145 MG/DL TRIGLYCERIDES (test code = 2232) 83 MG/DL HDL CHOLESTEROL (test code = 2220) 57 MG/DL CALC LDL CHOL (test code = 2237) 71 MG/DL RISK RATIO LDL/HDL (test cod e = 2238) 1.25 RATIO León Cleary AustinCOMPREHENSIVE METABOLIC [id number] 00:00:00* Test Item Value Reference Range Interpretation Comme nts GLUCOSE (test code = 2217) 109 MG/DL BUN (test code = 2208) 6 MG/DL CREATININE (test code = 2214) 0.61 MG/DL eGFR AMER. (test cod e = 00335) 116 ML/MIN/1.73 eGFR NON- AMER. (test code = 16352) 100 ML/MIN/1.73 CALC BUN/CREAT (test code = [...] = 2219) 23 U/L León Cleary AustinLIPID [id number] 00:00:00* Test Item Value Reference Range Interpretation Comme nts CHOLESTEROL (test code = 2210) 145 MG/DL TRIGLYCERIDES (test code = 2232) 83 MG/DL HDL CHOLESTEROL (test code = 2220) 57 MG/DL CALC LDL CHOL (test code = 2237) 71 MG/DL RISK RATIO LDL/HDL (test cod e = 2238) 1.25 RATIO León Cleary AustinCOMPREHENSIVE METABOLIC [id number] 00:00:00* Test Item Value Reference Range Interpretation Comme nts GLUCOSE (test code = 2217) 109 MG/DL BUN (test code = 2208) 6 MG/DL CREATININE (test code = 2214) 0.61 MG/DL eGFR AMER. (test cod e = 37123) 116 ML/MIN/1.73 eGFR NON- AMER. (test code = 27546) 100 ML/MIN/1.73 CALC BUN/CREAT (test code = [...] code = 2219) 23 U/L León Cleary VeronaLIPID [id number] 00:00:00* Test Item Value Reference Range Interpretation Comme nts CHOLESTEROL (test code = 2210) 145 MG/DL TRIGLYCERIDES (test code = 2232) 83 MG/DL HDL CHOLESTEROL (test code = 2220) 57 MG/DL CALC LDL CHOL (test code = 2237) 71 MG/DL RISK RATIO LDL/HDL (test cod e = 2238) 1.25 RATIO León CelisCOMPREHENSIVE METABOLIC [id number] 00:00:00* Test Item Value Reference Range Interpretation Comme nts GLUCOSE (test code = 2217) 109 MG/DL BUN (test code = 2208) 6 MG/DL CREATININE (test code = 2214) 0.61 MG/DL eGFR AMER. (test cod e = 32256) 116 ML/MIN/1.73 eGFR NON- AMER. (test code = 80832) 100 ML/MIN/1.73 CALC BUN/CREAT (test code = [...] code = 2219) 23 U/L León CelisLIPID [id number] 00:00:00* Test Item Value Reference Range Interpretation Comme nts CHOLESTEROL (test code = 2210) 145 MG/DL TRIGLYCERIDES (test code = 2232) 83 MG/DL HDL CHOLESTEROL (test code = 2220) 57 MG/DL CALC LDL CHOL (test code = 2237) 71 MG/DL RISK RATIO LDL/HDL (test cod e = 2238) 1.25 RATIO León CelisCOMPREHENSIVE METABOLIC [id number] 00:00:00* Test Item Value Reference Range Interpretation Comme nts GLUCOSE (test code = 2217) 109 MG/DL BUN (test code = 2208) 6 MG/DL CREATININE (test code = 2214) 0.61 MG/DL eGFR AMER. (test cod e = 57002) 116 ML/MIN/1.73 eGFR NON- AMER. (test code = 58520) 100 ML/MIN/1.73 CALC BUN/CREAT (test code = [...] code = 2219) 23 U/L León Cleary [id number] (COVID-19) by RT-PCR (HIGH RISK)2020-01-30 00:00:00* Test Item Value Reference Range Interpretation Comme nts SARS-CoV-2 INTERPRETATION (t est code = 79285) NEGATIVE SOURCE (test code = 17490) NOT SPECIFIED León Cleary [id number] (COVID-19) by RT-PCR (HIGH RISK)2020-01-30 00:00:00* Test Item Value Reference Range Interpretation Comme nts SARS-CoV-2 INTERPRETATION (t est code = 50190) NEGATIVE SOURCE (test code = 47939) NOT SPECIFIED León Cleary TodxsoSUZY-FvJ-5 (COVID-19) by RT-PCR (HIGH RISK)2020-01-30 00:00:00* Test Item Value Reference Range Interpretation Comme nts SARS-CoV-2 INTERPRETATION (t est code = 67579) NEGATIVE SOURCE (test code = 53341) NOT SPECIFIED León Cleary VnczsiVLMD-LiL-4 (COVID-19) by RT-PCR (HIGH RISK)2020-01-30 00:00:00* Test Item Value Reference Range Interpretation Comme nts SARS-CoV-2 INTERPRETATION (t est code = 94271) NEGATIVE SOURCE (test code = 45910) NOT SPECIFIED León Madiha AustinVAGINAL PATHOGENS DNA [id number] 00:00:00* Test Item Value Reference Range Interpretation Comme nts RAJESH SPECIES (test code = 65928) NEGATIVE G. VAGINALIS (test code = 42553) POSITIVE T. VAGINALIS (test code = 08536) NEGATIVE León F AustinVAGINAL PATHOGENS DNA [id number] 00:00:00* Test Item Value Reference Range Interpretation Comme nts RAJESH SPECIES (test code = 32492) NEGATIVE G. VAGINALIS (test code = 42803) POSITIVE T. VAGINALIS (test code = 46185) NEGATIVE [facility] AustinVAGINAL PATHOGENS DNA [id number] 00:00:00* Test Item Value Reference Range Interpretation Comme nts RAJESH SPECIES (test code = 47890) NEGATIVE G. VAGINALIS (test code = 09715) POSITIVE T. VAGINALIS (test code = 41392) NEGATIVE [facility] AustinVAGINAL PATHOGENS DNA [id number] 00:00:00* Test Item Value Reference Range Interpretation Comme nts RAJESH SPECIES (test code = ) NEGATIVE G. VAGINALIS (test code = ) POSITIVE T. VAGINALIS (test code = ) NEGATIVE León CelisLIPID [id number] 00:00:00* Test Item Value Reference Range Interpretation Comme nts CHOLESTEROL (test code = 2210) 190 MG/DL TRIGLYCERIDES (test code = 2232) 78 MG/DL HDL CHOLESTEROL (test code = 2220) 58 MG/DL CALC LDL CHOL (test code = 2237) 116 MG/DL RISK RATIO LDL/HDL (test cod e = 2238) 2.01 RATIO León CelisHEMOGLOBIN [id number] 00:00:00* Test Item Value Reference Range Interpretation Comme nts HEMOGLOBIN A1c (test code = 15943) 5.4 % León CelisCOMPREHENSIVE METABOLIC [id number] 00:00:00* Test Item Value Reference Range Interpretation Comme nts GLUCOSE (test code = 2217) 90 MG/DL BUN (test code = 2208) 13 MG/DL CREATININE (test code = 2214) 0.57 MG/DL eGFR AMER. (test cod e = 82592) 119 ML/MIN/1.73 eGFR NON- AMER. (test code = 65362) 103 ML/MIN/1.73 CALC BUN/CREAT (test code = [...] (test code = 2219) 39 U/L León [id number] 00:00:00* Test Item Value Reference Range Interpretation Comme antonia TSH, THIRD GENERATION (test code = 2821) 2.240 UIU/ML León CelisCBC W/AUTO [id number] 00:00:00* Test Item Value Reference Range Interpretation [...] code = 1015) 229 K/UL León CelisLIPID [id number] 00:00:00* Test Item Value Reference Range Interpretation Comme nts CHOLESTEROL (test code = 2210) 190 MG/DL TRIGLYCERIDES (test code = 2232) 78 MG/DL HDL CHOLESTEROL (test code = 2220) 58 MG/DL CALC LDL CHOL (test code = 2237) 116 MG/DL RISK RATIO LDL/HDL (test cod e = 2238) 2.01 RATIO León CelisHEMOGLOBIN [id number] 00:00:00* Test Item Value Reference Range Interpretation Comme antonia HEMOGLOBIN A1c (test code = 92921) 5.4 % León CelisCOMPREHENSIVE METABOLIC [id number] 00:00:00* Test Item Value Reference Range Interpretation Comme nts GLUCOSE (test code = 2217) 90 MG/DL BUN (test code = 2208) 13 MG/DL CREATININE (test code = 2214) 0.57 MG/DL eGFR AMER. (test cod e = 65416) 119 ML/MIN/1.73 eGFR NON- AMER. (test code = 04321) 103 ML/MIN/1.73 CALC BUN/CREAT (test code = [...] ALT (test code = 2219) 39 U/L eLón [id number] 00:00:00* Test Item Value Reference Range Interpretation Comme nts TSH, THIRD GENERATION (test code = 2821) 2.240 UIU/ML León Cleary VimalCBC W/AUTO [id number] 00:00:00* Test Item Value Reference Range Interpretation [...] code = 1015) 229 K/UL León CelisLIPID [id number] 00:00:00* Test Item Value Reference Range Interpretation Comme nts CHOLESTEROL (test code = 2210) 190 MG/DL TRIGLYCERIDES (test code = 2232) 78 MG/DL HDL CHOLESTEROL (test code = 2220) 58 MG/DL CALC LDL CHOL (test code = 2237) 116 MG/DL RISK RATIO LDL/HDL (test cod e = 2238) 2.01 RATIO León CelisHEMOGLOBIN [id number] 00:00:00* Test Item Value Reference Range Interpretation Comme antonia HEMOGLOBIN A1c (test code = 31572) 5.4 % León CelisCOMPREHENSIVE METABOLIC [id number] 00:00:00* Test Item Value Reference Range Interpretation Comme nts GLUCOSE (test code = 2217) 90 MG/DL BUN (test code = 2208) 13 MG/DL CREATININE (test code = 2214) 0.57 MG/DL eGFR AMER. (test cod e = 46887) 119 ML/MIN/1.73 eGFR NON- AMER. (test code = 45377) 103 ML/MIN/1.73 CALC BUN/CREAT (test code = [...] (test code = 2219) 39 U/L León [id number] 00:00:00* Test Item Value Reference Range Interpretation Comme antonia TSH, THIRD GENERATION (test code = 2821) 2.240 UIU/ML León CelisCBC W/AUTO [id number] 00:00:00* Test Item Value Reference Range Interpretation Comme antonia WBC (test code = 1001) 8.0 K/UL [...] code = 1015) 229 K/UL León CelisLIPID [id number] 00:00:00* Test Item Value Reference Range Interpretation Comme nts CHOLESTEROL (test code = 2210) 190 MG/DL TRIGLYCERIDES (test code = 2232) 78 MG/DL HDL CHOLESTEROL (test code = 2220) 58 MG/DL CALC LDL CHOL (test code = 2237) 116 MG/DL RISK RATIO LDL/HDL (test cod e = 2238) 2.01 RATIO León CelisHEMOGLOBIN [id number] 00:00:00* Test Item Value Reference Range Interpretation Comme nts HEMOGLOBIN A1c (test code = 54990) 5.4 % León CelisCOMPREHENSIVE METABOLIC [id number] 00:00:00* Test Item Value Reference Range Interpretation Comme nts GLUCOSE (test code = 2217) 90 MG/DL BUN (test code = 2208) 13 MG/DL CREATININE (test code = 2214) 0.57 MG/DL eGFR AMER. (test cod e = 06099) 119 ML/MIN/1.73 eGFR NON- AMER. (test code = 66152) 103 ML/MIN/1.73 CALC BUN/CREAT (test code = [...] (test code = 2219) 39 U/L León [id number] 00:00:00* Test Item Value Reference Range Interpretation Comme nts TSH, THIRD GENERATION (test code = 2821) 2.240 UIU/ML León CelisCBC W/AUTO [id number] 00:00:00* Test Item Value Reference Range Interpretation [...] = 1015) 229 K/UL León CelisCOMPREHENSIVE METABOLIC [id number] 00:00:00* Test Item Value Reference Range Interpretation Comme nts GLUCOSE (test code = 2217) 94 MG/DL BUN (test code = 2208) 17 MG/DL CREATININE (test code = 2214) 0.60 MG/DL eGFR AMER. (test cod e = 85179) 119 ML/MIN/1.73 eGFR NON- AMER. (test code = 14087) 103 ML/MIN/1.73 CALC BUN/CREAT (test code = [...] code = 2219) 29 U/L León F VeronaCOMPREHENSIVE METABOLIC [id number] 00:00:00* Test Item Value Reference Range Interpretation Comme nts GLUCOSE (test code = 2217) 94 MG/DL BUN (test code = 2208) 17 MG/DL CREATININE (test code = 2214) 0.60 MG/DL eGFR AMER. (test cod e = 28483) 119 ML/MIN/1.73 eGFR NON- AMER. (test code = 00856) 103 ML/MIN/1.73 CALC BUN/CREAT (test code = [...] code = 2219) 29 U/L León F AustinCOMPREHENSIVE METABOLIC [id number] 00:00:00* Test Item Value Reference Range Interpretation Comme nts GLUCOSE (test code = 2217) 94 MG/DL BUN (test code = 2208) 17 MG/DL CREATININE (test code = 2214) 0.60 MG/DL eGFR AMER. (test cod e = 01379) 119 ML/MIN/1.73 eGFR NON- AMER. (test code = 46495) 103 ML/MIN/1.73 CALC BUN/CREAT (test code = [...] code = 2219) 29 U/L León Madiha VimalCOMPREHENSIVE METABOLIC [id number] 00:00:00* Test Item Value Reference Range Interpretation Comme nts GLUCOSE (test code = 2217) 94 MG/DL BUN (test code = 2208) 17 MG/DL CREATININE (test code = 2214) 0.60 MG/DL eGFR AMER. (test cod e = 86891) 119 ML/MIN/1.73 eGFR NON- AMER. (test code = 93790) 103 ML/MIN/1.73 CALC BUN/CREAT (test code = [...] U/L León CelisHPV HIGH RISK WITH GENOTYPE, [id number] 00:00:00* Test Item Value Reference Range Interpretation Comme nts HPV HIGH RISK INTERP (test c ode = 68496) NEGATIVE HPV 16 (test code = 98723) NEGATIVE HPV 18 (test code = 90574) NEGATIVE HPV, HR, OTHER GENOTYPES (te st code = 11145) NEGATIVE León Cleary AustinPAP TEST, THINPREP, [id number] 00:00:00* Test Item Value Reference Range Interpretation Comme nts SOURCE: (test code = 8001) Cervical/Endocervical SLIDES: (test code = 8011) 1 LMP: (test code = 8021) SPECIMEN ADEQUACY: (test code = 03678) (NOTE) INTERPRETATION: (test code = 13601) NO EPITHELIAL ABNORMALITY SEE BELOW ICU NURSE: (test code = 8101) BIJU Gomez(ASCP)IAC LOCATION: (test code = 24162) (NOTE) CPT: (test code = 8140) (NOTE) León CelisHPV HIGH RISK WITH GENOTYPE, [id number] 00:00:00* Test Item Value Reference Range Interpretation Comme nts HPV HIGH RISK INTERP (test c ode = 52532) NEGATIVE HPV 16 (test code = 06093) NEGATIVE HPV 18 (test code = 93168) NEGATIVE HPV, HR, OTHER GENOTYPES (te st code = 47881) NEGATIVE León CelisPAP TEST, THINPREP, [id number] 00:00:00* Test Item Value Reference Range Interpretation Comme nts SOURCE: (test code = 8001) Cervical/Endocervical SLIDES: (test code = 8011) 1 LMP: (test code = 8021) SPECIMEN ADEQUACY: (test code = 21982) (NOTE) INTERPRETATION: (test code = 10479) NO EPITHELIAL ABNORMALITY SEE BELOW ICU NURSE: (test code = 8101) Dilia Julee,CT(ASCP)IAC LOCATION: (test code = 10516) (NOTE) CPT: (test code = 8140) (NOTE) León Cleary AustinHPV HIGH RISK WITH GENOTYPE, [id number] 00:00:00* Test Item Value Reference Range Interpretation Comme nts HPV HIGH RISK INTERP (test c ode = 28889) NEGATIVE HPV 16 (test code = 78316) NEGATIVE HPV 18 (test code = 34407) NEGATIVE HPV, HR, OTHER GENOTYPES (te st code = 27681) NEGATIVE León CelisPAP TEST, THINPREP, [id number] 00:00:00* Test Item Value Reference Range Interpretation Comme nts SOURCE: (test code = 8001) Cervical/Endocervical SLIDES: (test code = 8011) 1 LMP: (test code = 8021) SPECIMEN ADEQUACY: (test code = 85285) (NOTE) INTERPRETATION: (test code = 45074) NO EPITHELIAL ABNORMALITY SEE BELOW ICU NURSE: (test code = 8101) BIJU Gomez(ASCP)IAC LOCATION: (test code = 00897) (NOTE) CPT: (test code = 8140) (NOTE) León CelisHPV HIGH RISK WITH GENOTYPE, [id number] 00:00:00* Test Item Value Reference Range Interpretation Comme nts HPV HIGH RISK INTERP (test c ode = 12610) NEGATIVE HPV 16 (test code = 94333) NEGATIVE HPV 18 (test code = 76686) NEGATIVE HPV, HR, OTHER GENOTYPES (te st code = 52600) NEGATIVE León CelisPAP TEST, THINPREP, [id number] 00:00:00* Test Item Value Reference Range Interpretation Comme nts SOURCE: (test code = 8001) Cervical/Endocervical SLIDES: (test code = 8011) 1 LMP: (test code = 8021) SPECIMEN ADEQUACY: (test code = 72906) (NOTE) INTERPRETATION: (test code = 77475) NO EPITHELIAL ABNORMALITY SEE BELOW ICU NURSE: (test code = 8101) BIJU Gomez(ASCP)IAC LOCATION: (test code = 26126) (NOTE) CPT: (test code = 8140) (NOTE) León Cleary VimalCBC W/AUTO [id number] 00:00:00* Test Item Value Reference Range Interpretation [...] = 1015) 244 K/UL León CelisCOMPREHENSIVE METABOLIC [id number] 00:00:00* Test Item Value Reference Range Interpretation Comme nts GLUCOSE (test code = 2217) 93 MG/DL BUN (test code = 2208) 17 MG/DL CREATININE (test code = 2214) 0.67 MG/DL eGFR AMER. (test cod e = 09864) 115 ML/MIN/1.73 eGFR NON- AMER. (test code = 43387) 100 ML/MIN/1.73 CALC BUN/CREAT (test code = [...] code = 2219) 26 U/L León CelisLIPID [id number] 00:00:00* Test Item Value Reference Range Interpretation [...] code = 2821) 3.11 UIU/ML León CelisHEMOGLOBIN [id number] 00:00:00* Test Item Value Reference Range Interpretation Comme antonia HEMOGLOBIN A1c (test code = 22424) 5.7 % León CelisCBC W/AUTO [id number] 00:00:00* Test Item Value Reference Range Interpretation [...] = 1015) 244 K/UL León CelisCOMPREHENSIVE METABOLIC [id number] 00:00:00* Test Item Value Reference Range Interpretation Comme nts GLUCOSE (test code = 2217) 93 MG/DL BUN (test code = 2208) 17 MG/DL CREATININE (test code = 2214) 0.67 MG/DL eGFR AMER. (test cod e = 59284) 115 ML/MIN/1.73 eGFR NON- AMER. (test code = 40300) 100 ML/MIN/1.73 CALC BUN/CREAT (test code = [...] (test code = 2219) 26 U/L León Madiha VimalLIPID [id number] 00:00:00* Test Item Value Reference Range Interpretation [...] code = 2821) 3.11 UIU/ML León CelisHEMOGLOBIN [id number] 00:00:00* Test Item Value Reference Range Interpretation Comme nts HEMOGLOBIN A1c (test code = 43683) 5.7 % León CelisCBC W/AUTO [id number] 00:00:00* Test Item Value Reference Range Interpretation [...] = 1015) 244 K/UL León CelisCOMPREHENSIVE METABOLIC [id number] 00:00:00* Test Item Value Reference Range Interpretation Comme nts GLUCOSE (test code = 2217) 93 MG/DL BUN (test code = 2208) 17 MG/DL CREATININE (test code = 2214) 0.67 MG/DL eGFR AMER. (test cod e = 06060) 115 ML/MIN/1.73 eGFR NON- AMER. (test code = 71011) 100 ML/MIN/1.73 CALC BUN/CREAT (test code = [...] code = 2219) 26 U/L León CelisLIPID [id number] 00:00:00* Test Item Value Reference Range Interpretation [...] code = 2821) 3.11 UIU/ML León CelisHEMOGLOBIN [id number] 00:00:00* Test Item Value Reference Range Interpretation Comme antonia HEMOGLOBIN A1c (test code = 75939) 5.7 % León CelisCBC W/AUTO [id number] 00:00:00* Test Item Value Reference Range Interpretation [...] = 1015) 244 K/UL León CelisCOMPREHENSIVE METABOLIC [id number] 00:00:00* Test Item Value Reference Range Interpretation Comme nts GLUCOSE (test code = 2217) 93 MG/DL BUN (test code = 2208) 17 MG/DL CREATININE (test code = 2214) 0.67 MG/DL eGFR AMER. (test cod e = 44789) 115 ML/MIN/1.73 eGFR NON- AMER. (test code = 98458) 100 ML/MIN/1.73 CALC BUN/CREAT (test code = [...] = 2219) 26 U/L León Cleary AustinLIPID [id number] 00:00:00* Test Item Value Reference Range Interpretation Comme nts CHOLESTEROL (test code = 2210) 178 MG/DL TRIGLYCERIDES (test code = 2232) 73 MG/DL HDL CHOLESTEROL (test code = 2220) 60 MG/DL CALC LDL CHOL (test code = 2237) 103 MG/DL RISK RATIO LDL/HDL (test cod e = 2238) 1.72 RATIO León Cleary AustinTHYROID II PROFILE (T3U, T4, T7, TSH)2016-11-25 00:00:00* Test Item Value Reference Range Interpretation Comme nts T3 UPTAKE (test code = 2817) 29.5 % T4 (THYROXINE) (test code = 2819) 8.5 UG/DL CALCULATED T7 (FTI) (test co de = 2820) 2.51 TSH (test code = 2821) 3.11 UIU/ML León CelisHEMOGLOBIN [id number] 00:00:00* Test Item Value Reference Range Interpretation Comme nts HEMOGLOBIN A1c (test code = 10251) 5.7 % León Cleary VeronaTHYROID II PROFILE (T3U, T4, T7, TSH)2016-04-09 00:00:00* [...] code = 2821) 1.9 UIU/ML León Cleary VimalVAGINAL PATHOGENS DNA [id number] 00:00:00* Test Item Value Reference Range Interpretation Comme nts RAJESH SPECIES (test code = 19598) NEGATIVE G. VAGINALIS (test code = 12089) NEGATIVE T. VAGINALIS (test code = 51294) POSITIVE León Cleary VimalGC, AMPLIFIED, [id number] 00:00:00* Test Item Value Reference Range Interpretation Comme nts GONORRHEA, TMA (test code = 00323) NEGATIVE León Cleary AustinCHLAMYDIA, AMPLIFIED, [id number] 00:00:00* Test Item Value Reference Range Interpretation Comme nts CHLAMYDIA, TMA (test code = 07886) NEGATIVE León Cleary AustinVAGINAL PATHOGENS DNA [id number] 00:00:00* Test Item Value Reference Range Interpretation Comme nts RAJESH SPECIES (test code = 42506) NEGATIVE G. VAGINALIS (test code = 26897) NEGATIVE T. VAGINALIS (test code = 71302) POSITIVE León Cleary AustinGC, AMPLIFIED, [id number] 00:00:00* Test Item Value Reference Range Interpretation Comme nts GONORRHEA, TMA (test code = 20208) NEGATIVE León Cleary AustinCHLAMYDIA, AMPLIFIED, [id number] 00:00:00* Test Item Value Reference Range Interpretation Comme nts CHLAMYDIA, TMA (test code = 14061) NEGATIVE León Cleary AustinVAGINAL PATHOGENS DNA [id number] 00:00:00* Test Item Value Reference Range Interpretation Comme nts RAJESH SPECIES (test code = ) NEGATIVE G. VAGINALIS (test code = 86897) NEGATIVE T. VAGINALIS (test code = 63357) POSITIVE León Cleary AustinGC, AMPLIFIED, [id number] 00:00:00* Test Item Value Reference Range Interpretation Comme nts GONORRHEA, TMA (test code = 35128) NEGATIVE León Cleary AustinCHLAMYDIA, AMPLIFIED, [id number] 00:00:00* Test Item Value Reference Range Interpretation Comme nts CHLAMYDIA, TMA (test code = 27023) NEGATIVE León Cleary AustinVAGINAL PATHOGENS DNA [id number] 00:00:00* Test Item Value Reference Range Interpretation Comme nts RAJESH SPECIES (test code = 34561) NEGATIVE G. VAGINALIS (test code = 62655) NEGATIVE T. VAGINALIS (test code = 94677) POSITIVE León Cleary AustinGC, AMPLIFIED, [id number] 00:00:00* Test Item Value Reference Range Interpretation Comme nts GONORRHEA, TMA (test code = 08651) NEGATIVE León Cleary AustinCHLAMYDIA, AMPLIFIED, [id number] 00:00:00* Test Item Value Reference Range Interpretation Comme nts CHLAMYDIA, TMA (test code = 80453) NEGATIVE León CelisLIPID [id number] 00:00:00* Test Item Value Reference Range Interpretation Comme nts CHOLESTEROL (test code = 2210) 161 MG/DL TRIGLYCERIDES (test code = 2232) 55 MG/DL HDL CHOLESTEROL (test code = 2220) 55 MG/DL CALCULATED LDL CHOL (test co de = 2237) 95 MG/DL RISK RATIO LDL/HDL (test cod e = 2238) 1.73 RATIO León CelisCOMPREHENSIVE METABOLIC [id number] 00:00:00* Test Item Value Reference Range Interpretation Comme nts GLUCOSE (test code = 2217) 88 MG/DL BUN (test code = 2208) 18 MG/DL CREATININE (test code = 2214) 0.64 MG/DL eGFR AMER. (test cod e = 39569) 117 ML/MIN/1.73 eGFR NON- AMER. (test code = 74905) 101 ML/MIN/1.73 CALCULATED BUN/CREAT (test code = [...] code = 2219) 18 U/L León CelisLIPID [id number] 00:00:00* Test Item Value Reference Range Interpretation Comme nts CHOLESTEROL (test code = 2210) 161 MG/DL TRIGLYCERIDES (test code = 2232) 55 MG/DL HDL CHOLESTEROL (test code = 2220) 55 MG/DL CALCULATED LDL CHOL (test co de = 2237) 95 MG/DL RISK RATIO LDL/HDL (test cod e = 2238) 1.73 RATIO León CelisCOMPREHENSIVE METABOLIC [id number] 00:00:00* Test Item Value Reference Range Interpretation Comme nts GLUCOSE (test code = 2217) 88 MG/DL BUN (test code = 2208) 18 MG/DL CREATININE (test code = 2214) 0.64 MG/DL eGFR AMER. (test cod e = 08079) 117 ML/MIN/1.73 eGFR NON- AMER. (test code = 66108) 101 ML/MIN/1.73 CALCULATED BUN/CREAT (test code = [...] = 2219) 18 U/L León Cleary AustinLIPID [id number] 00:00:00* Test Item Value Reference Range Interpretation Comme nts CHOLESTEROL (test code = 2210) 161 MG/DL TRIGLYCERIDES (test code = 2232) 55 MG/DL HDL CHOLESTEROL (test code = 2220) 55 MG/DL CALCULATED LDL CHOL (test co de = 2237) 95 MG/DL RISK RATIO LDL/HDL (test cod e = 2238) 1.73 RATIO León CelisCOMPREHENSIVE METABOLIC [id number] 00:00:00* Test Item Value Reference Range Interpretation Comme nts GLUCOSE (test code = 2217) 88 MG/DL BUN (test code = 2208) 18 MG/DL CREATININE (test code = 2214) 0.64 MG/DL eGFR AMER. (test cod e = 92128) 117 ML/MIN/1.73 eGFR NON- AMER. (test code = 66396) 101 ML/MIN/1.73 CALCULATED BUN/CREAT (test code = [...] code = 2219) 18 U/L León Cleary VeronaLIPID [id number] 00:00:00* Test Item Value Reference Range Interpretation Comme nts CHOLESTEROL (test code = 2210) 161 MG/DL TRIGLYCERIDES (test code = 2232) 55 MG/DL HDL CHOLESTEROL (test code = 2220) 55 MG/DL CALCULATED LDL CHOL (test co de = 2237) 95 MG/DL RISK RATIO LDL/HDL (test cod e = 2238) 1.73 RATIO León CelisCOMPREHENSIVE METABOLIC [id number] 00:00:00* Test Item Value Reference Range Interpretation Comme nts GLUCOSE (test code = 2217) 88 MG/DL BUN (test code = 2208) 18 MG/DL CREATININE (test code = 2214) 0.64 MG/DL eGFR AMER. (test cod e = 95297) 117 ML/MIN/1.73 eGFR NON- AMER. (test code = 77695) 101 ML/MIN/1.73 CALCULATED BUN/CREAT (test code = [...] 2219) 18 U/L León Cleary VimalCOMPREHENSIVE METABOLIC [id number] 00:00:00* Test Item Value Reference Range Interpretation Comme nts GLUCOSE (test code = 2217) 80 MG/DL BUN (test code = 2208) 15 MG/DL CREATININE (test code = 2214) 0.6 MG/DL eGFR AMER. (test cod e = 41763) 127 ML/MIN/1.73 eGFR NON- AMER. (test code = 58231) 105 ML/MIN/1.73 CALCULATED BUN/CREAT (test code = [...] code = 2219) 28 U/L León Cleary [id number] 00:00:00* Test Item Value Reference Range Interpretation Comme nts TSH (test code = 2821) 2.8 UIU/ML León CelisLIPID [id number] 00:00:00* Test Item Value Reference Range Interpretation Comme nts CHOLESTEROL (test code = 2210) 162 MG/DL TRIGLYCERIDES (test code = 2232) 85 MG/DL HDL CHOLESTEROL (test code = 2220) 50 MG/DL CALCULATED LDL CHOL (test co de = 2237) 95 MG/DL RISK RATIO LDL/HDL (test cod e = 2238) 1.90 RATIO León CelisCOMPREHENSIVE METABOLIC [id number] 00:00:00* Test Item Value Reference Range Interpretation Comme nts GLUCOSE (test code = 2217) 80 MG/DL BUN (test code = 2208) 15 MG/DL CREATININE (test code = 2214) 0.6 MG/DL eGFR AMER. (test cod e = 09447) 127 ML/MIN/1.73 eGFR NON- AMER. (test code = 51426) 105 ML/MIN/1.73 CALCULATED BUN/CREAT (test code = [...] (test code = 2219) 28 U/L León [id number] 00:00:00* Test Item Value Reference Range Interpretation Comme nts TSH (test code = 2821) 2.8 UIU/ML León CelisLIPID [id number] 00:00:00* Test Item Value Reference Range Interpretation Comme nts CHOLESTEROL (test code = 2210) 162 MG/DL TRIGLYCERIDES (test code = 2232) 85 MG/DL HDL CHOLESTEROL (test code = 2220) 50 MG/DL CALCULATED LDL CHOL (test co de = 2237) 95 MG/DL RISK RATIO LDL/HDL (test cod e = 2238) 1.90 RATIO León CelisCOMPREHENSIVE METABOLIC [id number] 00:00:00* Test Item Value Reference Range Interpretation Comme nts GLUCOSE (test code = 2217) 80 MG/DL BUN (test code = 2208) 15 MG/DL CREATININE (test code = 2214) 0.6 MG/DL eGFR AMER. (test cod e = 46568) 127 ML/MIN/1.73 eGFR NON- AMER. (test code = 87994) 105 ML/MIN/1.73 CALCULATED BUN/CREAT (test code = [...] (test code = 2219) 28 U/L León [id number] 00:00:00* Test Item Value Reference Range Interpretation Comme nts TSH (test code = 2821) 2.8 UIU/ML León CelisLIPID [id number] 00:00:00* Test Item Value Reference Range Interpretation Comme nts CHOLESTEROL (test code = 2210) 162 MG/DL TRIGLYCERIDES (test code = 2232) 85 MG/DL HDL CHOLESTEROL (test code = 2220) 50 MG/DL CALCULATED LDL CHOL (test co de = 2237) 95 MG/DL RISK RATIO LDL/HDL (test cod e = 2238) 1.90 RATIO León CelisCOMPREHENSIVE METABOLIC [id number] 00:00:00* Test Item Value Reference Range Interpretation Comme nts GLUCOSE (test code = 2217) 80 MG/DL BUN (test code = 2208) 15 MG/DL CREATININE (test code = 2214) 0.6 MG/DL eGFR AMER. (test cod e = 75893) 127 ML/MIN/1.73 eGFR NON- AMER. (test code = 94652) 105 ML/MIN/1.73 CALCULATED BUN/CREAT (test code = [...] (test code = 2219) 28 U/L León [id number] 00:00:00* Test Item Value Reference Range Interpretation Comme nts TSH (test code = 2821) 2.8 UIU/ML León CelisLIPID [id number] 00:00:00* Test Item Value Reference Range Interpretation Comme nts CHOLESTEROL (test code = 2210) 162 MG/DL TRIGLYCERIDES (test code = 2232) 85 MG/DL HDL CHOLESTEROL (test code = 2220) 50 MG/DL CALCULATED LDL CHOL (test co de = 2237) 95 MG/DL RISK RATIO LDL/HDL (test cod e = 2238) 1.90 RATIO León Madiha Vimal Notes Date/Time Note Provider Source León Armijo [facility]2024-06-10 00:00:00 León Armijo [facility]2024-06-06 00:00:00 [facility]2024-05-07 00:00:00 [facility]
[2024-09-27] MEDS ORDERED: ONDANSETRON 4 MG/2 ML VIAL ONE (08:08)
[2024-09-27] MEDS ORDERED: NA CHLORIDE 0.9% 1,000 ML ONE (08:08)
[2024-09-27 08:48] LABS: Absolute Lymphocytes (CBC) 2.6 K/uL (0.7-4.9); Absolute Monocytes 0.5 K/uL (0.1-1.3); Absolute Neutrophil 2.8 K/uL (1.8-8.0); Basophils % 0.5 % (0-1.3); Eosinophils % 0.3 % (0-4.4); Hematocrit 42.5 % (36.0-45.0); Hemoglobin 14.6 g/dL (12.0-15.0); Lymphocytes % 43.9 % (15.3-44.8); MCH 30.4 pg (27.0-35.0); MCHC 34.4 g/dL (32.0-36.0); MCV 88.4 fL (80-100); MPV 7.9 fL (7.6-11.3); Monocytes % 7.6 % (3.3-12.3); Neutrophils % 47.7 % (41.7-73.7); Nucleated Red Blood Cells % 0.3 % (0-0); Platelets 140 thou/uL (152-406); RBC Red Blood Cell Count 4.81 M/uL (3.86-4.86); Red Cell Distribution Width 13.1 % (12.1-15.2)
[2024-09-27 08:56] LABS: Specific Gravity 1.023 (1.005-1.030); Sqamous Epithelial <5 /HPF (None Seen); Urine Bacteria <20 /HPF (<20); Urine Bilirubin NEGATIVE (Negative); Urine Blood 1+ (Negative); Urine Clarity Clear (Clear); Urine Color Yellow (Yellow); Urine Culture Reflex Order NOT NEEDED; Urine Glucose NEGATIVE (Negative); Urine Ketones NEGATIVE (Negative); Urine Microscopic Reflex YN ORDER UMIC; Urine Mucus Slight /HPF (None Seen); Urine Nitrite NEGATIVE (Negative); Urine Protein NEGATIVE (Negative); Urine RBC <5 /HPF (None Seen); Urine Urobilinogen Normal (Normal); Urine WBC <5 /HPF (<5); Urine pH 5.5 (5.0-7.0)
[2024-09-27 09:01] LABS: Albumin 3.2 g/dL (3.4-5.0); Albumin/Globulin Ratio 0.6 (1.1-1.8); Anion Gap 8.9 mEq/L (5.0-15.0); Bilirubin Total 0.5 mg/dL (0.2-1.0); Globulin 5.1 g/dL (2.3-3.5); Potassium 3.9 mEq/L (3.5-5.1); Protein, Total 8.3 g/dL (6.4-8.2)
--- NOTE | 2024-09-27 09:35 | RAD REPORT ---
EXAMINATION: CT HEAD WITHOUT CONTRAST CLINICAL INDICATION: Female, 63 years old.headache/vomiting TECHNIQUE: Axial CT images from the skull base to the vertex without intravenous contrast. Coronal an d sagittal reformatted images were created from the data set. One or more of the following dose reduction techniques were used: Automated exposure control, adjustment of the mA and/or kV according to patient size, and/or iterative reconstruction. Unless otherwise specified, incidental findings do not require dedicated imaging follow-up. [id number]. COMPARISON: No prior exam. FINDINGS: INTRACRANIAL: No acute intracranial hemorrhage. No hydrocephalus. No mass effect or midline shift. No significant white matter disease. VASCULATURE: No visualized abnormalities in the arteries or dural venous sinuses. SCALP/SKULL: No significant soft tissue or osseous abnormalities. SINUSES: The visualized paranasal sinuses and mastoid air cells are predominantly clear. IMPRESSION: No acute intracranial abnormality.
--- NOTE | 2024-09-27 09:37 | RAD REPORT ---
EXAMINATION: CT ABDOMEN AND PELVIS WITH CONTRAST CLINICAL INDICATION: Female, 63 years old.ABD PAIN TECHNIQUE: CT abdomen and pelvis was performed, after the administration of IV contrast, [facility]. Axial, sagittal and coronal reconstructions were obtained. One or more of the following dose reduction techniques were used: Automated exposure control, adjustment of the mA and/o r kV according to patient size, and/or iterative reconstruction. Unless otherwise specified, incidental findings do not require dedicated imaging follow-up. [id number]. COMPARISON: 10/17/2023 FINDINGS: LOWER CHEST: No acute process identified.No significant pericardial effusion. Small hiatal hernia wit h circumferential thickening of the esophagus which could reflect esophagitis. UPPER GI: No significant abnormality. LIVER: Hepatic steatosis, but otherwise unremarkable. GALLBLADDER/BILE DUCTS: Cholecystectomy. Mild extra-hepatic biliary ductal dilatation is likely relat ed to the post-cholecystectomy state. Consider correlating with LFT's.? PANCREAS: No mass, ductal dilation, or deanna-pancreatic fluid. SPLEEN: Mild splenomegaly. ADRENALS: No adrenal masses. KIDNEYS AND URETERS: No hydronephrosis.No suspicious renal mass. ABDOMINAL AORTA AND OTHER VESSELS: Normal caliber aorta and IVC. PERITONEUM: Prior ventral hernia repair. LYMPH NODES: No pathologic lymphadenopathy. ABDOMINAL WALL: Small fat containing umbilical hernia. SMALL BOWEL/COLON: Small bowel has normal course and caliber. No colonic wall thickening or pericolon ic inflammatory changes.Normal appendix. URINARY BLADDER: Underdistended but grossly unremarkable. REPRODUCTIVE ORGANS: No pathologic process. MUSCULOSKELETAL: No acute or suspicious osseous abnormality. ADDITIONAL FINDINGS: None. IMPRESSION: No acute or significant abnormalities seen in the abdomen or pelvis. Normal appendix.
[2024-09-27] MEDS ORDERED: KETOROLAC 30 MG/ML INJ ONE (09:46)
--- NOTE | 2024-09-27 10:59 | ER ---
Nurse's Notes [facility] Name: Jennifer Solorio Age: 63 yrs Sex: Female : 1960 Arrival Date: 09/27/2024 Time: 07:30 Bed 19 Private MD: Diagnosis: Diarrhea, unspecified;Nausea;Abdominal pain, unspecified;Dehydration Presentation: 09/27 07:40 Chief complaint: Patient states: headache, dizziness, feels pounding in her head , body iw aches X 2 days. Coronavirus screen: Client presents with at least one sign or symptom that may indicate coronavirus-19. Ebola Screen: No symptoms or risks identified at this time. Initial Sepsis Screen: Does the patient meet any 2 criteria? No. Patient's initial sepsis screen is negative. Does the patient have a suspected source of infection? No. Patient's initial sepsis screen is negative. Risk Assessment: Do you want to hurt yourself or someone else? Patient reports no desire to harm self or others. Onset of symptoms was September 25, 2024. 07:40 Method Of Arrival: Ambulatory iw 07:40 Acuity: JUDITH 3 iw Triage Assessment: 07:45 Headache History: The patient has had previous headaches and this one is similar to bp previous episodes. General: Appears in no apparent distress. Behavior is cooperative, appropriate for age, anxious. Pain: Pain currently is 5 out of 10 on a pain scale. Pain began 1 day ago. Also complains of nausea. EENT: No deficits noted. Neuro: Level of Consciousness is awake, alert, obeys commands, Oriented to Appropriate for age. Cardiovascular: Patient's skin is warm and dry. Respiratory: No deficits noted. GI: No signs and/or symptoms were reported involving the gastrointestinal system. : No signs and/or symptoms were reported regarding the genitourinary system. Derm: No deficits noted. Musculoskeletal: No deficits noted. Historical: - Allergies: 07:41 PENICILLINS; iw - PMHx: 07:41 GALLSTONES; Hypertension; iw - PSHx: 07:41 Cholecystectomy; iw - Immunization history:: Adult Immunizations not up to date. - Infectious Disease History:: Denies. - Social history:: Smoking status: Patient denies any tobacco usage or history of. - Family history:: not pertinent. - Hospitalizations: : No recent hospitalization is reported. Screenin:45 [facility] ED Fall Risk Assessment (Adult) History of falling in the last 3 months, bp including since admission No falls in past 3 months (0 pts) Confusion or Disorientation No (0 pts) Intoxicated or Sedated No (0 pts) Impaired Gait No (0 pts) Mobility Assist Device Used No (0 pt) Altered Elimination No (0 pt) Score/Fall Risk Level 0 - 2 = Low Risk Oriented to surroundings. Abuse screen: Denies threats or abuse. Denies injuries from another. Nutritional screening: No deficits noted. Tuberculosis screening: No symptoms or risk factors identified. Assessment: 07:45 General: Appears in no apparent distress. obese, Behavior is cooperative, appropriate bp for age, anxious. Pain: Complains of pain in head. Vital Signs: 07:40 BP 127 / 88; Pulse 93; Resp 16; Temp 98.3; Pulse Ox 99% on R/A; Weight 99.79 kg; Height iw 5 ft. 4 in. ; Pain 9/10; 11:05 BP 131 / 79; Pulse 85; Resp 16; Pulse Ox 99% ; bp 07:40 Body Mass Index 37.76 (99.79 kg, 162.56 cm) iw 07:40 Pain Scale: Adult iw ED Course: 07:33 Patient arrived in ED. im 07:36 Julian Childs MD is Attending Physician. rn 07:41 Triage completed. iw 07:41 Arm band placed on. iw 07:45 Patient has correct armband on for positive identification. bp 07:48 Suraj Zabala, RN is Primary Nurse. bp 08:33 Initial lab(s) drawn, by il, sent to lab. Urine collected: clean catch specimen, clear. bp Inserted saline lock: 22 gauge in left antecubital area, using aseptic technique. Blood collected. Flushed with 10 mL NS. 09:29 CT Abd/Pelvis - IV Contrast Only In Process Unspecified. EDMS 09:29 CT Head Brain wo Cont In Process Unspecified. EDMS 11:18 No provider procedures requiring assistance completed. IV discontinued, intact, bp bleeding controlled, No redness/swelling at site. Pressure dressing applied. Administered Medications: 08:33 Drug: Ondansetron IVP 4 mg IVP once; over 2 minutes Route: IVP; Site: left antecubital; bp 11:05 Follow up: Response: No adverse reaction bp 08:33 Drug: NS 0.9% IV 1000 ml IV at 1 bolus Per protocol; to be given as a bolus over 60 bp minutes Route: IV; Rate: 1 bolus; Site: left antecubital; 11:05 Follow up: IV Status: Completed infusion bp 09:48 Drug: Ketorolac IVP 15 mg IVP once Route: IVP; Site: left antecubital; bp 11:05 Follow up: Response: No adverse reaction bp Medication: 07:45 VIS not applicable for this client. bp Outcome: 10:59 Discharge ordered by . rn 11:18 Discharged to home ambulatory, bp 11:18 Condition: stable 11:18 Discharge instructions given to patient, Instructed on discharge instructions, follow up and referral plans. medication usage, Demonstrated understanding of instructions, follow-up care, medications, Prescriptions given X 1, 11:19 Patient left the ED. bp Signatures: Dispatcher [employer] EDAmbar Naik RN RN iw Nieto, Roman, MD MD rn Peltier, Brian, RN RN bp Mendoza, Itzel im
--- NOTE | 2024-09-27 10:59 | EDPHYS ---
Physician Documentation [facility] Name: Jennifer Solorio Age: 63 yrs Sex: Female : 1960 Arrival Date: 09/27/2024 Time: 07:30 Bed 19 Private MD: ED Physician Julian Childs HPI: 09/27 08:17 This 63 yrs old Female presents to ER via Ambulatory with complaints of rn Headache, Dizziness, abdominal pain, body aches. 08:17 The patient presents with abdominal pain that is diffuse. Onset: The symptoms/episode rn began/occurred 2 day(s) ago. The symptoms do not radiate. Associated signs and symptoms: Pertinent positives: diarrhea, nausea, Pertinent negatives: blood in stools, chest pain, fever, shortness of breath, vomiting, vomiting blood. The symptoms are described as achy, crampy. Modifying factors: The symptoms are alleviated by nothing, the symptoms are aggravated by nothing. Severity of pain: At its worst the pain was mild in the emergency department the pain is unchanged. It is unknown whether or not the patient has had similar symptoms in the past. Patient reports feeling sick for 2 days, reports headache, myalgias, abdominal cramping associated with nausea and diarrhea. States was at a family get together recently and multiple people got sick with stomach issues. Denies fever or chills. No blood in stool. Reports generalized weakness and malaise. Feels lightheaded and dizzy when she stands up. Has not been eating or drinking because of abdominal issues lately.. Historical: - Allergies: 07:41 PENICILLINS; iw - PMHx: 07:41 GALLSTONES; Hypertension; iw - PSHx: 07:41 Cholecystectomy; iw - Immunization history:: Adult Immunizations not up to date. - Infectious Disease History:: Denies. - Social history:: Smoking status: Patient denies any tobacco usage or history of. - Family history:: not pertinent. - Hospitalizations: : No recent hospitalization is reported. ROS: 08:17 Constitutional: Negative for fever, positive for myalgias Eyes: Negative for injury, rn pain, redness, and discharge, ENT: Negative for injury, pain, and discharge, Neck: Negative for injury, pain, and swelling, Cardiovascular: Negative for chest pain, palpitations, and edema, Respiratory: Negative for shortness of breath, cough, wheezing, and pleuritic chest pain, Abdomen/GI: Positive for abdominal cramping with nausea and diarrhea Back: Negative for injury and pain, : Negative for injury, bleeding, discharge, and swelling, MS/Extremity: Negative for injury and deformity, Skin: Negative for injury, rash, and discoloration, Neuro: Positive for headache and generalized weakness Exam: 08:17 Constitutional: This is a well developed, well nourished patient who is awake, alert, rn and in no acute distress. Ambulatory to room without assistance or difficulty Head/Face: Normocephalic, atraumatic. Eyes: Pupils equal round and reactive to light, extra-ocular motions intact. ENT: Dry mucous membranes Cardiovascular: Regular rate and rhythm. No pulse deficits. Respiratory: No increased work of breathing, no retractions or nasal flaring. Abdomen/GI: Soft, mild periumbilical tenderness. No rebound or guarding. MS/ Extremity: Pulses equal, no cyanosis. Neuro: Awake and alert, GCS 15, oriented to person, place, time, and situation. Cranial nerves II-XII grossly intact. Motor strength 5/5 in all extremities. Sensory grossly intact. Cerebellar exam normal. Normal gait. Vital Signs: 07:40 BP 127 / 88; Pulse 93; Resp 16; Temp 98.3; Pulse Ox 99% on R/A; Weight 99.79 kg; Height iw 5 ft. 4 in. ; Pain 9/10; 11:05 BP 131 / 79; Pulse 85; Resp 16; Pulse Ox 99% ; bp 07:40 Body Mass Index 37.76 (99.79 kg, 162.56 cm) iw 07:40 Pain Scale: Adult iw MDM: 07:36 Medical Screening Exam initiated rn 10:58 Differential diagnosis: diverticulitis, gastritis, gastroesophageal reflux disease, rn non-specific abd pain, pancreatitis, Peptic Ulcer Disease, Perf. Duodenal Ulcer, Perf. Gastric Ulcer. Data reviewed: vital signs, nurses notes, lab test result(s), radiologic studies, CT scan, and as a result, I will discharge patient. Counseling: I had a detailed discussion with the patient and/or guardian regarding the historical points, exam findings, and any diagnostic results supporting the discharge/admit diagnosis, lab results, radiology results, the need for outpatient follow up, to return to the emergency department if symptoms worsen or persist or if there are any questions or concerns that arise at home. Response to treatment: the patient's symptoms have markedly improved after treatment, and as a result, I will discharge patient. Special discussion: I discussed with the patient/guardian in detail that at this point there is no indication for admission to the hospital. It is understood, however, that if the symptoms persist or worsen the patient needs to return immediately for re-evaluation. ED course: No acute findings and workup including CT abdomen pelvis and blood. Will discharge home as possible viral illness versus food related illness. Return precautions given and understood.. 09/27 07:53 Order name: CBC with Diff; Complete Time: 09:17 rn 09/27 07:53 Order name: CMP; Complete Time: : rn 09/27 07:53 Order name: Lipase; Complete Time: 09: rn 09/27 07:53 Order name: Urinalysis w/ reflexes; Complete Time: 09:17 rn 09/27 07:53 Order name: CT Abd/Pelvis - IV Contrast Only; Complete Time: 09:45 rn 09/27 07:53 Order name: CT Head Brain wo Cont; Complete Time: 09:45 rn 09/27 07:53 Order name: IV Saline Lock; Complete Time: 08:33 rn 09/27 07:53 Order name: Labs collected and sent; Complete Time: 08:33 rn Administered Medications: 08:33 Drug: Ondansetron IVP 4 mg IVP once; over 2 minutes Route: IVP; Site: left antecubital; bp 11:05 Follow up: Response: No adverse reaction bp 08:33 Drug: NS 0.9% IV 1000 ml IV at 1 bolus Per protocol; to be given as a bolus over 60 bp minutes Route: IV; Rate: 1 bolus; Site: left antecubital; 11:05 Follow up: IV Status: Completed infusion bp 09:48 Drug: Ketorolac IVP 15 mg IVP once Route: IVP; Site: left antecubital; bp 11:05 Follow up: Response: No adverse reaction bp Disposition Summary: 09/27/24 10:59 Discharge Ordered Notes: Location: Home rn Problem: new rn Symptoms: have improved rn Condition: Stable rn Diagnosis - Diarrhea, unspecified rn - Nausea rn - Abdominal pain, unspecified rn - Dehydration rn Followup: rn - With: Private Physician - When: As needed - Reason: Recheck today's complaints, Re-evaluation by your physician Discharge Instructions: - Discharge Summary Sheet rn - Abdominal Pain, Adult rn - Dehydration, Adult rn - Diarrhea, Adult rn - Pain Without a Known Cause rn Forms: - Medication Reconciliation Form rn - Antibiotic manager internet - Prescription Opioid Use rn - Patient Portal Instructions rn - Leadership Thank You Letter rn Prescriptions: - ondansetron 4 mg Oral Tablet,disintegrating - take 1 tablet ORAL route every 8 hours As needed; 12 tablet; Refills: 0, rn Product Selection Permitted Signatures: Dispatcher [employer] EDMS Ambar Radford RN Julian Meyer MD MD rn Peltier, Brian, RN RN bp Corrections: (The following items were deleted from the chart) 08:23 07:54 Abdomen Limited+[email or web address] ordered. EDVA EDMS
[2024-09-27 14:20] VITALS: TEMP 98.3; O2SAT 99
[2024-09-27 14:21] VITALS: BP 131/79
== END 2024-09-27 11:19 | disposition home or self-care (01) ==
LOC: ER 07:30
DX: R19.7 Diarrhea, unspecified (principal); E86.0 Dehydration; R11.0 Nausea
CPT/HCPCS: 36415; 70450; 74177; 80053; 81001; 83690; 85025; J2405; J7030; Q9967

== ENCOUNTER 2024-11-09 02:05 | Emergency (ER) | payer OTHER, SELFPAY ==
--- OUTSIDE RECORDS SUMMARY | 2024-11-09 02:13 | XMS REPORT | Continuity of Care Document ---
Author Name Unknown Address [address] [facility]. [address] [place] [address] [facility] Address [address] [facility] [address] [place] [address] Care Team Providers Care Gi Asst Name Role Phone Praveena Tobias Primary Care Physician [phone] Allergies, Adverse Reactions, Alerts Allergy Name Allergy [...] lisinopril 20 mg-hydrochl orothiazide 12.5 mg tablet 3-20 00:00: 00 Yes 1mg León Celis naproxen 500 mg tablet 3-20 00:00: 00 Yes 1mg León Celis omeprazole 40 mg capsule,del ayed release 3-20 00:00: 00 Yes 1mg León Celis gabapentin 100 mg capsule 3-20 00:00: 00 Yes 1mg León Celis omeprazole 40 mg capsule,del ayed release 2023-08 0-30 00:00: 00 Yes 1mg León Celis lisinopril 20 mg-hydrochl orothiazide 12.5 mg tablet 2023-0 9-10 00:00: 00 Yes 1mg León Celis lisinopril 20 mg-hydrochl orothiazide 12.5 mg tablet 0 6-10 00:00: 00 Yes 1mg León Celis doxycycline monohydrate 100 mg tablet 01-16 00:00: 00 Yes 1mg León Celis omeprazole 40 mg capsule,del ayed release 01-16 00:00: 00 Yes 1mg León Celis gabapentin 100 mg capsule 06 00:00: 00 Yes 1mg León Celis diclofenac 1 % topical gel 12-13 00:00: 00 Yes 1% León Celis prednisone 20 mg tablet 12-13 00:00: 00 Yes 1mg León Celis naproxen [...] MOUTH EVERY SIX HOURS NEEDED FOR PAIN. 24 00:00: 00 Yes León Celis USE DIRECTED BY PACKAGE INSTRUCTION S. 24 00:00: 00 Yes León Celis TAKE 1 [...] 00:00: 00 12-14 00:00 :00 No León Celsi TAKE 1 TABLET DAILY AFTER A MEAL. -04 00:00: 00 12-14 00:00 :00 No 75 León Celis TAKE ONE (1) TABLET(S) BY MOUTH TWICE A DAY. - 00:00: 00 Yes León Celis TAKE ONE [...] - 00:00: 00 Yes 1mg León Celis esomeprazol e magnesium 40 mg capsule,del ayed release 10-15 00:00: 00 Yes 1mg León Celis lisinopril 20 mg-hydrochl orothiazide 12.5 mg tablet 1- 00:00: 00 Yes 1mg León Celis lisinopril 20 mg-hydrochl orothiazide 12.5 mg tablet 05-06 00:00: 00 Yes 1mg León Celis Bromfed DM 2 mg-30 mg-10 mg/5 mL oral syrup 10-15 00:00: 00 Yes 10mg/5 mL León Celis lisinopril 20 mg-hydrochl orothiazide 12.5 mg tablet 05-08 00:00: 00 Yes 1mg León Celis Flagyl 500 mg tablet 2018-08 1 00:00: 00 Yes 1mg León Celis lisinopril 20 mg-hydrochl orothiazide 12.5 mg tablet 2018-08 0- 00:00: 00 Yes 2mg León Celis loratadine 10 mg tablet 2018-08 0-04 00:00: 00 Yes 1mg León Celis omeprazole 40 mg capsule,del ayed release 2018-08 0-04 00:00: 00 Yes 1mg León Celis benzonatate 100 mg capsule 2018-08 0-04 00:00: 00 Yes 1mg León Celis lisinopril 20 mg-hydrochl orothiazide 12.5 mg tablet 0 2- 00:00: 00 Yes 2mg León Celis azithromyci n 250 mg tablet 2- 00:00: 00 Yes mg León Celis lisinopril 20 mg-hydrochl orothiazide 12.5 mg tablet 3-07 00:00: 00 Yes 2mg León Celis lisinopril 20 mg-hydrochl orothiazide 12.5 mg tablet 3- 00:00: 00 Yes 2mg León Celis lisinopril 20 mg-hydrochl orothiazide 12.5 mg tablet 1- 00:00: 00 Yes 2mg León Celis lisinopril 20 mg-hydrochl orothiazide 12.5 mg tablet 04-28 00:00: 00 Yes 2mg León Celis lisinopril 20 mg-hydrochl orothiazide 12.5 mg tablet 12-01 00:00: 00 Yes 2mg León Celis Bactrim DS 800 mg-160 mg tablet 11-23 00:00: 00 Yes 1mg León Celis lisinopril 20 mg-hydrochl orothiazide 12.5 mg tablet 11-18 00:00: 00 Yes 2mg León Celis lisinopril 20 mg-hydrochl orothiazide 12.5 mg tablet 2015-08 00:00: 00 Yes 2mg León Celis azithromyci [...] Name Observation Time Observation Value Comments S cliff BP Systolic 2024-10-26 15:05:00 122 mm[Hg] Hasmukh Celis BP Diastolic 2024-10-26 15:05:00 79 mm[Hg] Monty Celis Weight Measured 2024-10-26 15:05:00 236.80 pounds León F Vimal Height Measured 2024-10-26 15:05:00 63.00 inches León F Vimal Body Temperature 2024-10-26 15:05:00 97.10 degrees León F Vimal Heart Rate 2024-10-26 15:05:00 76.00 /min Missy en F Vimal Respiratory Rate 2024-10-26 15:05:00 18.00 /min León F Vimal BP Systolic 2024-04-18 10:51:00 147 mm[Hg] Step hen F Vimal BP Diastolic 2024-04-18 10:51:00 95 mm[Hg] Monty phen F Vimal Weight Measured 2024-04-18 10:51:00 237.90 pounds León F Vimal Height Measured 2024-04-18 10:51:00 63.00 inches León F Vimal Body Temperature 2024-04-18 10:51:00 97.20 degrees León F Vimal Heart Rate 2024-04-18 10:51:00 65.00 /min Missy en F Vimal Respiratory Rate 2024-04-18 10:51:00 18.00 /min León F Vimal BP Systolic 2024-01-17 15:16:00 Step hen F Vimal BP Diastolic 2024-01-17 15:16:00 Monty phen F Vimal Weight Measured 2024-01-17 15:16:00 235.80 pounds León [...] Height Measured 2022-06-13 11:03:00 63.00 inches León Celis Body Temperature 2022-06-13 11:03:00 98.20 degrees León Celis Heart Rate 2022-06-13 11:03:00 69.00 /min Missy en F Vimal Respiratory Rate 2022-06-13 11:03:00 25.00 /min Leónraad Celis BP Systolic 2022-05-06 15:06:00 138 mm[Hg] Step hen F Vimal BP Diastolic 2022-05-06 15:06:00 84 mm[Hg] Monty Celis Weight Measured 2022-05-06 15:06:00 249.60 pounds León Celis Height Measured 2022-05-06 15:06:00 63.00 inches León Celis Body Temperature 2022-05-06 15:06:00 98.10 degrees León Celis Heart Rate 2022-05-06 15:06:00 75.00 /min Missy en Madiha Celis Respiratory Rate 2022-05-06 15:06:00 17.00 /min León Celis Encounters Start Date/Time End Date/Time Encounter Type Admission Type Attending [facility] Care Department Encounter ID Source 2024-11-07 09:46:18 2024-11-07 09:46:18 Outpatient SFA SFA [id number] León Celis 2024-11-03 09:57:00 2024-11-03 09:57:00 Outpatient SFA SFA [id number] León Celis 2024-10-26 14:56:38 2024-10-26 14:56:38 Outpatient SFA SFA [id number] León Celis 2024-10-26 00:00:00 2024-10-26 00:00:00 Outpatient Visit SFA [id number] León Celis 2024-06-13 14:27:25 2024-06-13 14:27:25 Outpatient SFA SFA [id number] León Celis 2024-04-19 08:58:11 2024-04-19 08:58:11 Outpatient SFA SFA 0911 León Celis 2024-04-18 10:53:32 2024-04-18 10:53:32 Outpatient SFA SFA [id number] León Celis 2024-04-18 00:00:00 2024-04-18 00:00:00 Outpatient Visit SFA [id number] León Celis 2024-01-17 14:42:00 2024-01-17 14:42:00 Outpatient SFA SFA 10 León Celis 2024-01-17 00:00:00 2024-01-17 00:00:00 Outpatient Visit SFA [id number] León Celis 2024-01-13 13:44:26 2024-01-13 13:44:26 Outpatient SFA SFA 06 León Celis 2024-01-13 00:00:00 2024-01-13 00:00:00 Outpatient Visit SFA [id number] León Celis 2023-12-14 13:09:01 2023-12-14 13:09:01 Outpatient SFA SFA [id number] León Celis 2023-12-14 00:00:00 2023-12-14 00:00:00 Outpatient Visit SFA [id number] León Celis 2023-11-08 11:38:54 2023-11-08 11:38:54 Outpatient SFA SFA [id number] León Celis 2023-11-03 14:57:54 2023-11-03 14:57:54 Outpatient SFA SFA [id number] León Celis 2023-08-16 07:53:37 2023-08-16 07:53:37 Outpatient SFA SFA [id number] León Celis 2023-08-14 10:20:34 2023-08-14 10:20:34 Outpatient SFA SFA [id number] León Celis 2023-06-17 09:20:26 2023-06-17 09:20:[address] [facility] [id number] León Celis 2022-12-16 15:27:13 2022-12-16 15:27:13 Outpatient [facility] [id number] León Celis 2022-12-11 08:18:10 2022-12-11 08:18:10 Outpatient [facility] [id number] León Celis 2022-08-05 10:18:37 2022-08-05 10:18:37 Outpatient [facility] [id number] León Celis 2022-06-13 11:03:25 2022-06-13 11:03:25 Outpatient [facility] [id number] León Celis 2022-05-07 12:57:08 2022-05-07 12:57:08 Outpatient [facility] [id number] León Celis Results Test Description Test Time Test Comments Results Result Co mments Source León CelisHEMOGLOBIN A1c [ADDED]2024-04-20 00:00:00* Test Item Value Reference Range Interpretation Comme antonia HEMOGLOBIN A1c (test code = 26957) 5.8 % León CelisLIPID PANEL [ADDED]2024-04-20 00:00:00* Test Item Value Reference Range Interpretation Comme nts CHOLESTEROL (test code = 2210) 151 MG/DL TRIGLYCERIDES (test code = 2232) 60 MG/DL HDL CHOLESTEROL (test code = 2220) 53 MG/DL CALC LDL CHOL (test code = 2237) 84 MG/DL RISK RATIO LDL/HDL (test cod e = 2238) 1.58 RATIO León CelisCOMPREHENSIVE METABOLIC PANEL [ADDED]2024-04-20 00:00:00* Test Item Value Reference Range Interpretation Comme nts GLUCOSE (test code = 2217) 90 MG/DL BUN (test code = 2208) 13 MG/DL CREATININE (test code = 2214) 0.64 MG/DL eGFR (2020 CKD-EPI) (test code = 03251) 100 ML/MIN/1.73 CALC BUN/CREAT (test code = 2235) 20 RATIO SODIUM (test code = 2231) 138 MEQ/L POTASSIUM (test code = 2228) 4.1 MEQ/L CHLORIDE (test code = 2215) 101 MEQ/L CARBON DIOXIDE (test code = 2206) 25 MEQ/L CALCIUM (test code = 2209) 9.6 MG/DL PROTEIN, TOTAL (test code = 2229) 7.4 G/DL ALBUMIN (test code = 2201) 4.0 G/DL CALC GLOBULIN (test code = 2240) 3.4 G/DL CALC A/G RATIO (test code = 2234) 1.2 RATIO BILIRUBIN, TOTAL (test code = 2207) 0.5 MG/DL ALKALINE PHOSPHATASE (test code = 220) 107 U/L AST (test code = 221) 34 U/L ALT (test code = 221) 27 U/L León Cleary RachaelH, THIRD GENERATION [ADDED]2024-04-20 00:00:00* Test Item Value Reference Range Interpretation Comme nts TSH, THIRD GENERATION (test code = 2821) 1.940 UIU/ML León CelisLIPID [id number] 09:05:34* Test Item Value Reference Range Interpretation Comme nts CHOLESTEROL (test code = 2210) 192 MG/DL <200 TRIGLYCERIDES (test code = 2232) 84 MG/DL <150 HDL CHOLESTEROL (test code = [...] = 2238) 1.95 RATIO <3.22 COMPREHENSIVE METABOLIC [id number] 09:05:34* Test Item Value Reference Range Interpretation Comme nts GLUCOSE (test code = 2217) 112 MG/DL 70-99 H BUN (test code = 220) 13 MG/DL 8-23 CREATININE (test code = 2214) 0.58 MG/DL 0.60-1.30 L eGFR (2020 CKD-EPI) (test code = 19218) 103 ML/MIN/1.73 >60 CALC BUN/CREAT (test code [...] TESTING PERFORMED AT [facility] [address] [place] [address] [employer] EXAMINER: JEFFREY JUÁREZ M.D. IA NUMBER [id number] [facility] [place]. [id number] HEMOGLOBIN [id number] 03:53:57* Test Item Value Reference Range Interpretation Comme nts HEMOGLOBIN A1c (test code = 75178) 5.7 % 4.2-5.6 H [facility] S [...] CONSIDER ALTERNATE TESTING OR LABORATORY CONSULTATION. LIPID [id number] 00:00:00* Test Item Value Reference Range Interpretation Comme nts CHOLESTEROL (test code = 2210) 192 MG/DL TRIGLYCERIDES (test code = 2232) 84 MG/DL HDL CHOLESTEROL (test code = 2220) 59 MG/DL CALC LDL CHOL (test code = 2237) 115 MG/DL RISK RATIO LDL/HDL (test cod e = 2238) 1.95 RATIO León CelisCOMPREHENSIVE METABOLIC [id number] 00:00:00* Test Item Value Reference Range Interpretation Comme nts GLUCOSE (test code = 2217) 112 MG/DL BUN (test code = 2208) 13 MG/DL CREATININE (test code = 2214) 0.58 MG/DL eGFR (2020 CKD-EPI) (test code = 71912) 103 ML/MIN/1.73 CALC BUN/CREAT (test code = [...] code = 2219) 26 U/L León CelisHEMOGLOBIN [id number] 00:00:00* Test Item Value Reference Range Interpretation Comme nts HEMOGLOBIN A1c (test code = 75071) 5.7 % León CelisLIPID [id number] 00:00:00* Test Item Value Reference Range Interpretation Comme nts CHOLESTEROL (test code = 2210) 192 MG/DL TRIGLYCERIDES (test code = 2232) 84 MG/DL HDL CHOLESTEROL (test code = 2220) 59 MG/DL CALC LDL CHOL (test code = 2237) 115 MG/DL RISK RATIO LDL/HDL (test cod e = 2238) 1.95 RATIO León CelisCOMPREHENSIVE METABOLIC [id number] 00:00:00* Test Item Value Reference Range Interpretation Comme nts GLUCOSE (test code = 2217) 112 MG/DL BUN (test code = 2208) 13 MG/DL CREATININE (test code = 2214) 0.58 MG/DL eGFR (2020 CKD-EPI) (test code = 10839) 103 ML/MIN/1.73 CALC BUN/CREAT (test code = [...] code = 2219) 26 U/L León CelisHEMOGLOBIN [id number] 00:00:00* Test Item Value Reference Range Interpretation Comme nts HEMOGLOBIN A1c (test code = 54761) 5.7 % León CelisLIPID [id number] 00:00:00* Test Item Value Reference Range Interpretation Comme nts CHOLESTEROL (test code = 2210) 192 MG/DL TRIGLYCERIDES (test code = 2232) 84 MG/DL HDL CHOLESTEROL (test code = 2220) 59 MG/DL CALC LDL CHOL (test code = 2237) 115 MG/DL RISK RATIO LDL/HDL (test cod e = 2238) 1.95 RATIO León CelisCOMPREHENSIVE METABOLIC [id number] 00:00:00* Test Item Value Reference Range Interpretation Comme nts GLUCOSE (test code = 2217) 112 MG/DL BUN (test code = 2208) 13 MG/DL CREATININE (test code = 2214) 0.58 MG/DL eGFR (2020 CKD-EPI) (test code = 07966) 103 ML/MIN/1.73 CALC BUN/CREAT (test code = [...] code = 2219) 26 U/L León CelisHEMOGLOBIN [id number] 00:00:00* Test Item Value Reference Range Interpretation Comme [facility] HEMOGLOBIN A1c (test code = 39274) 5.7 % León CelisLIPID [id number] 00:00:00* Test Item Value Reference Range Interpretation Comme nts CHOLESTEROL (test code = 2210) 192 MG/DL TRIGLYCERIDES (test code = 2232) 84 MG/DL HDL CHOLESTEROL (test code = 2220) 59 MG/DL CALC LDL CHOL (test code = 2237) 115 MG/DL RISK RATIO LDL/HDL (test cod e = 2238) 1.95 RATIO León CelisCOMPREHENSIVE METABOLIC [id number] 00:00:00* Test Item Value Reference Range Interpretation Comme nts GLUCOSE (test code = 2217) 112 MG/DL BUN (test code = 2208) 13 MG/DL CREATININE (test code = 2214) 0.58 MG/DL eGFR (2020 CKD-EPI) (test code = 06283) 103 ML/MIN/1.73 CALC BUN/CREAT (test code = [...] code = 2219) 26 U/L León CelisHEMOGLOBIN [id number] 00:00:00* Test Item Value Reference Range Interpretation Comme antonia HEMOGLOBIN A1c (test code = 78291) 5.7 % León CelisLIPID [id number] 00:00:00* Test Item Value Reference Range Interpretation Comme nts CHOLESTEROL (test code = 2210) 192 MG/DL TRIGLYCERIDES (test code = 2232) 84 MG/DL HDL CHOLESTEROL (test code = 2220) 59 MG/DL CALC LDL CHOL (test code = 2237) 115 MG/DL RISK RATIO LDL/HDL (test cod e = 2238) 1.95 RATIO León CelisCOMPREHENSIVE METABOLIC [id number] 00:00:00* Test Item Value Reference Range Interpretation Comme nts GLUCOSE (test code = 2217) 112 MG/DL BUN (test code = 2208) 13 MG/DL CREATININE (test code = 2214) 0.58 MG/DL eGFR (2020 CKD-EPI) (test code = 97143) 103 ML/MIN/1.73 CALC BUN/CREAT (test code = [...] code = 2219) 26 U/L León CelisHEMOGLOBIN [id number] 00:00:00* Test Item Value Reference Range Interpretation Comme nts HEMOGLOBIN A1c (test code = 83390) 5.7 % León CelisLIPID [id number] 06:57:26* Test Item Value Reference Range Interpretation Comme nts CHOLESTEROL (test code = 2210) 189 MG/DL <200 TRIGLYCERIDES (test code = 2232) 112 MG/DL <150 HDL CHOLESTEROL (test code = 2220) 64 MG/DL >39 CALC LDL CHOL (test code = 2236) 104 MG/DL <100 H NOTE: CALCULATED LDL IS BASED ON SAMEER-VERDUGO METHOD WHICHINCLUDES ADJUSTABLE TRIGLYCERIDE:VLDL CHOLESTEROL RATIO.THIS FACTOR VARIES BY MEASURED TRIGLYCERIDE AND NON-HDLCHOLESTEROL CONCENTRATIONS WITH INCREASED CALCULATED LDL SEENIN HIGHER TRIGLYCERIDE OR LOWER NON-HDL SPECIMENS. FOR MOREINFORMATION, SEE CLIENT ANNOUNCEMENT AT [email or web address] RISK RATIO LDL/HDL (test code = 2238) 1.63 RATIO <3.22 COMPREHENSIVE METABOLIC [id number] 06:57:26* Test Item Value Reference Range Interpretation Comme nts GLUCOSE (test code = 7) 107 MG/DL 70-99 H BUN (test code = 2207) 12 MG/DL 8-23 CREATININE (test code = 2214) 0.55 MG/DL 0.60-1.30 L eGFR (2020 CKD-EPI) (test code = 54438) 104 ML/MIN/1.73 >60 CALC BUN/CREAT (test code = 2235) 22 RATIO 6-28 SODIUM (test code = 2231) 140 MEQ/L 133-146 POTASSIUM (test code = 2228) 4.3 MEQ/L 3.5-5.4 CHLORIDE (test code = 2215) 103 MEQ/L 95-107 CARBON DIOXIDE (test code = 2206) 23 MEQ/L 19-31 CALCIUM (test code = 220) 9.5 MG/DL 8.5-10.5 PROTEIN, TOTAL (test code [...] INDICATED, ALL TESTING PERFORMED AT [facility] [address] [place] [id number] [employer] EXAMINER: JEFFREY JUÁREZ M.D. CLIA NUMBER [id number] [facility] [place]. [id number] COMPREHENSIVE METABOLIC [id number] 00:00:00* Test Item Value Reference Range Interpretation Comme nts GLUCOSE (test code = 2217) 107 MG/DL BUN (test code = 2208) 12 MG/DL CREATININE (test code = 2214) 0.55 MG/DL eGFR (2020 CKD-EPI) (test code = 64071) 104 ML/MIN/1.73 CALC BUN/CREAT (test code = [...] code = 2219) 36 U/L León CelisLIPID [id number] 00:00:00* Test Item Value Reference Range Interpretation Comme nts CHOLESTEROL (test code = 2210) 189 MG/DL TRIGLYCERIDES (test code = 2232) 112 MG/DL HDL CHOLESTEROL (test code = 2220) 64 MG/DL CALC LDL CHOL (test code = 2237) 104 MG/DL RISK RATIO LDL/HDL (test cod e = 2238) 1.63 RATIO León Cleary AustinCOMPREHENSIVE METABOLIC [id number] 00:00:00* Test Item Value Reference Range Interpretation Comme nts GLUCOSE (test code = 2217) 107 MG/DL BUN (test code = 2208) 12 MG/DL CREATININE (test code = 2214) 0.55 MG/DL eGFR (2020 CKD-EPI) (test code = 69993) 104 ML/MIN/1.73 CALC BUN/CREAT (test code = [...] code = 2219) 36 U/L León CelisLIPID [id number] 00:00:00* Test Item Value Reference Range Interpretation Comme nts CHOLESTEROL (test code = 2210) 189 MG/DL TRIGLYCERIDES (test code = 2232) 112 MG/DL HDL CHOLESTEROL (test code = 2220) 64 MG/DL CALC LDL CHOL (test code = 2237) 104 MG/DL RISK RATIO LDL/HDL (test cod e = 2238) 1.63 RATIO León CelisCOMPREHENSIVE METABOLIC [id number] 00:00:00* Test Item Value Reference Range Interpretation Comme nts GLUCOSE (test code = 2217) 107 MG/DL BUN (test code = 2208) 12 MG/DL CREATININE (test code = 2214) 0.55 MG/DL eGFR (2020 CKD-EPI) (test code = 76463) 104 ML/MIN/1.73 CALC BUN/CREAT (test code = [...] code = 2219) 36 U/L León CelisLIPID [id number] 00:00:00* Test Item Value Reference Range Interpretation Comme nts CHOLESTEROL (test code = 2210) 189 MG/DL TRIGLYCERIDES (test code = 2232) 112 MG/DL HDL CHOLESTEROL (test code = 2220) 64 MG/DL CALC LDL CHOL (test code = 2237) 104 MG/DL RISK RATIO LDL/HDL (test cod e = 2238) 1.63 RATIO León CelisCOMPREHENSIVE METABOLIC [id number] 00:00:00* Test Item Value Reference Range Interpretation Comme nts GLUCOSE (test code = 2217) 107 MG/DL BUN (test code = 2208) 12 MG/DL CREATININE (test code = 2214) 0.55 MG/DL eGFR (2020 CKD-EPI) (test code = 50531) 104 ML/MIN/1.73 CALC BUN/CREAT (test code = [...] code = 2219) 36 U/L León CelisLIPID [id number] 00:00:00* Test Item Value Reference Range Interpretation Comme nts CHOLESTEROL (test code = 2210) 189 MG/DL TRIGLYCERIDES (test code = 2232) 112 MG/DL HDL CHOLESTEROL (test code = 2220) 64 MG/DL CALC LDL CHOL (test code = 2237) 104 MG/DL RISK RATIO LDL/HDL (test cod e = 2238) 1.63 RATIO León CelisCOMPREHENSIVE METABOLIC [id number] 00:00:00* Test Item Value Reference Range Interpretation Comme nts GLUCOSE (test code = 2217) 107 MG/DL BUN (test code = 2208) 12 MG/DL CREATININE (test code = 2214) 0.55 MG/DL eGFR (2020 CKD-EPI) (test code = 66084) 104 ML/MIN/1.73 CALC BUN/CREAT (test code = [...] code = 2219) 36 U/L León CelisLIPID [id number] 00:00:00* Test Item Value Reference Range Interpretation Comme nts CHOLESTEROL (test code = 2210) 189 MG/DL TRIGLYCERIDES (test code = 2232) 112 MG/DL HDL CHOLESTEROL (test code = 2220) 64 MG/DL CALC LDL CHOL (test code = 2237) 104 MG/DL RISK RATIO LDL/HDL (test cod e = 2238) 1.63 RATIO León CelisHEMOGLOBIN [id number] 03:39:52* Test Item Value Reference Range Interpretation Comme nts HEMOGLOBIN A1c (test code = 22649) 5.8 % 4.2-5.6 H UNLESS OTHERWISE INDICATED, ALL TESTING [facility]FORMED [facility] [address] [place] [address] [employer] EXAMINER: NGHIA MERAZ M.D. IA NUMBER [id number] [facility] [place]. [id number] LIPID [id number] 03:00:57* Test Item Value Reference Range Interpretation [...] = 2238) 1.71 RATIO <3.22 COMPREHENSIVE METABOLIC [id number] 03:00:57* Test Item Value Reference Range Interpretation Comme nts GLUCOSE (test code = 2217) 95 MG/DL 70-99 BUN (test code = 2208) 12 MG/DL 8-23 CREATININE (test code = 2214) 0.54 MG/DL 0.60-1.30 L eGFR (2020 CKD-EPI) (test code = 12419) 105 ML/MIN/1.73 >60 CALC BUN/CREAT (test code = 2235) 22 RATIO 6-28 SODIUM (test code = 2231) 144 MEQ/L 133-146 POTASSIUM (test code = 2228) 4.4 MEQ/L 3.5-5.4 CHLORIDE (test code = 2215) 108 MEQ/L 95-107 H CARBON DIOXIDE (test code = 2206) 26 MEQ/L 19-31 CALCIUM (test code = 2209) 9.4 MG/DL 8.5-10.5 PROTEIN, TOTAL (test code = 2229) 7.5 G/DL 6.1-8.3 ALBUMIN (test code = 220) 4.1 G/DL 3.5-5.2 CALC GLOBULIN (test code = 2240) 3.4 G/DL 1.9-3.7 CALC A/G RATIO (test code = 2234) 1.2 RATIO 1.0-2.6 BILIRUBIN, TOTAL (test code = 2207) 0.3 MG/DL See_Comment [Automated me ssage] The system which generated this result transmitted reference range: <=1.2. The reference range was not used to interpret this result as normal/abnormal. ALKALINE PHOSPHATASE (test code = 2204) 109 U/L 40-136 AST (test code = 2218) 27 U/L 9-40 ALT (test code = 2219) 25 U/L 5-40 LIPID [id number] 00:00:00* Test Item Value Reference Range Interpretation Comme nts CHOLESTEROL (test code = 2210) 177 MG/DL TRIGLYCERIDES (test code = 2232) 152 MG/DL HDL CHOLESTEROL (test code = 2220) 56 MG/DL CALC LDL CHOL (test code = 2237) 96 MG/DL RISK RATIO LDL/HDL (test cod e = 2238) 1.71 RATIO León F AustinCOMPREHENSIVE METABOLIC [id number] 00:00:00* Test Item Value Reference Range Interpretation Comme nts GLUCOSE (test code = 2217) 95 MG/DL BUN (test code = 2208) 12 MG/DL CREATININE (test code = 2214) 0.54 MG/DL eGFR (2020 CKD-EPI) (test code = 07174) 105 ML/MIN/1.73 CALC BUN/CREAT (test code = [...] code = 2219) 25 U/L León CelisHEMOGLOBIN [id number] 00:00:00* Test Item Value Reference Range Interpretation Comme nts HEMOGLOBIN A1c (test code = 50576) 5.8 % León CelisLIPID [id number] 00:00:00* Test Item Value Reference Range Interpretation Comme nts CHOLESTEROL (test code = 2210) 177 MG/DL TRIGLYCERIDES (test code = 2232) 152 MG/DL HDL CHOLESTEROL (test code = 2220) 56 MG/DL CALC LDL CHOL (test code = 2237) 96 MG/DL RISK RATIO LDL/HDL (test cod e = 2238) 1.71 RATIO León CelisCOMPREHENSIVE METABOLIC [id number] 00:00:00* Test Item Value Reference Range Interpretation Comme nts GLUCOSE (test code = 2217) 95 MG/DL BUN (test code = 2208) 12 MG/DL CREATININE (test code = 2214) 0.54 MG/DL eGFR (2020 CKD-EPI) (test code = 27329) 105 ML/MIN/1.73 CALC BUN/CREAT (test code = [...] code = 2219) 25 U/L León CelisHEMOGLOBIN [id number] 00:00:00* Test Item Value Reference Range Interpretation Comme antonia HEMOGLOBIN A1c (test code = 61969) 5.8 % León CelisLIPID [id number] 00:00:00* Test Item Value Reference Range Interpretation Comme nts CHOLESTEROL (test code = 2210) 177 MG/DL TRIGLYCERIDES (test code = 2232) 152 MG/DL HDL CHOLESTEROL (test code = 2220) 56 MG/DL CALC LDL CHOL (test code = 2237) 96 MG/DL RISK RATIO LDL/HDL (test cod e = 2238) 1.71 RATIO León CelisCOMPREHENSIVE METABOLIC [id number] 00:00:00* Test Item Value Reference Range Interpretation Comme nts GLUCOSE (test code = 2217) 95 MG/DL BUN (test code = 2208) 12 MG/DL CREATININE (test code = 2214) 0.54 MG/DL eGFR (2020 CKD-EPI) (test code = 62607) 105 ML/MIN/1.73 CALC BUN/CREAT (test code = [...] code = 2219) 25 U/L León CelisHEMOGLOBIN [id number] 00:00:00* Test Item Value Reference Range Interpretation Comme nts HEMOGLOBIN A1c (test code = 65700) 5.8 % León Cleary AustinLIPID [id number] 00:00:00* Test Item Value Reference Range Interpretation Comme nts CHOLESTEROL (test code = 2210) 177 MG/DL TRIGLYCERIDES (test code = 2232) 152 MG/DL HDL CHOLESTEROL (test code = 2220) 56 MG/DL CALC LDL CHOL (test code = 2237) 96 MG/DL RISK RATIO LDL/HDL (test cod e = 2238) 1.71 RATIO León CelisCOMPREHENSIVE METABOLIC [id number] 00:00:00* Test Item Value Reference Range Interpretation Comme nts GLUCOSE (test code = 2217) 95 MG/DL BUN (test code = 2208) 12 MG/DL CREATININE (test code = 2214) 0.54 MG/DL eGFR (2020 CKD-EPI) (test code = 90870) 105 ML/MIN/1.73 CALC BUN/CREAT (test code = [...] code = 2219) 25 U/L León CelisHEMOGLOBIN [id number] 00:00:00* Test Item Value Reference Range Interpretation Comme nts HEMOGLOBIN A1c (test code = 31841) 5.8 % León Cleary AustinLIPID [id number] 00:00:00* Test Item Value Reference Range Interpretation Comme nts CHOLESTEROL (test code = 2210) 177 MG/DL TRIGLYCERIDES (test code = 2232) 152 MG/DL HDL CHOLESTEROL (test code = 2220) 56 MG/DL CALC LDL CHOL (test code = 2237) 96 MG/DL RISK RATIO LDL/HDL (test cod e = 2238) 1.71 RATIO León CelisCOMPREHENSIVE METABOLIC [id number] 00:00:00* Test Item Value Reference Range Interpretation Comme nts GLUCOSE (test code = 2217) 95 MG/DL BUN (test code = 2208) 12 MG/DL CREATININE (test code = 2214) 0.54 MG/DL eGFR (2020 CKD-EPI) (test code = 64460) 105 ML/MIN/1.73 CALC BUN/CREAT (test code = [...] code = 2219) 25 U/L León CelisHEMOGLOBIN [id number] 00:00:00* Test Item Value Reference Range Interpretation Comme nts HEMOGLOBIN A1c (test code = 32337) 5.8 % León CelisHEMOGLOBIN [id number] 09:19:50* Test Item Value Reference Range Interpretation Comme nts HEMOGLOBIN A1c (test code = 17752) 5.6 % 4.2-5.6 LIPID [id number] 04:20:14* Test Item Value Reference Range Interpretation Comme nts CHOLESTEROL (test code = 2210) 192 MG/DL <200 TRIGLYCERIDES (test code = 2232) 85 MG/DL <150 HDL CHOLESTEROL (test code = 2220) 59 MG/DL >39 CALC LDL CHOL (test code = 223) 115 MG/DL <100 H NOTE: CALCULATED LDL IS BASED ON SAMEER-VERDUGO METHOD WHICHINCLUDES ADJUSTABLE TRIGLYCERIDE:VLDL CHOLESTEROL RATIO.THIS FACTOR VARIES BY MEASURED TRIGLYCERIDE AND NON-HDLCHOLESTEROL CONCENTRATIONS WITH INCREASED CALCULATED LDL SEENIN HIGHER TRIGLYCERIDE OR LOWER NON-HDL SPECIMENS. FOR MOREINFORMATION, SEE CLIENT ANNOUNCEMENT AT [email or web address] RISK RATIO LDL/HDL (test code = 2238) 1.95 RATIO <3.22 COMPREHENSIVE METABOLIC [id number] 04:20:14* Test Item Value Reference Range Interpretation Comme nts GLUCOSE (test code = 221) 88 MG/DL 70-99 BUN (test code = 2207) 16 MG/DL 6-20 CREATININE (test code = 221) 0.57 MG/DL 0.60-1.30 L eGFR (2020 CKD-EPI) (test code = 36547) 105 ML/MIN/1.73 >60 CALC BUN/CREAT (test code = 2235) 28 RATIO 6-28 SODIUM (test code = 223) 141 MEQ/L 133-146 POTASSIUM (test code = 2228) 4.4 MEQ/L 3.5-5.4 CHLORIDE (test code = 2215) 101 MEQ/L 95-107 CARBON DIOXIDE (test code = 2206) 25 MEQ/L 19-31 CALCIUM (test code = 220) 9.6 MG/DL 8.5-10.5 PROTEIN, TOTAL (test code = 222) 7.8 G/DL 6.1-8.3 ALBUMIN (test code = [...] 5-40 UNLESS OTHERWISE INDICATED, ALL TESTING PERFORMED [facility] [address] [place] [id number] [address] EXAMINER: NGHIA MERAZ M.D. IA NUMBER [id number] [facility] [place]. [id number] HEMOGLOBIN [id number] 00:00:00* Test Item Value Reference Range Interpretation Comme nts HEMOGLOBIN A1c (test code = 77993) 5.6 % León Cleary AustinLIPID [id number] 00:00:00* Test Item Value Reference Range Interpretation Comme nts CHOLESTEROL (test code = 2210) 192 MG/DL TRIGLYCERIDES (test code = 2232) 85 MG/DL HDL CHOLESTEROL (test code = 2220) 59 MG/DL CALC LDL CHOL (test code = 2237) 115 MG/DL RISK RATIO LDL/HDL (test cod e = 2238) 1.95 RATIO León CelisCOMPREHENSIVE METABOLIC [id number] 00:00:00* Test Item Value Reference Range Interpretation Comme nts GLUCOSE (test code = 2217) 88 MG/DL BUN (test code = 2208) 16 MG/DL CREATININE (test code = 2214) 0.57 MG/DL eGFR (2020 CKD-EPI) (test code = 96314) 105 ML/MIN/1.73 CALC BUN/CREAT (test code = [...] code = 2219) 28 U/L León CelisHEMOGLOBIN [id number] 00:00:00* Test Item Value Reference Range Interpretation Comme antonia HEMOGLOBIN A1c (test code = 15685) 5.6 % León Cleary AustinLIPID [id number] 00:00:00* Test Item Value Reference Range Interpretation Comme nts CHOLESTEROL (test code = 2210) 192 MG/DL TRIGLYCERIDES (test code = 2232) 85 MG/DL HDL CHOLESTEROL (test code = 2220) 59 MG/DL CALC LDL CHOL (test code = 2237) 115 MG/DL RISK RATIO LDL/HDL (test cod e = 2238) 1.95 RATIO León CelisCOMPREHENSIVE METABOLIC [id number] 00:00:00* Test Item Value Reference Range Interpretation Comme nts GLUCOSE (test code = 2217) 88 MG/DL BUN (test code = 2208) 16 MG/DL CREATININE (test code = 2214) 0.57 MG/DL eGFR (2020 CKD-EPI) (test code = 12065) 105 ML/MIN/1.73 CALC BUN/CREAT (test code = [...] code = 2219) 28 U/L León CelisHEMOGLOBIN [id number] 00:00:00* Test Item Value Reference Range Interpretation Comme antonia HEMOGLOBIN A1c (test code = 63320) 5.6 % León Cleary AustinLIPID [id number] 00:00:00* Test Item Value Reference Range Interpretation Comme nts CHOLESTEROL (test code = 2210) 192 MG/DL TRIGLYCERIDES (test code = 2232) 85 MG/DL HDL CHOLESTEROL (test code = 2220) 59 MG/DL CALC LDL CHOL (test code = 2237) 115 MG/DL RISK RATIO LDL/HDL (test cod e = 2238) 1.95 RATIO León CelisCOMPREHENSIVE METABOLIC [id number] 00:00:00* Test Item Value Reference Range Interpretation Comme nts GLUCOSE (test code = 2217) 88 MG/DL BUN (test code = 2208) 16 MG/DL CREATININE (test code = 2214) 0.57 MG/DL eGFR (2020 CKD-EPI) (test code = 80434) 105 ML/MIN/1.73 CALC BUN/CREAT (test code = [...] code = 2219) 28 U/L León CelisHEMOGLOBIN [id number] 00:00:00* Test Item Value Reference Range Interpretation Comme nts HEMOGLOBIN A1c (test code = 12411) 5.6 % León CelisLIPID [id number] 00:00:00* Test Item Value Reference Range Interpretation Comme nts CHOLESTEROL (test code = 2210) 192 MG/DL TRIGLYCERIDES (test code = 2232) 85 MG/DL HDL CHOLESTEROL (test code = 2220) 59 MG/DL CALC LDL CHOL (test code = 2237) 115 MG/DL RISK RATIO LDL/HDL (test cod e = 2238) 1.95 RATIO León F AustinCOMPREHENSIVE METABOLIC [id number] 00:00:00* Test Item Value Reference Range Interpretation Comme nts GLUCOSE (test code = 2217) 88 MG/DL BUN (test code = 2208) 16 MG/DL CREATININE (test code = 2214) 0.57 MG/DL eGFR (2020 CKD-EPI) (test code = 74310) 105 ML/MIN/1.73 CALC BUN/CREAT (test code = [...] code = 2219) 28 U/L León CelisHEMOGLOBIN [id number] 00:00:00* Test Item Value Reference Range Interpretation Comme nts HEMOGLOBIN A1c (test code = 37722) 5.6 % León CelisLIPID [id number] 00:00:00* Test Item Value Reference Range Interpretation Comme nts CHOLESTEROL (test code = 2210) 192 MG/DL TRIGLYCERIDES (test code = 2232) 85 MG/DL HDL CHOLESTEROL (test code = 2220) 59 MG/DL CALC LDL CHOL (test code = 2237) 115 MG/DL RISK RATIO LDL/HDL (test cod e = 2238) 1.95 RATIO León CelisCOMPREHENSIVE METABOLIC [id number] 00:00:00* Test Item Value Reference Range Interpretation Comme nts GLUCOSE (test code = 2217) 88 MG/DL BUN (test code = 2208) 16 MG/DL CREATININE (test code = 2214) 0.57 MG/DL eGFR (2020 CKD-EPI) (test code = 82095) 105 ML/MIN/1.73 CALC BUN/CREAT (test code = [...] code = 2219) 28 U/L León Cleary [place] [id number] 00:00:00* Test Item Value Reference Range Interpretation Comme nts CHOLESTEROL (test code = 2210) 145 MG/DL TRIGLYCERIDES (test code = 2232) 83 MG/DL HDL CHOLESTEROL (test code = 2220) 57 MG/DL CALC LDL CHOL (test code = 2237) 71 MG/DL RISK RATIO LDL/HDL (test cod e = 2238) 1.25 RATIO León CelisCOMPREHENSIVE METABOLIC [id number] 00:00:00* Test Item Value Reference Range Interpretation Comme nts GLUCOSE (test code = 2217) 109 MG/DL BUN (test code = 2208) 6 MG/DL CREATININE (test code = 2214) 0.61 MG/DL eGFR AMER. (test cod e = 65200) 116 ML/MIN/1.73 eGFR NON- AMER. (test code = 52268) 100 ML/MIN/1.73 CALC BUN/CREAT (test code = [...] = 2219) 23 U/L León Cleary AustinLIPID [id number] 00:00:00* Test Item Value Reference Range Interpretation Comme nts CHOLESTEROL (test code = 2210) 145 MG/DL TRIGLYCERIDES (test code = 2232) 83 MG/DL HDL CHOLESTEROL (test code = 2220) 57 MG/DL CALC LDL CHOL (test code = 2237) 71 MG/DL RISK RATIO LDL/HDL (test cod e = 2238) 1.25 RATIO León CelisCOMPREHENSIVE METABOLIC [id number] 00:00:00* Test Item Value Reference Range Interpretation Comme nts GLUCOSE (test code = 2217) 109 MG/DL BUN (test code = 2208) 6 MG/DL CREATININE (test code = 2214) 0.61 MG/DL eGFR AMER. (test cod e = 95657) 116 ML/MIN/1.73 eGFR NON- AMER. (test code = 43195) 100 ML/MIN/1.73 CALC BUN/CREAT (test code = [...] = 2219) 23 U/L León Cleary AustinLIPID [id number] 00:00:00* Test Item Value Reference Range Interpretation Comme nts CHOLESTEROL (test code = 2210) 145 MG/DL TRIGLYCERIDES (test code = 2232) 83 MG/DL HDL CHOLESTEROL (test code = 2220) 57 MG/DL CALC LDL CHOL (test code = 2237) 71 MG/DL RISK RATIO LDL/HDL (test cod e = 2238) 1.25 RATIO León CelisCOMPREHENSIVE METABOLIC [id number] 00:00:00* Test Item Value Reference Range Interpretation Comme nts GLUCOSE (test code = 2217) 109 MG/DL BUN (test code = 2208) 6 MG/DL CREATININE (test code = 2214) 0.61 MG/DL eGFR AMER. (test cod e = 64463) 116 ML/MIN/1.73 eGFR NON- AMER. (test code = 04104) 100 ML/MIN/1.73 CALC BUN/CREAT (test code = [...] code = 2219) 23 U/L León CelisLIPID [id number] 00:00:00* Test Item Value Reference Range Interpretation Comme nts CHOLESTEROL (test code = 2210) 145 MG/DL TRIGLYCERIDES (test code = 2232) 83 MG/DL HDL CHOLESTEROL (test code = 2220) 57 MG/DL CALC LDL CHOL (test code = 2237) 71 MG/DL RISK RATIO LDL/HDL (test cod e = 2238) 1.25 RATIO Lenó Cleary AustinCOMPREHENSIVE METABOLIC [id number] 00:00:00* Test Item Value Reference Range Interpretation Comme nts GLUCOSE (test code = 2217) 109 MG/DL BUN (test code = 2208) 6 MG/DL CREATININE (test code = 2214) 0.61 MG/DL eGFR AMER. (test cod e = 70407) 116 ML/MIN/1.73 eGFR NON- AMER. (test code = 75443) 100 ML/MIN/1.73 CALC BUN/CREAT (test code = [...] = 2219) 23 U/L León Cleary AustinLIPID [id number] 00:00:00* Test Item Value Reference Range Interpretation Comme nts CHOLESTEROL (test code = 2210) 145 MG/DL TRIGLYCERIDES (test code = 2232) 83 MG/DL HDL CHOLESTEROL (test code = 2220) 57 MG/DL CALC LDL CHOL (test code = 2237) 71 MG/DL RISK RATIO LDL/HDL (test cod e = 2238) 1.25 RATIO León Cleary AustinCOMPREHENSIVE METABOLIC [id number] 00:00:00* Test Item Value Reference Range Interpretation Comme nts GLUCOSE (test code = 2217) 109 MG/DL BUN (test code = 2208) 6 MG/DL CREATININE (test code = 2214) 0.61 MG/DL eGFR AMER. (test cod e = 92175) 116 ML/MIN/1.73 eGFR NON- AMER. (test code = 55070) 100 ML/MIN/1.73 CALC BUN/CREAT (test code = [...] 0.4 MG/DL ALKALINE PHOSPHATASE (test code = 220) 116 U/L AST (test code = 2218) 24 U/L ALT (test code = 2219) 23 U/L León F [id number] (COVID-19) by RT-PCR (HIGH RISK)2020-01-30 00:00:00* Test Item Value Reference Range Interpretation Comme nts SARS-CoV-2 INTERPRETATION (t est code = 48106) NEGATIVE SOURCE (test code = 21766) NOT SPECIFIED León Madiha [id number] (COVID-19) by RT-PCR (HIGH RISK)2020-01-30 00:00:00* Test Item Value Reference Range Interpretation Comme nts SARS-CoV-2 INTERPRETATION (t est code = 60484) NEGATIVE SOURCE (test code = 85562) NOT SPECIFIED León F [id number] (COVID-19) by RT-PCR (HIGH RISK)2020-01-30 00:00:00* Test Item Value Reference Range Interpretation Comme nts SARS-CoV-2 INTERPRETATION (t est code = 12186) NEGATIVE SOURCE (test code = 41973) NOT SPECIFIED León F [id number] (COVID-19) by RT-PCR (HIGH RISK)2020-01-30 00:00:00* Test Item Value Reference Range Interpretation Comme nts SARS-CoV-2 INTERPRETATION (t est code = 53138) NEGATIVE SOURCE (test code = 42041) NOT SPECIFIED León F [id number] (COVID-19) by RT-PCR (HIGH RISK)2020-01-30 00:00:00* Test Item Value Reference Range Interpretation Comme nts SARS-CoV-2 INTERPRETATION (t est code = 91358) NEGATIVE SOURCE (test code = 90151) NOT SPECIFIED León Cleary AustinVAGINAL PATHOGENS DNA [id number] 00:00:00* Test Item Value Reference Range Interpretation Comme nts RAJESH SPECIES (test code = 91745) NEGATIVE G. VAGINALIS (test code = 88778) POSITIVE T. VAGINALIS (test code = 59184) NEGATIVE León Cleary AustinVAGINAL PATHOGENS DNA [id number] 00:00:00* Test Item Value Reference Range Interpretation Comme nts RAJESH SPECIES (test code = 07035) NEGATIVE G. VAGINALIS (test code = 50108) POSITIVE T. VAGINALIS (test code = 43845) NEGATIVE León CelisVAGINAL PATHOGENS DNA [id number] 00:00:00* Test Item Value Reference Range Interpretation Comme nts RAJESH SPECIES (test code = 87507) NEGATIVE G. VAGINALIS (test code = 58418) POSITIVE T. VAGINALIS (test code = 81609) NEGATIVE León Cleary AustinVAGINAL PATHOGENS DNA [id number] 00:00:00* Test Item Value Reference Range Interpretation Comme nts RAJESH SPECIES (test code = 03660) NEGATIVE G. VAGINALIS (test code = 15070) POSITIVE T. VAGINALIS (test code = 49060) NEGATIVE León Cleary AustinVAGINAL PATHOGENS DNA [id number] 00:00:00* Test Item Value Reference Range Interpretation Comme nts RAJESH SPECIES (test code = 18442) NEGATIVE G. VAGINALIS (test code = 66721) POSITIVE T. VAGINALIS (test code = 35414) NEGATIVE León CelisCBC W/AUTO [id number] 00:00:00* Test Item Value Reference Range Interpretation [...] code = 1015) 229 K/UL León CelisLIPID [id number] 00:00:00* Test Item Value Reference Range Interpretation Comme nts CHOLESTEROL (test code = 2210) 190 MG/DL TRIGLYCERIDES (test code = 2232) 78 MG/DL HDL CHOLESTEROL (test code = 2220) 58 MG/DL CALC LDL CHOL (test code = 2237) 116 MG/DL RISK RATIO LDL/HDL (test cod e = 2238) 2.01 RATIO León CelisHEMOGLOBIN [id number] 00:00:00* Test Item Value Reference Range Interpretation Comme nts HEMOGLOBIN A1c (test code = 10704) 5.4 % León CelisCOMPREHENSIVE METABOLIC [id number] 00:00:00* Test Item Value Reference Range Interpretation Comme nts GLUCOSE (test code = 2217) 90 MG/DL BUN (test code = 2208) 13 MG/DL CREATININE (test code = 2214) 0.57 MG/DL eGFR AMER. (test cod e = 92508) 119 ML/MIN/1.73 eGFR NON- AMER. (test code = 28300) 103 ML/MIN/1.73 CALC BUN/CREAT (test code = [...] (test code = 2219) 39 U/L León [id number] 00:00:00* Test Item Value Reference Range Interpretation Comme antonia TSH, THIRD GENERATION (test code = 2821) 2.240 UIU/ML León CelisCBC W/AUTO [id number] 00:00:00* Test Item Value Reference Range Interpretation [...] code = 1015) 229 K/UL León CelisLIPID [id number] 00:00:00* Test Item Value Reference Range Interpretation Comme nts CHOLESTEROL (test code = 2210) 190 MG/DL TRIGLYCERIDES (test code = 2232) 78 MG/DL HDL CHOLESTEROL (test code = 2220) 58 MG/DL CALC LDL CHOL (test code = 2237) 116 MG/DL RISK RATIO LDL/HDL (test cod e = 2238) 2.01 RATIO León CelisHEMOGLOBIN [id number] 00:00:00* Test Item Value Reference Range Interpretation Comme antonia HEMOGLOBIN A1c (test code = 93136) 5.4 % León CelisCOMPREHENSIVE METABOLIC [id number] 00:00:00* Test Item Value Reference Range Interpretation Comme nts GLUCOSE (test code = 2217) 90 MG/DL BUN (test code = 2208) 13 MG/DL CREATININE (test code = 2214) 0.57 MG/DL eGFR AMER. (test cod e = 65693) 119 ML/MIN/1.73 eGFR NON- AMER. (test code = 00643) 103 ML/MIN/1.73 CALC BUN/CREAT (test code = [...] (test code = 2219) 39 U/L León [id number] 00:00:00* Test Item Value Reference Range Interpretation Comme nts TSH, THIRD GENERATION (test code = 2821) 2.240 UIU/ML León CelisCBC W/AUTO [id number] 00:00:00* Test Item Value Reference Range Interpretation [...] code = 1015) 229 K/UL León CelisLIPID [id number] 00:00:00* Test Item Value Reference Range Interpretation Comme nts CHOLESTEROL (test code = 2210) 190 MG/DL TRIGLYCERIDES (test code = 2232) 78 MG/DL HDL CHOLESTEROL (test code = 2220) 58 MG/DL CALC LDL CHOL (test code = 2237) 116 MG/DL RISK RATIO LDL/HDL (test cod e = 2238) 2.01 RATIO León CelisHEMOGLOBIN [id number] 00:00:00* Test Item Value Reference Range Interpretation Comme nts HEMOGLOBIN A1c (test code = 82819) 5.4 % León CelisCOMPREHENSIVE METABOLIC [id number] 00:00:00* Test Item Value Reference Range Interpretation Comme nts GLUCOSE (test code = 2217) 90 MG/DL BUN (test code = 2208) 13 MG/DL CREATININE (test code = 2214) 0.57 MG/DL eGFR AMER. (test cod e = 02612) 119 ML/MIN/1.73 eGFR NON- AMER. (test code = 80737) 103 ML/MIN/1.73 CALC BUN/CREAT (test code = [...] (test code = 2219) 39 U/L León [id number] 00:00:00* Test Item Value Reference Range Interpretation Comme nts TSH, THIRD GENERATION (test code = 2821) 2.240 UIU/ML León CelisCBC W/AUTO [id number] 00:00:00* Test Item Value Reference Range Interpretation [...] code = 1015) 229 K/UL León CelisLIPID [id number] 00:00:00* Test Item Value Reference Range Interpretation Comme nts CHOLESTEROL (test code = 2210) 190 MG/DL TRIGLYCERIDES (test code = 2232) 78 MG/DL HDL CHOLESTEROL (test code = 2220) 58 MG/DL CALC LDL CHOL (test code = 2237) 116 MG/DL RISK RATIO LDL/HDL (test cod e = 2238) 2.01 RATIO León CelisHEMOGLOBIN [id number] 00:00:00* Test Item Value Reference Range Interpretation Comme nts HEMOGLOBIN A1c (test code = 83746) 5.4 % León CelisCOMPREHENSIVE METABOLIC [id number] 00:00:00* Test Item Value Reference Range Interpretation Comme nts GLUCOSE (test code = 2217) 90 MG/DL BUN (test code = 2208) 13 MG/DL CREATININE (test code = 2214) 0.57 MG/DL eGFR AMER. (test cod e = 57095) 119 ML/MIN/1.73 eGFR NON- AMER. (test code = 20697) 103 ML/MIN/1.73 CALC BUN/CREAT (test code = [...] (test code = 2219) 39 U/L León [id number] 00:00:00* Test Item Value Reference Range Interpretation Comme nts TSH, THIRD GENERATION (test code = 2821) 2.240 UIU/ML León CelisCBC W/AUTO [id number] 00:00:00* Test Item Value Reference Range Interpretation [...] code = 1015) 229 K/UL León CelisLIPID [id number] 00:00:00* Test Item Value Reference Range Interpretation Comme nts CHOLESTEROL (test code = 2210) 190 MG/DL TRIGLYCERIDES (test code = 2232) 78 MG/DL HDL CHOLESTEROL (test code = 2220) 58 MG/DL CALC LDL CHOL (test code = 2237) 116 MG/DL RISK RATIO LDL/HDL (test cod e = 2238) 2.01 RATIO León CelisHEMOGLOBIN [id number] 00:00:00* Test Item Value Reference Range Interpretation Comme nts HEMOGLOBIN A1c (test code = 08558) 5.4 % León Cleary [facility] [id number] 00:00:00* Test Item Value Reference Range Interpretation Comme nts GLUCOSE (test code = 2217) 90 MG/DL BUN (test code = 2208) 13 MG/DL CREATININE (test code = 2214) 0.57 MG/DL eGFR AMER. (test cod e = 45223) 119 ML/MIN/1.73 eGFR NON- AMER. (test code = 02632) 103 ML/MIN/1.73 CALC BUN/CREAT (test code = [...] (test code = 2219) 39 U/L León Cleary [id number] 00:00:00* Test Item Value Reference Range Interpretation Comme [facility] TSH, THIRD GENERATION (test code = 2821) 2.240 UIU/ML León Cleary [facility] [id number] 00:00:00* Test Item Value Reference Range Interpretation Comme nts GLUCOSE (test code = 2217) 94 MG/DL BUN (test code = 2208) 17 MG/DL CREATININE (test code = 2214) 0.60 MG/DL eGFR AMER. (test cod e = 81855) 119 ML/MIN/1.73 eGFR NON- AMER. (test code = 98185) 103 ML/MIN/1.73 CALC BUN/CREAT (test code = [...] (test code = 2219) 29 U/L León Cleary [place] [id number] 00:00:00* Test Item Value Reference Range Interpretation Comme nts GLUCOSE (test code = 2217) 94 MG/DL BUN (test code = 2208) 17 MG/DL CREATININE (test code = 2214) 0.60 MG/DL eGFR AMER. (test cod e = 04576) 119 ML/MIN/1.73 eGFR NON- AMER. (test code = 67208) 103 ML/MIN/1.73 CALC BUN/CREAT (test code = [...] code = 2219) 29 U/L León Madiha [place]townCOMPREHENSIVE MET[place] [id number] 00:00:00* Test Item Value Reference Range Interpretation Comme nts GLUCOSE (test code = 2217) 94 MG/DL BUN (test code = 2208) 17 MG/DL CREATININE (test code = 2214) 0.60 MG/DL eGFR AMER. (test cod e = 01429) 119 ML/MIN/1.73 eGFR NON- AMER. (test code = 20186) 103 ML/MIN/1.73 CALC BUN/CREAT (test code = [...] code = 2219) 29 U/L León Madiha [place]COMPREHENSIVE MET[place] [id number] 00:00:00* Test Item Value Reference Range Interpretation Comme nts GLUCOSE (test code = 2217) 94 MG/DL BUN (test code = 2208) 17 MG/DL CREATININE (test code = 2214) 0.60 MG/DL eGFR AMER. (test cod e = 25620) 119 ML/MIN/1.73 eGFR NON- AMER. (test code = 44878) 103 ML/MIN/1.73 CALC BUN/CREAT (test code = [...] (test code = 2219) 29 U/L León CelisCOMPREHENSIVE METABOLIC [id number] 00:00:00* Test Item Value Reference Range Interpretation Comme nts GLUCOSE (test code = 2217) 94 MG/DL BUN (test code = 2208) 17 MG/DL CREATININE (test code = 2214) 0.60 MG/DL eGFR AMER. (test cod e = 60716) 119 ML/MIN/1.73 eGFR NON- AMER. (test code = 27834) 103 ML/MIN/1.73 CALC BUN/CREAT (test code = [...] (test code = 2219) 29 U/L León Cleary AustinHPV HIGH RISK WITH GENOTYPE, [id number] 00:00:00* Test Item Value Reference Range Interpretation Comme nts HPV HIGH RISK INTERP (test c ode = 55817) NEGATIVE HPV 16 (test code = 88223) NEGATIVE HPV 18 (test code = 57133) NEGATIVE HPV, HR, OTHER GENOTYPES (te st code = 60648) NEGATIVE León CelisPAP TEST, THINPREP, [id number] 00:00:00* Test Item Value Reference Range Interpretation Comme nts SOURCE: (test code = 8001) Cervical/Endocervical SLIDES: (test code = 8011) 1 LMP: (test code = 8021) SPECIMEN ADEQUACY: (test code = 63597) (NOTE) INTERPRETATION: (test code = 38796) NO EPITHELIAL ABNORMALITY SEE BELOW STAFF ELECTRICAL ENGINEER: (test code = 8101) BIJU Gomez(ASCP)IAC LOCATION: (test code = 18111) (NOTE) CPT: (test code = 8140) (NOTE) León F AustinHPV HIGH RISK WITH GENOTYPE, [id number] 00:00:00* Test Item Value Reference Range Interpretation Comme nts HPV HIGH RISK INTERP (test c ode = 08665) NEGATIVE HPV 16 (test code = 19144) NEGATIVE HPV 18 (test code = 36183) NEGATIVE HPV, HR, OTHER GENOTYPES (te st code = 75681) NEGATIVE León F AustinPAP TEST, THINPREP, [id number] 00:00:00* Test Item Value Reference Range Interpretation Comme nts SOURCE: (test code = 8001) Cervical/Endocervical SLIDES: (test code = 8011) 1 LMP: (test code = 8021) SPECIMEN ADEQUACY: (test code = 89529) (NOTE) INTERPRETATION: (test code = 19319) NO EPITHELIAL ABNORMALITY SEE BELOW STAFF ELECTRICAL ENGINEER: (test code = 8101) BIJU Gomez(ASCP)IAC LOCATION: (test code = 18073) (NOTE) CPT: (test code = 8140) (NOTE) León F AustinHPV HIGH RISK WITH GENOTYPE, [id number] 00:00:00* Test Item Value Reference Range Interpretation Comme nts HPV HIGH RISK INTERP (test c ode = 46271) NEGATIVE HPV 16 (test code = 82175) NEGATIVE HPV 18 (test code = 71171) NEGATIVE HPV, HR, OTHER GENOTYPES (te st code = 76632) NEGATIVE León F AustinPAP TEST, THINPREP, [id number] 00:00:00* Test Item Value Reference Range Interpretation Comme nts SOURCE: (test code = 8001) Cervical/Endocervical SLIDES: (test code = 8011) 1 LMP: (test code = 8021) SPECIMEN ADEQUACY: (test code = 29051) (NOTE) INTERPRETATION: (test code = 00528) NO EPITHELIAL ABNORMALITY SEE BELOW STAFF ELECTRICAL ENGINEER: (test code = 8101) BIJU Gomez(ASCP)IAC LOCATION: (test code = 38745) (NOTE) CPT: (test code = 8140) (NOTE) León Cleary AustinHPV HIGH RISK WITH GENOTYPE, [id number] 00:00:00* Test Item Value Reference Range Interpretation Comme nts HPV HIGH RISK INTERP (test c ode = 73494) NEGATIVE HPV 16 (test code = 56211) NEGATIVE HPV 18 (test code = 53446) NEGATIVE HPV, HR, OTHER GENOTYPES (te st code = 25846) NEGATIVE León CelisPAP TEST, THINPREP, [id number] 00:00:00* Test Item Value Reference Range Interpretation Comme nts SOURCE: (test code = 8001) Cervical/Endocervical SLIDES: (test code = 8011) 1 LMP: (test code = 8021) SPECIMEN ADEQUACY: (test code = 35092) (NOTE) INTERPRETATION: (test code = 84714) NO EPITHELIAL ABNORMALITY SEE BELOW STAFF ELECTRICAL ENGINEER: (test code = 8101) BIJU Gomez(ASCP)IAC LOCATION: (test code = 88687) (NOTE) CPT: (test code = 8140) (NOTE) León Cleary AustinHPV HIGH RISK WITH GENOTYPE, [id number] 00:00:00* Test Item Value Reference Range Interpretation Comme nts HPV HIGH RISK INTERP (test c ode = 60610) NEGATIVE HPV 16 (test code = 09653) NEGATIVE HPV 18 (test code = 22480) NEGATIVE HPV, HR, OTHER GENOTYPES (te st code = 40574) NEGATIVE León Cleary AustinPAP TEST, THINPREP, [id number] 00:00:00* Test Item Value Reference Range Interpretation Comme nts SOURCE: (test code = 8001) Cervical/Endocervical SLIDES: (test code = 8011) 1 LMP: (test code = 8021) SPECIMEN ADEQUACY: (test code = 38479) (NOTE) INTERPRETATION: (test code = 54779) NO EPITHELIAL ABNORMALITY SEE BELOW STAFF ELECTRICAL ENGINEER: (test code = 8101) BIJU Gomez(ASCP)IAC LOCATION: (test code = 49472) (NOTE) CPT: (test code = 8140) (NOTE) León CeilsHEMOGLOBIN [id number] 00:00:00* Test Item Value Reference Range Interpretation Comme nts HEMOGLOBIN A1c (test code = 43589) 5.7 % León CelisCBC W/AUTO [id number] 00:00:00* Test Item Value Reference Range Interpretation [...] = 1015) 244 K/UL León CelisCOMPREHENSIVE METABOLIC [id number] 00:00:00* Test Item Value Reference Range Interpretation Comme nts GLUCOSE (test code = 2217) 93 MG/DL BUN (test code = 2208) 17 MG/DL CREATININE (test code = 2214) 0.67 MG/DL eGFR AMER. (test cod e = 16478) 115 ML/MIN/1.73 eGFR NON- AMER. (test code = 38347) 100 ML/MIN/1.73 CALC BUN/CREAT (test code = [...] code = 2219) 26 U/L León CelisLIPID [id number] 00:00:00* Test Item Value Reference Range Interpretation [...] code = 2821) 3.11 UIU/ML León CelisHEMOGLOBIN [id number] 00:00:00* Test Item Value Reference Range Interpretation Comme [facility] HEMOGLOBIN A1c (test code = 57199) 5.7 % León CelisCBC W/AUTO [id number] 00:00:00* Test Item Value Reference Range Interpretation [...] = 1015) 244 K/UL León CelisCOMPREHENSIVE METABOLIC [id number] 00:00:00* Test Item Value Reference Range Interpretation Comme nts GLUCOSE (test code = 2217) 93 MG/DL BUN (test code = 2208) 17 MG/DL CREATININE (test code = 2214) 0.67 MG/DL eGFR AMER. (test cod e = 60499) 115 ML/MIN/1.73 eGFR NON- AMER. (test code = 32500) 100 ML/MIN/1.73 CALC BUN/CREAT (test code = [...] code = 2219) 26 U/L León CelisLIPID [id number] 00:00:00* Test Item Value Reference Range Interpretation [...] code = 2821) 3.11 UIU/ML León CelisHEMOGLOBIN [id number] 00:00:00* Test Item Value Reference Range Interpretation Comme nts HEMOGLOBIN A1c (test code = 88305) 5.7 % León CelisCBC W/AUTO [id number] 00:00:00* Test Item Value Reference Range Interpretation [...] = 1015) 244 K/UL León CelisCOMPREHENSIVE METABOLIC [id number] 00:00:00* Test Item Value Reference Range Interpretation Comme nts GLUCOSE (test code = 2217) 93 MG/DL BUN (test code = 2208) 17 MG/DL CREATININE (test code = 2214) 0.67 MG/DL eGFR AMER. (test cod e = 00161) 115 ML/MIN/1.73 eGFR NON- AMER. (test code = 43885) 100 ML/MIN/1.73 CALC BUN/CREAT (test code = [...] code = 2219) 26 U/L León CelisLIPID [id number] 00:00:00* Test Item Value Reference Range Interpretation [...] code = 2821) 3.11 UIU/ML León CelisHEMOGLOBIN [id number] 00:00:00* Test Item Value Reference Range Interpretation Comme [facility] HEMOGLOBIN A1c (test code = 61081) 5.7 % León CelisCBC W/AUTO [id number] 00:00:00* Test Item Value Reference Range Interpretation [...] = 1015) 244 K/UL León CelisCOMPREHENSIVE METABOLIC [id number] 00:00:00* Test Item Value Reference Range Interpretation Comme nts GLUCOSE (test code = 2217) 93 MG/DL BUN (test code = 2208) 17 MG/DL CREATININE (test code = 2214) 0.67 MG/DL eGFR AMER. (test cod e = 61686) 115 ML/MIN/1.73 eGFR NON- AMER. (test code = 44961) 100 ML/MIN/1.73 CALC BUN/CREAT (test code = [...] code = 2219) 26 U/L León CelisLIPID [id number] 00:00:00* Test Item Value Reference Range Interpretation [...] code = 2821) 3.11 UIU/ML León CelisHEMOGLOBIN [id number] 00:00:00* Test Item Value Reference Range Interpretation Comme nts HEMOGLOBIN A1c (test code = 08326) 5.7 % León CelisCBC W/AUTO [id number] 00:00:00* Test Item Value Reference Range Interpretation [...] = 1015) 244 K/UL León CelisCOMPREHENSIVE METABOLIC [id number] 00:00:00* Test Item Value Reference Range Interpretation Comme nts GLUCOSE (test code = 2217) 93 MG/DL BUN (test code = 2208) 17 MG/DL CREATININE (test code = 2214) 0.67 MG/DL eGFR AMER. (test cod e = 33306) 115 ML/MIN/1.73 eGFR NON- AMER. (test code = 70807) 100 ML/MIN/1.73 CALC BUN/CREAT (test code = [...] = 2219) 26 U/L León Cleary AustinLIPID [id number] 00:00:00* Test Item Value Reference Range Interpretation [...] (test code = 2821) 3.11 UIU/ML León Cleary AustinTHYROID II PROFILE (T3U, [...] (test code = 2821) 1.9 UIU/ML León F AustinTHYROID II PROFILE (T3U, T4, T7, TSH)2016-04-09 [...] code = 2821) 1.9 UIU/ML León Cleary AustinVAGINAL PATHOGENS DNA [id number] 00:00:00* Test Item Value Reference Range Interpretation Comme nts RAJESH SPECIES (test code = 67995) NEGATIVE G. VAGINALIS (test code = 26672) NEGATIVE T. VAGINALIS (test code = 34888) POSITIVE León CelisGC, AMPLIFIED, [id number] 00:00:00* Test Item Value Reference Range Interpretation Comme nts GONORRHEA, TMA (test code = 70759) NEGATIVE León Cleary AustinCHLAMYDIA, AMPLIFIED, [id number] 00:00:00* Test Item Value Reference Range Interpretation Comme nts CHLAMYDIA, TMA (test code = 49551) NEGATIVE León Cleary AustinVAGINAL PATHOGENS DNA [id number] 00:00:00* Test Item Value Reference Range Interpretation Comme nts RAJESH SPECIES (test code = 03649) NEGATIVE G. VAGINALIS (test code = 62626) NEGATIVE T. VAGINALIS (test code = 52707) POSITIVE León Cleary AustinGC, AMPLIFIED, [id number] 00:00:00* Test Item Value Reference Range Interpretation Comme nts GONORRHEA, TMA (test code = 19706) NEGATIVE León Cleary AustinCHLAMYDIA, AMPLIFIED, [id number] 00:00:00* Test Item Value Reference Range Interpretation Comme nts CHLAMYDIA, TMA (test code = 34037) NEGATIVE León Cleary AustinVAGINAL PATHOGENS DNA [id number] 00:00:00* Test Item Value Reference Range Interpretation Comme nts RAJESH SPECIES (test code = ) NEGATIVE G. VAGINALIS (test code = 29004) NEGATIVE T. VAGINALIS (test code = ) POSITIVE León Cleary AustinGC, AMPLIFIED, [id number] 00:00:00* Test Item Value Reference Range Interpretation Comme nts GONORRHEA, TMA (test code = 20284) NEGATIVE León Cleary AustinCHLAMYDIA, AMPLIFIED, [id number] 00:00:00* Test Item Value Reference Range Interpretation Comme nts CHLAMYDIA, TMA (test code = 44670) NEGATIVE León F AustinVAGINAL PATHOGENS DNA [id number] 00:00:00* Test Item Value Reference Range Interpretation Comme nts RAJESH SPECIES (test code = ) NEGATIVE G. VAGINALIS (test code = 11165) NEGATIVE T. VAGINALIS (test code = 99879) POSITIVE León Cleary AustinGC, AMPLIFIED, [id number] 00:00:00* Test Item Value Reference Range Interpretation Comme nts GONORRHEA, TMA (test code = 00632) NEGATIVE León F AustinCHLAMYDIA, AMPLIFIED, [id number] 00:00:00* Test Item Value Reference Range Interpretation Comme nts CHLAMYDIA, TMA (test code = 32598) NEGATIVE León F AustinVAGINAL PATHOGENS DNA [id number] 00:00:00* Test Item Value Reference Range Interpretation Comme nts RAJESH SPECIES (test code = 92718) NEGATIVE G. VAGINALIS (test code = 35135) NEGATIVE T. VAGINALIS (test code = 91023) POSITIVE León Cleary AustinGC, AMPLIFIED, [id number] 00:00:00* Test Item Value Reference Range Interpretation Comme nts GONORRHEA, TMA (test code = 49380) NEGATIVE León CelisCHLAMYDIA, AMPLIFIED, [id number] 00:00:00* Test Item Value Reference Range Interpretation Comme nts CHLAMYDIA, TMA (test code = 90249) NEGATIVE León CelisLIPID [id number] 00:00:00* Test Item Value Reference Range Interpretation Comme nts CHOLESTEROL (test code = 2210) 161 MG/DL TRIGLYCERIDES (test code = 2232) 55 MG/DL HDL CHOLESTEROL (test code = 2220) 55 MG/DL CALCULATED LDL CHOL (test co de = 2237) 95 MG/DL RISK RATIO LDL/HDL (test cod e = 2238) 1.73 RATIO León CelisCOMPREHENSIVE METABOLIC [id number] 00:00:00* Test Item Value Reference Range Interpretation Comme nts GLUCOSE (test code = 2217) 88 MG/DL BUN (test code = 2208) 18 MG/DL CREATININE (test code = 2214) 0.64 MG/DL eGFR AMER. (test cod e = 12313) 117 ML/MIN/1.73 eGFR NON- AMER. (test code = 39342) 101 ML/MIN/1.73 CALCULATED BUN/CREAT (test code = [...] code = 2219) 18 U/L León CelisLIPID [id number] 00:00:00* Test Item Value Reference Range Interpretation Comme nts CHOLESTEROL (test code = 2210) 161 MG/DL TRIGLYCERIDES (test code = 2232) 55 MG/DL HDL CHOLESTEROL (test code = 2220) 55 MG/DL CALCULATED LDL CHOL (test co de = 2237) 95 MG/DL RISK RATIO LDL/HDL (test cod e = 2238) 1.73 RATIO León CelisCOMPREHENSIVE METABOLIC [id number] 00:00:00* Test Item Value Reference Range Interpretation Comme nts GLUCOSE (test code = 2217) 88 MG/DL BUN (test code = 2208) 18 MG/DL CREATININE (test code = 2214) 0.64 MG/DL eGFR AMER. (test cod e = 51818) 117 ML/MIN/1.73 eGFR NON- AMER. (test code = 72593) 101 ML/MIN/1.73 CALCULATED BUN/CREAT (test code = [...] = 2219) 18 U/L León Cleary AustinLIPID [id number] 00:00:00* Test Item Value Reference Range Interpretation Comme nts CHOLESTEROL (test code = 2210) 161 MG/DL TRIGLYCERIDES (test code = 2232) 55 MG/DL HDL CHOLESTEROL (test code = 2220) 55 MG/DL CALCULATED LDL CHOL (test co de = 2237) 95 MG/DL RISK RATIO LDL/HDL (test cod e = 2238) 1.73 RATIO León CelisCOMPREHENSIVE METABOLIC [id number] 00:00:00* Test Item Value Reference Range Interpretation Comme nts GLUCOSE (test code = 2217) 88 MG/DL BUN (test code = 2208) 18 MG/DL CREATININE (test code = 2214) 0.64 MG/DL eGFR AMER. (test cod e = 40231) 117 ML/MIN/1.73 eGFR NON- AMER. (test code = 55981) 101 ML/MIN/1.73 CALCULATED BUN/CREAT (test code = [...] = 2219) 18 U/L León Cleary AustinLIPID [id number] 00:00:00* Test Item Value Reference Range Interpretation Comme nts CHOLESTEROL (test code = 2210) 161 MG/DL TRIGLYCERIDES (test code = 2232) 55 MG/DL HDL CHOLESTEROL (test code = 2220) 55 MG/DL CALCULATED LDL CHOL (test co de = 2237) 95 MG/DL RISK RATIO LDL/HDL (test cod e = 2238) 1.73 RATIO León Cleary AustinCOMPREHENSIVE METABOLIC [id number] 00:00:00* Test Item Value Reference Range Interpretation Comme nts GLUCOSE (test code = 2217) 88 MG/DL BUN (test code = 2208) 18 MG/DL CREATININE (test code = 2214) 0.64 MG/DL eGFR AMER. (test cod e = 70498) 117 ML/MIN/1.73 eGFR NON- AMER. (test code = 52668) 101 ML/MIN/1.73 CALCULATED BUN/CREAT (test code = [...] (test code = 2219) 18 U/L León Madiha YorktownLIPID [id number] 00:00:00* Test Item Value Reference Range Interpretation Comme nts CHOLESTEROL (test code = 2210) 161 MG/DL TRIGLYCERIDES (test code = 2232) 55 MG/DL HDL CHOLESTEROL (test code = 2220) 55 MG/DL CALCULATED LDL CHOL (test co de = 2237) 95 MG/DL RISK RATIO LDL/HDL (test cod e = 2238) 1.73 RATIO León CelisCOMPREHENSIVE METABOLIC [id number] 00:00:00* Test Item Value Reference Range Interpretation Comme nts GLUCOSE (test code = 2217) 88 MG/DL BUN (test code = 2208) 18 MG/DL CREATININE (test code = 2214) 0.64 MG/DL eGFR AMER. (test cod e = 58796) 117 ML/MIN/1.73 eGFR NON- AMER. (test code = 52889) 101 ML/MIN/1.73 CALCULATED BUN/CREAT (test code = [...] (test code = 2219) 18 U/L León CelisCOMPREHENSIVE METABOLIC [id number] 00:00:00* Test Item Value Reference Range Interpretation Comme nts GLUCOSE (test code = 2217) 80 MG/DL BUN (test code = 2208) 15 MG/DL CREATININE (test code = 2214) 0.6 MG/DL eGFR AMER. (test cod e = 79643) 127 ML/MIN/1.73 eGFR NON- AMER. (test code = 86159) 105 ML/MIN/1.73 CALCULATED BUN/CREAT (test code = [...] (test code = 2219) 28 U/L León [id number] 00:00:00* Test Item Value Reference Range Interpretation Comme nts TSH (test code = 2821) 2.8 UIU/ML León CelisLIPID [id number] 00:00:00* Test Item Value Reference Range Interpretation Comme nts CHOLESTEROL (test code = 2210) 162 MG/DL TRIGLYCERIDES (test code = 2232) 85 MG/DL HDL CHOLESTEROL (test code = 2220) 50 MG/DL CALCULATED LDL CHOL (test co de = 2237) 95 MG/DL RISK RATIO LDL/HDL (test cod e = 2238) 1.90 RATIO León CelisCOMPREHENSIVE METABOLIC [id number] 00:00:00* Test Item Value Reference Range Interpretation Comme nts GLUCOSE (test code = 2217) 80 MG/DL BUN (test code = 2208) 15 MG/DL CREATININE (test code = 2214) 0.6 MG/DL eGFR AMER. (test cod e = 74656) 127 ML/MIN/1.73 eGFR NON- AMER. (test code = 09668) 105 ML/MIN/1.73 CALCULATED BUN/CREAT (test code = [...] (test code = 2219) 28 U/L León [id number] 00:00:00* Test Item Value Reference Range Interpretation Comme nts TSH (test code = 2821) 2.8 UIU/ML León CelisLIPID [id number] 00:00:00* Test Item Value Reference Range Interpretation Comme nts CHOLESTEROL (test code = 2210) 162 MG/DL TRIGLYCERIDES (test code = 2232) 85 MG/DL HDL CHOLESTEROL (test code = 2220) 50 MG/DL CALCULATED LDL CHOL (test co de = 2237) 95 MG/DL RISK RATIO LDL/HDL (test cod e = 2238) 1.90 RATIO León CelisCOMPREHENSIVE METABOLIC [id number] 00:00:00* Test Item Value Reference Range Interpretation Comme nts GLUCOSE (test code = 2217) 80 MG/DL BUN (test code = 2208) 15 MG/DL CREATININE (test code = 2214) 0.6 MG/DL eGFR AMER. (test cod e = 09965) 127 ML/MIN/1.73 eGFR NON- AMER. (test code = 62692) 105 ML/MIN/1.73 CALCULATED BUN/CREAT (test code = [...] (test code = 2219) 28 U/L León [id number] 00:00:00* Test Item Value Reference Range Interpretation Comme nts TSH (test code = 2821) 2.8 UIU/ML León Cleary AustinLIPID [id number] 00:00:00* Test Item Value Reference Range Interpretation Comme nts CHOLESTEROL (test code = 2210) 162 MG/DL TRIGLYCERIDES (test code = 2232) 85 MG/DL HDL CHOLESTEROL (test code = 2220) 50 MG/DL CALCULATED LDL CHOL (test co de = 2237) 95 MG/DL RISK RATIO LDL/HDL (test cod e = 2238) 1.90 RATIO León CelisCOMPREHENSIVE METABOLIC [id number] 00:00:00* Test Item Value Reference Range Interpretation Comme nts GLUCOSE (test code = 2217) 80 MG/DL BUN (test code = 2208) 15 MG/DL CREATININE (test code = 2214) 0.6 MG/DL eGFR AMER. (test cod e = 18147) 127 ML/MIN/1.73 eGFR NON- AMER. (test code = 99997) 105 ML/MIN/1.73 CALCULATED BUN/CREAT (test code = [...] (test code = 2219) 28 U/L León [id number] 00:00:00* Test Item Value Reference Range Interpretation Comme nts TSH (test code = 2821) 2.8 UIU/ML León CelisLIPID [id number] 00:00:00* Test Item Value Reference Range Interpretation Comme nts CHOLESTEROL (test code = 2210) 162 MG/DL TRIGLYCERIDES (test code = 2232) 85 MG/DL HDL CHOLESTEROL (test code = 2220) 50 MG/DL CALCULATED LDL CHOL (test co de = 2237) 95 MG/DL RISK RATIO LDL/HDL (test cod e = 2238) 1.90 RATIO León CelisCOMPREHENSIVE METABOLIC [id number] 00:00:00* Test Item Value Reference Range Interpretation Comme nts GLUCOSE (test code = 2217) 80 MG/DL BUN (test code = 2208) 15 MG/DL CREATININE (test code = 2214) 0.6 MG/DL eGFR AMER. (test cod e = 35717) 127 ML/MIN/1.73 eGFR NON- AMER. (test code = 40018) 105 ML/MIN/1.73 CALCULATED BUN/CREAT (test code = [...] (test code = 2219) 28 U/L León [id number] 00:00:00* Test Item Value Reference Range Interpretation Comme nts TSH (test code = 2821) 2.8 UIU/ML León CelisLIPID [id number] 00:00:00* Test Item Value Reference Range Interpretation Comme nts CHOLESTEROL (test code = 2210) 162 MG/DL TRIGLYCERIDES (test code = 2232) 85 MG/DL HDL CHOLESTEROL (test code = 2220) 50 MG/DL CALCULATED LDL CHOL (test co de = 2237) 95 MG/DL RISK RATIO LDL/HDL (test cod e = 2238) 1.90 RATIO Leónraad Celis Notes Date/Time Note Provider [facility]24-[facility]-10 00:00:00 León [facility]2024-06-06 00:00[facility]00 [facility]2024-05-07 00:00:00 [facility]
[2024-11-09] MEDS ORDERED: KETOROLAC 30 MG/ML INJ ONE (02:24)
[2024-11-09] MEDS ORDERED: CYCLOBENZAPRINE 10 MG TAB ONE (02:27)
--- NOTE | 2024-11-09 04:19 | ER ---
Nurse's Notes [facility] Name: Jennifer Solorio Age: 63 yrs Sex: Female : 1960 Arrival Date: 11/09/2024 Time: 02:05 Bed 6 Private MD: Diagnosis: Pain in right shoulder Presentation: 11/09 02:21 Chief complaint: Patient states: right shoulder pain X1 week and i cant sleep. 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 Coronavirus screen: Client denies travel out of the [place] in the last 14 days. At this time, the client does not indicate any symptoms associated with coronavirus-19. Ebola Screen: No symptoms or risks identified at this time. Initial Sepsis Screen: Does the patient meet any 2 criteria? No. Patient's initial sepsis screen is negative. Does the patient have a suspected source of infection? No. Patient's initial sepsis screen is negative. Risk Assessment: Do you want to hurt yourself or someone else? Patient reports no desire to harm self or others. Onset of symptoms is unknown. 02:21 Method Of Arrival: Ambulatory lg3 02:21 Acuity: JUDITH 4 lg3 Triage Assessment: 02:25 General: Appears in no apparent distress. uncomfortable, Behavior is calm, cooperative. lg3 Pain: Complains of pain in right shoulder. EENT: No deficits noted. No signs and/or symptoms were reported regarding the EENT system. Neuro: No deficits noted. Michel Agitation-Sedation Scale (RASS): 0 - Alert and Calm Level of Consciousness is awake, alert, obeys commands, Oriented to person, place, time, situation. Cardiovascular: No deficits noted. Denies chest pain, shortness of breath, Capillary refill < 3 seconds Clubbing of nail beds is absent JVD is absent Patient's skin is warm and dry. Respiratory: No deficits noted. Airway is patent Respiratory effort is even, unlabored, Respiratory pattern is regular, symmetrical. GI: No deficits noted. No signs and/or symptoms were reported involving the gastrointestinal system. : No signs and/or symptoms were reported regarding the genitourinary system. Derm: No deficits noted. No signs and/or symptoms reported regarding the dermatologic system. Skin is intact, is healthy with good turgor, Skin is dry, Skin is normal, Skin temperature is warm. Musculoskeletal: Circulation, motion, and sensation intact. Range of motion: intact in all extremities, Reports pain in right shoulder. Historical: - Allergies: 02:25 PENICILLINS; lg3 - PMHx: 02:25 GALLSTONES; Hypertension; lg3 - PSHx: 02:25 Cholecystectomy; lg3 - Immunization history:: Adult Immunizations up to date. - Infectious Disease History:: Denies. - Social history:: Smoking status: Patient denies any tobacco usage or history of. Patient/guardian denies using alcohol, street drugs. - Family history:: not pertinent. Screenin:26 [facility] ED Fall Risk Assessment (Adult) History of falling in the last 3 months, lg3 including since admission No falls in past 3 months (0 pts) Confusion or Disorientation No (0 pts) Intoxicated or Sedated No (0 pts) Impaired Gait No (0 pts) Mobility Assist Device Used No (0 pt) Altered Elimination No (0 pt) Score/Fall Risk Level 0 - 2 = Low Risk Oriented to surroundings, Maintained a safe environment, Educated pt \T\ family on fall prevention, incl call for assistance when getting out of bed, Assessed \T\ reinforced patient's understanding of fall precautions. Abuse screen: Denies threats or abuse. Denies injuries from another. Nutritional screening: No deficits noted. Tuberculosis screening: No symptoms or risk factors identified. Assessment: : General: see triage assessment. lg3 04:21 Reassessment: Patient appears in no apparent distress at this time. No changes from 3 previously documented assessment. Patient and/or family updated on plan of care and expected duration. Pain level reassessed. Patient is alert, oriented x 3, equal unlabored respirations, skin warm/dry/pink. Vital Signs: 02:21 BP 164 / 110; Pulse 69; Resp 16 S; Temp 97.9(O); Pulse Ox 100% on R/A; Weight 104.33 kg lg3 (R); Height 5 ft. 2 in. (R); Pain 8/10; 04:22 BP 130 / 79; Pulse 61; Resp 16; Temp 97.7(O); Pulse Ox 100% on R/A; kd3 02:21 Body Mass Index 42.07 (104.33 kg, 157.48 cm) lg3 02:21 Pain Scale: Adult 3 ED Course: 02:17 Patient arrived in ED. gm2 02:17 Chandu Velazquez MD is Attending Physician. rt 02:25 Triage completed. lg3 02:25 Arm band placed on right wrist. lg3 02:26 Patient has correct armband on for positive identification. lg3 02:26 No provider procedures requiring assistance completed. lg3 03:05 Shoulder Right (2 View) XRAY In Process Unspecified. EDMS 04:20 Mae Quijano RN is Primary Nurse. kd3 04:24 Patient did not have IV access during this emergency room visit. lg3 Administered Medications: 02:32 Drug: Cyclobenzaprine PO 10 mg PO once Route: PO; lg3 04:20 Follow up: Response: No adverse reaction lg3 02:32 Drug: Ketorolac IM 30 mg IM once Route: IM; Site: left deltoid; lg3 04:20 Follow up: Response: No adverse reaction lg3 Medication: 02:26 VIS not applicable for this client. lg3 Outcome: 04:19 Discharge ordered by . rt 04:24 Discharged to home ambulatory, lg3 04:24 Condition: stable 04:24 Discharge instructions given to patient, Instructed on discharge instructions, follow up and referral plans. medication usage, Demonstrated understanding of instructions, follow-up care, medications, Prescriptions given X 1, 04:24 Patient left the ED. lg3 Signatures: Dispatcher [employer] Savannah Coats RN RN lg3 Mae Quijano, RN RN kd3 Chandu Velazquez MD MD rt Isabella Foster gm2
--- NOTE | 2024-11-09 04:19 | EDPHYS ---
Physician Documentation [facility] Name: Jennifer Solorio Age: 63 yrs Sex: Female : 1960 Arrival Date: 11/09/2024 Time: 02:05 Bed 6 Private MD: ED Physician Chandu Velazquez HPI: 11/09 04:34 This 63 yrs old Female presents to ER via Ambulatory with complaints of rt Shoulder Pain. 04:34 Patient presents to the ED with a right sided shoulder, right neck pain for about 1 rt week. Patient has been taking Tylenol, ibuprofen, Tylenol 3 was prescribed to her. States that they are not helping. Denies discrete injury. Denies other acute complaints at this time, symptoms are moderate in severity, aching nature, not otherwise radiating, no other aggravating alleviating factors.. Historical: - Allergies: 02:25 PENICILLINS; lg3 - PMHx: 02:25 GALLSTONES; Hypertension; lg3 - PSHx: 02:25 Cholecystectomy; lg3 - Immunization history:: Adult Immunizations up to date. - Infectious Disease History:: Denies. - Social history:: Smoking status: Patient denies any tobacco usage or history of. Patient/guardian denies using alcohol, street drugs. - Family history:: not pertinent. ROS: 04:34 Constitutional: Negative for fever, chills, and weight loss, Cardiovascular: Negative rt for chest pain, palpitations, and edema, Respiratory: Negative for shortness of breath, cough, wheezing, and pleuritic chest pain, Abdomen/GI: Negative for abdominal pain, nausea, vomiting, diarrhea, and constipation, 04:34 Neck: Positive for pain with movement, Negative for injury or acute deformity, 04:34 MS/extremity: Positive for pain, Negative for injury or acute deformity, Exam: 04:34 Constitutional: This is a well developed, well nourished patient who is awake, alert, rt and in no acute distress. Head/Face: Normocephalic, atraumatic. Chest/axilla: Normal chest wall appearance and motion. Nontender with no deformity. No lesions are appreciated. Cardiovascular: Regular rate and rhythm with a normal S1 and S2. No gallops, murmurs, or rubs. Normal PMI, no JVD. No pulse deficits. Respiratory: Lungs have equal breath sounds bilaterally, clear to auscultation and percussion. No rales, rhonchi or wheezes noted. No increased work of breathing, no retractions or nasal flaring. Abdomen/GI: Soft, non-tender, with normal bowel sounds. No distension or tympany. No guarding or rebound. No evidence of tenderness throughout. 04:34 Neck: Patient is focally tender over the right superior trapezius muscle, no midline tenderness, no meningismus, full range of motion, 04:34 Musculoskeletal/extremity: No focal tenderness to the right shoulder, no deformities. Vital Signs: 02:21 BP 164 / 110; Pulse 69; Resp 16 S; Temp 97.9(O); Pulse Ox 100% on R/A; Weight 104.33 kg lg3 (R); Height 5 ft. 2 in. (R); Pain 8/10; 04:22 BP 130 / 79; Pulse 61; Resp 16; Temp 97.7(O); Pulse Ox 100% on R/A; kd3 02:21 Body Mass Index 42.07 (104.33 kg, 157.48 cm) lg3 02:21 Pain Scale: Adult lg3 MDM: 02:25 Medical Screening Exam initiated rt 04:34 Differential diagnosis: Fracture, dislocation, cervical radiculopathy. Data reviewed: rt vital signs, nurses notes, radiologic studies. Independent interpretation of the following test(s) in the Emergency Department X-Ray: My interpretation is No dislocation seen on interpretation of x-ray images. Care significantly affected by the following chronic conditions: Hypertension. Counseling: I had a detailed discussion with the patient and/or guardian regarding the historical points, exam findings, and any diagnostic results supporting the discharge/admit diagnosis, radiology results, the need for outpatient follow up. Response to treatment: the patient's symptoms have mildly improved after treatment. 11/09 02:26 Order name: Shoulder Right (2 View) XRAY rt Administered Medications: 02:32 Drug: Cyclobenzaprine PO 10 mg PO once Route: PO; lg3 04:20 Follow up: Response: No adverse reaction lg3 02:32 Drug: Ketorolac IM 30 mg IM once Route: IM; Site: left deltoid; lg3 04:20 Follow up: Response: No adverse reaction lg3 Disposition Summary: 11/09/24 04:19 Discharge Ordered Notes: Location: Home rt Problem: an ongoing problem rt Symptoms: are unchanged rt Condition: Stable rt Diagnosis - Pain in right shoulder rt Followup: rt - With: Private Physician - When: 2 - 3 days - Reason: Discharge Instructions: - Discharge Summary Sheet rt - Shoulder Pain rt Forms: - Medication Reconciliation Form rt - Antibiotic Education rt - Prescription Opioid Use rt - Patient Portal Instructions rt - Leadership Thank You Letter rt Prescriptions: - Cyclobenzaprine 10 mg Oral tablet - take 1 tablet ORAL route every 8 hours As needed; 30 tablet; Refills: 0, rt Product Selection Permitted Signatures: Dispatcher [employer] Savannah Coats RN RN lg3 Chandu Velazquez MD MD rt
[2024-11-09 04:33] VITALS: O2SAT 100
[2024-11-09 04:35] VITALS: BP 130/79; TEMP 97.7
--- NOTE | 2024-11-09 05:19 | RAD REPORT ---
PROCEDURE: XR Right Shoulder , 2 Views CLINICAL INDICATION: The patient is 63 years old and is Female; PAIN Bed Name: [id number] TECHNIQUE: Two frontal views of the right shoulder. COMPARISON: No relevant prior studies available. FINDINGS: BONES/JOINTS: No acute fracture. No suspicious lytic or blastic bone lesions. No subluxation or dis location. SOFT TISSUES: Unremarkable IMPRESSION: No acute findings in the right shoulder. Electronically signed by: Rusty Bush MD 11/09/2024 04:06 AM CDT Due to temporary technical issues with the PACS/[employer] reporting system, reports are being luci d by the in-house radiologist without review as a courtesy to ensure prompt reporting the interpreting radiologist is fully responsible for the content of the report. Transcribed Date/Time: 11/09/2024 5:19 AM
== END 2024-11-09 04:24 | disposition home or self-care (01) ==
LOC: ER 02:05
DX: M25.511 Pain in right shoulder (principal); M54.2 Cervicalgia
CPT/HCPCS: 96372; 99284